=== PATIENT | female | born 1950 | race Caucasian/White ===

== ENCOUNTER 2019-07-21 12:49 | Outpatient (CLI) | payer MEDICARE, MEDICAID, SELFPAY ==
--- NOTE | 2019-07-21 12:57 | CT_ITS ---
WS: [id number] CT scan of the abdominal aorta and arteries of the lower extremities. Additional two-dimensional cor onal and sagittal reconstruction was performed. MIP images were also performed. 07/21/2019 Clinical Data: PVD Comparison: CT abdomen and pelvis, 04/19/2019. DLP: 2281.[address] scans at [facility] use at least one of these dose optimization techniques: automat ed exposure control; mA and/or kV adjustment per patient size (includes targeted exams where dose is matched to clinical indication); or iterative reconstruction. Findings: Vascular studies: Abdominal aorta is normal in size. No aneurysm, mural thrombus, extravasation, occl usion or stenosis is seen. The iliac arteries are normal without without stenosis or occlusion. The f emoral arteries, popliteal arteries and arteries of the trifurcation all fill normally. No occlusions or stenoses are seen. Abdominal and pelvic findings: The lower lungs show no nodules, masses or effusions. The liver shows a small cyst. The spleen, pancreas and adrenal glands show no significant abnormalities. There is a s mall left adrenal adenoma. The gallbladder is absent with clips in the gallbladder fossa from surgery . The kidneys show excellent contrast excretion. No masses are seen. The stomach, small bowel and col on are unremarkable. There is a small right paramedian soft tissue hernia which contains only fat. No abscess, adenopathy, ascites, mass, obstruction or free air is seen. No appendicitis or diverticulit is is present. The bladder is normal. The uterus is absent. Degenerative arthritic change of the lowe r thoracic vertebral bodies in the lower vertebral bodies is noted. CT/CT angio abd aorta runof [id number] Impression: 1. Negative for significant peripheral vascular disease. 2. Normal abdominal aorta. 3. No acute intra-abdominal or pelvic abnormalities are seen.
[2019-07-21 13:41] LABS: Blood Urea Nitrogen 20 mg/dL (8-23); Glomerular Filtration Rate 49.1 mL/min (90-130)
[2019-07-21] MEDS: iodixanol 320 mg/mL 100mL Btl IV (14:25)
== END 2019-07-21 12:50 | disposition home or self-care (01) ==
LOC: RAD 12:53
PROVIDERS: Family Provider Family Medicine; PCP Family Medicine; Visit Provider Internal Medicine Cardiovascular Disease
DX: I73.9 Peripheral vascular disease, unspecified (principal)
CPT/HCPCS: 36415; 75635; 82565; 84520

== ENCOUNTER 2019-08-11 12:33 | Emergency (ER) | payer MEDICARE, MEDICAID, SELFPAY ==
--- NOTE | 2019-08-11 12:37 | XRR_ITS ---
PROCEDURE INFORMATION: Exam: XR Chest, 1 View Exam date and time: 08/11/2019 1:41 PM Age: 69 years old Clinical indication: Chest pain; Additional info: Chest pain, shortness of breath since last pm TECHNIQUE: Imaging protocol: XR of the chest Views: 1 view. COMPARISON: CR Chest 1 [place] [id number] 03/13/2017 12:37 AM FINDINGS: Lungs: Unremarkable. No consolidation. Pleural space: Unremarkable. No pleural effusion. No pneumothorax. Heart/Mediastinum: Unremarkable. No cardiomegaly. Bones/joints: Unremarkable. Metallic surgical clips is seen in the left upper quadrant. There has been no interval changes since prior examination XR/XR chest 1V portable [id number] IMPRESSION: No acute findings. Metallic surgical clips left upper quadrant
[2019-08-11 12:50] VITALS: BP 127/88; PULSE 80; RESP 18; TEMP 36.4; O2SAT 97; BMI 45.7
[2019-08-11 14:08] LABS: Basophils # 0.1 10^3/uL (0.0-0.1); Basophils % 1.1 %; Eosinophils # 0.2 10^3/uL (0.0-0.8); Eosinophils % 2.6 %; Hematocrit 36.9 % (37.0-47.0); Hemoglobin 11.3 g/dL (11.5-15.3); Lymphocytes # 1.4 10^3/uL (0.8-4.8); Lymphocytes % 20.6 %; Mean Corpuscular HGB Conc 30.6 g/dL (30.0-36.0); Mean Corpuscular Hemoglobin 28.8 pg (28.0-34.0); Mean Corpuscular Volume 93.9 fL (81-99); Mean Platelet Volume 8.8 fL (7.4-10.4); Monocytes # 0.4 10^3/uL (0.2-0.9); Monocytes % 6.3 %; Neutrophils # 4.8 10^3/uL (1.8-7.7); Neutrophils % 69.1 %; Nucleated Red Blood Cells % 0 %; Platelet Count 291 10^3/cmm (130-400); Red Blood Count 3.93 10^6/uL (4.1-5.3); Red Cell Distribution Width 16.7 % (12.1-15.1)
[2019-08-11 14:27] LABS: Troponin(5th) Baseline 19 ng/mL (0-10)
[2019-08-11 14:32] LABS: Alanine Aminotransferase 14 U/L (0-33); Albumin Level 4.1 g/dL (3.5-5.2); Alkaline Phosphatase 107 IU/L (35-105); Anion Gap 17.4 (5-19); Aspartate Amino Transferase 19 U/L (0-32); Blood Urea Nitrogen 20 mg/dL (8-23); Carbon Dioxide 21 mmol/L (22-29); Chloride 103 mmol/L (98-107); Glomerular Filtration Rate 44.4 mL/min (90-130); Glucose 111 mg/dL (74-106); NT Pro B Type Natriuretic Pept 228 pg/mL (0-125); Potassium 4.4 mmol/L (3.5-5.1); Sodium 137 mmol/L (136-145); Total Bilirubin 0.2 mg/dL (0.15-1.2); Total Protein 6.1 g/dL (6.6-8.7)
--- NOTE | 2019-08-11 14:37 | ECG_ITS ---
Measurements Intervals [place] Rate: 78 P: WA: 0 QRS: 2 QRSD: 100 T: 37 QT: 378 QTc: 431 Normal sinus rhythm with frequent PACs ABNORMAL RHYTHM ECG INTERPRETATION BASED ON A DEFAULT AGE OF 40 YEARS Compared to ECG 03/12/2017 23:11:58 Sinus tachycardia no longer present T-wave abnormality no longer present Electronically Signed On 08-11-2019 15:40:59 HAND PAINTER by Tiara Turcios M.D. [email or web address]
[2019-08-11 14:44] LABS: Calcium 9.5 mg/dL (8.5-10.5)
[2019-08-11 16:48] LABS: Troponin 5 2HR 19.95 ng/mL (0-10); Troponin 5 2HR Delta 0.95 ABS# (0-10)
[2019-08-11 17:07] VITALS: BP 139/86; PULSE 78; RESP 20; TEMP 36.3; O2SAT 100
--- NOTE | 2019-08-11 18:37 | ECG_ITS ---
Measurements Intervals [place] Rate: 86 P: -78 IL: 100 QRS: 0 QRSD: 78 T: 52 QT: 365 QTc: 439 Possible normal sinus rhythm Compared to ECG 03/12/2017 23:11:58 Sinus tachycardia no longer present T-wave abnormality no longer present Electronically Signed On 08-11-2019 15:39:27 SPECIALIZED DEVELOPER by Tiara Turcios M.D. [email or web address]
== END 2019-08-11 18:26 | disposition left against medical advice (07) ==
LOC: ER 15:25
PROVIDERS: Emergency Medicine; Emergency Provider Family Medicine; Family Provider Family Medicine; PCP Family Medicine
DX: Z53.21 Procedure and treatment not carried out due to patient leaving prior to being seen by health care provider (principal); R07.9 Chest pain, unspecified
CPT/HCPCS: 36415; 71045; 80053; 83880; 84484; 85025; 93005; 99281

== ENCOUNTER 2020-05-06 12:38 | Outpatient (CLI) | payer MEDICARE, MEDICAID, SELFPAY ==
--- NOTE | 2020-05-06 12:54 | MM_ITS ---
WS: [id number] BILATERAL DIGITAL SCREENING MAMMOGRAPHY WITH CAD CLINICAL INFORMATION: SCREEN HISTORY: Screening mammogram. No current complaints. COMPARISON: March 21, 2019 TECHNIQUE: Bilateral CC and MLO views. FINDINGS: Scattered fibroglandular densities bilaterally. No suspicious focal mass, asymmetry, calcifications, or architectural distortion. No evidence of malignancy. MM/[place] [id number] IMPRESSION: BI-RADS: 1-Negative FOLLOW UP: 1 Year Follow-up Recommend return to annual screening mammography.
== END 2020-05-06 12:39 | disposition home or self-care (01) ==
LOC: RADSHAW 12:42
PROVIDERS: PCP Family Medicine; Visit Provider Family Medicine
DX: Z12.31 Encounter for screening mammogram for malignant neoplasm of breast (principal)
CPT/HCPCS: 77067

== ENCOUNTER 2020-11-05 13:37 | Outpatient (CLI) | payer MEDICARE, MEDICAID, SELFPAY ==
--- NOTE | 2020-11-05 13:46 | XR_ITS ---
WS: [id number] RIGHT KNEE: 3 VIEW(S) TECHNIQUE: AP, oblique(s) and lateral. HISTORY: PAIN IN RIGHT KNEE COMPARISON: 05/28/2016 No fracture or dislocation. Severe degenerative changes in the medial and patellofemoral compartments. In the medial compartment there is near bone upon bone with sclerosis and hypertrophic formation along the joint line. Similar findings at the patellofemoral articulation. Large calcific density posterior to the femoral condyles measures 2.0 cm. No joint effusion. XR/XR knee RT 3V* [id number] IMPRESSION: 1. Severe osteoarthritis in the medial and patellofemoral compartments. 2. Calcific density posterior to the femoral condyles may be within the joint space or associated with the Francisco's cyst.
== END 2020-11-05 13:38 | disposition home or self-care (01) ==
PROVIDERS: PCP Family Medicine; Visit Provider Nurse Practitioner
DX: M17.11 Unilateral primary osteoarthritis, right knee (principal)
CPT/HCPCS: 73562

== ENCOUNTER 2021-05-12 10:44 | Outpatient (CLI) | payer MEDICARE, MEDICAID, SELFPAY ==
--- NOTE | 2021-05-12 10:51 | FL_ITS ---
WS: [id number] Exam: FL barium swallow modifd [id number] Date/Time of Exam: 05/12/2021 11:02 AM Reason For Exam: Other dysphagia Fluoroscopy time: minutes This exam was performed in conjunction with the speech therapy department. The patient tolerated thin liquid, nectar consistency, and pudding consistency barium foodstuffs with out aspiration or penetration. The patient also tolerated solid barium mixture foodstuffs without inc ident. The patient swallowed a barium pill which passed into the stomach. There was moderate spasm of the mid esophagus noted during fluoroscopic evaluation. Swallowing function at the level of orophary nx appeared grossly normal FL/FL barium swallow modifd 92475 IMPRESSION: 1. The patient tolerated all consistencies of barium mixture foodstuffs without penetration or aspiration. 2. Presbyesophagus. A separate report and recommendations from the speech therapy department will gorge abreu.
== END 2021-05-12 10:45 | disposition home or self-care (01) ==
LOC: RAD 10:47
PROVIDERS: PCP Family Medicine; Visit Provider Family Medicine
DX: R13.10 Dysphagia, unspecified (principal)
CPT/HCPCS: 74230; 92611

== ENCOUNTER 2021-06-23 13:01 | Outpatient (CLI) | payer MEDICARE, MEDICAID, SELFPAY ==
--- NOTE | 2021-06-23 13:14 | MM_ITS ---
WS: [id number] SCREENING DIGITAL MAMMOGRAM WITH CAD HISTORY: SCREENING COMPARISON: 05/06/2020, 03/21/2019, 03/11/2018 Bilateral CC and MLO views submitted. Computer aided detection analyzed. Breast composition: There are scattered areas of fibroglandular density. There is increased soft tiss ue density in the anterior RIGHT breast in the subareolar location. On the lateral projection there i s 2 nodules. One of these is probably the nipple which is inverted. Inferior nodule measures 8 mm and is to be further evaluated. MM/[place] [id number] IMPRESSION: BI-RADS: 0-Incomplete: Need additional imaging evaluation FOLLOW UP: Need Additional Imaging RIGHT breast: Spot compression views (CC and MLO). Additional imaging RIGHT swetha ast with nipple marker RIGHT MLO projection. True ML. Ultrasound to follow if a bnormality persists.
== END 2021-06-23 13:02 | disposition home or self-care (01) ==
LOC: RADSHAW 13:05
PROVIDERS: PCP Family Medicine; Visit Provider Family Medicine
DX: Z12.31 Encounter for screening mammogram for malignant neoplasm of breast (principal)
CPT/HCPCS: 77067

== ENCOUNTER 2021-07-22 12:29 | Outpatient (CLI) | payer MEDICARE, MEDICAID, SELFPAY ==
--- NOTE | 2021-07-22 13:09 | US_ITS ---
WS: [id number] ADDITIONAL VIEWS RIGHT BREAST RIGHT breast ultrasound, limited HISTORY: ABNORMAL MAMMO COMPARISON: 06/23/2021, 05/06/2020 and 03/21/2019 Compression views right CC and MLO projection. True ML also submitted. Asymmetry with mild skin thickening involving the anterior RIGHT breast persists. There is no discret e nodule or distortion. The most concerning feature is the skin thickening anteriorly. RIGHT breast ultrasound, limited. Ultrasound is directed to the anterior breast. There are several dilated ducts just posterior to the nipple, greatest at the 9:00 axis. There is increased soft tissue and low level echoes within several of the ducts with the largest area of concern measuring 1.0 x 2.1 x 0.6 cm. No increased vascularity . US/US breast RT limited* [id number] IMPRESSION: BI-RADS: 4-Suspicious Finding-Biopsy Should Be Considered FOLLOW-UP: Biopsy Recommended Ultrasound-guided biopsy recommended of the dilated duct at 9:00 RIGHT breast. This may be benign duct ectasia but malignancy needs to be excluded. There is a lso adjacent skin thickening measuring 3 mm. Punched biopsy may be necessary if skin thickening. Notified Severino Hernández MD at 07/22/2021 4:05 PM. Message left at the answering desk.
== END 2021-07-22 12:30 | disposition home or self-care (01) ==
LOC: RADSHAW 12:37
PROVIDERS: PCP Family Medicine; Visit Provider Family Medicine
DX: R92.8 Other abnormal and inconclusive findings on diagnostic imaging of breast (principal); N63.15 Unspecified lump in the right breast, overlapping quadrants
CPT/HCPCS: 76642; 77065

== ENCOUNTER 2021-07-29 12:34 | Outpatient (RCR) | payer MEDICARE, MEDICAID, SELFPAY | END 2021-08-18 23:59 | disposition home or self-care (01) | LOC: SST 12:34 | PROVIDERS: PCP Family Medicine; Visit Provider Family Medicine | DX: R13.10 Dysphagia, unspecified (principal); R06.1 Stridor | CPT/HCPCS: 92610 ==

== ENCOUNTER 2021-08-13 12:49 | Outpatient (CLI) | payer MEDICARE, MEDICAID, SELFPAY ==
--- NOTE | 2021-08-13 12:56 | US_ITS ---
WS: [id number] ULTRASOUND-GUIDED RIGHT BREAST BIOPSY CLINICAL INFORMATION: BREAST NODULE, RIGHT COMPARISON: None. FINDINGS: The procedure including risks, benefits, and complications were discussed with the patient who agreed to proceed. Using sterile technique patient was prepped and draped in the usual sterile fashion. Aft er 1% lidocaine utilizing real-time ultrasound guidance 14-gauge cores were obtained of the RIGHT swetha ast lesion at the subareolar 9 o'clock position. Subsequently a titanium clip was placed in the biops y cavity. No immediate complications. Pathology demonstrates A. Breast, right breast mass , ultrasound-guided biopsy: -Benign breast tissue with focal duct ectasia. -No malignancy identified. US/[place] [id number] IMPRESSION: 1. Uncomplicated ultrasound-guided RIGHT breast biopsy. 2. The pathology demonstrates benign focal duct ectasia. No malignancy identif ied. 3. Recommend 6 month follow-up RIGHT breast diagnostic mammography and ultraso und postbiopsy BI-RADS: 2-Benign FOLLOW UP: 6 Month Follow-up
== END 2021-08-13 12:50 | disposition home or self-care (01) ==
LOC: RAD 12:51
PROVIDERS: PCP Family Medicine; Visit Provider Family Medicine
DX: N63.10 Unspecified lump in the right breast, unspecified quadrant (principal); N60.41 Mammary duct ectasia of right breast
CPT/HCPCS: 19083; 88305

== ENCOUNTER → 2021-09-30 11:50 | Outpatient (BNVA) | payer MEDICARE, MEDICAID, SELFPAY | PROVIDERS: PCP Family Medicine; Visit Provider Nurse Practitioner Family | DX: N30.90 Cystitis, unspecified without hematuria (principal) | CPT/HCPCS: 81003; 87086 ==

== ENCOUNTER → 2021-10-21 13:14 | Outpatient (BNVA) | payer MEDICARE, MEDICAID, SELFPAY | PROVIDERS: PCP Nurse Practitioner Family; Visit Provider Internal Medicine Critical Care Medicine | DX: R06.02 Shortness of breath (principal); R06.1 Stridor; Z87.891 Personal history of nicotine dependence; I10 Essential (primary) hypertension; E11.8 Type 2 diabetes mellitus with unspecified complications; N30.90 Cystitis, unspecified without hematuria; I73.9 Peripheral vascular disease, unspecified; E66.9 Obesity, unspecified | CPT/HCPCS: 99204 ==

== ENCOUNTER → 2021-11-10 10:59 | Outpatient (BNVA) | payer MEDICARE, MEDICAID, SELFPAY | PROVIDERS: PCP Nurse Practitioner Family; Visit Provider Otolaryngology | DX: R06.1 Stridor (principal); R06.02 Shortness of breath; Z87.891 Personal history of nicotine dependence | CPT/HCPCS: 31575; 99203; 99204 ==

== ENCOUNTER 2021-11-12 13:07 | Observation (INO) | payer MEDICARE, MEDICAID, SELFPAY ==
[2021-11-12] VITALS (13 sets, daily range): BP systolic 141–191; BP diastolic 77–109; PULSE 74–95; RESP 13–25; TEMP 36.3–36.8; O2SAT 94–100; BMI 45.1
--- NOTE | 2021-11-12 13:38 | XR_ITS ---
WS: [id number] Portable AP upright chest, 11/12/2021 Clinical Data: dyspnea Comparison: PA chest, 05/31/2020. Findings: No nodules, masses or effusions are seen. The heart is normal. The pulmonary vascularity is not increased. No pneumonia or pneumothorax is seen. The aortic arch and descending aorta show mild tortuosity. There are upper abdominal surgical clips. Monitor leads are on the chest wall. XR/XR chest 1V portable [id number] Impression: Atherosclerosis.
--- NOTE | 2021-11-12 13:39 | ECG_ITS ---
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 Measurements Intervals [place] Rate: 78 P: 94 NE: 138 QRS: 7 QRSD: 85 T: 25 QT: 411 QTc: 470 Interpretive Statements SINUS RHYTHM WITH OCCASIONAL VENTRICULAR PREMATURE COMPLEXES WITH OCCASIONAL SUPRAVENTRICULAR PREMATURE COMPLEXES Compared to ECG 08/11/2019 14:47:01 Ventricular premature complex(es) now present Electronically Signed On 11-12-2021 16:55:34 CDT by Victor Manuel Andujar M.D. [id number]
--- NOTE | 2021-11-12 13:43 | PC.NURSE ---
PT placed on continuous NIBP, SpO2, and CM
--- NOTE | 2021-11-12 13:49 | CT_ITS ---
WS: [id number] CT HEAD NONCONTRAST HISTORY: vertigo TECHNIQUE: Contiguous axial imaging performed through the brain in 2.5 mm imaging. Bone and soft tiss ue windows. Sagittal and coronal reformats reviewed. All CT scans at [facility] use at least one of these dose optimization techniques: automated exposure control; mA and/or kV adjustment per pa tient size (includes targeted exams where dose is matched to clinical indication); or iterative recon struction. DLP: 745.32 mGy.cm COMPARISON: 03/12/2017 No acute intracranial hemorrhage, midline shift or mass effect. Mild cerebellar atrophy. Mild cerebral atrophy and chronic microvascular ischemic changes. There are a few scattered areas of decreased attenuation at the donnelly-white matter junction which are nonspecific probably related to adama ng and small vessel ischemic disease. Ventricles: Normal size with no hydrocephalus. Paranasal sinuses: As visualized are clear. Mastoid air cells: Well pneumatized. Calvarium and scalp: Skull is intact with no soft tissue edema or swelling. CT/CT head wo con* [id number] IMPRESSION: 1. No acute intracranial hemorrhage or edema. 2. Mild atrophy and small vessel ischemic disease.
--- NOTE | 2021-11-12 13:49 | CT_ITS ---
WS: [id number] CT ANGIOGRAM CEREBRAL AND CAROTID ARTERIES HISTORY: vertigo TECHNIQUE: CT angiogram is performed of the carotid and cerebral arteries. During arterial injection imaging is obtained from the skull vertex to the aortic arch in 1.25 mm imaging. Coronal and sagittal reformats are submitted. Additional multi planar reformats of the carotid and cerebral arteries are submitted, MIP imaging also reviewed. NASCET criteria utilized. [facility] least one of these dose optimization techniques: automated exposure control; mA and/or kV adjust ment per patient size (includes targeted exams where dose is matched to clinical indication); or iter ative reconstruction. CONTRAST: Omnipaque 350; 95 mL IV. DLP: 2147.07 mGy.cm COMPARISON: No similar studies. Carotid Angiogram: Right carotid: Common carotid artery: Arises normally from the innominate artery. No significant plaque or stenosis. Internal carotid artery: No plaque or stenosis. External carotid artery: Patent. Left carotid: Common carotid artery: Arises normally from the aorta. No significant plaque or stenosis. Internal carotid artery: Mild atherosclerotic plaque. No high-grade stenosis. External carotid artery: Patent. Right vertebral artery: Small caliber but patent. Left vertebral artery: Unremarkable. Arises normally from the subclavian artery. Subclavian arteries: RIGHT subclavian artery is normal. Poor visualization of the LEFT subclavian art sen due to contrast injection bolus. Upper thorax: Normal. Thyroid gland: Normal. Osseous structures: Unremarkable. CEREBRAL ANGIOGRAM: Intracranial vertebral arteries: Small caliber distal vertebral artery on the RIGHT but patent. Margie l LEFT vertebral artery. Basilar artery: No significant stenosis or occlusion. No aneurysm. Intracranial Internal carotid arteries: Demonstrates no significant stenosis or plaque. Middle cerebral arteries: Normal. Anterior cerebral arteries and ACOM: Normal. Posterior cerebral arteries and PCOM's: Normal. Dural venous sinuses are normally enhancing. Mastoid air cells: Normal. Paranasal sinuses: Normal. Calvarium: Normal. CT/CT angio headneck* [id number] IMPRESSION: 1. No significant carotid artery stenosis. Mild atherosclerotic plaque on the LEFT. 2. Unremarkable [place].
[2021-11-12 13:52] LABS: Basophils # 0.1 10^3/uL (0.0-0.1); Basophils % 1.3 %; Eosinophils # 0.1 10^3/uL (0.0-0.8); Eosinophils % 1.4 %; Hematocrit 35.7 % (37.0-47.0); Hemoglobin 11.6 g/dL (11.5-15.3); Lymphocytes # 0.9 10^3/uL (0.8-4.8); Mean Corpuscular HGB Conc 32.5 g/dL (30.0-36.0); Mean Corpuscular Hemoglobin 28.3 pg (28.0-34.0); Mean Corpuscular Volume 87.1 fl (81-99); Mean Platelet Volume 9.4 fL (7.4-10.4); Monocytes # 0.4 10^3/uL (0.2-0.9); Monocytes % 7.7 %; Neutrophils # 4.06 10^3/uL (1.8-7.7); Neutrophils % 73.2 %; Nucleated Red Blood Cells % 0 %; Platelet Count 331 10^3/cmm (130-400); Red Cell Distribution Width 13.9 % (12.1-15.1); White Blood Count 5.6 10^3/uL (4.0-10.0)
[2021-11-12] MEDS: sodium chloride 0.9% 500 ML IV (14:00)
[2021-11-12] MEDS: meclizine 25 mg tablet 50 MG PO (14:01)
--- NOTE | 2021-11-12 14:03 | ED_ITS ---
HPI - General Adult General: Chief complaint: Shortness of Breath/Dyspnea Stated complaint: SOB/ DIZZINESS Time Seen by Provider: 11/12/21 13:27 History of Present Illness: Patient is a 71-year-old female with history of diabetes, hypertension, COPD and asthma on 3 L of oxygen presenting to the emergency room for concerns of dizziness and worsening lightheadedness. Per patient's family, since yesterday afternoon at 1 PM, patient has been experiencing intermittent vertigo symptoms. Patient has a history of vertigo in the past which has now worsened despite taking meclizine. Patient says that he she has had intermittent episodes of vertigo sensation lasting for a few hours at a time. Patient denies any nausea/vomiting or focal weakness in the arms or legs, facial droop, slurring of speech, vision change or dysarthria or language problems. In addition, per family, patient has been noted to be wheezing and short of breath for 1 day. Patient has a chronic cough and now has had productive sputum today. Patient received breathing treatment at home without significant improvement. EMS was called, patient was brought to the emergency room for further evaluation. Onset:2 days ago Duration:2 days Location:home Severity:moderate Associated symptoms: Reports dyspnea; Deny chest pain, nausea, rash, palpitations or vomiting Review of Systems Const: Denies: fever(s) or chills Eyes: Denies: change in vision ENMT: Denies: mouth pain Card: Denies: chest pain or palpitations Resp: Reports: dyspnea and productive cough GI: Denies: abdominal pain, nausea, vomiting or diarrhea : Denies: dysuria Musc: Denies: extremity pain Skin/Breast: Denies: rash or new lesions Neuro: Reports: other (+vertigo); Denies: weakness in extremities Psych: Reports: other (Normal mood) Ben/Lymph: Denies: easy bruising PFSH ED PFSH: Medical History Cystitis Diabetes Hypertension Obesity Peripheral Vascular Disease Recurrent UTI Surgical History S/P appendectomy S/P CABG (coronary artery bypass graft) S/P cholecystectomy S/P hysterectomy Family History Mother , AT 78 Cancer BREAST AND SPINE Grandmother Cancer Father , AT 62 Heart attack Other CAD (coronary artery disease) Hypertension Social History Smoking and tobacco status: former smoker (quit since ) Quit status (tobacco): has quit using tobacco Year quit tobacco: 1985 Former quit date comment: 1 ppd X 15 years, Started at age 14 Alcohol intake: never Marital status: Current occupational status: disabled History of recent travel: No Physical Exam Const: COMMON NORMALS: alert HENMT: COMMON NORMALS: atraumatic HEAD & SCALP: atraumatic MOUTH: moist mucous membranes not abnormal Eye: COMMON NORMALS: EOMs intact bilaterally and conjunctivae normal CONJUNCTIVA: Yes conjunctivae normal Neck/C-Spine: COMMON NORMALS: full ROM and supple Resp: COMMON NORMALS: normal respiratory effort and clear to auscultation bilaterally AUSCULTATION: clear to auscultation bilaterally Cardio: COMMON NORMALS: regular rate RATE: regular rate GI: COMMON NORMALS: Soft to palpation and non-tender PALPATION: Yes Soft to palpation Extremity: COMMON NORMALS: full ROM Neuro: SENSORIUM/ORIENTATION: Yes alert MOTOR EXAM: No Abnormal motor strength present and Other motor observations present (no focal motor deficits) Psych: COMMON NORMALS: speech normal SPEECH: Yes normal speech MOOD & AFFECT: Yes euthymic mood Course Vital Signs: Vital signs: Vital Signs Temperature 97.9 F 11/13/21 15:10 Pulse Rate 88 11/13/21 15:10 Respiratory Rate 18 11/13/21 15:10 Blood Pressure 169/94 11/13/21 15:10 Pulse Oximetry 93 11/13/21 15:10 MDM - General Adult Medical Decision Making 71-year-old female presenting to the emergency room with worsening lightheadedness. Troponin x2 with delta less than 5. EKG is nonischemic. CT head negative for any acute finding. CT head negative for any acute pathology. Patient will be admitted to hospital for lightheadedness work-up. Lab Data : 11/13/21 05:57 11/13/21 05:[address] 11/12/21 13:49 IMPRESSION: 1. No acute intracranial hemorrhage or edema. 2. Mild atrophy and small vessel ischemic disease. Head/Neck CTA 11/12/21 13:49 IMPRESSION: 1. No significant carotid artery stenosis. Mild atherosclerotic plaque on the LEFT. 2. Unremarkable the [place]. Chest CT 11/12/21 15:06 IMPRESSION: 1. Mild thickening of the interlobular septa. May be due to pneumonitis or mild fluid overload. No focal dense consolidation or pneumonia. 2. Enlarged pulmonary artery. Correlate for possible pulmonary hypertension. 3. Prior cholecystectomy and gastric bypass. 4. Hepatic cyst. Chest X-Ray 11/13/21 07:43 IMPRESSION: No evidence of active cardiopulmonary disease. Laboratory Results WBC 5.6 10^3/uL (4.0-10.0) 11/12/21 12:46 RBC 4.10 10^6/uL (4.1-5.3) 11/12/21 12:46 Hgb 11.6 g/dL (11.5-15.3) 11/12/21 12:46 Hct 35.7 % (37.0-47.0) L 11/12/21 12:46 MCV 87.1 fl (81-99) 11/12/21 12:46 MCH 28.3 pg (28.0-34.0) 11/12/21 12:46 MCHC 32.5 g/dL (30.0-36.0) 11/12/21 12:46 RDW 13.9 % (12.1-15.1) 11/12/21 12:46 Plt Count 331 10^3/cmm (130-400) 11/12/21 12:46 MPV 9.4 fL (7.4-10.4) 11/12/21 12:46 Neut % (Auto) 73.2 % 11/12/21 12:46 Lymph % (Auto) 16.0 % 11/12/21 12:46 [place] % (Auto) 7.7 % 11/12/21 12:46 Eos % (Auto) 1.4 % 11/12/21 12:46 Baso % (Auto) 1.3 % 11/12/21 12:46 Neut # (Auto) 4.06 10^3/uL (1.8-7.7) 11/12/21 12:46 Lymph # (Auto) 0.9 10^3/uL (0.8-4.8) 11/12/21 12:46 [place] # (Auto) 0.4 10^3/uL (0.2-0.9) 11/12/21 12:46 Eos # (Auto) 0.1 10^3/uL (0.0-0.8) 11/12/21 12:46 Baso # (Auto) 0.1 10^3/uL (0.0-0.1) 11/12/21 12:46 Nucleated RBC % (auto) 0 % 11/12/21 12:46 Nucleated RBCs # 0.0 /100WBC 11/12/21 12:46 Specimen Type Arterial 11/12/21 15:50 Sample Site Radial, right 11/12/21 15:50 ABG pH 7.46 (7.35-7.45) H 11/12/21 15:50 ABG pCO2 29.3 mmHg (35-45) L 11/12/21 15:50 ABG pO2 126.0 mmHg (80.0-100.0) H 11/12/21 15:50 ABG HCO3 20.8 mmol/L (22-26) L 11/12/21 15:50 ABG O2 Saturation 97.6 11/12/21 15:50 ABG Base Excess -2.2 mmol/L (-2.0-2.0) L 11/12/21 15:50 [place] Test Pos 11/12/21 15:50 Hematocrit 34.3 % (37-47) L 11/12/21 15:50 Hgb O2 Saturation 97.0 % (95-100) 11/12/21 15:50 Carboxyhemoglobin < 0.0 %THgb (0.4-20.1) L 11/12/21 15:50 Methemoglobin 0.9 % (0.4-1.5) 11/12/21 15:50 Total Hemoglobin 11.2 g/dL (12-16) L 11/12/21 15:50 Sodium 128.0 mmol/L (131-143) L 11/12/21 15:50 Potassium 3.7 mmol/L (3.5-5.0) 11/12/21 15:50 Glucose 121.0 mg/dL (70-115) H 11/12/21 15:50 Ionized Calcium 1.2 mmol/L (1.1-1.4) 11/12/21 15:50 O2 Delivery Device Nc 11/12/21 15:50 O2 Liters/Min 3.0 % 11/12/21 15:50 Weaving Inspector ID Jasonja 11/12/21 15:50 Sodium 129 mmol/L (136-145) L 11/12/21 12:46 Potassium 4.4 mmol/L (3.5-5.1) 11/12/21 12:46 Chloride 93 mmol/L (98-107) L 11/12/21 12:46 Carbon Dioxide 22 mmol/L (22-29) 11/12/21 12:46 Anion Gap 18.4 (5-19) 11/12/21 12:46 BUN 11 mg/dL (8-23) 11/12/21 12:46 Creatinine 1.0 mg/dL (0.5-0.9) H 11/12/21 12:46 GFR Calculation Not Reportable 11/12/21 12:46 Glucose 99 mg/dL (65-115) 11/12/21 12:46 Calculated Osmolality 267 mOsm/kg (285-295) L 11/12/21 12:46 Calcium 8.8 mg/dL (8.5-10.5) 11/12/21 12:46 Troponin T Baseline 19 ng/L (0-10) H 11/12/21 12:46 Troponin T 120 Minute 18.82 ng/L (0-10) H 11/12/21 15:10 Delta Troponin T -0.18 ABS# (0-10) L 11/12/21 15:10 NT-Pro-B Natriuret Pep 1078 pg/mL (0-125) H 11/12/21 12:46 Urine Color Yellow (Yellow) 11/12/21 16:07 Urine Appearance Clear (CLEAR) 11/12/21 16:07 Urine pH 7 (5-7) 11/12/21 16:07 Ur Specific [place] 1.005 (1.005-1.030) 11/12/21 16:07 Urine Protein Neg (Negative) 11/12/21 16:07 Urine Glucose (UA) Norm (Normal) 11/12/21 16:07 Urine Ketones Negative (Negative) 11/12/21 16:07 Urine Blood Neg (Negative) 11/12/21 16:07 Urine Nitrate Negative (Negative) 11/12/21 16:07 Urine Bilirubin Neg (Negative) 11/12/21 16:07 Urine Urobilinogen Neg mg/dL (Negative) 11/12/21 16:07 Ur Leukocyte Esterase Negative (Negative) 11/12/21 16:07 Ur Random Sodium 86 mmol/L 11/12/21 16:07 Nasal Influ A H1 2009 PCR Not detected (NOT DETECT) 11/12/21 14:08 Coronavirus 229E (PCR) Not detected (NOT DETECT) 11/12/21 14:08 Influenza A (H1) PCR Not detected (NOT DETECT) 11/12/21 14:08 Influenza A (H3) PCR Not detected (NOT DETECT) 11/12/21 14:08 Influenza Type A (PCR) Not detected (NOT DETECT) 11/12/21 14:08 Influenza Type B (PCR) Not detected (NOT DETECT) 11/12/21 14:08 SARS-CoV-2 (PCR) Not detected (NOT DETECT) 11/12/21 14:08 Imaging Data Other Imaging: Radiologist's impression: [address] [address] XRay Report Signed Patient: Mayda Del Cid Unit #: [id number] : 1950 Age/Sex: 71 / F ADM Date: 11/12/21 Loc: ER Room/Bed: Attending Dr: Ordering Provider/Ordering MD: Jean Paul Butt MD Date of Service: 11/12/21 Procedure(s): XR chest 1V portable [id number] Accession Number(s): [id number] Report Number: [id number] WS: [id number] Portable AP upright chest, 11/12/2021 Clinical Data: dyspnea Comparison: PA chest, 05/31/2020. Findings: No nodules, masses or effusions are seen. The heart is normal. The pulmonary vascularity is not increased. No pneumonia or pneumothorax is seen. The aortic arch and descending aorta show mild tortuosity. There are upper abdominal surgical clips. Monitor leads are on the chest wall. XR/XR chest 1V portable [id number] Impression: Atherosclerosis. ? Dictated By: Chantal Moore MD Signed By: Chantal Moore MD Signed Date/Time: 11/12/21 1354 DD/ 1353 [facility] [address] [place] [address] CT Scan Report Signed Patient: Mayda Del Cid Unit #: [id number] : 1950 Age/Sex: 71 / F ADM Date: 11/12/21 Loc: [facility] Room/Bed: [facility] Attending Dr: Misti Swenson MD Ordering Provider/Ordering MD: Jean Paul Butt MD Date of Service: 11/12/21 Procedure(s): CT head wo con* [id number] Accession Number(s): [id number] Report Number: [id number] WS: [id number] CT HEAD NONCONTRAST HISTORY: vertigo TECHNIQUE: Contiguous axial imaging performed through the brain in 2.5 mm imaging. Bone and soft tissue windows. Sagittal and coronal reformats reviewed.? All CT scans at [facility] use at least one of these dose optimization techniques: automated exposure control; mA and/or kV adjustment per patient size (includes targeted exams where dose is matched to clinical indication); or iterative reconstruction. DLP: 745.32 mGy.cm COMPARISON: 03/12/2017 No acute intracranial hemorrhage, midline shift or mass effect. Mild cerebellar atrophy. Mild cerebral atrophy and chronic microvascular ischemic changes. There are a few scattered areas of decreased attenuation at the donnelly-white matter junction which are nonspecific probably related to aging and small vessel ischemic disease. Ventricles:? Normal size with no hydrocephalus. Paranasal sinuses: As visualized are clear. Mastoid air cells: Well pneumatized. Calvarium and scalp: Skull is intact with no soft tissue edema or swelling. CT/CT head wo con* [id number] IMPRESSION: ? 1.? No acute intracranial hemorrhage or edema. 2.? Mild atrophy and small vessel ischemic disease. ? Dictated By: Carolyn Almodovar DO Signed By: Carolyn Almodovar DO Signed Date/Time: 11/12/21 1544 DD/ 1541 Discharge Plan Discharge Patient Disposition: Admitted As Inpatient Admit Provider: Misti Swenson Clinical Impression: Wheezes, Dyspnea, Vertigo Condition: Stable Discharge Diet: Regular and Diabetic Discharge Activity: Resume usual activity and Oxygen as instructed Coding Level of Care Code ED Medical Staffing Coordinator for Chg Fwd Exam Comprehensive
[2021-11-12] MEDS: ipratropium-albuterol 3 mL Neb INHALATION ×4 (14:07→20:57)
[2021-11-12 14:29] LABS: Anion Gap 18.4 (5-19); Blood Urea Nitrogen 11 mg/dL (8-23); Calcium 8.8 mg/dL (8.5-10.5); Carbon Dioxide 22 mmol/L (22-29); Chloride 93 mmol/L (98-107); Glucose 99 mg/dL (65-115); Osmolality Calculated 267 mOsm/kg (285-295); Potassium 4.4 mmol/L (3.5-5.1); Sodium 129 mmol/L (136-145)
[2021-11-12 14:30] LABS: Troponin(5th) Baseline 19 ng/L (0-10)
[2021-11-12] MEDS: magnesium sulfate premix 2 GM/50 ML PIGGYBACK IV (14:57)
[2021-11-12 15:05] LABS: NT Pro B Type Natriuretic Pept 1078 pg/mL (0-125)
--- NOTE | 2021-11-12 15:06 | CT_ITS ---
WS: [id number] CT CHEST WITHOUT INTRAVENOUS CONTRAST HISTORY: sob TECHNIQUE: Contiguous 5 mm axial imaging performed on the thorax. Coronal and sagittal reformats are submitted. All CT scans at [facility] use at least one of these dose optimization techniques: automated exposure control; mA and/or kV adjustment per patient size (includes targeted exams where dose is matched to clinical indication); or iterative reconstruction. CONTRAST: None DLP: 765.01 mGy.cm COMPARISON: None available. Lungs and central airway: Mild pulmonary hyperinflation. There is diffuse mild thickening of the inte rlobular septa. No dense consolidations. No pleural effusion. Pleura: Normal. No pleural effusion. Heart and pericardium: Moderately enlarged heart. No effusion. Mediastinum and damian: On noncontrast exam no adenopathy is identified. Vessels: Marked dilatation of the pulmonary artery from pulmonary hypertension. Mild atherosclerosis aorta. Chest wall and lower neck: No soft tissue masses. Upper abdomen: Mild hepatic steatosis. Hepatic cyst measures 1.5 cm. Prior cholecystectomy. Postsurgi rosario changes of a gastric bypass. Osseous structures: Advanced degenerative changes in the mid thoracic spine. Remote healed rib fractu re mid RIGHT lateral thorax. CT/CT chest wo con [id number] IMPRESSION: 1. Mild thickening of the interlobular septa. May be due to pneumonitis or mil d fluid overload. No focal dense consolidation or pneumonia. 2. Enlarged pulmonary artery. Correlate for possible pulmonary hypertension. 3. Prior cholecystectomy and gastric bypass. 4. Hepatic cyst.
--- NOTE | 2021-11-12 15:27 | P.HP_ITS ---
Providers/Chief Complaint Admitting Physician: Misti Swenson MD Primary Care Provider: ANNE MARIE Chin Chief Complaint: SOB/ DIZZINESS History of Present Illness Mayda Del Cid is a 71 year old female with past medical history of diabetes mellitus type 2, hypertension, obesity, peripheral vascular disease, recurrent UTI, obesity, asthma presented to the hospital today with complaint of dizziness and worsening lightheadedness. She states that yesterday at 1 PM she has been experiencing intermittent vertigo symptoms. She has had vertigo in the past which has now worsened despite taking meclizine. She has had intermittent episodes of vertigo sensation lasting for few hours at a time. Patient has also been having wheezing and shortness of breath for the last 1 day. She does have a chronic cough and nonproductive sputum. She received a breathing treatment at home without significant improvement. She denies any nausea vomiting or arm or leg weakness, facial droop slurring of speech vision change or dysarthria or any language issues. SHe says she feels short of breath a and has been sleeping up in a recliner recently. Has not really felt any swelling of her lower ext remities. She is also very stressed as her is currently on life support in ICU. Daughter is present at bedside. Patient recently saw pulmonology about 2 weeks ago for evaluation and management of shortness of breath. Patient is a former smoker who quit 35 years ago. She was recommended to have a pulmonary function test 6-minute walk study nocturnal oximetry and echocardiogram done. She was placed on Symbicort to continue in the time being. She was also referred to ENT for evaluation of her expiratory stridor. Patient also saw ENT within the last 2 weeks and had a flexible laryngoscopy done. She has normal vocal cords. And she did have a little bit of a stridorous exhalation. No weakness or paralysis. Patient was referred back to go see tourist guide as there was no restriction of larynx found or narrowing of airway in the location. ED course: Blood pressure 157/98, respiratory 24, pulse rate 74, temp 97.4, pulse ox 98%. Patient was given 3 breathing treatments. CTA head and neck was ordered for her vertigo, CT head without contrast and CT chest was ordered. Hospitalist was called for admission. Initial labs were ordered which are all pending at this point. ABG, BNP, troponin pending. Medications/Allergies Home Medications Medication Instructions Recorded Confirmed Last Taken Type albuterol sulfate 90 mcg/actuation 2 puff INHALATION QID PRN 02/05/20 11/12/21 Unknown History aerosol inhaler (ProAir HFA) allopurinol 100 mg tablet 100 mg PO DAILY 02/05/20 11/12/21 Unknown History duloxetine 60 mg capsule,delayed 60 mg PO DAILY 02/05/20 11/12/21 Unknown History release (Cymbalta) metformin 500 mg tablet 500 mg PO DAILY 02/05/20 11/12/21 Unknown History metoprolol tartrate 25 mg tablet 12.5 mg PO BID 02/05/20 11/12/21 Unknown History montelukast 10 mg tablet 10 mg PO DAILY 02/05/20 11/12/21 Unknown History (Singulair) simvastatin 10 mg tablet 10 mg PO BEDTIME 02/05/20 11/12/21 Unknown History duloxetine 30 mg capsule,delayed 30 mg PO DAILY 07/21/21 11/12/21 Unknown History release (Cymbalta) gabapentin 300 mg capsule See Rx Instructions .ROUTE 07/21/21 11/12/21 Unknown History .COMPLEX cap hydrocodone 7.5 mg-acetaminophen 1 tab PO TID PRN 07/21/21 11/12/21 Unknown History 325 mg tablet magnesium oxide 400 mg PO DAILY 07/21/21 11/12/21 Unknown History metoclopramide HCl 10 mg tablet 10 mg PO TID 07/21/21 11/12/21 Unknown History (Reglan) pantoprazole 40 mg tablet,delayed 40 mg PO BID 07/21/21 11/12/21 Unknown History release (Protonix) vitamin B complex (B 1 tab PO DAILY 07/21/21 11/12/21 Unknown History Complex-Vitamin B12) cilostazol 50 mg tablet 50 mg PO BID #180 tab 09/08/21 11/12/21 Unknown Rx bupropion HCl 100 mg tablet,12 hr 100 mg PO BID 09/30/21 11/12/21 Unknown History sustained-release cefuroxime axetil 500 mg tablet 500 mg PO BID #60 tab 09/30/21 11/12/21 Unknown Rx docusate sodium 100 mg tablet 100 mg PO BID 09/30/21 11/12/21 Unknown History lisinopril 20 mg tablet 10 mg PO DAILY tab 09/30/21 11/12/21 Unknown History lubiprostone 24 mcg capsule 24 mcg PO BID 09/30/21 11/12/21 Unknown History multivitamin with minerals 1 tab PO DAILY 09/30/21 11/12/21 Unknown History (Hair,Skin and Nails) oxybutynin chloride 10 mg 10 mg PO BEDTIME 09/30/21 11/12/21 Unknown History tablet,extended release 24 hr Nervive 1 tab PO DAILY 11/12/21 11/12/21 Unknown History albuterol sulfate 2.5 mg INHALATION Q8H PRN 11/12/21 11/12/21 Unknown History budesonide-formoterol HFA 80 2 puff INHALATION BID 11/12/21 11/12/21 Unknown History mcg-4.5 mcg/actuation aerosol inhaler (Symbicort) clotrimazole 1 % topical cream 1 applic TOPICAL BID 11/12/21 11/12/21 Unknown History (Antifungal (clotrimazole)) estradiol See Rx Instructions .ROUTE .COMPLEX 11/12/21 11/12/21 Unknown History levothyroxine 88 mcg tablet 88 mcg PO QAM 11/12/21 11/12/21 Unknown History loratadine 10 mg tablet (Claritin) 10 mg PO DAILY 11/12/21 11/12/21 Unknown History meclizine 25 mg tablet 25 mg PO TID 11/12/21 11/12/21 Unknown History multivitamin with minerals-folic 2 tab PO DAILY 11/12/21 11/12/21 Unknown History acid 200 mcg chewable tablet (Multivitamin Gummies) potassium gluconate 595 mg (99 mg) 595 mg PO DAILY 11/12/21 11/12/21 Unknown History tablet Allergies Allergy/AdvReac Type Severity Reaction Status Date / Time alcohol Allergy ALGY-Redness Verified 11/10/21 08:44 of Skin ciprofloxacin [From Cipro] Allergy hives Verified 11/10/21 08:44 codeine Allergy ALGY-Rash Verified 11/10/21 08:44 Penicillins Allergy Unconscious Verified 11/10/21 08:44 Sulfa (Sulfonamide Allergy ALGY-Rash Verified 11/10/21 08:44 Antibiotics) PFSH Acute PFSH: Medical History Cystitis Diabetes Hypertension Obesity Peripheral Vascular Disease Recurrent UTI Surgical History S/P appendectomy S/P CABG (coronary artery bypass graft) S/P cholecystectomy S/P hysterectomy Family History Mother , AT 78 Cancer BREAST AND SPINE Grandmother Cancer Father , AT 62 Heart attack Other CAD (coronary artery disease) Hypertension Social History Smoking and tobacco status: former smoker (quit since ) Quit status (tobacco): has quit using tobacco Year quit tobacco: 1985 Former quit date comment: 1 ppd X 15 years, Started at age 14 Alcohol intake: never Marital status: Current occupational status: disabled History of recent travel: No Vitals/I&O/Wt Last Vital Signs Temp 97.4 F L 11/12/21 13:26 Pulse 74 11/12/21 14:49 Resp 24 H 11/12/21 14:49 BP 157/98 11/12/21 13:38 Pulse Ox 98 11/12/21 14:49 11/12/21 11/12/21 11/12/21 06:59 14:59 22:59 Intake Total 500 / 500 Balance 500 / 500 Physical Exam Narrative: General: Alert oriented x3, patient seen sitting up in bed, NAD but slightly short of breath with 3L O2 NC saturating 98% HEENT: Normocephalic, atraumatic, EOMI, Cardio: Regular rate rhythm, normal S1-S2, no murmurs Respiratory: Good bilateral air entry at time of my exam with b/l bibasilar crackles, no gross wheezes or ronchi. GI: Abdomen soft, nontender, nondistended, bowel sounds + Behavior: Appropriate and cooperative, slightly anxious Extremities: trace edema b/l lower extremities Data : 11/13/21 05:57 11/13/21 05:57 A&P Assessment and plan (1) Wheezes: Status: Acute (2) Dyspnea: Status: Acute (3) Shortness of breath: Status: Acute (4) Hypertension: Status: Acute Qualifiers: Hypertension type: primary hypertension Qualified Code(s): I10 - Essential (primary) hypertension (5) Vertigo: Status: Acute (6) Heart failure: Status: Acute (7) Asthma: Status: Acute (8) Hyponatremia: Status: Acute Plan #Shortness of breath most likely secondary to asthma exacerbation and heart failure #Vertigo #History of hypertension #Diabetes mellitus type 2 #Obesity #Peripheral vascular disease #Recurrent UTI #Hyponatremia - pt did receive 3 breathing tx, magnesium in ER right before I saw her. At time when I saw, lungs were clear except bibasilar crackles. Most likely there is a component in heart failure. Will check echo. BNP evelated. ? Patient is pending PFTs. She recently saw ENT and pulmonology. She has some work-up pending. ? We will continue patient on DuoNeb every 4 hour scheduled ? Solu-Medrol 40 mg every 8 hours ? Check CTA head and neck to rule out pathology ? Continue all other home medications. ? Check sputum gram stain culture, blood cultures ? Check echo. I will give a one-time dose of Lasix. BNP 1000 ? Start on lasix [address] deras - Check urine studies for hyponatremia - Will re-assess patient in AM for futher management as most of her studies are pending at this time. Full Code Daughter will be having POA. She will be singing today. Attestations Medical Necessity Statement*: Patient is expected to cross 2 midnights. Coding Level of Care Code Acute Electrical Research Engineer for Gio Gonzalez Diagnoses Wheezes R06.2 Dyspnea R06.00 Shortness of breath R06.02 Hypertension I10 Hypertension type: primary hypertension Vertigo R42 Heart failure I50.9 Asthma J45.909 Hyponatremia E87.1
[2021-11-12 15:35] LABS: Troponin 5 2HR 18.82 ng/L (0-10)
[2021-11-12 15:36] LABS: Troponin 5 2HR Delta -0.18 ABS# (0-10)
--- NOTE | 2021-11-12 15:37 | USCV_ITS ---
Nehemias, Mayda Age: 71 Gender: F : 1950 Exam Date: 11/12/2021 16:40 Ordering Phys: Misti Swenson MD Technologist: MAUREEN [place] [facility] [place]ication: c/o shortness of breath. No hx cardiac intervention per patient BP: 162 / 99 HR: 87 Rhythm: Sinus Technical Quality: Adequate MEASUREMENTS (Male / Female) Normal Values 2D ECHO LV Diastolic Diameter PLAX 3.7 cm 4.2 - 5.9 / 3.9 - 5.3 cm LV Systolic Diameter PLAX 2.3 cm IVS Diastolic Thickness 1.7 cm 0.6 - 1.0 / 0.6 - 0.9 cm IVS Systolic Thickness 1.6 cm LVPW Diastolic Thickness 1.5 cm 0.6 - 1.0 / 0.6 - 0.9 cm LVPW Systolic Thickness 1.7 cm LVOT Diameter 1.9 cm LV Ejection Fraction 2D Teich 68.3 % LV Ejection Fraction MOD 2C 62.7 % LV Ejection Fraction 2C AL 67.5 % LA Diameter 3.7 cm LA Width 4.1 cm LA Height 4.5 cm RA Width 2.9 cm RA Height 4.2 cm Aorta at Sinotubular Diameter 2.9 cm M-MODE Aortic Annulus Diameter 3.1 cm LA Ao Ratio MM 1.4 MV E Point Septal Separation 0.3 cm DOPPLER AV Peak Velocity 166.0 cm/s LVOT Peak Velocity 96.0 cm/s AV Area Cont Eq vti 1.5 cm squared AV Area Cont Eq pk 1.6 cm squared MV Area PHT 2.5 cm squared Mitral E to A Ratio 0.9 MV E' Velocity 43.0 cm/s Mitral E to MV E' Ratio 10.2 Mitral E to LV E' Lateral Ratio 9.3 Mitral E to LV E' Septal Ratio 11.4 TR Peak Velocity 285.8 cm/s TR Peak Gradient 32.7 mmHg TV Peak E Velocity 41.0 cm/s PV Peak Velocity 114.0 cm/s FINDINGS Left Ventricle Normal left ventricular size. LV systolic function is normal with EF of 55-60%. No regional wall motion abnormalities.Diastolic function is normal Right Ventricle The right ventricle is normal in size and function. Right Atrium The right atrium is normal in size. Left Atrium The left atrium is normal in size. Mitral Valve Mild mitral annular calcification without significant stenosis or prolapse. There is no mitral regurgitation. Aortic Valve Structurally normal aortic valve without significant sclerosis or stenosis. There is no aortic regurgitation. Tricuspid Valve Structurally normal tricuspid valve without significant stenosis. Mild tricuspid regurgitation. RVSP is 35-40mmHg. This is consistent with mild pulmonary hypertension Pulmonic Valve Grossly normal Pericardium Normal pericardium without effusion. Aorta Normal ascending aorta dimension. CONCLUSIONS LV systolic function is normal with EF of 55-60% Diastolic funciton is normal Mild mitral annular calcification Mild tricuspid regurgitation Mild pulmonary hypertension No comparison studies are available Hermelindo Buenrostro MD (Electronically Signed) Final Date: 12 November 2021 18:33 S
--- NOTE | 2021-11-12 15:39 | ECG_ITS ---
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 Measurements Intervals [place] Rate: 89 P: 89 HI: 149 QRS: -3 QRSD: 92 T: 41 QT: 374 QTc: 457 Interpretive Statements SINUS RHYTHM WITH OCCASIONAL VENTRICULAR PREMATURE COMPLEXES Compared to ECG 11/12/2021 13:52:50 No significant changes Electronically Signed On 11-13-2021 17:09:41 CDT by Hermelindo Buenrostro M.D. [email or web address]
[2021-11-12] MEDS: iohexol 350 mg/mL 100 mL Btl IV (15:46)
[2021-11-12] MEDS: FUROsemide 10 mg/mL SDV 4mL 40 MG IVP (15:50)
[2021-11-12 15:57] LABS: ABG PCO2 29.3 mmHg (35-45); ABG PH Result 7.46 (7.35-7.45); Arterial Blood Gas Hematocrit 34.3 % (37-47); Base Excess ABG -2.2 mmol/L (-2.0-2.0); Blood Gas Allen Test Pos; Blood Gas Sample Site Radial, right; Blood Gas Sample Type Arterial; Carboxyhemoglobin < 0.0 %THgb (0.4-20.1); HCO3 ABG 20.8 mmol/L (22-26); Ionized Calcium Level - ABG 1.2 mmol/L (1.1-1.4); Methemoglobin 0.9 % (0.4-1.5); Oxygen Device NC; Oxygen Saturation ABG 97.6; Potassium Level - ABG 3.7 mmol/L (3.5-5.0); Total Hemoglobin 11.2 g/dL (12-16)
[2021-11-12 16:02] LABS: Adenovirus Not Detected (NOT DETECT); Chlamydia Pneumoniae Not Detected (NOT DETECT); Coronavirus 229E,HKU1,NL63,OC4 Not Detected (NOT DETECT); Human Metapneumovirus Not Detected (NOT DETECT); Human Rhinovirus/Enterovirus Not Detected (NOT DETECT); Influenza A Not Detected (NOT DETECT); Influenza A H1 Not Detected (NOT DETECT); Influenza A H1-2009 Not Detected (NOT DETECT); Influenza A H3 Not Detected (NOT DETECT); Influenza B Not Detected (NOT DETECT); Mycoplasma Pneumoniae Not Detected (NOT DETECT); Parainfluenza Virus Type 1 Not Detected (NOT DETECT); Parainfluenza Virus Type 2 Not Detected (NOT DETECT); Parainfluenza Virus Type 3 Not Detected (NOT DETECT); Parainfluenza Virus Type 4 Not Detected (NOT DETECT); Respiratory Syncytial Virus A Not Detected (NOT DETECT); Respiratory Syncytial Virus B Not Detected (NOT DETECT); SARS-COV-2 Not Detected (NOT DETECT)
--- NOTE | 2021-11-12 16:12 | PC.PHAR ---
pts caregiver rigoberto verified the pts medications-notes are made in the pharmacy comments
[2021-11-12 16:21] LABS: Results from GENMARK
[2021-11-12 17:13] LABS: Add Urine Microscopic? NO; Bilirubin Urine Neg (Negative); Blood Urine Neg (Negative); Glucose Urine UA Norm (Normal); Ketones Urine Negative (Negative); Leukocyte Esterase Urine Negative (Negative); Nitrate Urine Negative (Negative); Protein Urine Neg (Negative); Specific Gravity, Urine 1.005 (1.005-1.030); Urine Appearance Clear (CLEAR); Urine Color Yellow (Yellow); Urobilinogen Urine Neg (Negative); pH Urine 7 (5-7)
[2021-11-12 17:14] LABS: Charge for UA Resulting for Rev
[2021-11-12 17:24] LABS: Urine Random Sodium 86 mmol/L
[2021-11-12] MEDS: gabapentin 300 mg Capsule 900 MG PO (19:56)
[2021-11-12] MEDS: cilostazol 100 mg Tablet 50 MG PO (19:56)
[2021-11-12] MEDS: meclizine 25 mg tablet 12.5 MG PO (19:57)
[2021-11-12] MEDS: docusate sodium 100 mg Capsule PO (19:57)
[2021-11-12] MEDS: HYDROcodone-acetaminophen 7.5-325 mg Tablet 1 TAB PO (21:05)
[2021-11-13] VITALS (8 sets, daily range): BP systolic 147–169; BP diastolic 87–94; PULSE 0–88; RESP 16–22; TEMP -12.4–36.8; O2SAT 87–100
[2021-11-13] MEDS: FUROsemide 10 mg/mL SDV 4mL 40 MG IVP (04:15)
[2021-11-13 06:32] LABS: Basophils % 0.2 %; Hematocrit 33.1 % (37.0-47.0); Hemoglobin 10.8 g/dL (11.5-15.3); Lymphocytes # 0.5 10^3/uL (0.8-4.8); Lymphocytes % 11.5 %; Mean Corpuscular HGB Conc 32.6 g/dL (30.0-36.0); Mean Corpuscular Hemoglobin 28.7 pg (28.0-34.0); Mean Platelet Volume 9.2 fL (7.4-10.4); Monocytes # 0.2 10^3/uL (0.2-0.9); Monocytes % 4.9 %; Neutrophils # 3.77 10^3/uL (1.8-7.7); Neutrophils % 83.2 %; Nucleated Red Blood Cells % 0 %; Platelet Count 301 10^3/cmm (130-400); Red Blood Count 3.76 10^6/uL (4.1-5.3); White Blood Count 4.5 10^3/uL (4.0-10.0)
[2021-11-13 06:56] LABS: Anion Gap 18.1 (5-19); Blood Urea Nitrogen 9 mg/dL (8-23); Calcium 8.4 mg/dL (8.5-10.5); Carbon Dioxide 24 mmol/L (22-29); Chloride 92 mmol/L (98-107); Glucose 131 mg/dL (65-115); Osmolality Calculated 270 mOsm/kg (285-295); Potassium 4.1 mmol/L (3.5-5.1); Sodium 130 mmol/L (136-145)
--- NOTE | 2021-11-13 07:43 | XRR_ITS ---
PROCEDURE INFORMATION: Exam: XR Chest Exam date and time: 11/13/2021 7:49 AM Age: 71 years old Clinical indication: Cough and shortness of breath; Additional info: SOB, cough TECHNIQUE: Imaging protocol: XR of the chest. Views: 1 view. COMPARISON: CT chest con [id number] 11/12/2021 3:33 PM FINDINGS: Tubes, catheters and devices: Surgical clips project over the upper abdomen. Lungs: Unremarkable. No consolidation. Pleural spaces: Unremarkable. No pleural effusion. No pneumothorax. Heart/Mediastinum: Stable cardiomediastinal silhouette. Bones/joints: Degenerative changes of the spine seen. XR/XR chest 1V portable [id number] IMPRESSION: No evidence of active cardiopulmonary disease.
[2021-11-13] MEDS: ipratropium-albuterol 3 mL Neb INHALATION ×2 (08:02→11:56)
[2021-11-13] MEDS: magnesium oxide 400 mg tablet PO (09:15)
[2021-11-13] MEDS: loratadine 10 mg Tablet PO (09:15)
[2021-11-13] MEDS: montelukast sodium 10 mg Tablet PO (09:15)
[2021-11-13] MEDS: cilostazol 100 mg Tablet 50 MG PO (09:15)
[2021-11-13] MEDS: duloxetine 60 mg Capsule PO (09:15)
[2021-11-13] MEDS: meclizine 25 mg tablet 12.5 MG PO (09:16)
[2021-11-13] MEDS: atorvastatin 40 mg Tablet 20 MG PO (09:16)
[2021-11-13] MEDS: levothyroxine 88 mcg Tablet PO (09:16)
[2021-11-13] MEDS: allopurinol 100 mg Tablet PO (09:16)
[2021-11-13] MEDS: gabapentin 300 mg Capsule 600 MG PO ×2 (09:17→12:44)
[2021-11-13] MEDS: duloxetine 30 mg Capsule PO (09:17)
[2021-11-13] MEDS: pantoprazole DR 40 mg Tablet PO (09:17)
[2021-11-13] MEDS: metformin 500 mg Tablet PO (09:17)
[2021-11-13] MEDS: lisinopril 10 mg Tablet PO (09:19)
[2021-11-13] MEDS: buPROPion SR (12 HR) 100 mg Tablet PO (09:21)
[2021-11-13 10:12] LABS: Alanine Aminotransferase 17 U/L (0-33); Albumin Level 3.6 g/dL (3.5-5.2); Alkaline Phosphatase 96 IU/L (35-105); Aspartate Amino Transferase 25 U/L (0-32); Globulin 3.2 g/dL (1.3-4.6); Total Bilirubin 0.2 mg/dL (0.15-1.2); Total Protein 6.8 g/dL (6.6-8.7)
--- NOTE | 2021-11-13 10:41 | PC.CHAP ---
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 visit [] Patient/Family/Request visit [] Outpatient visit [] Follow-up visit [] Physician referral [] Code/Alert [] Routine visit [] Staff referral [] Actively dying [] Patient sleeping [] Family support [] [] Out of room [] Palliative care [] [] Receiving care in room [] Pre-surgical visit [] Trauma [x] Long length of stay [] ICU visit [x] Other:c under staff care unable to communicate Relational/Emotional Strength [] Patient feels connected with others/family/visitors/staff [] Distress [] Loneliness/isolation [] Abandonment Spirituality of Patient [] Person of Swati [] Attends Anabaptist of their Swati [] Believes in Prayer [] Reads Bible or Presybeterian materials [] There are Spiritual issues to be addressed Software Engineer Backend Interventions [] Prayer [] Active listening [] Non-anxious presence [] Spiritual/emotional support [] Crisis/trauma care [] Spiritual counseling [] Bereavement support [] Provided bereavement packet [] Provided Bible/devotional materials [] Provided toy/stuffed animal, coloring book to patient or family member [] Provided Communion [] Anointing/[place] [] Salvation [] Completed spiritual assessment [] Other: Impact on Illness or Injury [] Angry [] Fearful [] Anxious [] Often cries [] Exhaustion [] Unable to work [] Unable to attend buddhism [] Unable to walk/stand [] Unable to read [] Unable to drive [] Unable to eat/drink [] Unable to sleep [] Unable to be with family [] Patient intubated [] Other: Summary under staff care unable to communicate Time spent with patient 5 mins
--- NOTE | 2021-11-13 10:58 | PM.PN ---
Subjective Subjective: Seen this morning. Patient states she feels a lot better. No longer having shortness of breath. Appears a lot more comfortable. However she states that she uses her 's oxygen at home and is requesting for oxygen here. Echo revealed mild pulmonary hypertension but otherwise preserved EF no diastolic dysfunction. Urine output 1600 overnight. There is also been diarrhea reported by the nurse. Vitals/I&O/Wt Last Vital Signs Temp 9.6 F L 11/13/21 08:00 Pulse 82 11/13/21 08:03 Resp 18 11/13/21 08:03 BP 147/87 11/13/21 08:00 Pulse Ox 99 11/13/21 08:03 11/12/21 11/13/21 11/13/21 22:59 06:59 14:59 Intake Total 290 / 790 118 / 118 Output Total 1600 / 1600 Balance 290 / 790 -1600 / -810 118 / 118 Weight last 48 hrs Weight 104.978 kg Weight 104.326 kg Weight 104.978 kg Physical Exam Narrative: General: Alert oriented x3, patient seen sitting up in bed, no acute distress, no shortness of breath. On 2 L nasal cannula saturating 98%. HEENT: Normocephalic, atraumatic, EOMI, Cardio: Regular rate rhythm, normal S1-S2, no murmurs Respiratory: Clear to auscultation bilaterally no wheezes no rhonchi no crackles. On exam improved compared to yesterday. GI: Abdomen soft, nontender, nondistended, bowel sounds + Behavior: Appropriate and cooperative, slightly anxious Extremities: No edema bilateral lower extremities. Urinary Catheter Management: Montaño: Cath Placed During This Visit: yes Reason for Continuing Indwelling Catheter: Acute Urinary Retention or Obstruction Urinary Catheter Date of Insertion: 11/12/21 Urinary Catheter Time of Insertion: 18:30 Data : 11/13/21 05:57 11/13/21 05:57 Micro: Microbiology 11/12/21 16:01 MRSA Culture - Final Nose A&P Assessment and plan (1) Hyponatremia: Status: Acute (2) Asthma: Status: Acute (3) Wheezes: Status: Acute (4) Dyspnea: Status: Acute (5) Stridor: Status: Acute (6) Shortness of breath: Status: Acute (7) Hypertension: Status: Acute Qualifiers: Hypertension type: primary hypertension Qualified Code(s): I10 - Essential (primary) hypertension Plan #Shortness of breath most likely secondary to asthma exacerbation #Vertigo #History of hypertension #Diabetes mellitus type 2 #Obesity #Peripheral vascular disease #Recurrent UTI #Hyponatremia - pt did receive 3 breathing tx, magnesium in ER right before I saw her. At time when I saw, lungs were clear except bibasilar crackles. Most likely there is a component in heart failure. Echo reveals normal EF, no diastolic dysfunction. He does have mild mitral regurgitation and mild pulmonary hypertension. ? Patient is pending PFTs.? She recently saw ENT and pulmonology.? She has some work-up pending. ? We will continue patient on DuoNeb every 4 hour scheduled ? Solu-Medrol 40 mg every 8 hours ? CT head and neck did not show any stenosis. CT head also negative. Chest CT did show some thickening in bronchioles. MRSA nares negative. Sputum gram stain culture pending. Patient is not coughing up anything. ? Continue all other home medications. ?Patient was given Lasix 40 twice daily and has diuresed well. 1600 cc of urine is out. ? I will discontinue Lasix as patient may have been over dried. ? Echo did not show any objective evidence of heart failure. ? Urine studies are pending for hyponatremia. Most likely SIADH type picture. Urine sodium 80. Urine osmolality pending. ? Patient having diarrhea. Will obtain stool sample. -We will start salt tablet 1g twice daily. We will recheck sodium. Full Code Attestations Medical Necessity Statement*: Expected discharge tomorrow. Patient still hyponatremic now having diarrhea. Coding Level of Care Code Acute Computer Compositor for [facility] Diagnoses Hyponatremia E87.1 Asthma J45.909 Wheezes R06.2 Dyspnea R06.00 Stridor R06.1 Shortness of breath R06.02 Hypertension I10 Hypertension type: primary hypertension
[2021-11-13] MEDS: HYDROcodone-acetaminophen 7.5-325 mg Tablet 1 TAB PO (12:43)
--- NOTE | 2021-11-13 12:49 | P.DS_ITS ---
Discharge Providers Date of Admission: 11/12/21 18:11 Date of Discharge: November 13, 2021 Attending Provider at Admission: Misti Swenson MD Attending Provider at Discharge: Misti Swenson MD Primary Care Provider: ANNE MARIE Chin Diagnoses at Discharge Discharge Diagnosis (1) Hyponatremia: Status: Acute (2) Asthma: Status: Acute (3) Wheezes: Status: Acute (4) Dyspnea: Status: Acute (5) Stridor: Status: Acute (6) Shortness of breath: Status: Acute (7) Hypertension: Status: Acute Qualifiers: Hypertension type: primary hypertension Qualified Code(s): I10 - Essential (primary) hypertension Reason for Visit Reason for Visit: SOB/ DIZZINESS Brief History: Mayda Del Cid is a 71 year old female with past medical history of diabetes mellitus type 2, hypertension, obesity, peripheral vascular disease, recurrent UTI, obesity, asthma presented to the hospital today with complaint of dizziness and worsening lightheadedness.? She states that yesterday at 1 PM she has been experiencing intermittent vertigo symptoms.? She has had vertigo in the past which has now worsened despite taking meclizine.? She has had intermittent e pisodes of vertigo sensation lasting for few hours at a time.? Patient has also been having wheezing and shortness of breath for the last 1 day.? She does have a chronic cough and nonproductive sputum.? She received a breathing treatment at home without significant improvement.? She denies any nausea vomiting or arm or leg weakness, facial droop slurring of speech vision change or dysarthria or any language issues. SHe says she feels short of breath a and has been sleeping up in a recliner recently. Has not really felt any swelling of her lower extremities. She is also very stressed as her is currently on life support in ICU. Daughter is present at bedside. Patient recently saw pulmonology about 2 weeks ago for evaluation and management of shortness of breath.? Patient is a former smoker who quit 35 years ago.? She was recommended to have a pulmonary function test 6-minute walk study nocturnal oximetry and echocardiogram done.? She was placed on Symbicort to continue in the time being.? She was also referred to ENT for evaluation of her expiratory stridor.? Patient also saw ENT within the last 2 weeks and had a flexible laryngoscopy done.? She has normal vocal cords.? And she did have a little bit of a stridorous exhalation.? No weakness or paralysis.? 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 ED course: Blood pressure 157/98, respiratory 24, pulse rate 74, temp 97.4, pulse ox 98%.? Patient was given 3 breathing treatments.? CTA head and neck was ordered for her vertigo, CT head without contrast and CT chest was ordered.? Hospitalist was called for admission.? Initial labs were ordered which are all pending at this point.? ABG, BNP, troponin pending. Hospital Course Hospital Course Patient was admitted for fluid overload she was diuresed with Lasix 40 twice daily and got 2 doses total. Patient was admitted for with a preliminary diagnosis of heart failure. Echocardiogram was completed which showed a normal EF and normal diastolic function. With mild tricuspid regurgitation and mild pulmonary hypertension. Patient's shortness of breath resolved and she was back to baseline feeling really comfortable. She qualified for 2 L nasal cannula oxygen which she was set up with. I did not prescribe any Lasix at discharge. I discussed with her and her daughter to see the primary care physician to decide if she needs any more Lasix. She was also found to be hyponatremic this admission with sodium of 129. Next day sodium was 130. Urine sodium was very high at 80. 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 Cymbalta could be the culprit here. I have put Cymbalta on hold and discussed with patient's daughter as well to have her see her primary care doctor to adjust medications. Most likely hyponatremia is due to SIADH due to Cymbalta. Patient did not agreement and understanding. She is to follow-up with her primary care doctor outpatient. I also encouraged them to have the PFTs completed and to revisit pulmonology. BMP script given to recheck sodium in 3-4 days. Patient asymptomatic. I prescribed prednisone 60 mg for 5 days for presumed asthma exacerbation. Even on admission, her lungs were quite clear except mild bibaslar crackles. There possibly could be an anxiety component to her shortness of breath. Patient was discharged mathew in stable condition. Physical Exam Narrative: see progress note from today. Urinary Catheter Management: Montaño: Cath Placed During This Visit: yes Reason for Continuing Indwelling Catheter: Acute Urinary Retention or Obstruction Urinary Catheter Date of Insertion: 11/12/21 Urinary Catheter Time of Insertion: 18:30 Discharge Data Studies Completed and Pending Completed Studies During Hospitalization Category Date Time Status CT chest wo con [id number] Stat Cat Scan 11/12/21 15:[address] head wo con* [id number] Urgent Cat Scan 11/12/21 13:49 Completed CTA head neck [CT angio headneck* [id number]/00510] Urgent Cat Scan 11/12/21 13:49 Completed XR chest 1V portable [id number] Urgent Exams 11/12/21 13:38 Completed XR chest 1V portable [id number] Urgent Exams 11/13/21 07:43 Completed CV. echo complete* [id number] Routine Ultrasound 11/12/21 15:37 Completed Pending at discharge Category Date Time Status ABG FULL [Arterial Blood Gas Full] Stat Lab 11/12/21 15:50 Results BMP [Basic Metabolic Panel] Timed Lab 11/13/21 19:06 Ordered Basic Metabolic Panel AM LABS Lab 11/14/21 04:00 Ordered Complete Blood Count w/Auto AM LABS Lab 11/14/21 04:00 Ordered Magnesium AM LABS Lab 11/14/21 04:00 Ordered Osmolality Serum Stat Lab 11/12/21 20:29 Received Osmolality Urine Stat Lab 11/12/21 16:07 Received Sputum Culture and Gram Stain Stat Lab 11/12/21 15:21 Uncollected Radiology Impressions Head CT 11/12/21 13:49 IMPRESSION: 1. No acute intracranial hemorrhage or edema. 2. Mild atrophy and small vessel ischemic disease. Head/Neck CTA 11/12/21 13:49 IMPRESSION: 1. No significant carotid artery stenosis. Mild atherosclerotic plaque on the LEFT. 2. Unremarkable afognak of Pérez. Chest CT 11/12/21 15:06 IMPRESSION: 1. Mild thickening of the interlobular septa. May be due to pneumonitis or mild fluid overload. No focal dense consolidation or pneumonia. 2. Enlarged pulmonary artery. Correlate for possible pulmonary hypertension. 3. Prior cholecystectomy and gastric bypass. 4. Hepatic cyst. Chest X-Ray 11/13/21 07:43 IMPRESSION: No evidence of active cardiopulmonary disease. Laboratory Results WBC 4.5 10^3/uL (4.0-10.0) 11/13/21 05:57 RBC 3.76 10^6/uL (4.1-5.3) L 11/13/21 05:57 Hgb 10.8 g/dL (11.5-15.3) L 11/13/21 05:57 Hct 33.1 % (37.0-47.0) L 11/13/21 05:57 MCV 88.0 fl (81-99) 11/13/21 05:57 MCH 28.7 pg (28.0-34.0) 11/13/21 05:57 MCHC 32.6 g/dL (30.0-36.0) 11/13/21 05:57 RDW 14.0 % (12.1-15.1) 11/13/21 05:57 Plt Count 301 10^3/cmm (130-400) 11/13/21 05:57 MPV 9.2 fL (7.4-10.4) 11/13/21 05:57 Neut % (Auto) 83.2 % 11/13/21 05:57 Lymph % (Auto) 11.5 % 11/13/21 05:57 [place] % (Auto) 4.9 % 11/13/21 05:57 Eos % (Auto) 0.0 % 11/13/21 05:57 Baso % (Auto) 0.2 % 11/13/21 05:57 Neut # (Auto) 3.77 10^3/uL (1.8-7.7) 11/13/21 05:57 Lymph # (Auto) 0.5 10^3/uL (0.8-4.8) L 11/13/21 05:57 [place]ing # (Auto) 0.2 10^3/uL (0.2-0.9) 11/13/21 05:57 Eos # (Auto) 0.0 10^3/uL (0.0-0.8) 11/13/21 05:57 Baso # (Auto) 0.0 10^3/uL (0.0-0.1) 11/13/21 05:57 Nucleated RBC % (auto) 0 % 11/13/21 05:57 Nucleated RBCs # 0.0 /100WBC 11/13/21 05:57 Specimen Type Arterial 11/12/21 15:50 Sample Site Radial, right 11/12/21 15:50 ABG pH 7.46 (7.35-7.45) H 11/12/21 15:50 ABG pCO2 29.3 mmHg (35-45) L 11/12/21 15:50 ABG pO2 126.0 mmHg (80.0-100.0) H 11/12/21 15:50 ABG HCO3 20.8 mmol/L (22-26) L 11/12/21 15:50 ABG O2 Saturation 97.6 11/12/21 15:50 ABG Base Excess -2.2 mmol/L (-2.0-2.0) L 11/12/21 15:50 Dudley Test Pos 11/12/21 15:50 Hematocrit 34.3 % (37-47) L 11/12/21 15:50 Hgb O2 Saturation 97.0 % (95-100) 11/12/21 15:50 Carboxyhemoglobin < 0.0 %THgb (0.4-20.1) L 11/12/21 15:50 Methemoglobin 0.9 % (0.4-1.5) 11/12/21 15:50 Total Hemoglobin 11.2 g/dL (12-16) L 11/12/21 15:50 Sodium 128.0 mmol/L (131-143) L 11/12/21 15:50 Potassium 3.7 mmol/L (3.5-5.0) 11/12/21 15:50 Glucose 121.0 mg/dL (70-115) H 11/12/21 15:50 Ionized Calcium 1.2 mmol/L (1.1-1.4) 11/12/21 15:50 O2 Delivery Device Nc 11/12/21 15:50 O2 Liters/Min 3.0 % 11/12/21 15:50 Medical Lead ID Hinja 11/12/21 15:50 Sodium 130 mmol/L (136-145) L 11/13/21 05:57 Potassium 4.1 mmol/L (3.5-5.1) 11/13/21 05:57 Chloride 92 mmol/L (98-107) L 11/13/21 05:57 Carbon Dioxide 24 mmol/L (22-29) 11/13/21 05:57 Anion Gap 18.1 (5-19) 11/13/21 05:57 BUN 9 mg/dL (8-23) 11/13/21 05:57 Creatinine 1.0 mg/dL (0.5-0.9) H 11/13/21 05:57 GFR Calculation Not Reportable 11/13/21 05:57 Glucose 131 mg/dL (65-115) H 11/13/21 05:57 Calculated Osmolality 270 mOsm/kg (285-295) L 11/13/21 05:57 Calcium 8.4 mg/dL (8.5-10.5) L 11/13/21 05:57 Magnesium 2.0 mg/dL (1.7-2.3) 11/13/21 05:57 Total Bilirubin 0.2 mg/dL (0.15-1.2) 11/13/21 05:51 Direct Bilirubin 0.20 mg/dL (0.00-0.30) 11/13/21 05:51 AST 25 U/L (0-32) 11/13/21 05:51 ALT 17 U/L (0-33) 11/13/21 05:51 Alkaline Phosphatase 96 IU/L (35-105) 11/13/21 05:51 Troponin T Baseline 19 ng/L (0-10) H 11/12/21 12:46 Troponin T 120 Minute 18.82 ng/L (0-10) H 11/12/21 15:10 Delta Troponin T -0.18 ABS# (0-10) L 11/12/21 15:10 NT-Pro-B Natriuret Pep 1078 pg/mL (0-125) H 11/12/21 12:46 Total Protein 6.8 g/dL (6.6-8.7) 11/13/21 05:51 Albumin 3.6 g/dL (3.5-5.2) 11/13/21 05:51 Globulin 3.2 g/dL (1.3-4.6) 11/13/21 05:51 Urine Color Yellow (Yellow) 11/12/21 16:07 Urine Appearance Clear (CLEAR) 11/12/21 16:07 Urine pH 7 (5-7) 11/12/21 16:07 Ur Specific [place] 1.005 (1.005-1.030) 11/12/21 16:07 Urine Protein Neg (Negative) 11/12/21 16:07 Urine Glucose (UA) Norm (Normal) 11/12/21 16:07 Urine Ketones Negative (Negative) 11/12/21 16:07 Urine Blood Neg (Negative) 11/12/21 16:07 Urine Nitrate Negative (Negative) 11/12/21 16:07 Urine Bilirubin Neg (Negative) 11/12/21 16:07 Urine Urobilinogen Neg mg/dL (Negative) 11/12/21 16:07 Ur Leukocyte Esterase Negative (Negative) 11/12/21 16:07 Ur Random Sodium 86 mmol/L 11/12/21 16:07 Nasal Influ A H1 2009 PCR Not detected (NOT DETECT) 11/12/21 14:08 Coronavirus 229E (PCR) Not detected (NOT DETECT) 11/12/21 14:08 Influenza A (H1) PCR Not detected (NOT DETECT) 11/12/21 14:08 Influenza A (H3) PCR Not detected (NOT DETECT) 11/12/21 14:08 Influenza Type A (PCR) Not detected (NOT DETECT) 11/12/21 14:08 Influenza Type B (PCR) Not detected (NOT DETECT) 11/12/21 14:08 SARS-CoV-2 (PCR) Not detected (NOT DETECT) 11/12/21 14:08 Vitals Last Vital Signs Temp 9.6 F L 11/13/21 08:00 Pulse 83 11/13/21 12:04 Resp 22 H 11/13/21 11:56 BP 147/87 11/13/21 08:00 Pulse Ox 87 L 11/13/21 12:23 Discharge Plan Discharge Patient Disposition: Home Condition: Stable Prescriptions: New prednisone 20 mg tablet 60 mg PO DAILY 5 Days Qty: 15 0RF Continued montelukast [Singulair] 10 mg tablet 10 mg PO DAILY 0RF metoprolol tartrate 25 mg tablet 12.5 mg PO BID 0RF allopurinol 100 mg tablet 100 mg PO DAILY 0RF metformin 500 mg tablet 500 mg PO DAILY 0RF simvastatin 10 mg tablet 10 mg PO BEDTIME 0RF albuterol sulfate [ProAir HFA] 90 mcg/actuation HFA aerosol inhaler 2 puff INHALATION QID PRN (Reason: Shortness Of Breath) 0RF gabapentin 300 mg capsule See Rx Instructions .ROUTE .COMPLEX 0RF Rx Instructions: 600mg po in AM , 600mg po at Noon, and 900mg po HS lisinopril 20 mg tablet 10 mg PO DAILY 0RF pantoprazole [Protonix] 40 mg tablet,delayed release (DR/EC) 40 mg PO BID 0RF hydrocodone-acetaminophen 7.5-325 mg tablet 1 tab PO TID PRN (Reason: Pain) 0RF metoclopramide HCl [Reglan] 10 mg tablet 10 mg PO TID 0RF vitamin B complex [B Complex-Vitamin B12] Tablet 1 tab PO DAILY 0RF magnesium oxide 400 mg magnesium capsule 400 mg PO DAILY 0RF oxybutynin chloride 10 mg tablet extended release 24hr 10 mg PO BEDTIME 0RF bupropion HCl 100 mg tablet sustained-release 12 hr 100 mg PO BID 0RF multivitamin with minerals [Hair,Skin and Nails] Tablet 1 tab PO DAILY 0RF docusate sodium 100 mg tablet 100 mg PO BID 0RF lubiprostone 24 mcg capsule 24 mcg PO BID 0RF cilostazol 50 mg tablet 50 mg PO BID Qty: 180 2RF levothyroxine 88 mcg tablet 88 mcg PO QAM 0RF meclizine 25 mg tablet 25 mg PO TID 0RF Claritin 10 mg Tablet 10 mg PO DAILY 0RF albuterol sulfate 2.5 mg /3 mL (0.083 %) solution for nebulization 2.5 mg inhalation Q8H PRN (Reason: Shortness Of Breath) 0RF estradiol 0.01 % (0.1 mg/gram) cream See Rx Instructions .ROUTE .COMPLEX 0RF Rx Instructions: as directed vaginally q7d or prn Antifungal (clotrimazole) 1 % cream 1 applic TOPICAL BID 0RF Symbicort 80-4.5 mcg/actuation HFA aerosol inhaler 2 puff INHALATION BID 0RF Multivitamin Gummies 200 mcg Tablet,Chewable 2 tab PO DAILY 0RF Nervive 1 tab PO DAILY 0RF Held duloxetine [Cymbalta] 60 mg capsule,delayed release(DR/EC) 60 mg PO DAILY 0RF Hold Instructions: sodium is low. see pcp before resuming Rx Instructions: take with 30mg to =90mg duloxetine [Cymbalta] 30 mg capsule,delayed release(DR/EC) 30 mg PO DAILY 0RF Hold Instructions: sodium is low. Please see PCP before resuming Rx Instructions: take with 60mg to =90mg cefuroxime axetil 500 mg tablet 500 mg PO BID Qty: 60 2RF Hold Instructions: see pcp potassium gluconate 595 mg (99 mg) Tablet 595 mg PO DAILY 0RF Hold Instructions: see pcp Discharge Orders: Discharge Order (Routine); Ordered 11/13/21 Ordered By: Misti Swenson Other Ambulatory Orders: Basic Metabolic Panel (Routine) Timeframe: 3 Days Facility: [facility] - Location: Lab - Main Lab Ordered By: Misti Swenson DME: Oxygen (Order) Location: None Selected Ordered By: Misti Swenson Referrals: Chantal Hernandez FNP [Primary Care Provider] - 11/20/21 8:15 am Raisa Adair MD [Physician] - 11/24/21 10:45 am Discharge Diet: Regular and Diabetic Discharge Activity: Resume usual activity and Oxygen as instructed Patient Instructions: Prednisone (By mouth), Asthma (GEN), Using Oxygen at Home (DC), Opioid Safety Activity Restrictions/Additional Instructions: Please keep all your other appointments for sleep study and pulmonary function tests. Please follow up with primary care doctor as soon as possible. Discharge Attestations Time Spent in Discharge Care*: other Quality Metrics Clinical Quality Measures [ No reported AMI, CVA or VTE this stay] Coding Level of Care Code Acute g FW DC note Diagnoses Hyponatremia E87.1 Asthma J45.909 Wheezes R06.2 Dyspnea R06.00 Stridor R06.1 Shortness of breath R06.02 Hypertension I10 Hypertension type: primary hypertension
[2021-11-17 09:23] LABS: Osmolality Serum 275 mOsm/kg (278-305)
[2021-11-17 09:28] LABS: Osmolality Urine 286 mOsm/kg (50-1200)
== END 2021-11-13 16:02 | disposition home or self-care (01) ==
LOC: ER 14:40 → MEDSURG 17:39
PROVIDERS: Admitting Provider Internal Medicine; Emergency Provider Emergency Medicine; PCP Nurse Practitioner Family; Visit Provider Internal Medicine
DX: E87.1 Hypo-osmolality and hyponatremia (principal); J45.909 Unspecified asthma, uncomplicated; R06.00 Dyspnea, unspecified; R06.1 Stridor; R06.02 Shortness of breath; I10 Essential (primary) hypertension; E11.9 Type 2 diabetes mellitus without complications; E66.9 Obesity, unspecified; Z68.42 Body mass index [BMI] 45.0-49.9, adult; Z87.891 Personal history of nicotine dependence; Z98.84 Bariatric surgery status
CPT/HCPCS: 36415; 36600; 51702; 70450; 70496; 70498; 71045; 71250; 80048; 80051; 80076; 81003; 82330; 82805; 83735; 83880; 83930; 83935; 84300; 84484; 85025; 87631; 87635; 87641; 93005; 93306; 94640; 94664; 96365; 96375; 96376; 99285; G0378; J1940; J2920; J2930; J3475; J7040; J7611; J8597; Q9967

== ENCOUNTER 2021-11-15 13:07 | Emergency (ER) | payer MEDICARE, MEDICAID, SELFPAY ==
[2021-11-15] VITALS (8 sets, daily range): BP systolic 134–159; BP diastolic 86–133; PULSE 79–97; RESP 15–18; TEMP 36.4; O2SAT 96–98; BMI 43.9
--- NOTE | 2021-11-15 13:13 | ED_ITS ---
HPI - SOB/Dyspnea General: Chief Complaint: Dizziness Stated Complaint: SOB; ANXIETY Time Seen by Provider: 11/15/21 13:12 History of Present Illness: HPI Narrative: Ms. Del Cid is a 71-year-old lady with history of asthma and recent diagnosis of atrial fibrillation not on anticoagulation who presents to the emergency department due to shortness of breath and wheezing. She reports increased social stressors as her is in the hospital and worsening symptoms starting this morning. She was in the hospital few days ago for similar. She reports wheezing associated with shortness of breath which is worse with exertion though does not go away with rest. She denies associated chest pain or infectious symptoms. Overall course of symptoms has persisted. Intensity is moderate to severe. No other specific changes in health, exacerbating, or alleviating factors identified. Pertinent past history: asthma Onset (ago): hour(s) Timing: progressively worsening Severity: moderate Exacerbating factors: exertion Relieving factors: nothing Review of Systems General: Reports: 10 or more systems reviewed and unremarkable except in HPI and below PFSH ED PFSH: Medical History Cystitis Diabetes Hypertension Obesity Peripheral Vascular Disease Recurrent UTI Clinically consistent with chronic cystitis Surgical History S/P appendectomy S/P CABG (coronary artery bypass graft) S/P cholecystectomy S/P hysterectomy Family History Mother , AT 78 Cancer BREAST AND SPINE Grandmother Cancer Father , AT 62 Heart attack Other CAD (coronary artery disease) Hypertension Social History Smoking and tobacco status: former smoker Quit status (tobacco): has quit using tobacco Year quit tobacco: 1985 Former quit date comment: 1 ppd X 15 years, Started at age 14 Alcohol intake: never Marital status: Current occupational status: disabled History of recent travel: No Physical Exam Const: COMMON NORMALS: alert GENERAL APPEARANCE: cooperative and well developed HENMT: COMMON NORMALS: normocephalic and atraumatic HEAD & SCALP: normoce phalic and atraumatic THROAT: posterior oropharynx normal Eye: COMMON NORMALS: conjunctivae normal CONJUNCTIVA: Yes conjunctivae normal SCLERA: sclerae normal Neck/C-Spine: COMMON NORMALS: supple GENERAL: Yes trachea midline Resp: COMMON NORMALS: normal respiratory effort EFFORT & INSPECTION: Yes able to speak in complete sentences OTHER: Mostly upper airway noises, perhaps mild wheezing at the bases and expiratory Cardio: COMMON NORMALS: regular rate and regular rhythm RATE: regular rate RHYTHM: regular rhythm GI: COMMON NORMALS: Soft to palpation PALPATION: Yes Soft to palpation and No Tenderness to palpation present (GI) PERCUSSION: normal to percussion Extremity: GENERAL: Yes normal exam except as noted and No edema Neuro: COMMON NORMALS: moves all extremities SENSORIUM/ORIENTATION: Yes alert and No Orientation impaired Psych: COMMON NORMALS: mental status grossly normal and Normal thought process present THOUGHT PROCESS: Normal thought process present Course ED course: - Patient was seen and evaluated by me at bedside - Patient placed on cardiac monitors, IV access obtained - Initial evaluation notable for exam as above, upper airway noises. - Labs and xrays personally interpreted by me -RT treatments ordered - Labs notable for mild leukocytosis, normal hemoglobin. Metabolic panel with mild evidence of dehydration though hyponatremia appears chronic. ABG with low patient CO2 and alkalosis likely reflecting hyperventilation, PO2 low normal. - Imaging notable for no lobar consolidation or pneumothorax on chest x-ray. Given upper airway noises end increasing shortness of breath as described by patient CT neck ordered without acute abnormality identified. - Upon serial reexamination after treatment the patient was improved. Upper airway noises/noisy breathing would become more prominent upon entering the room. - Based on patient history, evaluation, and testing as interpreted the most likely cause of the patient's condition is pneumonia, asthma exacerbation - The results of ED evaluation were discussed with the patient including prescriptions and/or symptomatic cares (if applicable) including appropriate and responsible use, followup plan, and return precautions. The patient verbalized understanding and felt safe for discharge. - Patient discharged in satisfactory condition. Note: Click bubbles or prepopulated mina in note writing are used for assistance with data collection and billing and are inherently more limited than narrative and other text portions of this note. Please use narrative for additional clinical history and defer to narrative/free test for any case of contradictory information. If information appears in only free text or click bubble it should be considered present or absent as reported. Please contact note health underwriter for clarifications of clinical information or contradictory information. MDM is a brief summary, contradictory or erroneous seeming information should be clarified and full note should be reviewed. Vital Signs: Vital signs: Vital Signs Temperature 97.5 F L 11/15/21 13:12 Pulse Rate 97 11/15/21 17:54 Respiratory Rate 16 11/15/21 17:54 Blood Pressure 140/113 11/15/21 17:54 Pulse Oximetry 97 11/15/21 17:54 MDM - SOB/Dyspnea Medical Decision Making 71-year-old lady with history of asthma presenting with shortness of breath. Improved with treatment. No indication for hospitalization. Strict return precautions given. Medical Records I reviewed the patient's medical records. Lab Data I reviewed the patient's lab results. : 11/15/21 13:46 11/15/21 13:46 Labs/Radiology: Radiology Impressions Chest X-Ray 11/15/21 13:28 IMPRESSION: No acute findings. Neck CT 11/15/21 15:35 IMPRESSION: 1. There are moderate emphysematous changes in the lungs with mild interstitial and ground-glass opacities with a tree-in-bud appearance compatible with mild pneumonitis. 2. Ascending thoracic aorta is enlarged measuring 4.4 cm. No dissection or mural hematoma. 3. No acute abnormality in the neck. No airway narrowing. No foreign body. No fluid collection. Laboratory Results WBC 11.5 10^3/uL (4.0-10.0) H 11/15/21 13:46 RBC 4.39 10^6/uL (4.1-5.3) 11/15/21 13:46 Hgb 12.5 g/dL (11.5-15.3) 11/15/21 13:46 Hct 37.6 % (37.0-47.0) 11/15/21 13:46 MCV 85.6 fl (81-99) 11/15/21 13:46 MCH 28.5 pg (28.0-34.0) 11/15/21 13:46 MCHC 33.2 g/dL (30.0-36.0) 11/15/21 13:46 RDW 13.9 % (12.1-15.1) 11/15/21 13:46 Plt Count 466 10^3/cmm (130-400) H 11/15/21 13:46 MPV 9.4 fL (7.4-10.4) 11/15/21 13:46 Neut % (Auto) 81.8 % 11/15/21 13:46 Lymph % (Auto) 11.6 % 11/15/21 13:46 [place] % (Auto) 5.7 % 11/15/21 13:46 Eos % (Auto) 0.3 % 11/15/21 13:46 Baso % (Auto) 0.3 % 11/15/21 13:46 Neut # (Auto) 9.39 10^3/uL (1.8-7.7) H 11/15/21 13:46 Lymph # (Auto) 1.3 10^3/uL (0.8-4.8) 11/15/21 13:46 [place] # (Auto) 0.7 10^3/uL (0.2-0.9) 11/15/21 13:46 Eos # (Auto) 0.0 10^3/uL (0.0-0.8) 11/15/21 13:46 Baso # (Auto) 0.0 10^3/uL (0.0-0.1) 11/15/21 13:46 Nucleated RBC % (auto) 0 % 11/15/21 13:46 Nucleated RBCs # 0.0 /100WBC 11/15/21 13:46 D-Dimer 0.53 ug/mIFEU (0-0.59) 11/15/21 13:46 Specimen Type Arterial 11/15/21 15:38 Sample Site Radial, right 11/15/21 15:38 ABG pH 7.57 (7.35-7.45) H* 11/15/21 15:38 ABG pCO2 23.6 mmHg (35-45) L 11/15/21 15:38 ABG pO2 80.2 mmHg (80.0-100.0) 11/15/21 15:38 ABG HCO3 21.8 mmol/L (22-26) L 11/15/21 15:38 ABG Base Excess 1.0 mmol/L (-2.0-2.0) 11/15/21 15:38 [place] Test Pos 11/15/21 15:38 Hematocrit 36.0 % (37-47) L 11/15/21 15:38 O2 Delivery Device Room air 11/15/21 15:38 FiO2 21.0 % 11/15/21 15:38 Land Acquisition Manager ID Bronson 11/15/21 15:38 Sodium 127 mmol/L (136-145) L 11/15/21 13:46 Potassium 3.6 mmol/L (3.5-5.1) 11/15/21 13:46 Chloride 90 mmol/L (98-107) L 11/15/21 13:46 Carbon Dioxide 22 mmol/L (22-29) 11/15/21 13:46 Anion Gap 18.6 (5-19) 11/15/21 13:46 BUN 16 mg/dL (8-23) 11/15/21 13:46 Creatinine 1.1 mg/dL (0.5-0.9) H 11/15/21 13:46 GFR Calculation Not Reportable 11/15/21 13:46 Glucose 130 mg/dL (65-115) H 11/15/21 13:46 Calculated Osmolality 267 mOsm/kg (285-295) L 11/15/21 13:46 Calcium 9.6 mg/dL (8.5-10.5) 11/15/21 13:46 Total Bilirubin 0.4 mg/dL (0.15-1.2) 11/15/21 13:46 AST 27 U/L (0-32) 11/15/21 13:46 ALT 21 U/L (0-33) 11/15/21 13:46 Alkaline Phosphatase 99 IU/L (35-105) 11/15/21 13:46 Total Protein 7.1 g/dL (6.6-8.7) 11/15/21 13:46 Albumin 4.3 g/dL (3.5-5.2) 11/15/21 13:46 Globulin 2.8 g/dL (1.3-4.6) 11/15/21 13:46 Discharge Plan Discharge Patient Disposition: Home Clinical Impression: Shortness of breath, Dizziness, Pneumonia Condition: Stable Prescriptions: New doxycycline hyclate 100 mg tablet 100 mg PO BID 14 Days Qty: 28 0RF No Action montelukast [Singulair] 10 mg tablet 10 mg PO DAILY 0RF metoprolol tartrate 25 mg tablet 12.5 mg PO BID 0RF allopurinol 100 mg tablet 100 mg PO DAILY 0RF duloxetine [Cymbalta] 60 mg capsule,delayed release(DR/EC) 60 mg PO DAILY 0RF Hold Instructions: sodium is low. see pcp before resuming Rx Instructions: take with 30mg to =90mg metformin 500 mg tablet 500 mg PO DAILY 0RF simvastatin 10 mg tablet 10 mg PO BEDTIME 0RF albuterol sulfate [ProAir HFA] 90 mcg/actuation HFA aerosol inhaler 2 puff INHALATION QID PRN (Reason: Shortness Of Breath) 0RF gabapentin 300 mg capsule See Rx Instructions .ROUTE .COMPLEX 0RF Rx Instructions: 600mg po in AM , 600mg po at Noon, and 900mg po HS lisinopril 20 mg tablet 10 mg PO DAILY 0RF pantoprazole [Protonix] 40 mg tablet,delayed release (DR/EC) 40 mg PO BID 0RF hydrocodone-acetaminophen 7.5-325 mg tablet 1 tab PO TID PRN (Reason: Pain) 0RF duloxetine [Cymbalta] 30 mg capsule,delayed release(DR/EC) 30 mg PO DAILY 0RF Hold Instructions: sodium is low. Please see PCP before resuming Rx Instructions: take with 60mg to =90mg metoclopramide HCl [Reglan] 10 mg tablet 10 mg PO TID 0RF vitamin B complex [B Complex-Vitamin B12] Tablet 1 tab PO DAILY 0RF magnesium oxide 400 mg magnesium capsule 400 mg PO DAILY 0RF oxybutynin chloride 10 mg tablet extended release 24hr 10 mg PO BEDTIME 0RF bupropion HCl 100 mg tablet sustained-release 12 hr 100 mg PO BID 0RF multivitamin with minerals [Hair,Skin and Nails] Tablet 1 tab PO DAILY 0RF docusate sodium 100 mg tablet 100 mg PO BID 0RF lubiprostone 24 mcg capsule 24 mcg PO BID 0RF cefuroxime axetil 500 mg tablet 500 mg PO BID Qty: 60 2RF Hold Instructions: see pcp cilostazol 50 mg tablet 50 mg PO BID Qty: 180 2RF levothyroxine 88 mcg tablet 88 mcg PO QAM 0RF meclizine 25 mg tablet 25 mg PO TID 0RF Claritin 10 mg Tablet 10 mg PO DAILY 0RF albuterol sulfate 2.5 mg /3 mL (0.083 %) solution for nebulization 2.5 mg inhalation Q8H PRN (Reason: Shortness Of Breath) 0RF estradiol 0.01 % (0.1 mg/gram) cream See Rx Instructions .ROUTE .COMPLEX 0RF Rx Instructions: as directed vaginally q7d or prn Antifungal (clotrimazole) 1 % cream 1 applic TOPICAL BID 0RF Symbicort 80-4.5 mcg/actuation HFA aerosol inhaler 2 puff INHALATION BID 0RF potassium gluconate 595 mg (99 mg) Tablet 595 mg PO DAILY 0RF Hold Instructions: see pcp Multivitamin Gummies 200 mcg Tablet,Chewable 2 tab PO DAILY 0RF Nervive 1 tab PO DAILY 0RF Lasix 20 mg tablet 20 mg PO DAILY Qty: 30 0RF Discharge Orders: Discharge ED (Routine); Ordered 11/15/21 Ordered By: Trav Tapia Referrals: Chantal Hernandez FNP [Primary Care Provider] - Discharge Diet: Usual diet Discharge Activity: Increase activity as tolerated Patient Instructions: Thoracic Aortic Aneurysm (ED), Pneumonia (ED) Activity Restrictions/Additional Instructions: Thank you for visiting the emergency department. You were seen and evaluated for shortness of breath and dizziness. The exact cause of your symptoms is un clear though likely multifactorial. You were found to have evidence of pneumonia which will be treated with antibiotics. Additionally, as discussed, you were found to have dilation of your aorta which requires further outpatient serial follow-up. Please follow-up with your primary care provider today regarding this. Please continue to use your steroids and other medications including albuterol treatments. Return to the emergency department for worsening symptoms or anything else that you are concerned about and feel needs emergency department evaluation. Coding Level of Care Code ED B2B Outside Sales Representative for Gio Gonzalez
--- NOTE | 2021-11-15 13:28 | XRR_ITS ---
PROCEDURE INFORMATION: Exam: XR Chest Exam date and time: 11/15/2021 2:03 PM Age: 71 years old Clinical indication: Shortness of breath; Additional info: SOB TECHNIQUE: Imaging protocol: XR of the chest. Views: 1 view. COMPARISON: CR XR chest 1V portable [id number] 11/13/2021 7:49 AM FINDINGS: Lungs: Unremarkable. No consolidation. Pleural spaces: Unremarkable. No pleural effusion. No pneumothorax. Heart/Mediastinum: Unremarkable. No cardiomegaly. Bones/joints: One or more healed right rib fractures. Other findings: There are postoperative changes over the abdomen. XR/XR chest 1V portable [id number] IMPRESSION: No acute findings.
[2021-11-15] MEDS: ipratropium-albuterol 3 mL Neb INHALATION (13:38)
--- NOTE | 2021-11-15 14:10 | ECG_ITS ---
[facility] Test Date: 2021-11-15 Pat Name: Mayda Del Cid Department: Room: Gender: Female Media Consultant: : 1950 Requested By: Trav Tapia Order Number: [id number] Luan MD: Victor Manuel Andujar M.D. Measurements Intervals [place] Rate: 71 P: [place]: QRS: 24 QRSD: 88 T: 81 QT: 346 QTc: 377 Interpretive Statements Sinus rhythm with significant baseline artifact NONSPECIFIC T-WAVE ABNORMALITY ABNORMAL RHYTHM ECG Compared to ECG 11/12/2021 17:17:41 T-wave abnormality now present Ventricular premature complex(es) no longer present Electronically Signed On 11-16-2021 8:21:30 CDT by Victor Manuel Andujar M.D. [id number]
[2021-11-15 14:30] LABS: Basophils % 0.3 %; Eosinophils % 0.3 %; Hematocrit 37.6 % (37.0-47.0); Hemoglobin 12.5 g/dL (11.5-15.3); Lymphocytes # 1.3 10^3/uL (0.8-4.8); Lymphocytes % 11.6 %; Mean Corpuscular HGB Conc 33.2 g/dL (30.0-36.0); Mean Corpuscular Hemoglobin 28.5 pg (28.0-34.0); Mean Corpuscular Volume 85.6 fl (81-99); Mean Platelet Volume 9.4 fL (7.4-10.4); Monocytes # 0.7 10^3/uL (0.2-0.9); Monocytes % 5.7 %; Neutrophils # 9.39 10^3/uL (1.8-7.7); Neutrophils % 81.8 %; Nucleated Red Blood Cells % 0 %; Platelet Count 466 10^3/cmm (130-400); Red Blood Count 4.39 10^6/uL (4.1-5.3); Red Cell Distribution Width 13.9 % (12.1-15.1); White Blood Count 11.5 10^3/uL (4.0-10.0)
[2021-11-15 14:38] LABS: Alanine Aminotransferase 21 U/L (0-33); Albumin Level 4.3 g/dL (3.5-5.2); Alkaline Phosphatase 99 IU/L (35-105); Anion Gap 18.6 (5-19); Aspartate Amino Transferase 27 U/L (0-32); Blood Urea Nitrogen 16 mg/dL (8-23); Calcium 9.6 mg/dL (8.5-10.5); Carbon Dioxide 22 mmol/L (22-29); Chloride 90 mmol/L (98-107); Globulin 2.8 g/dL (1.3-4.6); Glucose 130 mg/dL (65-115); Osmolality Calculated 267 mOsm/kg (285-295); Potassium 3.6 mmol/L (3.5-5.1); Sodium 127 mmol/L (136-145); Total Bilirubin 0.4 mg/dL (0.15-1.2); Total Protein 7.1 g/dL (6.6-8.7)
[2021-11-15] MEDS: sodium chloride 0.9% 1,000 ML 999 ML IV (14:55)
[2021-11-15 15:34] LABS: D Dimer 0.53 ug/mIFEU (0-0.59)
--- NOTE | 2021-11-15 15:35 | CTR_ITS ---
PROCEDURE INFORMATION: Exam: CT Neck With Contrast Exam date and time: 11/15/2021 4:22 PM Age: 71 years old Clinical indication: Other: SOB; Additional info: SOB, ? upper airway narrowing TECHNIQUE: Imaging protocol: Computed tomography images of the neck with contrast. Radiation optimization: All CT scans at this facility use at least one of these dose optimization techniques: automated exposure control; mA and/or kV adjustment per patient size (includes targeted exams where dose is matched to clinical indication); or iterative reconstruction. Contrast material: VISI 320; Contrast volume: 95 ml; Contrast route: INTRAVENOUS (IV); COMPARISON: CT angio headneck* [id number] 11/12/2021 3:36 PM RADIATION DOSE METRICS: Total DLP (mGy-cm): 499.92 FINDINGS: Nasopharynx: Unremarkable. Oropharynx: Unremarkable. No significant tonsillar enlargement. Hypopharynx: Unremarkable. Larynx: Unremarkable. Normal epiglottis. Retropharyngeal space: Unremarkable. Submandibular/Parotid glands: Normal. Glands are normal in size. Thyroid: The left thyroid lobe is mildly enlarged and heterogeneous with a small calcification. Lymph nodes: Unremarkable. No lymphadenopathy. Trachea: Visualized trachea is unremarkable. Lungs: There are moderate emphysematous changes in the lungs with mild interstitial and ground-glass opacities with a tree-in-bud appearance compatible with mild pneumonitis. Bones/joints: There are [id number] degenerative changes in the spine with unchanged degenerative anterolisthesis of C3 on C4 and C4 on C5. Vasculature: Ascending thoracic aorta is enlarged measuring 4.4 cm. Soft tissues: No dissection or mural hematoma. Other findings: The heart is enlarged. CT/CT neck w con* [id number] IMPRESSION: 1. There are moderate emphysematous changes in the lungs with mild interstitial and ground-glass opacities with a tree-in-bud appearance compatible with mild pneumonitis. 2. Ascending thoracic aorta is enlarged measuring 4.4 cm. No dissection or mural hematoma. 3. No acute abnormality in the neck. No airway narrowing. No foreign body. No fluid collection.
[2021-11-15 15:47] LABS: ABG PCO2 23.6 mmHg (35-45); Blood Gas Allen Test Pos; Blood Gas Sample Site Radial, right; Blood Gas Sample Type Arterial; HCO3 ABG 21.8 mmol/L (22-26); Oxygen Device ROOM AIR; PO2 ABG 80.2 mmHg (80.0-100.0)
[2021-11-15] MEDS: iodixanol 320 mg/mL 100mL Btl IV (16:23)
[2021-11-15 16:59] LABS: ABG PH Result 7.57 (7.35-7.45)
[2021-11-15] MEDS: doxycycline 100 mg Tablet PO (17:47)
--- NOTE | 2021-11-17 12:03 | DCPLANNER ---
Addendum entered by Ilana Hernández 12/12/21 19:19: Patient had a follow up appointment with heart care - patient did attend appointment. Addendum entered by Ilana Hernández 11/17/21 13:57: Patient has a follow up appointment scheduled for Friday, November 26, 2021 at 1:00 with [employer]O [employer]S DELIVERY DRIVER, Tania Flood. celebrity manager called patient and gave her the appointment information. Original Note: celebrity manager had message to schedule a follow up appointment for patient with heart care. celebrity manager sent patients information to the front office staff at [facility]. Patients information will be printed and reviewed. Clinic will call patient with appointment information.
== END 2021-11-15 17:56 | disposition home or self-care (01) ==
PROVIDERS: Emergency Provider Emergency Medicine; PCP Nurse Practitioner Family
DX: J18.9 Pneumonia, unspecified organism (principal); J45.909 Unspecified asthma, uncomplicated; I48.91 Unspecified atrial fibrillation; Z87.891 Personal history of nicotine dependence; Z95.1 Presence of aortocoronary bypass graft; R42 Dizziness and giddiness; E11.9 Type 2 diabetes mellitus without complications; Z79.84 Long term (current) use of oral hypoglycemic drugs; Z79.890 Hormone replacement therapy
CPT/HCPCS: 36600; 70491; 71045; 80053; 82803; 85025; 85378; 87070; 87205; 93005; 94640; 96374; 99284; J2930; J7030; J7611; Q9967

== ENCOUNTER → 2021-11-17 12:26 | Outpatient (BNVA) | payer MEDICARE, MEDICAID, SELFPAY | PROVIDERS: PCP Nurse Practitioner Family; Visit Provider Urology | DX: N39.0 Urinary tract infection, site not specified (principal) ==

== ENCOUNTER 2021-11-17 16:53 | Emergency (ER) | payer MEDICARE, MEDICAID, SELFPAY ==
[2021-11-17 17:15] VITALS: BP 131/108; PULSE 94; RESP 15; TEMP 36.6; O2SAT 98; BMI 39.0
--- NOTE | 2021-11-17 17:19 | PC.NURSE ---
Patient lives with daughter and .
--- NOTE | 2021-11-17 17:29 | XRR_ITS ---
PROCEDURE INFORMATION: Exam: XR Chest Exam date and time: 11/17/2021 5:39 PM Age: 71 years old Clinical indication: Shortness of breath; Patient HX: SOB TECHNIQUE: Imaging protocol: XR of the chest. Views: 1 view. COMPARISON: CR (CHEST, ) 11/15/2021 2:03 PM FINDINGS: Lungs: Unremarkable. No consolidation. Pleural spaces: Unremarkable. No pleural effusion. No pneumothorax. Heart/Mediastinum: Unremarkable. No cardiomegaly. Bones/joints: Unremarkable. Intraperitoneal space: Multiple left upper quadrant surgical clips in the abdomen. XR/XR chest 1V portable [id number] IMPRESSION: Negative exam. No acute chest abnormality identified.
[2021-11-17 17:36] LABS: Basophils % 0.1 %; Hematocrit 36.7 % (37.0-47.0); Hemoglobin 12.2 g/dL (11.5-15.3); Lymphocytes # 1.3 10^3/uL (0.8-4.8); Lymphocytes % 10.7 %; Mean Corpuscular HGB Conc 33.2 g/dL (30.0-36.0); Mean Corpuscular Hemoglobin 28.5 pg (28.0-34.0); Mean Corpuscular Volume 85.7 fl (81-99); Mean Platelet Volume 9.2 fL (7.4-10.4); Monocytes # 0.5 10^3/uL (0.2-0.9); Monocytes % 4.4 %; Neutrophils # 10.16 10^3/uL (1.8-7.7); Neutrophils % 84.6 %; Nucleated Red Blood Cells % 0 %; Platelet Count 401 10^3/cmm (130-400); Red Blood Count 4.28 10^6/uL (4.1-5.3); Red Cell Distribution Width 13.8 % (12.1-15.1)
[2021-11-17] MEDS: ipratropium-albuterol 3 mL Neb INHALATION (17:57)
[2021-11-17 17:59] VITALS: PULSE 102; RESP 18; O2SAT 99
[2021-11-17 18:01] LABS: Alanine Aminotransferase 30 U/L (0-33); Alkaline Phosphatase 93 IU/L (35-105); Anion Gap 21.4 (5-19); Aspartate Amino Transferase 34 U/L (0-32); Blood Urea Nitrogen 16 mg/dL (8-23); Calcium 9.6 mg/dL (8.5-10.5); Carbon Dioxide 18 mmol/L (22-29); Chloride 92 mmol/L (98-107); Globulin 3.1 g/dL (1.3-4.6); Glucose 109 mg/dL (65-115); NT Pro B Type Natriuretic Pept 1700 pg/mL (0-125); Osmolality Calculated 268 mOsm/kg (285-295); Potassium 3.4 mmol/L (3.5-5.1); Sodium 128 mmol/L (136-145); Total Bilirubin 0.4 mg/dL (0.15-1.2); Total Protein 7.1 g/dL (6.6-8.7)
[2021-11-17 18:03] LABS: Influenza A by IFA Negative (Negative); Influenza B by IFA Negative (Negative)
[2021-11-17 18:05] VITALS: PULSE 85
[2021-11-17 18:08] LABS: Arterial Blood Gas Hematocrit 38.3 % (37-47); Base Excess ABG 0.1 mmol/L (-2.0-2.0); Blood Gas Allen Test Pos; Blood Gas Operator Identificat ED; Blood Gas Sample Site Radial, left; Blood Gas Sample Type Arterial; Carboxyhemoglobin 0.4 %THgb (0.4-20.1); HCO3 ABG 20.1 mmol/L (22-26); HGB O2 Sat 97.6 % (95-100); Methemoglobin 1.2 % (0.4-1.5); Oxygen Device NC; Total Hemoglobin 12.5 g/dL (12-16)
[2021-11-17 18:19] VITALS: BP 157/106; PULSE 110; RESP 15; O2SAT 99
--- NOTE | 2021-11-17 18:30 | W.ED.SOB ---
HPI - SOB/Dyspnea General: Chief Complaint: Shortness of Breath/Dyspnea Stated Complaint: SOB Time Seen by Provider: 11/17/21 17:21 Source: patient and EMS Mode of arrival: EMS Limitations: no limitations History of Present Illness: HPI Narrative: 71-year-old female who states she has been admitted recently with congestive heart failure she was never started on the Lasix though she also has COPD she states that over the last 2 days she had some increasing dyspnea she is on 2 to 3 L of oxygen at home she is in no distress here able speak in full sentences is 98% on her 2 L. She denies any chest pain or vomiting or diarrhea Associated symptoms: Deny abdominal pain, chest pain, fever(s), nausea or vomiting Review of Systems Const: Denies: fever(s), chills, body aches or change in appetite Eyes: Denies: blurry vision or eye discomfort ENMT: Denies: throat pain or dental pain Card: Denies: chest pain Resp: Reports: dyspnea GI: Denies: abdominal pain, nausea, vomiting or diarrhea : Denies: dysuria Musc: Denies: neck pain or back pain Skin/Breast: Denies: rash Neuro: Denies: headache(s) Psych: Denies: depression Ben/Lymph: Denies: easy bruising All/Imm: Denies: urticaria PFSH ED PFSH: Medical History Cystitis Diabetes Hypertension Obesity Peripheral Vascular Disease Recurrent UTI Clinically consistent with chronic cystitis Surgical History S/P appendectomy S/P CABG (coronary artery bypass graft) S/P cholecystectomy S/P hysterectomy Family History Mother , AT 78 Cancer BREAST AND SPINE Grandmother Cancer Father , AT 62 Heart attack Other CAD (coronary artery disease) Hypertension Social History Smoking and tobacco status: former smoker Quit status (tobacco): has quit using tobacco Year quit tobacco: 1985 Former quit date comment: 1 ppd X 15 years, Started at age 14 Alcohol intake: never Marital status: Current occupational status: disabled History of recent travel: No Physical Exam Const: COMMON NORMALS: no acute distress, patient oriented x3 and healthy appearing HENMT: COMMON NORMALS: normocephalic and atraumatic HEAD & SCALP: normocephalic and atraumatic Eye: COMMON NORMALS: Equal, round and reactive pupils present and EOMs intact bilaterally PUPIL: Yes Equal, round and reactive pupils present Neck/C-Spine: COMMON NORMALS: full ROM and supple Chest: COMMONS NORMALS: normal inspection of the chest and normal palpation of entire chest wall Resp: COMMON NORMALS: normal respiratory effort, No retractions, No use of accessory muscles and clear to auscultation bilaterally AUSCULTATION: clear to auscultation bilaterally Cardio: COMMON NORMALS: regular rate, regular rhythm and No murmurs present (Cardio) RATE: regular rate RHYTHM: regular rhythm GI: COMMON NORMALS: Normal to inspection, nondistended, normoactive bowel sounds present, Soft to palpation, non-tender and no masses PALPATION: Yes Soft to palpation Extremity: COMMON NORMALS: normal to inspection and full ROM Neuro: COMMON NORMALS: patient oriented x3, moves all extremities and no focal motor deficits Psych: COMMON NORMALS: mental status grossly normal, Normal thought process present and cooperative THOUGHT PROCESS: Normal thought process present Skin: COMMON NORMALS: no rashes or lesions noted and no wounds GENERAL SKIN EXAM: no rashes or lesions noted Course Vital Signs: Vital signs: Vital Signs Temperature 97.8 F 11/17/21 17:15 Pulse Rate 104 H 11/17/21 18:33 Respiratory Rate 19 H 11/17/21 18:33 Blood Pressure 110/83 11/17/21 18:33 Pulse Oximetry 99 11/17/21 18:33 MDM - SOB/Dyspnea Medical Decision Making Patient presents here with dyspnea is likely of COPD along with some CHF x-ray shows no acute findings blood work here is normal she is on her baseline oxygen we will start her on a low-dose Lasix also given her IV Lasix here she is to follow-up with PCP in 2 to 4 days return if worsening. Lab Data : 11/17/21 17:30 11/17/21 17:30 Labs/Radiology: Radiology Impressions Chest X-Ray 11/17/21 17:29 IMPRESSION: Negative exam. No acute chest abnormality identified. Laboratory Results WBC 12.0 10^3/uL (4.0-10.0) H 11/17/21 17:30 RBC 4.28 10^6/uL (4.1-5.3) 11/17/21 17:30 Hgb 12.2 g/dL (11.5-15.3) 11/17/21 17: Hct 36.7 % (37.0-47.0) L 11/17/21 17: MCV 85.7 fl (81-99) 11/17/21 17: MCH 28.5 pg (28.0-34.0) 11/17/21 17: MCHC 33.2 g/dL (30.0-36.0) 11/17/21: RDW 13.8 % (12.1-15.1) 11/17/21: Plt Count 401 10^3/cmm (130-400) H 11/17/21 17:30 MPV 9.2 fL (7.4-10.4) 11/17/21 17: Neut % (Auto) 84.6 % 11/17/21 17:30 Lymph % (Auto) 10.7 % 11/17/21 17:30 [place] % (Auto) 4.4 % 11/17/21 17:30 Eos % (Auto) 0.0 % 11/17/21 17: Baso % (Auto) 0.1 % 11/17/21 17: Neut # (Auto) 10.16 10^3/uL (1.8-7.7) H 11/17/21 17:30 Lymph # (Auto) 1.3 10^3/uL (0.8-4.8) 11/17/21 17:30 [place] # (Auto) 0.5 10^3/uL (0.2-0.9) 11/17/21 17:30 Eos # (Auto) 0.0 10^3/uL (0.0-0.8) 11/17/21 17: Baso # (Auto) 0.0 10^3/uL (0.0-0.1) 11/17/21 17:30 Nucleated RBC % (auto) 0 % 11/17/21 17: Nucleated RBCs # 0.0 /100WBC 11/17/21 17:30 PT 13.50 SECONDS (12.1-14.9) 11/17/21 17:35 INR 1.00 (0.8-1.2) 11/17/21 17:35 Specimen Type Arterial 11/17/21 18:00 Sample Site Radial, left 11/17/21 18:00 ABG pCO2 21.0 mmHg (35-45) L 11/17/21 18:00 ABG pO2 113.0 mmHg (80.0-100.0) H 11/17/21 18:00 ABG HCO3 20.1 mmol/L (22-26) L 11/17/21 18:00 ABG Base Excess 0.1 mmol/L (-2.0-2.0) 11/17/21 18:00 [place] Test Pos 11/17/21 18:00 Hematocrit 38.3 % (37-47) 11/17/21 18:00 Hgb O2 Saturation 97.6 % (95-100) 11/17/21 18:00 Carboxyhemoglobin 0.4 %THgb (0.4-20.1) 11/17/21 18:00 Methemoglobin 1.2 % (0.4-1.5) 11/17/21 18:00 Total Hemoglobin 12.5 g/dL (12-16) 11/17/21 18:00 O2 Delivery Device Nc 11/17/21 18:00 O2 Liters/Min 3.0 % 11/17/21 18:00 FiO2 32.0 % 11/17/21 18:00 Grants Specialist ID Ed 11/17/21 18:00 Sodium 128 mmol/L (136-145) L 11/17/21 17:30 Potassium 3.4 mmol/L (3.5-5.1) L 11/17/21 17:30 Chloride 92 mmol/L (98-107) L 11/17/21 17:30 Carbon Dioxide 18 mmol/L (22-29) L 11/17/21 17:30 Anion Gap 21.4 (5-19) H 11/17/21 17:30 BUN 16 mg/dL (8-23) 11/17/21 17:30 Creatinine 1.1 mg/dL (0.5-0.9) H 11/17/21 17:30 GFR Calculation Not Reportable 11/17/21 17:30 Glucose 109 mg/dL (65-115) 11/17/21 17:30 Calculated Osmolality 268 mOsm/kg (285-295) L 11/17/21 17:30 Calcium 9.6 mg/dL (8.5-10.5) 11/17/21 17:30 Total Bilirubin 0.4 mg/dL (0.15-1.2) 11/17/21 17:30 AST 34 U/L (0-32) H 11/17/21 17:30 ALT 30 U/L (0-33) 11/17/21 17:30 Alkaline Phosphatase 93 IU/L (35-105) 11/17/21 17:30 NT-Pro-B Natriuret Pep 1700 pg/mL (0-125) H 11/17/21 17:30 Total Protein 7.1 g/dL (6.6-8.7) 11/17/21 17:30 Albumin 4.0 g/dL (3.5-5.2) 11/17/21 17:30 Globulin 3.1 g/dL (1.3-4.6) 11/17/21 17:30 Influenza Type A Ag Negative (Negative) 11/17/21 17:35 Influenza Type B Ag Negative (Negative) 11/17/21 17:35 Discharge Plan Discharge Patient Disposition: Home Clinical Impression: Congestive heart failure, Acute exacerbation of chronic obstructive airways disease Condition: Stable Prescriptions: New Lasix 20 mg tablet 20 mg PO DAILY Qty: 30 0RF No Action montelukast [Singulair] 10 mg tablet 10 mg PO DAILY 0RF metoprolol tartrate 25 mg tablet 12.5 mg PO BID 0RF allopurinol 100 mg tablet 100 mg PO DAILY 0RF duloxetine [Cymbalta] 60 mg capsule,delayed release(DR/EC) 60 mg PO DAILY 0RF Hold Instructions: sodium is low. see pcp before resuming Rx Instructions: take with 30mg to =90mg metformin 500 mg tablet 500 mg PO DAILY 0RF simvastatin 10 mg tablet 10 mg PO BEDTIME 0RF albuterol sulfate [ProAir HFA] 90 mcg/actuation HFA aerosol inhaler 2 puff INHALATION QID PRN (Reason: Shortness Of Breath) 0RF gabapentin 300 mg capsule See Rx Instructions .ROUTE .COMPLEX 0RF Rx Instructions: 600mg po in AM , 600mg po at Noon, and 900mg po HS lisinopril 20 mg tablet 10 mg PO DAILY 0RF pantoprazole [Protonix] 40 mg tablet,delayed release (DR/EC) 40 mg PO BID 0RF hydrocodone-acetaminophen 7.5-325 mg tablet 1 tab PO TID PRN (Reason: Pain) 0RF duloxetine [Cymbalta] 30 mg capsule,delayed release(DR/EC) 30 mg PO DAILY 0RF Hold Instructions: sodium is low. Please see PCP before resuming Rx Instructions: take with 60mg to =90mg metoclopramide HCl [Reglan] 10 mg tablet 10 mg PO TID 0RF vitamin B complex [B Complex-Vitamin B12] Tablet 1 tab PO DAILY 0RF magnesium oxide 400 mg magnesium capsule 400 mg PO DAILY 0RF oxybutynin chloride 10 mg tablet extended release 24hr 10 mg PO BEDTIME 0RF bupropion HCl 100 mg tablet sustained-release 12 hr 100 mg PO BID 0RF multivitamin with minerals [Hair,Skin and Nails] Tablet 1 tab PO DAILY 0RF docusate sodium 100 mg tablet 100 mg PO BID 0RF lubiprostone 24 mcg capsule 24 mcg PO BID 0RF cefuroxime axetil 500 mg tablet 500 mg PO BID Qty: 60 2RF Hold Instructions: see pcp cilostazol 50 mg tablet 50 mg PO BID Qty: 180 2RF doxycycline hyclate 100 mg tablet 100 mg PO BID 14 Days Qty: 28 0RF levothyroxine 88 mcg tablet 88 mcg PO QAM 0RF meclizine 25 mg tablet 25 mg PO TID 0RF Claritin 10 mg Tablet 10 mg PO DAILY 0RF albuterol sulfate 2.5 mg /3 mL (0.083 %) solution for nebulization 2.5 mg inhalation Q8H PRN (Reason: Shortness Of Breath) 0RF estradiol 0.01 % (0.1 mg/gram) cream See Rx Instructions .ROUTE .COMPLEX 0RF Rx Instructions: as directed vaginally q7d or prn Antifungal (clotrimazole) 1 % cream 1 applic TOPICAL BID 0RF Symbicort 80-4.5 mcg/actuation HFA aerosol inhaler 2 puff INHALATION BID 0RF potassium gluconate 595 mg (99 mg) Tablet 595 mg PO DAILY 0RF Hold Instructions: see pcp Multivitamin Gummies 200 mcg Tablet,Chewable 2 tab PO DAILY 0RF Nervive 1 tab PO DAILY 0RF prednisone 20 mg tablet 60 mg PO DAILY 5 Days Qty: 15 0RF Discharge Orders: Discharge ED (Routine); Ordered 11/17/21 Ordered By: Juan Banks Referrals: Chantal Hernandez FNP [Primary Care Provider] - 1-3 days Discharge Diet: Advance as tolerated Discharge Activity: Resume usual activity Patient Instructions: Heart Failure (ED) Coding Level of Care Code ED Steam Flattener for Gio Gonzalez
[2021-11-17 18:33] VITALS: BP 110/83; PULSE 104; RESP 19; O2SAT 99
[2021-11-17] MEDS: FUROsemide 10 mg/mL SDV 4mL 40 MG IVP (18:50)
== END 2021-11-17 18:58 | disposition home or self-care (01) ==
PROVIDERS: Emergency Provider Emergency Medicine; PCP Nurse Practitioner Family
DX: J44.1 Chronic obstructive pulmonary disease with (acute) exacerbation (principal); I11.0 Hypertensive heart disease with heart failure; I50.9 Heart failure, unspecified; E11.51 Type 2 diabetes mellitus with diabetic peripheral angiopathy without gangrene; Z87.891 Personal history of nicotine dependence; Z95.1 Presence of aortocoronary bypass graft; Z79.84 Long term (current) use of oral hypoglycemic drugs
CPT/HCPCS: 36600; 71045; 80053; 82805; 83880; 85025; 85610; 87804; 94640; 96374; 96375; 99284; J1940; J2930; J7611

== ENCOUNTER 2021-11-20 14:14 | Outpatient (CLI) | payer MEDICARE, MEDICAID, SELFPAY ==
--- NOTE | 2021-11-20 14:20 | XR_ITS ---
WS: [id number] DEXA (DUAL ENERGY X-RAY ABSORPTIOMETRY) Bone mineral density was performed using a [employer] machine. HISTORY: POST MENOPAUSAL COMPARISON: None available. Lumbar spine BMD (L1-L4): 1.711 g/cm2 T score: 4.4 Z score: 5.0 Total hip BMD: Left: 0.887 g/cm2. T score: -1.0 Z score: -0.2 Right: 0.814 g/cm2. T score: -1.5 Z score: -0.8 10 year probability of a major osteoporotic fracture is 11%. XR/XR DEXA axial skeleton* 29518 IMPRESSION: OSTEOPENIA based upon the WHO classification for females.
== END 2021-11-20 14:15 | disposition home or self-care (01) ==
LOC: RAD 14:14
PROVIDERS: PCP Nurse Practitioner Family; Visit Provider Nurse Practitioner Family
DX: Z78.0 Asymptomatic menopausal state (principal); M85.89 Other specified disorders of bone density and structure, multiple sites
CPT/HCPCS: 77080

== ENCOUNTER → 2021-12-11 13:11 | Outpatient (BNVA) | payer MEDICARE, MEDICAID, SELFPAY | PROVIDERS: PCP Nurse Practitioner Family; Visit Provider Nurse Practitioner Family | DX: I10 Essential (primary) hypertension (principal); Z87.891 Personal history of nicotine dependence; N39.0 Urinary tract infection, site not specified | CPT/HCPCS: 81003; 87077; 87086; 87186; 99213 ==

== ENCOUNTER → 2022-01-06 15:13 | Outpatient (BNVA) | payer MEDICARE, MEDICAID, SELFPAY | PROVIDERS: PCP Nurse Practitioner Family; Visit Provider Internal Medicine Pulmonary Disease | DX: Z95.1 Presence of aortocoronary bypass graft (principal); Z87.891 Personal history of nicotine dependence; R06.00 Dyspnea, unspecified; R06.02 Shortness of breath | CPT/HCPCS: 99204 ==

== ENCOUNTER → 2022-01-22 14:47 | Outpatient (BNVA) | payer MEDICARE, MEDICAID, SELFPAY | PROVIDERS: PCP Nurse Practitioner Family; Visit Provider Urology | DX: N39.0 Urinary tract infection, site not specified (principal) | CPT/HCPCS: 81003; 87077; 87086; 87186; 99213 ==

== ENCOUNTER → 2022-02-17 13:24 | Outpatient (BNVA) | payer MEDICARE, MEDICAID, SELFPAY | PROVIDERS: PCP Nurse Practitioner Family; Visit Provider Internal Medicine Pulmonary Disease | DX: R06.00 Dyspnea, unspecified (principal); Z95.1 Presence of aortocoronary bypass graft; Z87.891 Personal history of nicotine dependence | CPT/HCPCS: 36415; 82103; 82784; 82785; 85025; 86003; 99214 ==

== ENCOUNTER 2022-03-09 11:55 | Outpatient (CLI) | payer MEDICARE, MEDICAID, SELFPAY ==
[2022-03-09 12:14] VITALS: BP 144/93; PULSE 52; RESP 18; TEMP 36.4; O2SAT 99
[2022-03-09] MEDS: denosumab 60 mg SDV SUBCUT (12:23)
[2022-03-09 12:38] VITALS: BP 136/94; PULSE 65; RESP 18; TEMP 36.8; O2SAT 99
--- NOTE | 2022-03-09 12:53 | PC.NURSE ---
Pt's calcium level was 8.4. I spoke with Renae at Dr. Kothari's office, and they approved giving the medication. dh
== END 2022-03-09 11:56 | disposition home or self-care (01) ==
PROVIDERS: PCP Nurse Practitioner Family; Visit Provider Nurse Practitioner Family
DX: M81.0 Age-related osteoporosis without current pathological fracture (principal)
CPT/HCPCS: 96372; J0897

== ENCOUNTER 2022-03-18 10:01 | Outpatient (CLI) | payer MEDICARE, MEDICAID, SELFPAY ==
[2022-03-18 11:00] VITALS: O2SAT 91; O2SAT 94
--- NOTE | 2022-03-18 11:06 | PFTS_ITS ---
Date of Study:03/18/22 Date of Dictation: MECHANICS: Forced vital capacity (FVC) is reduced. Forced expiratory volume in one second (FEV1) is reduced. FEV1/FVC is normal. FLOW VOLUME LOOP: Narrow. LUNG VOLUMES: Total lung capacity (TLC) is reduced. Residual volume (RV) is reduced. DIFFUSING CAPACITY FOR CARBON MONOXIDE: Mild reduced. INTERPRETATION: The postbronchodilator spirometry is consistent with moderately severe airflow obstruction. There is no significant postbronchodilator response. The lung volumes are consistent with mild restriction. Gas exchange (DLCO) is mildly reduced. MTDD
== END 2022-03-18 10:02 | disposition home or self-care (01) ==
PROVIDERS: PCP Nurse Practitioner Family; Visit Provider Internal Medicine Pulmonary Disease
DX: R06.02 Shortness of breath (principal)
CPT/HCPCS: 94060; 94726; 94729; 94760; 94762; J7611

== ENCOUNTER 2022-03-18 12:00 | Outpatient (CLI) | payer MEDICARE, MEDICAID, SELFPAY | END 2022-03-18 12:01 | disposition home or self-care (01) | LOC: SLEEP 03-19 16:42 | PROVIDERS: PCP Nurse Practitioner Family; Visit Provider Internal Medicine Pulmonary Disease | DX: R06.02 Shortness of breath (principal) | CPT/HCPCS: 94762 ==

== ENCOUNTER → 2022-03-30 14:33 | Outpatient (BNVA) | payer MEDICARE, MEDICAID, SELFPAY | PROVIDERS: PCP Nurse Practitioner Family; Visit Provider Internal Medicine Pulmonary Disease | DX: N30.20 Other chronic cystitis without hematuria (principal); R06.09 Other forms of dyspnea; M25.561 Pain in right knee; M25.562 Pain in left knee; Z95.1 Presence of aortocoronary bypass graft; Z87.891 Personal history of nicotine dependence; J44.9 Chronic obstructive pulmonary disease, unspecified | CPT/HCPCS: 87086; 99203; 99213; 99214 ==

== ENCOUNTER → 2022-04-16 07:42 | Outpatient (BNVA) | payer MEDICARE, MEDICAID, SELFPAY | PROVIDERS: PCP Nurse Practitioner Family; Visit Provider Urology | DX: N30.20 Other chronic cystitis without hematuria (principal); N39.0 Urinary tract infection, site not specified; R33.9 Retention of urine, unspecified | CPT/HCPCS: 81003 ==

== ENCOUNTER → 2022-04-20 13:58 | Outpatient (BNVA) | payer MEDICARE, MEDICAID, SELFPAY | PROVIDERS: PCP Nurse Practitioner Family; Visit Provider Internal Medicine Cardiovascular Disease | DX: R06.00 Dyspnea, unspecified (principal); M79.89 Other specified soft tissue disorders; I11.0 Hypertensive heart disease with heart failure; I50.20 Unspecified systolic (congestive) heart failure; E78.5 Hyperlipidemia, unspecified; J44.9 Chronic obstructive pulmonary disease, unspecified; Z87.891 Personal history of nicotine dependence; Z95.1 Presence of aortocoronary bypass graft | CPT/HCPCS: 80048; 83880; 99214 ==

== ENCOUNTER 2022-04-27 20:48 | Emergency (ER) | payer MEDICARE, MEDICAID, SELFPAY ==
[2022-04-27 20:48] VITALS: BP 155/102; PULSE 76; RESP 13; TEMP 36.6; O2SAT 96; BMI 43.3
--- NOTE | 2022-04-27 20:54 | W.ED.WEAKNES ---
HPI - Weakness General: Chief complaint: General Medical Stated complaint: WEAKNESS Time Seen by Provider: 04/27/22 20:54 History of Present Illness: Ms. Del Cid is a 72-year-old lady who presents to the emergency department due to generalized weakness and confusion. Symptoms of been intermittent in nature for approximately 1 month and started subacutely. Confusion is intermittent without focal neurologic deficits reported. She does endorse baseline shortness of breath and chronic oxygen use, she did fall and hit her head earlier today due to unclear etiology preceded by lightheadedness. Currently endorses back pain as well as head pain. Intensity symptoms is moderate. Back pain is aching in quality. No other specific changes in health, exacerbating, or alleviating factors identified. Onset (ago): week(s) Location: generalized Severity: moderate Exacerbating factors: exertion Review of Systems General: Reports: 10 or more systems reviewed and unremarkable except in HPI and below PFSH ED PFSH: Medical History Chronic cystitis COPD (chronic obstructive pulmonary disease) Cystitis Diabetes Hypertension Obesity Peripheral Vascular Disease Recurrent UTI Clinically consistent with chronic cystitis Surgical History S/P appendectomy S/P CABG (coronary artery bypass graft) S/P cholecystectomy S/P hysterectomy Family History Mother , AT 78 Cancer BREAST AND SPINE Grandmother Cancer Father , AT 62 Heart attack Other CAD (coronary artery disease) Hypertension Social History Smoking and tobacco status: former smoker Quit status (tobacco): has quit using tobacco Year quit tobacco: 1985 Former quit date comment: 2 ppd X 25 years, Started at age 14 Alcohol intake: never Lives independently: Yes Housing: House Marital status: / Current occupational status: disabled History of recent travel: No Physical Exam Const: COMMON NORMALS: alert GENERAL APPEARANCE: cooperative and well developed HENMT: COMMON NORMALS: normocephalic and atraumatic HEAD & SCALP: normocephalic and atraumatic OTHER: No alva signs or raccoon eyes. No otorrhea or rhinorrhea. Jaw alignment normal. Dentition baseline. No obvious bony step-offs. No septal hematoma. No evidence of ocular entrapment. Eye: COMMON NORMALS: conjunctivae normal CONJUNCTIVA: Yes conjunctivae normal SCLERA: sclerae normal Neck/C-Spine: COMMON NORMALS: supple GENERAL: Yes trachea midline Resp: COMMON NORMALS: clear to auscultation bilaterally EFFORT & INSPECTION: Yes able to speak in complete sentences AUSCULTATION: clear to auscultation bilaterally Cardio: COMMON NORMALS: regular rate and regular rhythm RATE: regular rate RHYTHM: regular rhythm GI: COMMON NORMALS: Soft to palpation PALPATION: Yes Soft to palpation and No Tenderness to palpation present (GI) Extremity: GENERAL: Yes normal exam except as noted and No edema Neuro: COMMON NORMALS: CN's II-XII intact bilaterally, moves all extremities, no focal motor deficits and no sensory deficits noted SENSORIUM/ORIENTATION: Yes alert and No Orientation impaired Psych: COMMON NORMALS: mental status grossly normal and Normal thought process present THOUGHT PROCESS: Normal thought process present Course ED course: - Patient was seen and evaluated by me at bedside - Patient placed on cardiac monitors, IV access obtained - Initial evaluation notable for exam as above. Head to toe exam performed. - Labs and xrays personally interpreted by me. EKG shows sinus rhythm, no STEMI. Short VT interval. -IV fluids given - Labs notable for no leukocytosis, normocytic anemia. Metabolic panel with mild evidence of dehydration which should improve with administered IV fluids. No UTI. - Imaging notable for no acute traumatic injury identified on CT imaging - Upon serial reexamination after treatment the patient was improved, she was able to ambulate - Based on patient history, evaluation, and testing as interpreted the most likely cause of the patient's condition is mild dehydration and intermittent other symptoms of uncertain etiology - The results of ED evaluation were discussed with the patient including prescriptions and/or symptomatic cares (if applicable) including appropriate and responsible use, followup plan, and return precautions. The patient verbalized understanding and felt safe for discharge. - Patient discharged in satisfactory condition. Note: Click bubbles or prepopulated mina in note writing are used for assistance with data collection and billing and are inherently more limited than narrative and other text portions of this note. Please use narrative for additional clinical history and defer to narrative/free test for any case of contradictory information. If information appears in only free text or click bubble it should be considered present or absent as reported. Please contact note designer writer for clarifications of clinical information or contradictory information. MDM is a brief summary, contradictory or erroneous seeming information should be clarified and full note should be reviewed. Vital Signs: Vital signs: Vital Signs Temperature 97.8 F 04/27/22 20:48 Pulse Rate 74 04/28/22 00:52 Respiratory Rate 98 H 04/28/22 00:52 Blood Pressure 137/89 04/28/22 00:52 Pulse Oximetry 98 04/28/22 00:52 Oxygen Delivery Me thod 04/28/22 00:00 Oxygen Flow Rate 4 04/28/22 00:00 MDM - Weakness Medical Decision Making 72-year-old lady presenting with intermittent symptoms and fall earlier today. Mild dehydration on laboratory studies however no other clear etiology identified. Satisfactory for outpatient management with PCP follow-up. Medical Records I reviewed the patient's medical records. Lab Data I reviewed the patient's lab results. : 04/27/22 20:58 04/27/22 20:58 Radiology Impressions Cervical Spine CT 04/27/22 21:14 IMPRESSION: 1. Negative for fracture or dislocation. 2. Grade 1 anterolisthesis of C4 relative to C5 of 2.6 mm appears chronic and degenerative in nature. Chest/Abdomen/Pelvis CT 04/27/22 21:14 IMPRESSION: Negative for traumatic injury to the chest. IMPRESSION: 1. Negative for acute inflammatory process in the abdomen or pelvis. 2. Left hepatic lobe cyst. 3. Cholecystectomy. 4. Left kidney cyst, negative for follow up. 5. Supraumbilical ventral abdominal hernia containing omentum without bowel. 6. Gastric surgical clips and sutures. COMMENTS: Consistent with the [place] [employer]'s Incidental Findings Committee white paper (J Am Lyndsay Radiol 2018): Any incidental renal lesion less than 1 cm or classified as too small to characterize, or any incidental cystic renal lesion characterized as simple-appearing, is likely benign. No follow-up imaging is recommended for these lesions per consensus recommendations based on imaging criteria. Head CT 04/27/22 21:14 IMPRESSION: No acute intracranial abnormality. Laboratory Results WBC 8.1 10^3/uL (4.0-10.0) 04/27/22 20:58 RBC 4.16 10^6/uL (4.1-5.3) 04/27/22 20:58 Hgb 10.6 g/dL (11.5-15.3) L 04/27/22 20:58 Hct 35.0 % (37.0-47.0) L 04/27/22 20:58 MCV 84.1 fl (81-99) 04/27/22 20:58 MCH 25.5 pg (28.0-34.0) L 04/27/22 20:58 MCHC 30.3 g/dL (30.0-36.0) 04/27/22 20:58 RDW 20.4 % (12.1-15.1) H 04/27/22 20:58 Plt Count 387 10^3/cmm (130-400) 04/27/22 20:58 MPV 9.3 fL (7.4-10.4) 04/27/22 20:58 Neut % (Auto) 79.3 % 04/27/22 20:58 Lymph % (Auto) 15.3 % 04/27/22 20:58 [place] % (Auto) 3.0 % 04/27/22 20:58 Eos % (Auto) 0.9 % 04/27/22 20:58 Baso % (Auto) 1.0 % 04/27/22 20:58 Neut # (Auto) 6.44 10^3/uL (1.8-7.7) 04/27/22 20:58 Lymph # (Auto) 1.2 10^3/uL (0.8-4.8) 04/27/22 20:58 [place] # (Auto) 0.2 10^3/uL (0.2-0.9) 04/27/22 20:58 Eos # (Auto) 0.1 10^3/uL (0.0-0.8) 04/27/22 20:58 Baso # (Auto) 0.1 10^3/uL (0.0-0.1) 04/27/22 20:58 Nucleated RBC % (auto) 0 % 04/27/22 20:58 Nucleated RBCs # 0.0 /100WBC 04/27/22 20:58 Specimen Type Arterial 04/27/22 21:18 Sample Site Radial, left 04/27/22 21:18 ABG pH 7.44 (7.35-7.45) 04/27/22 21:18 ABG pCO2 41.4 mmHg (35-45) 04/27/22 21:18 ABG pO2 137.0 mmHg (80.0-100.0) H 04/27/22 21:18 ABG HCO3 27.8 mmol/L (22-26) H 04/27/22 21:18 ABG Base Excess 3.3 mmol/L (-2.0-2.0) H 04/27/22 21:18 [place]ley Test Pos 04/27/22 21:18 Hematocrit 32.5 % (37-47) L 04/27/22 21:18 O2 Delivery Device Nc 04/27/22 21:18 O2 Liters/Min 3.0 % 04/27/22 21:18 Wash Crew Person ID [place] 04/27/22 21:18 Sodium 135 mmol/L (136-145) L 04/27/22 20:58 Potassium 3.5 mmol/L (3.5-5.1) 04/27/22 20:58 Chloride 95 mmol/L (98-107) L 04/27/22 20:58 Carbon Dioxide 24 mmol/L (22-29) 04/27/22 20:58 Anion Gap 19.5 (5-19) H 04/27/22 20:58 BUN 22 mg/dL (8-23) 04/27/22 20:58 Creatinine 1.5 mg/dL (0.5-0.9) H 04/27/22 20:58 GFR Calculation Not Reportable 04/27/22 20:58 Glucose 249 mg/dL (65-115) H 04/27/22 20:58 POC Glucose 108 mg/dL (70-110) 04/27/22 21:21 Calculated Osmolality 292 mOsm/kg (285-295) 04/27/22 20:58 Lactate 1.5 mmol/L (0.5-2.2) 04/27/22 21:40 Calcium 9.4 mg/dL (8.5-10.5) 04/27/22 20:58 Total Bilirubin 0.2 mg/dL (0.15-1.2) 04/27/22 20:58 AST 20 U/L (0-32) 04/27/22 20:58 ALT 19 U/L (0-33) 04/27/22 20:58 Alkaline Phosphatase 93 U/L (35-105) 04/27/22 20:58 NT-Pro-B Natriuret Pep 792 pg/mL (0-125) H 04/27/22 20:58 Total Protein 6.8 g/dL (6.6-8.7) 04/27/22 20:58 Albumin 3.9 g/dL (3.5-5.2) 04/27/22 20:58 Globulin 2.9 g/dL (1.3-4.6) 04/27/22 20:58 Procalcitonin 0.10 ng/mL (0-0.5) 04/27/22 20:58 TSH 2.63 uIU/mL (0.27-4.20) 04/27/22 20:58 Urine Color Yellow (Yellow) 04/27/22 22:50 Urine Appearance Clear (CLEAR) 04/27/22 22:50 Urine pH 5 (5-7) 04/27/22 22:50 Ur Specific [place] 1.015 (1.005-1.030) 04/27/22 22:50 Urine Protein Neg (Negative) 04/27/22 22:50 Urine Glucose (UA) Norm (Normal) 04/27/22 22:50 Urine Ketones Negative (Negative) 04/27/22 22:50 Urine Blood Neg (Negative) 04/27/22 22:50 Urine Nitrate Negative (Negative) 04/27/22 22:50 Urine Bilirubin Neg (Negative) 04/27/22 22:50 Urine Urobilinogen Norm mg/dL (Negative) 04/27/22 22:50 Ur Leukocyte Esterase Negative (Negative) 04/27/22 22:50 Discharge Plan Discharge Patient Disposition: Home Clinical Impression: Generalized weakness, Dehydration, mild Condition: Stable Prescriptions: New ondansetron 4 mg tablet,disintegrating 4 mg PO Q8H PRN (Reason: nausea and vomiting) Qty: 15 0RF No Action montelukast [Singulair] 10 mg tablet 10 mg PO DAILY metoprolol tartrate 25 mg tablet 12.5 mg PO BID allopurinol 100 mg tablet 100 mg PO DAILY duloxetine [Cymbalta] 60 mg capsule,delayed release(DR/EC) 60 mg PO DAILY Hold Instructions: sodium is low. see pcp before resuming Rx Instructions: take with 30mg to =90mg metformin 500 mg tablet 500 mg PO DAILY simvastatin 10 mg tablet 10 mg PO BEDTIME albuterol sulfate [ProAir HFA] 90 mcg/actuation HFA aerosol inhaler 2 puff INHALATION QID PRN (Reason: Shortness Of Breath) gabapentin 300 mg capsule See Rx Instructions .ROUTE .COMPLEX Rx Instructions: 600mg po in AM , 600mg po at Noon, and 900mg po HS pantoprazole [Protonix] 40 mg tablet,delayed release (DR/EC) 40 mg PO BID duloxetine [Cymbalta] 30 mg capsule,delayed release(DR/EC) 30 mg PO DAILY Hold Instructions: sodium is low. Please see PCP before resuming Rx Instructions: take with 60mg to =90mg metoclopramide HCl [Reglan] 10 mg tablet 10 mg PO TID vitamin B complex [B Complex-Vitamin B12] Tablet 1 tab PO DAILY Lasix 20 mg tablet 20 mg PO DAILY Label Comments: Has been taking 2 daily hydrocodone-acetaminophen 10-325 mg tablet PO TID PRN oxybutynin chloride 10 mg tablet extended release 24hr 10 mg PO BEDTIME bupropion HCl 100 mg tablet sustained-release 12 hr 100 mg PO BID multivitamin with minerals [Hair,Skin and Nails] Tablet 1 tab PO DAILY docusate sodium 100 mg tablet 100 mg PO BID lubiprostone 24 mcg capsule 24 mcg PO BID lorazepam 0.5 mg tablet 0.5 mg PO DAILY PRN Breztri Aerosphere 160-9-4.8 mcg/actuation HFA aerosol inhaler 2 inh inhalation BID Qty: 10.7 3RF buspirone 10 mg tablet 10 mg PO BID miscellaneous medical supply Misc See Rx Instructions miscellaneous .COMPLEX Qty: 1 0RF Rx Instructions: increase oxygen to 3LPM cilostazol 50 mg tablet See Rx Instructions .ROUTE .COMPLEX Qty: 180 2RF Dose Instruction: TAKE 1 TABLET BY MOUTH TWO TIMES DAILY Rx Instructions: TAKE 1 TABLET BY MOUTH TWO TIMES DAILY nitrofurantoin monohyd/m-cryst [Macrobid] 100 mg capsule 100 mg PO BID Qty: 60 2RF Rx Instructions: must administer with a meal/food spironolactone 25 mg tablet 25 mg PO DAILY Qty: 90 3RF levothyroxine 88 mcg tablet 88 mcg PO QAM meclizine 25 mg tablet 25 mg PO TID albuterol sulfate 2.5 mg /3 mL (0.083 %) solution for nebulization 2.5 mg inhalation Q8H PRN (Reason: Shortness Of Breath) estradiol 0.01 % (0.1 mg/gram) cream See Rx Instructions .ROUTE .COMPLEX Rx Instructions: as directed vaginally q7d or prn Antifungal (clotrimazole) 1 % cream 1 applic TOPICAL BID Multivitamin Gummies 200 mcg Tablet,Chewable 2 tab PO DAILY Nervive 1 tab PO DAILY loratadine [Claritin] 10 mg tablet 10 mg PO DAILY PRN Discharge Orders: Discharge ED (Routine); Ordered 04/28/22 Ordered By: Trav Tapia Referrals: Chantal Hernandez FNP [Primary Care Provider] - Discharge Diet: Usual diet Discharge Activity: Increase activity as tolerated Patient Instructions: Dehydration (ED), Weakness (Generalized) Activity Restrictions/Additional Instructions: Thank you for visiting the emergency department. You were seen and evaluated for generalized weakness. The exact cause of your symptoms is unclear, you were noted to have mild dehydration. Please follow-up with your primary care provider. Return to the emergency department for worsening symptoms or anything else that you are concerned about a feel needs emergency department evaluation. Coding Level of Care Code ED Manager Mail for Gio Gonzalez Exam Comprehensive
[2022-04-27 20:58] VITALS: PULSE 77; RESP 20; O2SAT 95
--- NOTE | 2022-04-27 21:14 | CTR_ITS ---
PROCEDURE INFORMATION: Exam: CT Head Without Contrast Exam date and time: 04/27/2022 9:52 PM Age: 72 years old Clinical indication: Injury or trauma; Blunt trauma (contusions or hematomas); Altered mental status/memory loss; Confusion or disorientation; Patient HX: Fall today at home. Struck head on walker. C/O of head and back pain with general weakness. Patient appears confused. ; Additional info: Syncope, head strike, confusion TECHNIQUE: Imaging protocol: Computed tomography of the head without contrast. Radiation optimization: All CT scans at this facility use at least one of these dose optimization techniques: automated exposure control; mA and/or kV adjustment per patient size (includes targeted exams where dose is matched to clinical indication); or iterative reconstruction. COMPARISON: CT head wo con* [id number] 11/12/2021 3:30 PM RADIATION DOSE METRICS: Total DLP (mGy-cm): 945.58 FINDINGS: Brain: Normal. No hemorrhage. Unremarkable white matter. No mass effect. Cerebral ventricles: No ventriculomegaly. Paranasal sinuses: Visualized sinuses are unremarkable. No fluid levels. Mastoid air cells: Visualized mastoid air cells are well aerated. Bones/joints: Unremarkable. No acute fracture. Soft tissues: Unremarkable. CT/CT head wo con* [id number] IMPRESSION: No acute intracranial abnormality.
--- NOTE | 2022-04-27 21:14 | CTR_ITS ---
PROCEDURE INFORMATION: Exam: CT Chest With Contrast; Diagnostic Exam date and time: 04/27/2022 9:58 PM Age: 72 years old Clinical indication: Injury or trauma; Generalized; Blunt trauma (contusions or hematomas); Prior surgery; Surgery type: Cabg. Gb. Appy. Hysterectomy. Patient HX: Fall today at home. Struck head on walker. C/O of head and back pain with general weakness. Patient appears confused. ; Additional info: Fall, back pain, confusion TECHNIQUE: Imaging protocol: Diagnostic computed tomography of the chest with contrast. Radiation optimization: All CT scans at this facility use at least one of these dose optimization techniques: automated exposure control; mA and/or kV adjustment per patient size (includes targeted exams where dose is matched to clinical indication); or iterative reconstruction. Contrast material: OMNI 350; Contrast volume: 100 ml; Contrast route: INTRAVENOUS (IV); COMPARISON: CT chest [facility] [id number] 11/12/2021 3:33 PM RADIATION DOSE METRICS: Total DLP (mGy-cm): 1584.65 FINDINGS: Lungs: Emphysematous changes suspected. Right upper lobe atelectasis versus infiltrate. Pleural spaces: Unremarkable. No pneumothorax. No pleural effusion. Heart: Unremarkable. No cardiomegaly. No pericardial effusion. Lymph nodes: Unremarkable. No enlarged lymph nodes. Vasculature: Main pulmonary artery is somewhat prominent which can be a finding of chronic pulmonary artery hypertension. Bones/joints: Unremarkable. No acute fracture. Soft tissues: Unremarkable. PROCEDURE INFORMATION: Exam: CT Abdomen And Pelvis With Contrast Exam date and time: 04/27/2022 9:58 PM Age: 72 years old Clinical indication: Injury or trauma; Generalized; Blunt trauma (contusions or hematomas); Prior surgery; Surgery type: Cabg. Gb. Appy. Hysterectomy. Patient HX: Fall today at home. Struck head on walker. C/O of head and back pain with general weakness. Patient appears confused. ; Additional info: Fall, back pain, confusion TECHNIQUE: Imaging protocol: Computed tomography of the abdomen and pelvis with contrast. Radiation optimization: All CT scans at this facility use at least one of these dose optimization techniques: automated exposure control; mA and/or kV adjustment per patient size (includes targeted exams where dose is matched to clinical indication); or iterative reconstruction. Contrast material: OMNI 350; Contrast volume: 100 ml; Contrast route: INTRAVENOUS (IV); COMPARISON: CT abdomen pelvis w con* [id number] 04/19/2019 3:33 PM RADIATION DOSE METRICS: Total DLP (mGy-cm): 1584.65 FINDINGS: Liver: Left hepatic lobe cyst. Gallbladder and bile ducts: Cholecystectomy. Pancreas: Normal. No ductal dilation. Spleen: Normal. No splenomegaly. Adrenal glands: Normal. No mass. Kidneys and ureters: Left kidney cyst, negative for follow up. Stomach and bowel: Gastric surgical clips and sutures. Appendix: No evidence of appendicitis. Intraperitoneal space: Unremarkable. No free air. No significant fluid collection. Vasculature: Unremarkable. No abdominal aortic aneurysm. Lymph nodes: Unremarkable. No enlarged lymph nodes. Urinary bladder: Unremarkable as visualized. Reproductive: Unremarkable as visualized. Bones/joints: Unremarkable. No acute fracture. Soft tissues: Supraumbilical ventral abdominal hernia containing omentum without bowel. CT/CT chest abd pel w con* IMPRESSION: Negative for traumatic injury to the chest. IMPRESSION: 1. Negative for acute inflammatory process in the abdomen or pelvis. 2. Left hepatic lobe cyst. 3. Cholecystectomy. 4. Left kidney cyst, negative for follow up. 5. Supraumbilical ventral abdominal hernia containing omentum without bowel. 6. Gastric surgical clips and sutures. COMMENTS: Consistent with the [place]'s Incidental Findings Committee white paper (J Am Lyndsay Radiol 2018): Any incidental renal lesion less than 1 cm or classified as too small to characterize, or any incidental cystic renal lesion characterized as simple-appearing, is likely benign. No follow-up imaging is recommended for these lesions per consensus recommendations based on imaging criteria.
--- NOTE | 2022-04-27 21:14 | CTR_ITS ---
PROCEDURE INFORMATION: Exam: CT Cervical Spine Without Contrast Exam date and time: 04/27/2022 9:54 PM Age: 72 years old Clinical indication: Injury or trauma; Blunt trauma; Patient HX: Fall today at home. Struck head on walker. C/O of head and back pain with general weakness. Patient appears confused. ; Additional info: Syncope, head strike, confusion TECHNIQUE: Imaging protocol: Computed tomography of the cervical spine without contrast. Radiation optimization: All CT scans at this facility use at least one of these dose optimization techniques: automated exposure control; mA and/or kV adjustment per patient size (includes targeted exams where dose is matched to clinical indication); or iterative reconstruction. COMPARISON: [place] [id number] 07/22/2021 1:16 PM RADIATION DOSE METRICS: Total DLP (mGy-cm): 198.97 FINDINGS: Bones/joints: Grade 1 anterolisthesis of C4 relative to C5 of 2.6 mm appears chronic and degenerative in nature. C2-C3: No significant disc protrusion. No severe spinal canal stenosis. No significant neural foraminal narrowing. C3-C4: No significant disc protrusion. No severe spinal canal stenosis. No significant neural foraminal narrowing. C4-C5: No significant disc protrusion. No severe spinal canal stenosis. No significant neural foraminal narrowing. C5-C6: No significant disc protrusion. No severe spinal canal stenosis. No significant neural foraminal narrowing. C6-C7: No significant disc protrusion. No severe spinal canal stenosis. No significant neural foraminal narrowing. C7-T1: No significant disc protrusion. No severe spinal canal stenosis. No significant neural foraminal narrowing. Lungs: Lung apices are normal. Soft tissues: Unremarkable. CT/CT cervical spin wo con* [id number] IMPRESSION: 1. Negative for fracture or dislocation. 2. Grade 1 anterolisthesis of C4 relative to C5 of 2.6 mm appears chronic and degenerative in nature.
[2022-04-27 21:25] LABS: Glucose Point of Care 108 mg/dL (70-110)
[2022-04-27 21:29] LABS: ABG PCO2 41.4 mmHg (35-45); ABG PH Result 7.44 (7.35-7.45); Arterial Blood Gas Hematocrit 32.5 % (37-47); Base Excess ABG 3.3 mmol/L (-2.0-2.0); Blood Gas Allen Test Pos; Blood Gas Operator Identificat WALCI; Blood Gas Sample Site Radial, left; Blood Gas Sample Type Arterial; HCO3 ABG 27.8 mmol/L (22-26); Oxygen Device NC
[2022-04-27 21:33] LABS: Basophils # 0.1 10^3/uL (0.0-0.1); Eosinophils # 0.1 10^3/uL (0.0-0.8); Eosinophils % 0.9 %; Hemoglobin 10.6 g/dL (11.5-15.3); Lymphocytes # 1.2 10^3/uL (0.8-4.8); Lymphocytes % 15.3 %; Mean Corpuscular HGB Conc 30.3 g/dL (30.0-36.0); Mean Corpuscular Hemoglobin 25.5 pg (28.0-34.0); Mean Corpuscular Volume 84.1 fl (81-99); Mean Platelet Volume 9.3 fL (7.4-10.4); Monocytes # 0.2 10^3/uL (0.2-0.9); Neutrophils # 6.44 10^3/uL (1.8-7.7); Neutrophils % 79.3 %; Nucleated Red Blood Cells % 0 %; Platelet Count 387 10^3/cmm (130-400); Red Blood Count 4.16 10^6/uL (4.1-5.3); Red Cell Distribution Width 20.4 % (12.1-15.1); White Blood Count 8.1 10^3/uL (4.0-10.0)
[2022-04-27 21:40] LABS: NT Pro B Type Natriuretic Pept 792 pg/mL (0-125); Thyroid Stimulating Hormone 2.63 uIU/mL (0.27-4.20)
[2022-04-27 21:51] LABS: Alanine Aminotransferase 19 U/L (0-33); Albumin Level 3.9 g/dL (3.5-5.2); Alkaline Phosphatase 93 U/L (35-105); Anion Gap 19.5 (5-19); Aspartate Amino Transferase 20 U/L (0-32); Blood Urea Nitrogen 22 mg/dL (8-23); Calcium 9.4 mg/dL (8.5-10.5); Carbon Dioxide 24 mmol/L (22-29); Chloride 95 mmol/L (98-107); Globulin 2.9 g/dL (1.3-4.6); Glucose 249 mg/dL (65-115); Osmolality Calculated 292 mOsm/kg (285-295); Potassium 3.5 mmol/L (3.5-5.1); Sodium 135 mmol/L (136-145); Total Bilirubin 0.2 mg/dL (0.15-1.2); Total Protein 6.8 g/dL (6.6-8.7)
[2022-04-27] MEDS: iohexol 350 mg/mL 100 mL Btl IV (22:01)
[2022-04-27 22:17] LABS: Lactate (Lactic Acid level) 1.5 mmol/L (0.5-2.2)
[2022-04-27] MEDS: sodium chloride 0.9% 1,000 ML 999 ML IV (22:19)
[2022-04-27 23:00] LABS: Add Urine Microscopic? NO; Charge for UA Resulting for Rev
[2022-04-27 23:06] LABS: Bilirubin Urine Neg (Negative); Blood Urine Neg (Negative); Glucose Urine UA Norm (Normal); Ketones Urine Negative (Negative); Leukocyte Esterase Urine Negative (Negative); Nitrate Urine Negative (Negative); Protein Urine Neg (Negative); Specific Gravity, Urine 1.015 (1.005-1.030); Urine Appearance Clear (CLEAR); Urine Color Yellow (Yellow); Urobilinogen Urine Norm (Negative); pH Urine 5 (5-7)
[2022-04-27 23:28] VITALS: BP 164/107; PULSE 71; RESP 20
[2022-04-28] VITALS: BP 137/89; PULSE 74; RESP 98; O2SAT 98
[2022-04-28 00:52] VITALS: BP 137/89; PULSE 74; RESP 98; O2SAT 98
== END 2022-04-28 00:58 | disposition home or self-care (01) ==
PROVIDERS: Emergency Provider Emergency Medicine; PCP Nurse Practitioner Family
DX: E86.0 Dehydration (principal); R53.1 Weakness; E11.9 Type 2 diabetes mellitus without complications; I10 Essential (primary) hypertension; E66.9 Obesity, unspecified; Z68.41 Body mass index [BMI] 40.0-44.9, adult
CPT/HCPCS: 36416; 36600; 70450; 71260; 72125; 74177; 80053; 81003; 82803; 82962; 83605; 83880; 84145; 84443; 85025; 87040; 96360; 99285; J7030; Q9967

== ENCOUNTER 2022-05-03 14:09 | Emergency (ER) | payer MEDICARE, MEDICAID, SELFPAY ==
[2022-05-03] VITALS (23 sets, daily range): BP systolic 135–187; BP diastolic 78–118; PULSE 50–60; RESP 6–26; TEMP 36.7; O2SAT 93–100
--- NOTE | 2022-05-03 14:19 | W.ED.FALL ---
HPI - Fall General: Chief Complaint: Fall Stated Complaint: fall Time Seen by Provider: 05/03/22 14:19 History of Present Illness: Ms. Del Cid is a 72-year-old lady with complex past medical history presents to the emergency department due to fall with continued pain. She reports feeling weakness in her legs which is not uncommon for her while walking yesterday evening. She fell but did not have prolonged downtime. She was assisted up however had difficulty with weightbearing. Subsequently symptoms have not improved today and so she presents to the emergency department. Intensity symptoms is moderate though becomes severe with ambulation. She endorses weakness in bilateral upper extremities as well as pain worse in left compared to right lower extremity. No other specific changes in health, exacerbating, or alleviating factors identified. Onset (ago): hour(s) Fall from: standing Fall witnessed: no Place fall occurred: home Loss of consciousness: None Prolonged down time: no Symptoms prior to fall: none Severity: moderate Review of Systems General: Reports: 10 or more systems reviewed and unremarkable except in HPI and below PFSH ED PFSH: Medical History Chronic cystitis COPD (chronic obstructive pulmonary disease) Cystitis Diabetes Hypertension Obesity Peripheral Vascular Disease Recurrent UTI Clinically consistent with chronic cystitis Surgical History S/P appendectomy S/P CABG (coronary artery bypass graft) S/P cholecystectomy S/P hysterectomy Family History Mother , AT 78 Cancer BREAST AND SPINE Grandmother Cancer Father , AT 62 Heart attack Other CAD (coronary artery disease) Hypertension Social History Smoking and tobacco status: former smoker Quit status (tobacco): has quit using tobacco Year quit tobacco: 1985 Former quit date comment: 2 ppd X 25 years, Started at age 14 Alcohol intake: never Lives independently: Yes Housing: House Marital status: / Current occupational status: disabled History of recent travel: No Physical Exam Const: COMMON NORMALS: alert GENERAL APPEARANCE: cooperative and well developed HENMT: COMMON NORMALS: normocephalic and atraumatic HEAD & SCALP: normocephalic and atraumatic THROAT: posterior oropharynx normal OTHER: No alva signs or raccoon eyes. No hemotympanum. No otorrhea or rhinorrhea. Jaw alignment normal. Dentition baseline. No obvious bony step-offs. No septal hematoma. No evidence of ocular entrapment. Eye: COMMON NORMALS: conjunctivae normal CONJUNCTIVA: Yes conjunctivae normal SCLERA: sclerae normal Neck/C-Spine: COMMON NORMALS: supple GENERAL: Yes trachea midline Resp: COMMON NORMALS: normal respiratory effort EFFORT & INSPECTION: Yes able to speak in complete sentences Cardio: COMMON NORMALS: regular rate and regular rhythm RATE: regular rate RHYTHM: regular rhythm GI: COMMON NORMALS: Soft to palpation PALPATION: Yes Soft to palpation and No Tenderness to palpation present (GI) PERCUSSION: normal to percussion Extremity: NARRATIVE EXTREMITY EXAM: Tenderness to palpation of right hip region, no evidence of open wound, distal CMS intact. GENERAL: Yes normal exam except as noted and No edema Neuro: COMMON NORMALS: moves all extremities SENSORIUM/ORIENTATION: Yes alert and No Orientation impaired Psych: COMMON NORMALS: mental status grossly normal and Normal thought process present THOUGHT PROCESS: Normal thought process present Course Vital Signs: Vital signs: Vital Signs Temperature 98.0 F 05/03/22 16:43 Pulse Rate 58 L 05/03/22 18:47 Respiratory Rate 14 05/03/22 18:47 Blood Pressure 160/90 05/03/22 18:47 Pulse Oximetry 93 05/03/22 18:47 Oxygen Delivery Me thod CPAP 05/03/22 17:39 Oxygen Flow Rate 4 05/03/22 17:39 MDM - Fall Medical Decision Making 72 old lady presenting with fall and hip pain. Head to toe exam performed. Laboratory studies with no leukocytosis, hemoglobin similar to prior. No obvious electrolyte or metabolic derangements contributing to fall. Imaging as appropriate given clinical context and exam. CT head and cervical spine negative for acute traumatic injury. CT chest abdomen and pelvis without traumatic injury. Incidental findings discussed with the patient. X-rays negative for acute bony pathology. Patient improved with analgesia. She was able to ambulate near baseline. Antihypertensives given. The results of ED evaluation were discussed with the patient including prescriptions and/or symptomatic cares (if applicable) including appropriate and responsible use, followup plan, and return precautions. The patient verbalized understanding and felt safe for discharge. Patient discharged in satisfactory condition. Medical Records I reviewed the patient's medical records. Lab Data I reviewed the patient's lab results. : 05/03/22 15:10 05/03/22 15:10 Radiology Impressions Cervical Spine CT 05/03/22 14:43 IMPRESSION: 1. Degenerative changes. 2. No fracture is identified. Chest/Abdomen/Pelvis CT 05/03/22 14:43 IMPRESSION: 1. No acute cardiopulmonary process. 2. No evidence for acute traumatic injury in the chest. 3. Incidental/nonacute findings are listed in the report. IMPRESSION: 1. Insert no acute fracture No acute abnormality in the abdomen or pelvis. 2. No evidence for acute traumatic injury in the abdomen or pelvis. 3. Stable indeterminate focus in the left adrenal gland compared with 04/27/2022 Hounsfield units on the prior noncontrast CT scan show density consistent with an adenoma. 4. Left paramidline fat containing umbilical hernia without evidence of strangulation. Findings are stable. 5. Incidental/nonacute findings are listed in the report. COMMENTS: Consistent with the [employer]'s Incidental Findings Committee white paper (J Am Lyndsay Radiol 2018): Any incidental renal lesion less than 1 cm or classified as too small to characterize, or any incidental cystic renal lesion characterized as simple-appearing, is likely benign. No follow-up imaging is recommended for these lesions per consensus recommendations based on imaging criteria. Head CT 05/03/22 14:43 IMPRESSION: Atrophy and chronic ischemic changes. No acute intracranial finding. Ankle X-Ray 05/03/22 16:34 IMPRESSION: 1. No acute fracture is identified. 2. Chronic degenerative changes involving the talar dome which could be due to prior trauma and osteochondritis dissecans. Knee X-Ray 05/03/22 16:34 IMPRESSION: Advanced osteoarthritis. No acute fracture. Laboratory Results WBC 8.3 10^3/uL (4.0-10.0) 05/03/22 15:10 RBC 4.07 10^6/uL (4.1-5.3) L 05/03/22 15:10 Hgb 10.1 g/dL (11.5-15.3) L 05/03/22 15:10 Hct 34.7 % (37.0-47.0) L 05/03/22 15:10 MCV 85.3 fl (81-99) 05/03/22 15:10 MCH 24.8 pg (28.0-34.0) L 05/03/22 15:10 MCHC 29.1 g/dL (30.0-36.0) L 05/03/22 15:10 RDW 20.6 % (12.1-15.1) H 05/03/22 15:10 Plt Count 283 10^3/cmm (130-400) 05/03/22 15:10 MPV 9.0 fL (7.4-10.4) 05/03/22 15:10 Neut % (Auto) 77.4 % 05/03/22 15:10 Lymph % (Auto) 10.9 % 05/03/22 15:10 [place] % (Auto) 5.8 % 05/03/22 15:10 Eos % (Auto) 4.4 % 05/03/22 15:10 Baso % (Auto) 1.0 % 05/03/22 15:10 Neut # (Auto) 6.40 10^3/uL (1.8-7.7) 05/03/22 15:10 Lymph # (Auto) 0.9 10^3/uL (0.8-4.8) 05/03/22 15:10 [place] # (Auto) 0.5 10^3/uL (0.2-0.9) 05/03/22 15:10 Eos # (Auto) 0.4 10^3/uL (0.0-0.8) 05/03/22 15:10 Baso # (Auto) 0.1 10^3/uL (0.0-0.1) 05/03/22 15:10 Nucleated RBC % (auto) 0 % 05/03/22 15:10 Nucleated RBCs # 0.0 /100WBC 05/03/22 15:10 Sodium 137 mmol/L (136-145) 05/03/22 15:10 Potassium 4.8 mmol/L (3.5-5.1) 05/03/22 15:10 Chloride 101 mmol/L (98-107) 05/03/22 15:10 Carbon Dioxide 28 mmol/L (22-29) 05/03/22 15:10 Anion Gap 12.8 (5-19) 05/03/22 15:10 BUN 16 mg/dL (8-23) 05/03/22 15:10 Creatinine 1.0 mg/dL (0.5-0.9) H 05/03/22 15:10 GFR Calculation Not Reportable 05/03/22 15:10 Glucose 106 mg/dL (65-115) 05/03/22 15:10 Calculated Osmolality 286 mOsm/kg (285-295) 05/03/22 15:10 Calcium 9.3 mg/dL (8.5-10.5) 05/03/22 15:10 Total Bilirubin 0.3 mg/dL (0.15-1.2) 05/03/22 15:10 AST 24 U/L (0-32) 05/03/22 15:10 ALT 22 U/L (0-33) 05/03/22 15:10 Alkaline Phosphatase 90 U/L (35-105) 05/03/22 15:10 Creatine Kinase 125 U/L (26-192) 05/03/22 15:10 Total Protein 6.7 g/dL (6.6-8.7) 05/03/22 15:10 Albumin 3.8 g/dL (3.5-5.2) 05/03/22 15:10 Globulin 2.9 g/dL (1.3-4.6) 05/03/22 15:10 Discharge Plan Discharge Patient Disposition: Home Clinical Impression: Fall, Contusion of multiple sites Condition: Stable Prescriptions: No Action montelukast [Singulair] 10 mg tablet 10 mg PO DAILY metoprolol tartrate 25 mg tablet 12.5 mg PO BID allopurinol 100 mg tablet 100 mg PO DAILY duloxetine [Cymbalta] 60 mg capsule,delayed release(DR/EC) 60 mg PO DAILY Hold Instructions: sodium is low. see pcp before resuming Rx Instructions: take with 30mg to =90mg metformin 500 mg tablet 500 mg PO DAILY simvastatin 10 mg tablet 10 mg PO BEDTIME albuterol sulfate [ProAir HFA] 90 mcg/actuation HFA aerosol inhaler 2 puff INHALATION QID PRN (Reason: Shortness Of Breath) gabapentin 300 mg capsule See Rx Instructions .ROUTE .COMPLEX Rx Instructions: 600mg po in AM , 600mg po at Noon, and 900mg po HS pantoprazole [Protonix] 40 mg tablet,delayed release (DR/EC) 40 mg PO BID duloxetine [Cymbalta] 30 mg capsule,delayed release(DR/EC) 30 mg PO DAILY Hold Instructions: sodium is low. Please see PCP before resuming Rx Instructions: take with 60mg to =90mg metoclopramide HCl [Reglan] 10 mg tablet 10 mg PO TID vitamin B complex [B Complex-Vitamin B12] Tablet 1 tab PO DAILY Lasix 20 mg tablet 20 mg PO DAILY Label Comments: Has been taking 2 daily hydrocodone-acetaminophen 10-325 mg tablet PO TID PRN oxybutynin chloride 10 mg tablet extended release 24hr 10 mg PO BEDTIME bupropion HCl 100 mg tablet sustained-release 12 hr 100 mg PO BID multivitamin with minerals [Hair,Skin and Nails] Tablet 1 tab PO DAILY docusate sodium 100 mg tablet 100 mg PO BID lubiprostone 24 mcg capsule 24 mcg PO BID lorazepam 0.5 mg tablet 0.5 mg PO DAILY PRN Breztri Aerosphere 160-9-4.8 mcg/actuation HFA aerosol inhaler 2 inh inhalation BID Qty: 10.7 3RF buspirone 10 mg tablet 10 mg PO BID miscellaneous medical supply Misc See Rx Instructions miscellaneous .COMPLEX Qty: 1 0RF Rx Instructions: increase oxygen to 3LPM cilostazol 50 mg tablet See Rx Instructions .ROUTE .COMPLEX Qty: 180 2RF Dose Instruction: TAKE 1 TABLET BY MOUTH TWO TIMES DAILY Rx Instructions: TAKE 1 TABLET BY MOUTH TWO TIMES DAILY nitrofurantoin monohyd/m-cryst [Macrobid] 100 mg capsule 100 mg PO BID Qty: 60 2RF Rx Instructions: must administer with a meal/food spironolactone 25 mg tablet 25 mg PO DAILY Qty: 90 3RF ondansetron 4 mg tablet,disintegrating 4 mg PO Q8H PRN (Reason: nausea and vomiting) Qty: 15 0RF levothyroxine 88 mcg tablet 88 mcg PO QAM meclizine 25 mg tablet 25 mg PO TID albuterol sulfate 2.5 mg /3 mL (0.083 %) solution for nebulization 2.5 mg inhalation Q8H PRN (Reason: Shortness Of Breath) estradiol 0.01 % (0.1 mg/gram) cream See Rx Instructions .ROUTE .COMPLEX Rx Instructions: as directed vaginally q7d or prn Antifungal (clotrimazole) 1 % cream 1 applic TOPICAL BID Multivitamin Gummies 200 mcg Tablet,Chewable 2 tab PO DAILY Nervive 1 tab PO DAILY loratadine [Claritin] 10 mg tablet 10 mg PO DAILY PRN Discharge Orders: Discharge ED (Routine); Ordered 05/03/22 Ordered By: Trav Tapia Referrals: Chantal Hernandez FNP [Primary Care Provider] - Discharge Diet: Usual diet Discharge Activity: Increase activity as tolerated Patient Instructions: Fall Prevention for Older Adults (ED), Contusion in Adults (ED) Activity Restrictions/Additional Instructions: Thank you for visiting the emergency department. You were seen and evaluated for pain related to fall. No acute bony injuries were identified therefore the most likely cause of your pain is soft tissue injury and bruising. Please follow-up with your primary care provider. Return to the emergency department for worsening symptoms or anything else that you are concerned about a feel needs emergency department evaluation. Coding Level of Care Code ED [place] Supervisor for Gio Gonzalez
--- NOTE | 2022-05-03 14:28 | PC.NURSE ---
Patient is lethargic upon arrival to ER. nurse questioned patient about this and she states that she took a hydrocodone a few hours before coming to the hospital and they make her very sleepy for many hours.
--- NOTE | 2022-05-03 14:43 | XRR_ITS ---
PROCEDURE INFORMATION: Exam: XR Left Ankle Exam date and time: 05/03/2022 4:26 PM Age: 72 years old Clinical indication: Injury or trauma; Fall; Blunt trauma; Ankle; Left; Additional info: Medial pain, fall TECHNIQUE: Imaging protocol: Radiologic exam of the Left ankle. Views: 3 or more views. COMPARISON: No relevant prior studies available. FINDINGS: Bones/joints: No acute fracture. No dislocation. Bones are mildly osteopenic. Small plantar calcaneal bone spur. Small calcified enthesophyte at the Achilles tendon insertion. No joint effusion. Soft tissues: No soft tissue swelling. No radiopaque foreign body. XR/XR ankle LT min 3V* [id number] IMPRESSION: 1. No acute fracture of the left ankle. Followup imaging recommended in 7-14 days if clinical concern for fracture persists. 2. Incidental/nonacute findings are listed in the report.
--- NOTE | 2022-05-03 14:43 | XRR_ITS ---
PROCEDURE INFORMATION: Exam: XR Left Knee Exam date and time: 05/03/2022 4:27 PM Age: 72 years old Clinical indication: Injury or trauma; Fall; Blunt trauma; Knee; Left TECHNIQUE: Imaging protocol: Radiologic exam of the Left knee. Views: 3 views. COMPARISON: CR (LOW EXM, ) 05/03/2022 4:26 PM FINDINGS: Bones/joints: No acute fracture. No dislocation. Bones are mildly osteopenic. No joint effusion. Small calcified enthesophyte at the quadriceps tendon insertion. Soft tissues: No soft tissue swelling. No radiopaque foreign body. XR/XR knee LT 3V* [id number] IMPRESSION: 1. No acute fracture of the left knee. Followup imaging recommended in 7-14 days if clinical concern for fracture persists. 2. Incidental/nonacute findings are listed in the report.
--- NOTE | 2022-05-03 14:43 | CTR_ITS ---
PROCEDURE INFORMATION: Exam: CT Head Without Contrast Exam date and time: 05/03/2022 4:12 PM Age: 72 years old Clinical indication: Injury or trauma; Fall; Blunt trauma (contusions or hematomas) TECHNIQUE: Imaging protocol: Computed tomography of the head without contrast. Radiation optimization: All CT scans at this facility use at least one of these dose optimization techniques: automated exposure control; mA and/or kV adjustment per patient size (includes targeted exams where dose is matched to clinical indication); or iterative reconstruction. COMPARISON: CT head wo con* [id number] 04/27/2022 9:52 PM RADIATION DOSE METRICS: Total DLP (mGy-cm): 1156.21 FINDINGS: Brain: There is moderate cortical atrophy. Low-density changes in the white matter are consistent with nonspecific small vessel chronic ischemic change. There is no intracranial mass, hemorrhage or edema. Cerebral ventricles: No ventriculomegaly. Paranasal sinuses: Visualized sinuses are unremarkable. No fluid levels. Mastoid air cells: Visualized mastoid air cells are well aerated. Bones/joints: Unremarkable. No acute fracture. Soft tissues: Unremarkable. CT/CT head wo con* [id number] IMPRESSION: Atrophy and chronic ischemic changes. No acute intracranial finding.
--- NOTE | 2022-05-03 14:43 | CTR_ITS ---
PROCEDURE INFORMATION: Exam: CT Chest With Contrast; Diagnostic Exam date and time: 05/03/2022 4:17 PM Age: 72 years old Clinical indication: Injury or trauma; Fall; Generalized; Blunt trauma (contusions or hematomas); Additional info: Fall, back and hip pain TECHNIQUE: Imaging protocol: Diagnostic computed tomography of the chest with contrast. Sagittal and coronal reformatted images were created and reviewed. Radiation optimization: All CT scans at this facility use at least one of these dose optimization techniques: automated exposure control; mA and/or kV adjustment per patient size (includes targeted exams where dose is matched to clinical indication); or iterative reconstruction. Contrast material: OMNI 350; Contrast volume: 100 ml; Contrast route: INTRAVENOUS (IV); COMPARISON: CT chest abd pel w con* 04/27/2022 9:58 PM RADIATION DOSE METRICS: Total DLP (mGy-cm): 1534.68 FINDINGS: Trachea: Tracheobronchial structures are patent. Lungs: No focal consolidation. No pulmonary edema. No pulmonary parenchymal nodules or masses. Pleural spaces: No pleural effusion. No pneumothorax. Heart: Stable moderate enlargement of the heart. Esophagus: The esophagus is unremarkable. Mediastinal space: No mediastinal hematoma. No pneumomediastinum. Lymph nodes: No lymphadenopathy. Vasculature: No evidence for aortic aneurysm or aortic dissection. Enlargement of the central pulmonary arteries. Findings may suggest pulmonary hypertension. The main pulmonary artery measures 4.5 cm in diameter, findings are stable (series 3, image 20). No extravasation of contrast from the thoracic vessels. Bones/joints: [id number] degenerative changes at both shoulders. Multilevel degenerative changes of varying severity in the visualized spine. Mild spinal canal stenosis at T6-7 and T7-8. Osseous findings are stable. No acute fracture. Soft tissues: No acute abnormality in the extrathoracic soft tissues. PROCEDURE INFORMATION: Exam: CT Abdomen And Pelvis With Contrast Exam date and time: 05/03/2022 4:17 PM Age: 72 years old Clinical indication: Injury or trauma; Fall; Generalized; Blunt trauma (contusions or hematomas); Additional info: Fall, back and hip pain TECHNIQUE: Imaging protocol: Computed tomography of the abdomen and pelvis with contrast. Sagittal and coronal reformatted images were created and reviewed. Radiation optimization: All CT scans at this facility use at least one of these dose optimization techniques: automated exposure control; mA and/or kV adjustment per patient size (includes targeted exams where dose is matched to clinical indication); or iterative reconstruction. Contrast material: OMNI 350; Contrast volume: 100 ml; Contrast route: INTRAVENOUS (IV); COMPARISON: CT chest abd pel w con* 04/27/2022 9:58 PM RADIATION DOSE METRICS: Total DLP (mGy-cm): 1534.68 FINDINGS: Liver: Simple cyst in the left lobe of the liver is stable in size measuring 1.7 cm (series 5, image 24). Gallbladder and bile ducts: Stable findings consistent with a previous cholecystectomy. Stable dilatation of the biliary ducts, not unexpected in a patient who has had a prior cholecystectomy. Pancreas: The pancreas is unremarkable. No pancreatic ductal dilatation. Spleen: The spleen is unremarkable. Adrenal glands: The right adrenal gland is unremarkable. Stable indeterminate focus in the left adrenal gland. Hounsfield units show density greater than expected for an adenoma. This measures 1.4 x 2.1 cm (series 5, image 29). Hounsfield units on the prior noncontrast CT scan were consistent with an adenoma. Kidneys and ureters: Subcentimeter hypodense foci in both right and left kidneys that are too small to characterize, however likely represent small cysts. Mild atrophy of both right and left kidneys. Findings in the kidneys are stable. The right and left ureters are unremarkable. Stomach and bowel: Stable changes consistent with a prior gastric bypass. No acute abnormality in the small bowel. No acute abnormality in the colon. Appendix: The patient has had a previous appendectomy. Intraperitoneal space: No free intraperitoneal air. No ascites. No loculated fluid collections to suggest an abscess. Vasculature: No evidence for aortic aneurysm or aortic dissection. Hepatic veins, portal veins, splenic vein, and SMV are patent. No extravasation of contrast from the abdominopelvic vessels. Lymph nodes: No lymphadenopathy. Urinary bladder: The bladder is unremarkable. Reproductive: Stable changes consistent with a previous hysterectomy. The ovaries are not definitely visualized, not an expected in a postmenopausal female. This may be due to ovarian atrophy. Alternatively, the patient may have had a previous bilateral oophorectomy. Findings are stable. Bones/joints: Mild degenerative changes at both the right and left hips. Mild degenerative changes of the right and left sacroiliac joints. Multilevel degenerative changes of varying severity in the visualized spine. Mild spinal canal stenosis at L2-L3 through L5-S1. Multilevel foraminal stenosis of varying severity in the lumbar spine. Insert no acute fracture Soft tissues: Left paramidline fat containing umbilical hernia without evidence of strangulation. Findings are stable. No acute abnormality in the extra-abdominal soft tissues. CT/CT chest abd pel w con* IMPRESSION: 1. No acute cardiopulmonary process. 2. No evidence for acute traumatic injury in the chest. 3. Incidental/nonacute findings are listed in the report. IMPRESSION: 1. Insert no acute fracture No acute abnormality in the abdomen or pelvis. 2. No evidence for acute traumatic injury in the abdomen or pelvis. 3. Stable indeterminate focus in the left adrenal gland compared with 04/27/2022 Hounsfield units on the prior noncontrast CT scan show density consistent with an adenoma. 4. Left paramidline fat containing umbilical hernia without evidence of strangulation. Findings are stable. 5. Incidental/nonacute findings are listed in the report. COMMENTS: Consistent with the [employer]'s Incidental Findings Committee white paper (J Am Lyndsay Radiol 2018): Any incidental renal lesion less than 1 cm or classified as too small to characterize, or any incidental cystic renal lesion characterized as simple-appearing, is likely benign. No follow-up imaging is recommended for these lesions per consensus recommendations based on imaging criteria.
--- NOTE | 2022-05-03 14:43 | CTR_ITS ---
PROCEDURE INFORMATION: Exam: CT Cervical Spine Without Contrast Exam date and time: 05/03/2022 4:12 PM Age: 72 years old Clinical indication: Injury or trauma; Fall; Blunt trauma TECHNIQUE: Imaging protocol: Computed tomography of the cervical spine without contrast. Radiation optimization: All CT scans at this facility use at least one of these dose optimization techniques: automated exposure control; mA and/or kV adjustment per patient size (includes targeted exams where dose is matched to clinical indication); or iterative reconstruction. COMPARISON: CT cervical spin wo con* [id number] 04/27/2022 9:54 PM RADIATION DOSE METRICS: Total DLP (mGy-cm): 263.3 FINDINGS: Bones/joints: There is reversal of the normal lordotic curvature of the cervical spine which may be due to positioning or spasm. No fracture is identified. There are degenerative changes in facet joints bilaterally at multiple levels. Lungs: Lung apices are normal. Soft tissues: Prevertebral soft tissues are unremarkable. CT/CT cervical spin wo con* [id number] IMPRESSION: 1. Degenerative changes. 2. No fracture is identified.
[2022-05-03 15:31] LABS: Basophils # 0.1 10^3/uL (0.0-0.1); Eosinophils # 0.4 10^3/uL (0.0-0.8); Eosinophils % 4.4 %; Hematocrit 34.7 % (37.0-47.0); Hemoglobin 10.1 g/dL (11.5-15.3); Lymphocytes # 0.9 10^3/uL (0.8-4.8); Lymphocytes % 10.9 %; Mean Corpuscular HGB Conc 29.1 g/dL (30.0-36.0); Mean Corpuscular Hemoglobin 24.8 pg (28.0-34.0); Mean Corpuscular Volume 85.3 fl (81-99); Monocytes # 0.5 10^3/uL (0.2-0.9); Monocytes % 5.8 %; Neutrophils % 77.4 %; Nucleated Red Blood Cells % 0 %; Platelet Count 283 10^3/cmm (130-400); Red Blood Count 4.07 10^6/uL (4.1-5.3); Red Cell Distribution Width 20.6 % (12.1-15.1); White Blood Count 8.3 10^3/uL (4.0-10.0)
[2022-05-03] MEDS: HYDROcodone-acetaminophen 10-325 mg Tablet 1 TAB PO (15:43)
[2022-05-03 16:04] LABS: Alanine Aminotransferase 22 U/L (0-33); Albumin Level 3.8 g/dL (3.5-5.2); Alkaline Phosphatase 90 U/L (35-105); Anion Gap 12.8 (5-19); Aspartate Amino Transferase 24 U/L (0-32); Blood Urea Nitrogen 16 mg/dL (8-23); Calcium 9.3 mg/dL (8.5-10.5); Carbon Dioxide 28 mmol/L (22-29); Chloride 101 mmol/L (98-107); Creatine Phosphokinase 125 U/L (26-192); Globulin 2.9 g/dL (1.3-4.6); Glucose 106 mg/dL (65-115); Osmolality Calculated 286 mOsm/kg (285-295); Potassium 4.8 mmol/L (3.5-5.1); Sodium 137 mmol/L (136-145); Total Bilirubin 0.3 mg/dL (0.15-1.2); Total Protein 6.7 g/dL (6.6-8.7)
[2022-05-03] MEDS: iohexol 350 mg/mL 100 mL Btl IV (16:23)
--- NOTE | 2022-05-03 16:34 | XRR_ITS ---
PROCEDURE INFORMATION: Exam: XR Right Ankle Exam date and time: 05/03/2022 4:59 PM Age: 72 years old Clinical indication: Injury or trauma; Fall; Blunt trauma; Ankle; Right; Additional info: Pain TECHNIQUE: Imaging protocol: Radiologic exam of the Right ankle. Views: 3 or more views. COMPARISON: No relevant prior studies available. FINDINGS: Bones/joints: No acute fracture is identified. There is sclerosis and degenerative change involving the anteromedial corner of the talar dome consistent with degenerative changes, likely related to remote trauma. There is small plantar calcaneal spur. There is mild degenerative change with some spurring from the anterior aspect of the navicular. Soft tissues: Mild soft tissue swelling. XR/XR ankle RT min 3V* [id number] IMPRESSION: 1. No acute fracture is identified. 2. Chronic degenerative changes involving the talar dome which could be due to prior trauma and osteochondritis dissecans.
--- NOTE | 2022-05-03 16:34 | XRR_ITS ---
PROCEDURE INFORMATION: Exam: XR Right Knee Exam date and time: 05/03/2022 4:59 PM Age: 72 years old Clinical indication: Injury or trauma; Fall; Blunt trauma; Knee; Right; Additional info: Pain TECHNIQUE: Imaging protocol: Radiologic exam of the Right knee. Views: 3 views. COMPARISON: No relevant prior studies available. FINDINGS: Bones/joints: There is severe osteoarthritis of the knee with severe joint space narrowing in the medial compartment with [id number] contact and prominent marginal osteophytes. There is also severe narrowing of the patellofemoral space with spurring from the patellar margins and anterior femoral condyles. There is calcified loose body in the posterior aspect of the joint space. No acute fracture is demonstrated. Small effusion in the suprapatellar bursa. Soft tissues: Normal. XR/XR knee RT 3V* [id number] IMPRESSION: Advanced osteoarthritis. No acute fracture.
[2022-05-03] MEDS: hyDRALAzine 20 mg/mL INJ 1 mL 10 MG IVP (17:51)
--- NOTE | 2022-05-03 18:23 | PC.NURSE ---
Nurse ambulated patient approximately 100 feet. Per Daughter, she is a little slower compared to at home, but doing well.
[2022-05-03] MEDS: spironolactone 25 mg Tablet PO (18:43)
== END 2022-05-03 19:24 | disposition home or self-care (01) ==
PROVIDERS: Emergency Provider Emergency Medicine; PCP Nurse Practitioner Family
DX: T14.8XXA Other injury of unspecified body region, initial encounter (principal); W19.XXXA Unspecified fall, initial encounter; J44.9 Chronic obstructive pulmonary disease, unspecified; E11.9 Type 2 diabetes mellitus without complications; I10 Essential (primary) hypertension; Z95.1 Presence of aortocoronary bypass graft; Z87.891 Personal history of nicotine dependence; Z79.84 Long term (current) use of oral hypoglycemic drugs
CPT/HCPCS: 70450; 71260; 72125; 73562; 73610; 74177; 80053; 82550; 85025; 96374; 99285; J0360; Q9967

== ENCOUNTER → 2022-07-28 13:53 | Outpatient (BNVA) | payer MEDICARE, MEDICAID, SELFPAY | PROVIDERS: PCP Nurse Practitioner Family; Visit Provider Urology | DX: N30.20 Other chronic cystitis without hematuria (principal) | CPT/HCPCS: 81003; 99213 ==

== ENCOUNTER 2022-09-17 20:00 | Outpatient (CLI) | payer MEDICARE, MEDICAID, SELFPAY | END 2022-09-17 20:01 | disposition home or self-care (01) | LOC: SLEEP 09-18 04:01 | PROVIDERS: PCP Nurse Practitioner Family; Visit Provider Internal Medicine Pulmonary Disease | DX: G47.33 Obstructive sleep apnea (adult) (pediatric) (principal); G47.37 Central sleep apnea in conditions classified elsewhere; G47.34 Idiopathic sleep related nonobstructive alveolar hypoventilation | CPT/HCPCS: 95810 ==

== ENCOUNTER → 2022-09-29 13:43 | Outpatient (BNVA) | payer MEDICARE, MEDICAID, SELFPAY | PROVIDERS: PCP Nurse Practitioner Family; Visit Provider Internal Medicine Pulmonary Disease | DX: R06.02 Shortness of breath (principal); Z95.1 Presence of aortocoronary bypass graft; Z87.891 Personal history of nicotine dependence; J44.9 Chronic obstructive pulmonary disease, unspecified; G47.33 Obstructive sleep apnea (adult) (pediatric); G47.36 Sleep related hypoventilation in conditions classified elsewhere; M25.561 Pain in right knee; M25.562 Pain in left knee; Z86.79 Personal history of other diseases of the circulatory system | CPT/HCPCS: 99214 ==

== ENCOUNTER → 2022-10-26 16:23 | Outpatient (BNVA) | payer MEDICARE, MEDICAID, SELFPAY | PROVIDERS: PCP Nurse Practitioner Family; Visit Provider Internal Medicine Cardiovascular Disease | DX: I25.118 Atherosclerotic heart disease of native coronary artery with other forms of angina pectoris (principal); E78.5 Hyperlipidemia, unspecified; J44.9 Chronic obstructive pulmonary disease, unspecified; I11.0 Hypertensive heart disease with heart failure; I50.30 Unspecified diastolic (congestive) heart failure; Z87.891 Personal history of nicotine dependence | CPT/HCPCS: 36415; 80048; 83880; 99214 ==

== ENCOUNTER → 2022-11-12 14:30 | Outpatient (BNVA) | payer MEDICARE, MEDICAID, SELFPAY | PROVIDERS: PCP Nurse Practitioner Family; Visit Provider Urology | DX: N30.20 Other chronic cystitis without hematuria (principal); R33.9 Retention of urine, unspecified | CPT/HCPCS: 81003; 87077; 87086; 87186; 99213 ==

== ENCOUNTER → 2023-01-12 14:29 | Outpatient (BNVA) | payer MEDICARE, MEDICAID, SELFPAY | PROVIDERS: PCP Nurse Practitioner Family; Visit Provider Internal Medicine Pulmonary Disease | DX: J44.9 Chronic obstructive pulmonary disease, unspecified (principal); Z95.1 Presence of aortocoronary bypass graft; Z87.891 Personal history of nicotine dependence; R07.89 Other chest pain; G47.33 Obstructive sleep apnea (adult) (pediatric); W19.XXXA Unspecified fall, initial encounter; Z99.81 Dependence on supplemental oxygen | CPT/HCPCS: 71046; 99214 ==

== ENCOUNTER 2023-01-27 16:32 | Emergency (ER) | payer MEDICARE, MEDICAID, SELFPAY ==
--- NOTE | 2023-01-27 16:40 | W.ED.CHESTPA ---
HPI - Chest Pain General: Chief Complaint: Chest Pain Stated Complaint: Chest pain Time Seen by Provider: 01/27/23 16:35 Source: patient Mode of arrival: EMS History of Present Illness: 72-year-old female presents emergency room complaining of left-sided chest pain began 4 days ago after she fell in the bathroom hit the left side of her chest on a cabinet in the bathroom. She when she takes a deep breath or moves or the area is palpated the chest pain worsened she denies any hemoptysis is painful to take a deep breath. She denies any fever sweats chills or productive cough MD complaint: chest pain Onset (ago): day(s) (4) Timing of current episode: episodic Onset: other (After a fall) Pain location: left chest (Left lateral) Severity: moderate Quality: sharp Exacerbating factors: inspiration, palpation and movement Context: trauma/injury Associated symptoms: Deny abdominal pain, diaphoresis, dyspnea, fever(s), leg edema, nausea, palpitations, sense of impending doom, syncope or vomiting Treatment prior to arrival: none Review of Systems Const: Denies: fever(s), chills or diaphoresis ENMT: Denies: throat pain, ear or mastoid pain, nasal discharge or nasal congestion Card: Reports: chest pain; Denies: palpitations or syncope Resp: Denies: dyspnea GI: Denies: abdominal pain, nausea or vomiting : Denies: flank pain, difficulty voiding, dysuria, urinary frequency or urinary urgency Skin/Breast: Denies: rash or pruritus [facility] ED PFSH: Medical History (Updated 01/27/23 @ 16:42 by Sp Watson DO) Benign essential HTN Chronic cystitis COPD (chronic obstructive pulmonary disease) Coronary artery disease Cystitis Diabetes Diastolic heart failure Hypertension Obesity Peripheral Vascular Disease Recurrent UTI Clinically consistent with chronic cystitis Systolic CHF Surgical History S/P appendectomy S/P CABG (coronary artery bypass graft) S/P cholecystectomy S/P hysterectomy Family History Mother , AT 78 Cancer BREAST AND SPINE Grandmother Cancer Father , AT 62 Heart attack Other CAD (coronary artery disease) Hypertension Social History Smoking and tobacco status: former smoker Quit status (tobacco): has quit using tobacco Year quit tobacco: 1985 Former quit date comment: 2 ppd X 25 years, Started at age 14 Alcohol intake: never Substance/Drug Use: never Lives independently: Yes Housing: House Marital status: / Current occupational status: disabled Physical Exam Const: GENERAL APPEARANCE: cooperative ORIENTATION/CONSCIOUSNESS: Yes awake, Yes oriented to person, Yes oriented to place and Yes oriented to time HENMT: COMMON NORMALS: normocephalic, atraumatic and hearing grossly normal bilaterally HEAD & SCALP: normocephalic and atraumatic Resp: COMMON NORMALS: normal respiratory effort, No retractions, No use of accessory muscles and clear to auscultation bilaterally AUSCULTATION: clear to auscultation bilaterally Cardio: COMMON NORMALS: regular rate, regular rhythm and No murmurs present (Cardio) RATE: regular rate RHYTHM: regular rhythm GI: COMMON NORMALS: Soft to palpation and No hepatosplenomegaly present AUSCULTATION: Yes normoactive bowel sounds PALPATION: Yes Soft to palpation, No Tenderness to palpation present (GI), No Guarding due to palpation present (GI) and Yes No hepatosplenomegaly present Extremity: COMMON NORMALS: normal to inspection, capillary refill normal, no clubbing, cyanosis or edema, no calf tenderness and no pedal edema Neuro: SENSORIUM/ORIENTATION: Yes oriented to person, Yes oriented to place and Yes oriented to time Skin: COMMON NORMALS: no rashes or lesions noted GENERAL SKIN EXAM: no rashes or lesions noted Discharge Plan Discharge Condition: Stable Prescriptions: No Action montelukast [Singulair] 10 mg tablet 10 mg PO DAILY metoprolol tartrate 25 mg tablet 12.5 mg PO BID allopurinol 100 mg tablet 100 mg PO DAILY duloxetine [Cymbalta] 60 mg capsule,delayed release(DR/EC) 60 mg PO DAILY Hold Instructions: sodium is low. see pcp before resuming Rx Instructions: take with 30mg to =90mg metformin 500 mg tablet 500 mg PO DAILY simvastatin 10 mg tablet 10 mg PO BEDTIME albuterol sulfate [ProAir HFA] 90 mcg/actuation HFA aerosol inhaler 2 puff INHALATION QID PRN (Reason: Shortness Of Breath) gabapentin 300 mg capsule See Rx Instructions .ROUTE .COMPLEX Rx Instructions: 600mg po in AM , 600mg po at Noon, and 900mg po HS pantoprazole [Protonix] 40 mg tablet,delayed release (DR/EC) 40 mg PO BID duloxetine [Cymbalta] 30 mg capsule,delayed release(DR/EC) 30 mg PO DAILY Hold Instructions: sodium is low. Please see PCP before resuming Rx Instructions: take with 60mg to =90mg vitamin B complex [B Complex-Vitamin B12] Tablet 1 tab PO DAILY Lasix 20 mg tablet 20 mg PO DAILY Patient Comments: Has been taking 2 daily hydrocodone-acetaminophen 10-325 mg tablet PO TID PRN oxybutynin chloride 10 mg tablet extended release 24hr 10 mg PO BEDTIME bupropion HCl 100 mg tablet sustained-release 12 hr 100 mg PO BID multivitamin with minerals [Hair,Skin and Nails] Tablet 1 tab PO DAILY docusate sodium 100 mg tablet 100 mg PO BID phenazopyridine [Pyridium] 100 mg tablet 100 mg PO TID PRN Linzess 72 mcg capsule 72 mcg PO DAILY methenamine hippurate 1 gram tablet 1 g PO BID Qty: 60 12RF Rx Instructions: 1 pill twice a day with 1 g vitamin C each dose lorazepam 0.5 mg tablet 0.5 mg PO DAILY PRN buspirone 10 mg tablet 10 mg PO BID miscellaneous medical supply Misc See Rx Instructions miscellaneous .COMPLEX Qty: 1 0RF Rx Instructions: increase oxygen to 3LPM spironolactone 25 mg tablet 25 mg PO DAILY Qty: 90 3RF Breztri Aerosphere 160-9-4.8 mcg/actuation HFA aerosol inhaler 2 inh inhalation BID Qty: 10.7 3RF doxycycline hyclate 100 mg capsule 100 mg PO BID Qty: 60 4RF Rx Instructions: In lieu of Macrobid. cilostazol 50 mg tablet See Rx Instructions .ROUTE .COMPLEX Qty: 180 3RF Dose Instruction: TAKE 1 TABLET BY MOUTH TWO TIMES DAILY Rx Instructions: TAKE 1 TABLET BY MOUTH TWO TIMES DAILY ondansetron 4 mg tablet,disintegrating 4 mg PO Q8H PRN (Reason: nausea and vomiting) Qty: 15 0RF levothyroxine 88 mcg tablet 88 mcg PO QAM meclizine 25 mg tablet 25 mg PO TID albuterol sulfate 2.5 mg /3 mL (0.083 %) solution for nebulization 2.5 mg inhalation Q8H PRN (Reason: Shortness Of Breath) estradiol 0.01 % (0.1 mg/gram) cream See Rx Instructions .ROUTE .COMPLEX Rx Instructions: as directed vaginally q7d or prn Antifungal (clotrimazole) 1 % cream 1 applic TOPICAL BID Multivitamin Gummies 200 mcg Tablet,Chewable 2 tab PO DAILY Nervive 1 tab PO DAILY Referrals: Chantal Hernandez FNP [Primary Care Provider] - Coding Level of Care Code ED Community Facilitator for Gio Gonzalez
[2023-01-27 16:41] VITALS: BP 119/62; PULSE 82; RESP 18; TEMP 36.6; O2SAT 96; BMI 43.0
--- NOTE | 2023-01-27 16:47 | XRR_ITS ---
PROCEDURE INFORMATION: Exam: XR Left Ribs with PA Chest Exam date and time: 01/27/2023 4:52 PM Age: 72 years old Clinical indication: Chest wall pain; Left; Additional info: Lt sided pain TECHNIQUE: Imaging protocol: Radiologic exam of the left ribs with PA chest. Views: 3 views COMPARISON: CR XR chest 2V* [id number] 01/12/2023 3:35 PM FINDINGS: Lungs: Shallow inspiration with crowding. Mild atelectasis in both lungs. No consolidation. Pleural spaces: Unremarkable. No pleural effusion. No pneumothorax. Heart/Mediastinum: Unremarkable. No cardiomegaly. Bones/joints: Unremarkable. No rib fracture visualized. Intraperitoneal space: Multiple surgical clips in the upper abdomen. XR/XR ribs LT mn 3V w CXR1V [id number] IMPRESSION: No acute findings.
--- NOTE | 2023-01-27 16:49 | ECG_ITS ---
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 Measurements Intervals [place] Rate: 66 P: 68 [place]: 156 QRS: 7 QRSD: 90 T: 47 QT: 368 QTc: 387 Interpretive Statements SINUS RHYTHM Compared to ECG 11/15/2021 14:14:50 T-wave abnormality no longer present Electronically Signed On 01-28-2023 14:45:47 CDT by Victor Manuel Andujar M.D. [id number]
[2023-01-27 17:05] LABS: Basophils # 0.1 10^3/uL (0.0-0.1); Basophils % 1.2 %; Eosinophils # 0.3 10^3/uL (0.0-0.8); Eosinophils % 4.1 %; Hematocrit 36.7 % (37.0-47.0); Hemoglobin 11.3 g/dL (11.5-15.3); Lymphocytes # 1.7 10^3/uL (0.8-4.8); Lymphocytes % 20.2 %; Mean Corpuscular HGB Conc 30.8 g/dL (30.0-36.0); Mean Corpuscular Hemoglobin 29.5 pg (28.0-34.0); Mean Corpuscular Volume 95.8 fl (81-99); Mean Platelet Volume 9.5 fL (7.4-10.4); Monocytes # 0.6 10^3/uL (0.2-0.9); Monocytes % 6.7 %; Neutrophils # 5.61 10^3/uL (1.8-7.7); Neutrophils % 67.6 %; Nucleated Red Blood Cells % 0 %; Platelet Count 323 10^3/cmm (130-400); Red Blood Count 3.83 10^6/uL (4.1-5.3); Red Cell Distribution Width 13.7 % (12.1-15.1); White Blood Count 8.3 10^3/uL (4.0-10.0)
[2023-01-27 17:49] LABS: Alanine Aminotransferase 31 U/L (0-33); Albumin Level 3.3 g/dL (3.5-5.2); Alkaline Phosphatase 168 U/L (35-105); Anion Gap 17.5 (5-19); Aspartate Amino Transferase 38 U/L (0-32); Blood Urea Nitrogen 26 mg/dL (8-23); Calcium 8.7 mg/dL (8.5-10.5); Carbon Dioxide 23 mmol/L (22-29); Chloride 101 mmol/L (98-107); Globulin 2.4 g/dL (1.3-4.6); Glucose 112 mg/dL (65-115); Osmolality Calculated 290 mOsm/kg (285-295); Potassium 4.5 mmol/L (3.5-5.1); Sodium 137 mmol/L (136-145); Total Bilirubin 0.2 mg/dL (0.15-1.2); Total Protein 5.7 g/dL (6.6-8.7)
[2023-01-27 17:50] LABS: Troponin(5th) Baseline 30 ng/L (0-10)
[2023-01-27 17:51] LABS: INR 1.04 (0.8-1.2)
[2023-01-27 17:52] LABS: Partial Thromboplastin Time 28.4 SECONDS (23.9-36.7)
--- NOTE | 2023-01-27 19:00 | ED_ITS ---
HPI - Chest Pain General: Chief Complaint: Chest Pain Stated Complaint: Chest pain Time Seen by Provider: 01/27/23 16:35 Source: patient Mode of arrival: EMS History of Present Illness: 72-year-old morbidly obese female brought to emergency room with a complaint of left-sided chest pain for the past 3 days. Patient describes the pain as aching sensation with severity of 7 out of 10 with movement. Further reviews that she fell few days ago denies any direct chest wall injury since shortness of breath, cough, coughing up blood or vomiting blood. Increased pain with movement and taking a deep breath. Pain location: left chest (Left lateral) Quality: sharp Exacerbating factors: inspiration, palpation and movement Context: trauma/injury Associated symptoms: Deny abdominal pain, dyspnea, nausea, palpitations, syncope or vomiting Review of Systems General: Reports: 10 or more systems reviewed and unremarkable except in HPI and below Card: Reports: chest pain; Denies: palpitations, irregular heart rhythm, swelling of feet/ankles, lightheadedness, syncope, pre-syncope, dyspnea on exertion or orthopnea Resp: Denies: dyspnea, productive cough or non-productive cough GI: Denies: abdominal pain, nausea, vomiting, hematemesis, coffee ground emesis or dysphagia : Denies: flank pain, difficulty voiding or dysuria Musc: Denies: neck pain, extremity pain, joint pain, joint swelling, joint redness or joint warmth Skin/Breast: Denies: rash, pruritus, erythema, photosensitivity, skin pain, skin tenderness, skin swelling, sores or new lesions Psych: Reports: anxiety; Denies: depression, mood swings or panic attacks PFS ED PFSH: Medical History (Updated 01/27/23 @ 19:08 by Ian Cruz MD) Benign essential HTN Chronic cystitis COPD (chronic obstructive pulmonary disease) Coronary artery disease Cystitis Diabetes Diastolic heart failure Hypertension Obesity Peripheral Vascular Disease Recurrent UTI Clinically consistent with chronic cystitis Systolic CHF Surgical History S/P appendectomy S/P CABG (coronary artery bypass graft) S/P cholecystectomy S/P hysterectomy Family History Mother , AT 78 Cancer BREAST AND SPINE Grandmother Cancer Father , AT 62 Heart attack Other CAD (coronary artery disease) Hypertension Social History Smoking and tobacco status: former smoker Quit status (tobacco): has quit using tobacco Year quit tobacco: 1985 Former quit date comment: 2 ppd X 25 years, Started at age 14 Alcohol intake: never Substance/Drug Use: never Lives independently: Yes Housing: House Marital status: / Current occupational status: disabled Physical Exam Const: COMMON NORMALS: no acute distress, patient oriented x3 and alert OTHER: She is morbidly obese Neck/C-Spine: COMMON NORMALS: no JVD Chest: Chest images (female): 1. Area with some pain upon palpation no palpable deformities. Resp: COMMON NORMALS: normal respiratory effort, No retractions, No use of accessory muscles, clear to auscultation bilaterally and percussion normal AUSCULTATION: clear to auscultation bilaterally PERCUSSION: percussion normal Cardio: COMMON NORMALS: no JVD, regular rate, regular rhythm, S1 normal heart sound present, S2 normal heart sound present, No gallops present (Cardio), No clicks present (Cardio), No murmurs present (Cardio), No rub (Cardio) and Peripheral pulses 2+ throughout RATE: regular rate RHYTHM: regular rhythm HEART SOUNDS: S1 normal heart sound present and S2 normal heart sound present PERIPHERAL PULSES: Peripheral pulses 2+ throughout GI: COMMON NORMALS: Normal to inspection, nondistended, normoactive bowel sounds present, Soft to palpation, non-tender, No hepatosplenomegaly present, no masses and no bruits PALPATION: Yes Soft to palpation and Yes No hepatosplenomegaly present : COMMON NORMALS: Yes no CVA tenderness BLADDER/KIDNEY EXAM: Yes no CVA tenderness Back/Pelvis: COMMON NORMALS: no CVA tenderness, thoracic and lumbar spine normal to inspection, no thoracic nor lumbar tenderness, thoraco-lumbar ROM normal and straight leg raise negative bilaterally Neuro: COMMON NORMALS: patient oriented x3 SENSORIUM/ORIENTATION: Yes alert Skin: COMMON NORMALS: no rashes or lesions noted, no wounds, turgor normal, no jaundice, no petechiae and no mottling GENERAL SKIN EXAM: no rashes or lesions noted and turgor normal Course ED course: Patient remained stable without acute distress discussed lab and x-ray finding. With patient and family. Vital Signs: Vital signs: Vital Signs Temperature 97.9 F 01/27/23 16:41 Pulse Rate 65 01/27/23 20:19 Respiratory Rate 22 H 01/27/23 20:19 Blood Pressure 160/70 01/27/23 20:19 Pulse Oximetry 98 01/27/23 20:19 Oxygen Delivery Me thod Nasal Cannula 01/27/23 16:41 Oxygen Flow Rate 4 01/27/23 16:41 MDM - Chest Pain Medical Decision Making Patient made comfortable in emergency room. Labs and x-ray ordered. I di scussed lab x-ray with the patient and family. EKG did not show any signs of acute process. It is reproducible on palpation EKG done twice with troponin no acute findings. Differential Diagnosis Likely acute massive pulmonary embolism, acute respiratory failure (Acute HI, pneumonia, pneumothorax,), acute myocardial infarction, cardiac arrest and sudden cardiac Medical Records Patient made comfortable emergency room Lab Data 01/27/23 16:00 01/27/23 16:00 Radiology Impressions Ribs X-Ray 01/27/23 16:47 IMPRESSION: No acute findings. Laboratory Results WBC Cancelled 01/27/23 17:39 Corrected WBC Cancelled 01/27/23 17:39 RBC Cancelled 01/27/23 17:39 Hgb Cancelled 01/27/23 17:39 Hct Cancelled 01/27/23 17:39 MCV Cancelled 01/27/23 17:39 MCH Cancelled 01/27/23 17:39 MCHC Cancelled 01/27/23 17:39 RDW Cancelled 01/27/23 17:39 Plt Count Cancelled 01/27/23 17:39 MPV Cancelled 01/27/23 17:39 Gran % Cancelled 01/27/23 17:39 Neut % (Auto) Cancelled 01/27/23 17:39 Lymph % (Auto) Cancelled 01/27/23 17:39 [place] % (Auto) Cancelled 01/27/23 17:39 Eos % (Auto) Cancelled 01/27/23 17:39 Baso % (Auto) Cancelled 01/27/23 17:39 Neut # (Auto) Cancelled 01/27/23 17:39 Lymph # (Auto) Cancelled 01/27/23 17:39 [place] # (Auto) Cancelled 01/27/23 17:39 Eos # (Auto) Cancelled 01/27/23 17:39 Baso # (Auto) Cancelled 01/27/23 17:39 Absolute Gran (auto) Cancelled 01/27/23 17:39 Nucleated RBC % (auto) Cancelled 01/27/23 17:39 Nucleated RBCs # Cancelled 01/27/23 17:39 PT 13.90 SECONDS (12.1-14.9) 01/27/23 16:40 INR 1.04 (0.8-1.2) 01/27/23 16:40 APTT 28.4 SECONDS (23.9-36.7) 01/27/23 16:40 Sodium Cancelled 01/27/23 17:39 Potassium Cancelled 01/27/23 17:39 Chloride Cancelled 01/27/23 17:39 Carbon Dioxide Cancelled 01/27/23 17:39 Anion Gap Cancelled 01/27/23 17:39 BUN Cancelled 01/27/23 17:39 Creatinine Cancelled 01/27/23 17:39 GFR Calculation Cancelled 01/27/23 17:39 Glucose Cancelled 01/27/23 17:39 Calculated Osmolality Cancelled 01/27/23 17:39 Calcium Cancelled 01/27/23 17:39 Total Bilirubin Cancelled 01/27/23 17:39 AST Cancelled 01/27/23 17:39 ALT Cancelled 01/27/23 17:39 Alkaline Phosphatase Cancelled 01/27/23 17:39 Troponin T Baseline Cancelled 01/27/23 17:39 Troponin T 120 Minute 27.19 ng/L (0-10) H 01/27/23 18:09 Delta Troponin T -2.81 ABS# (0-10) L 01/27/23 18:09 Total Protein Cancelled 01/27/23 17:39 Albumin Cancelled 01/27/23 17:39 Globulin Cancelled 01/27/23 17:39 EKG Data EKG 1: Interpretation: Sinus rhythm rate of 66 interval was 156. No ST elevation ST changes. EKG 2: Interpretation: EKG rate of 66 normal sinus rhythm no ST elevation ST changes [place] interval 149 Discharge Plan Discharge Patient Disposition: Home Clinical Impression: Left-sided chest wall pain, Atypical chest pain Condition: Stable Prescriptions: No Action montelukast [Singulair] 10 mg tablet 10 mg PO DAILY metoprolol tartrate 25 mg tablet 12.5 mg PO BID allopurinol 100 mg tablet 100 mg PO DAILY duloxetine [Cymbalta] 60 mg capsule,delayed release(DR/EC) 60 mg PO DAILY Hold Instructions: sodium is low. see pcp before resuming Rx Instructions: take with 30mg to =90mg metformin 500 mg tablet 500 mg PO DAILY simvastatin 10 mg tablet 10 mg PO BEDTIME albuterol sulfate [ProAir HFA] 90 mcg/actuation HFA aerosol inhaler 2 puff INHALATION QID PRN (Reason: Shortness Of Breath) gabapentin 300 mg capsule See Rx Instructions .ROUTE .COMPLEX Rx Instructions: 600mg po in AM , 600mg po at Noon, and 900mg po HS pantoprazole [Protonix] 40 mg tablet,delayed release (DR/EC) 40 mg PO BID duloxetine [Cymbalta] 30 mg capsule,delayed release(DR/EC) 30 mg PO DAILY Hold Instructions: sodium is low. Please see PCP before resuming Rx Instructions: take with 60mg to =90mg vitamin B complex [B Complex-Vitamin B12] Tablet 1 tab PO DAILY Lasix 20 mg tablet 20 mg PO DAILY Patient Comments: Has been taking 2 daily hydrocodone-acetaminophen 10-325 mg tablet PO TID PRN oxybutynin chloride 10 mg tablet extended release 24hr 10 mg PO BEDTIME bupropion HCl 100 mg tablet sustained-release 12 hr 100 mg PO BID multivitamin with minerals [Hair,Skin and Nails] Tablet 1 tab PO DAILY docusate sodium 100 mg tablet 100 mg PO BID phenazopyridine [Pyridium] 100 mg tablet 100 mg PO TID PRN Linzess 72 mcg capsule 72 mcg PO DAILY methenamine hippurate 1 gram tablet 1 g PO BID Qty: 60 12RF Rx Instructions: 1 pill twice a day with 1 g vitamin C each dose lorazepam 0.5 mg tablet 0.5 mg PO DAILY PRN buspirone 10 mg tablet 10 mg PO BID miscellaneous medical supply Misc See Rx Instructions miscellaneous .COMPLEX Qty: 1 0RF Rx Instructions: increase oxygen to 3LPM spironolactone 25 mg tablet 25 mg PO DAILY Qty: 90 3RF Breztri Aerosphere 160-9-4.8 mcg/actuation HFA aerosol inhaler 2 inh inhalation BID Qty: 10.7 3RF doxycycline hyclate 100 mg capsule 100 mg PO BID Qty: 60 4RF Rx Instructions: In lieu of Macrobid. cilostazol 50 mg tablet See Rx Instructions .ROUTE .COMPLEX Qty: 180 3RF Dose Instruction: TAKE 1 TABLET BY MOUTH TWO TIMES DAILY Rx Instructions: TAKE 1 TABLET BY MOUTH TWO TIMES DAILY ondansetron 4 mg tablet,disintegrating 4 mg PO Q8H PRN (Reason: nausea and vomiting) Qty: 15 0RF levothyroxine 88 mcg tablet 88 mcg PO QAM meclizine 25 mg tablet 25 mg PO TID albuterol sulfate 2.5 mg /3 mL (0.083 %) solution for nebulization 2.5 mg inhalation Q8H PRN (Reason: Shortness Of Breath) estradiol 0.01 % (0.1 mg/gram) cream See Rx Instructions .ROUTE .COMPLEX Rx Instructions: as directed vaginally q7d or prn Antifungal (clotrimazole) 1 % cream 1 applic TOPICAL BID Multivitamin Gummies 200 mcg Tablet,Chewable 2 tab PO DAILY Nervive 1 tab PO DAILY Discharge Orders: Discharge ED (Routine); Ordered 01/27/23 Ordered By: Ian Cruz Referrals: Chantal Hernandez, STEEL ROD BUSTER [Primary Care Provider] - Discharge Diet: Advance as tolerated Discharge Activity: Resume usual activity Patient Instructions: Opioid Safety, Pain Management Coding Level of Care Code ED Business Rules Developer for Gio Gonzalez
--- NOTE | 2023-01-27 19:02 | ECG_ITS ---
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 Measurements Intervals [place] Rate: 66 P: 60 [place]: 149 QRS: -9 QRSD: 87 T: 24 QT: 359 QTc: 378 Interpretive Statements SINUS RHYTHM Compared to ECG 01/27/2023 17:04:21 No significant changes Electronically Signed On 01-28-2023 14:52:38 CDT by Victor Manuel Andujar M.D. [email or web address] [email or web address] cleveland va medical centerGoodClic/store/[id number]
[2023-01-27 19:06] LABS: Troponin 5 2HR 27.19 ng/L (0-10)
[2023-01-27 19:07] LABS: Troponin 5 2HR Delta -2.81 ABS# (0-10)
[2023-01-27 20:19] VITALS: BP 160/70; PULSE 65; RESP 22; O2SAT 98
== END 2023-01-27 20:22 | disposition home or self-care (01) ==
PROVIDERS: Family Medicine; Emergency Provider Family Medicine; PCP Nurse Practitioner Family
DX: R07.89 Other chest pain (principal); I11.0 Hypertensive heart disease with heart failure; I50.40 Unspecified combined systolic (congestive) and diastolic (congestive) heart failure; E11.51 Type 2 diabetes mellitus with diabetic peripheral angiopathy without gangrene; J44.9 Chronic obstructive pulmonary disease, unspecified; Z79.84 Long term (current) use of oral hypoglycemic drugs; Z79.899 Other long term (current) drug therapy; Z87.891 Personal history of nicotine dependence
CPT/HCPCS: 36415; 71101; 80053; 84484; 85025; 85610; 85730; 93005; 99285

== ENCOUNTER 2023-03-07 14:13 | Observation (INO) | payer MEDICARE, MEDICAID, SELFPAY ==
[2023-03-07 14:22] VITALS: BP 115/98; PULSE 77; RESP 16; O2SAT 98
[2023-03-07 14:24] VITALS: TEMP 36.5
--- NOTE | 2023-03-07 14:25 | ECG_ITS ---
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 Measurements Intervals [place] Rate: 69 P: 56 [place]: 155 QRS: -7 QRSD: 94 T: 37 QT: 320 QTc: 345 Interpretive Statements SINUS RHYTHM NONSPECIFIC T-WAVE ABNORMALITY Compared to ECG 01/27/2023 19:02:26 T-wave abnormality now present Electronically Signed On 03-07-2023 17:17:42 CDT by Amanda Kaiser M.D. [id number]
--- NOTE | 2023-03-07 14:25 | XRR_ITS ---
PROCEDURE INFORMATION: Exam: XR Chest Exam date and time: 03/07/2023 2:34 PM Age: 73 years old Clinical indication: Dyspnea; Additional info: Edema TECHNIQUE: Imaging protocol: Radiologic exam of the chest. Views: 1 view. COMPARISON: 1. CR (CHEST, ) 01/27/2023 4:[address] chest abdpel w/*[id number] 05/03/2022 4:17 PM FINDINGS: Lungs: There is platelike opacity in the mid lungs bilaterally. Pleural spaces: There is no pleural effusion or pneumothorax. Heart/Mediastinum: Heart size is normal. The right hilum enlarged. Bones/joints: Bones are unremarkable. Intraperitoneal space: There are multiple surgical clips in the upper abdomen. XR/XR chest 1V portable [id number] IMPRESSION: 1. Platelike opacities in both lungs are consistent with subsegmental atelectasis or scarring. There is no consolidation or pulmonary edema. 2. Enlarged right hilum, similar to 01/27/2023, consistent with pulmonary artery enlargement visible on prior chest CT.
--- NOTE | 2023-03-07 14:26 | ED_ITS ---
HPI - General Adult General: Chief complaint: General Medical Stated complaint: FLUID RETENTION Time Seen by Provider: 03/07/23 14:15 Source: patient and EMS History of Present Illness: This patient was transported by EMS from her home at the family's request. Apparently she has been having some symptoms of loose stools for the last 2 days. She has been recently seen and diagnosed as having urinary tract infection and begun on antibiotics yesterday. She is only taken 1 or 2 doses of her medication. She is unaware of any objective fevers. She has chronic joint pain and she apparently has a prescription for hydrocodone and took 1 of those prior to arrival to the emergency department. She denies any ongoing chest pains abdominal pains etc. at this time. Family thinks that she has had more edema recently and is also concerned about that symptom. Associated symptoms: Deny chest pain, dyspnea, headache(s), rash, palpitations or syncope Review of Systems Const: Denies: fever(s) or chills Eyes: Denies: change in vision ENMT: Denies: throat pain, odynophagia or nasal congestion Card: Denies: chest pain, palpitations, syncope or pre-syncope Resp: Denies: dyspnea, productive cough or non-productive cough GI: Reports: diarrhea; Denies: hematemesis, hematochezia or melena : Reports: urinary urgency and oliguria Musc: Reports: extremity pain and extremity swelling; Denies: back pain or joint redness Skin/Breast: Denies: rash Neuro: Denies: headache(s), numbness in extremities or weakness in extremities [facility] ED PFSH: Medical History (Updated 03/07/23 @ 22:56 by Judith Carrillo MD) Anxiety and depression Benign essential HTN Chronic cystitis COPD (chronic obstructive pulmonary disease) Coronary artery disease Diabetes Diastolic heart failure Dyslipidemia GERD (gastroesophageal reflux disease) History of cardiac arrest Had 3 episodes of cardiac arrest due to complications from her gastric bypass surgery back in the with obviously successful resuscitation Hypertension Hypothyroidism Osteoarthritis Peripheral Vascular Disease Vertigo Surgical History (Updated 03/07/23 @ 21:02 by Judith Carrillo MD) History of gastric bypass (1988) S/P appendectomy S/P CABG (coronary artery bypass graft) S/P cholecystectomy S/P hysterectomy Family History (Updated 03/07/23 @ 21:03 by Judith Carrillo MD) Mother , AT 78 Cancer BREAST AND SPINE Grandmother Cancer Father , AT 62 Heart attack Daughter CAD (coronary artery disease) Other Hypertension Social History Smoking and tobacco status: former smoker Quit status (tobacco): has quit using tobacco Year quit tobacco: 1985 Former quit date comment: 2 ppd X 25 years, Started at age 14 Alcohol intake: never Substance/Drug Use: never Lives independently: Yes Housing: House Marital status: / Current occupational status: disabled Physical Exam Narrative: EXAM NARRATIVE: She is a elderly female who intermittently seemingly loses concentration and falls asleep during our conversation but is easily arousable and will answer questions appropriately. Const: GENERAL APPEARANCE: lethargic NUTRITIONAL APPEARANCE: obese ORIENTATION/CONSCIOUSNESS: Yes oriented to person and Yes lethargic HENMT: COMMON NORMALS: normocephalic, Normal nasal mucous membranes and turbinates present and oropharynx normal HEAD & SCALP: normocephalic FACE & SINUS: normal facial exam and face symmetric NOSE: Normal nasal mucous membranes and turbinates present Eye: COMMON NORMALS: Equal, round and reactive pupils present, EOMs intact bi laterally and conjunctivae normal CONJUNCTIVA: Yes conjunctivae normal PUPIL: Yes Equal, round and reactive pupils present Neck/C-Spine: COMMON NORMALS: full ROM, no JVD and No carotid bruits Chest: COMMONS NORMALS: normal inspection of the chest Resp: COMMON NORMALS: normal respiratory effort, No retractions and No use of accessory muscles AUSCULTATION: diminished lung sounds (At the bases) Cardio: COMMON NORMALS: no JVD, regular rate, regular rhythm and No murmurs present (Cardio) RATE: regular rate RHYTHM: regular rhythm PERIPHERAL PULSES: brachial pulses present, radial pulses present, ulnar radial pulses present, posterior tibial pulses present (Diminished) and dorsalis pedis present (Diminished) GI: COMMON NORMALS: Normal to inspection, nondistended, normoactive bowel sounds present, Soft to palpation and non-tender INSPECTION: Yes central obesity PALPATION: Yes Soft to palpation Back/Pelvis: COMMON NORMALS: thoracic and lumbar spine normal to inspection, no thoracic nor lumbar tenderness and straight leg raise negative bilaterally Extremity: COMMON NORMALS: full ROM and capillary refill normal NARRATIVE EXTREMITY EXAM: She has some cyanosis to her toes. There is no skin breakdown. There is no erythema. No calf tenderness noted. She has nonpitting edema of both extremities Neuro: COMMON NORMALS: moves all extremities and no focal motor deficits SENSORIUM/ORIENTATION: Yes oriented to person and Yes lethargic Skin: COMMON NORMALS: no rashes or lesions noted, no wounds and turgor normal GENERAL SKIN EXAM: no rashes or lesions noted and turgor normal Course Reevaluation(s): Reevaluation #1: RN expressed concern about diminished pulses in the lower extremities. GALILEO was ordered. Value for left leg was 1.36.; Initial value of the right leg was u nobtainable therefore arterial Doppler was ordered. ABIs were obtained by ultrasound which revealed right lower extremity GALILEO was 0.92; left lower extremity GALILEO was 1.06. This is reassuring and consistent with adequate arterial flow to the lower extremities. Time: 15:12 Reevaluation #2: Bladder scanner was obtained to ensure that there was no post renal obstruction and residual volume was 107 mL system with a normal PVR. We will go ahead and get a noncontrasted CT to ensure no other obvious renal or intra-abdominal pathology. Time: 16:38 Reevaluation #3: Discussed current findings with the patient as well as family member who is now present. Patient is very alert now unable to maintain concentration and alertness and carry on a complete and cogent conversation. Still have CAT scan urinalysis etc. pending at this time. Discussed the need to patient will need to be placed in observation for further evaluation and treatment pending CT scan and other findings. The patient will be turned over to Dr. Wild overnight ER physician. Time: 17:51 Vital Signs: Vital signs: Vital Signs Temperature 97.8 F 03/08/23 04:00 Pulse Rate 80 03/08/23 04:00 Respiratory Rate 14 03/08/23 04:00 Blood Pressure 126/72 03/08/23 04:00 Pulse Oximetry 96 03/08/23 04:00 Oxygen Delivery Me thod Room Air 03/08/23 04:00 Oxygen Flow Rate 3 03/07/23 20:34 MDM - General Adult Medical Decision Making Patient was transported from her home by EMS behest of the family because of concern about leg swelling, diarrhea. She apparently been recently initiated treatment for urinary tract infection but is only taken 1 dose of the medication yesterday. Patient arrives somewhat sleepy but easily arousable. She admitted to taking one of her pain medicines which is hydrocodone 10 by review of the chart. Initial evaluation did not reveal any significant focal findings other than her sleepiness and therefore work-up was tailored to EMS obtained history which included IV fluids and basic labs. Subsequently it was noted that she had what appeared to be cyanosis to her toes of her feet. GALILEO was eventually obtained which were reassuring. 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 Also laboratories revealed that she had a change in kidney function with an elevated BUN/creatinine ratio compared with prior similar values. Bladder scan did not reveal any evidence of elevated postvoid residual which would have suggested a possible post renal etiology to her CHERYL. Additional imaging was ordered to evaluate for any other general abdominal pathology or renal pathology. She also has an incidental right peroneal vein DVT. At this point the patient will likely need to be placed in observation to continue hydration, obtain echocardiogram for cardiac function and further evaluation as indicated. Medical Records I reviewed the patient's medical records. Patient's history of COPD, CAD and chronic recurrent cystitis Lab Data I reviewed the patient's lab results. 03/08/23 05:10 03/08/23 05:10 Radiology Impressions Chest X-Ray 03/07/23 14:25 IMPRESSION: 1. Platelike opacities in both lungs are consistent with subsegmental atelectasis or scarring. There is no consolidation or pulmonary edema. 2. Enlarged right hilum, similar to 01/27/2023, consistent with pulmonary artery enlargement visible on prior chest CT. Duplex Scan Lower Extremity Artery 03/07/23 15:08 IMPRESSION: 1. No stenosis or occlusion. 2. Ankle-brachial index is 0.92 on the right, suggesting mild runoff disease and predominantly small-vessel [id number]. Abdomen/Pelvis CT 03/07/23 16:37 IMPRESSION: 1. Postsurgical changes with previous cholecystectomy, hysterectomy, and likely prior gastric bypass. 2. Left hepatic cyst and small subcentimeter renal cysts unchanged with prior exam. Stable hypodense focus of the left adrenal gland with prior exam. 3. Fat containing ventral hernias of the abdominal wall without bowel content and unchanged with prior exam. Venous Duplex 03/07/23 16:59 IMPRESSION: Abnormal venous Doppler of the right lower extremity with sonographic findings of deep vein thrombosis within the right popliteal and peroneal veins. ADDENDUM: 03/07/23 1758 THIS REPORT CONTAINS FINDINGS THAT MAY BE CRITICAL TO PATIENT CARE. The findings were verbally communicated via telephone conference with WERNER ROTHMAN at 5:56 PM CDT on 03/07/2023. The findings were acknowledged and understood. Laboratory Results WBC 14.1 10^3/uL (4.0-10.0) H 03/07/23 14:54 RBC 4.55 10^6/uL (4.1-5.3) 03/07/23 14:54 Hgb 12.8 g/dL (11.5-15.3) 03/07/23 14:54 Hct 40.7 % (37.0-47.0) 03/07/23 14:54 MCV 89.5 fl (81-99) 03/07/23 14:54 MCH 28.1 pg (28.0-34.0) 03/07/23 14:54 MCHC 31.4 g/dL (30.0-36.0) 03/07/23 14:54 RDW 14.7 % (12.1-15.1) 03/07/23 14:54 Plt Count 226 10^3/cmm (130-400) 03/07/23 14:54 MPV 9.7 fL (7.4-10.4) 03/07/23 14:54 Neut % (Auto) 87.6 % 03/07/23 14:54 Lymph % (Auto) 6.5 % 03/07/23 14:54 [place] % (Auto) 4.8 % 03/07/23 14:54 Eos % (Auto) 0.2 % 03/07/23 14:54 Baso % (Auto) 0.4 % 03/07/23 14:54 Neut # (Auto) 12.34 10^3/uL (1.8-7.7) H 03/07/23 14:54 Lymph # (Auto) 0.9 10^3/uL (0.8-4.8) 03/07/23 14:54 [place] # (Auto) 0.7 10^3/uL (0.2-0.9) 03/07/23 14:54 Eos # (Auto) 0.0 10^3/uL (0.0-0.8) 03/07/23 14:54 Baso # (Auto) 0.1 10^3/uL (0.0-0.1) 03/07/23 14:54 Nucleated RBC % (auto) 0 % 03/07/23 14:54 Nucleated RBCs # 0.0 /100WBC 03/07/23 14:54 Sodium 133 mmol/L (136-145) L 03/07/23 14:54 Potassium 4.1 mmol/L (3.5-5.1) 03/07/23 14:54 Chloride 94 mmol/L (98-107) L 03/07/23 14:54 Carbon Dioxide 29 mmol/L (22-29) 03/07/23 14:54 Anion Gap 14.1 (5-19) 03/07/23 14:54 BUN 44 mg/dL (8-23) H 03/07/23 14:54 Creatinine 2.3 mg/dL (0.5-0.9) H 03/07/23 14:54 GFR Calculation Not Reportable 03/07/23 14:54 Glucose 107 mg/dL (65-115) 03/07/23 14:54 Calculated Osmolality 288 mOsm/kg (285-295) 03/07/23 14:54 Lactic Acid 1.4 mmol/L (0.5-2.2) 03/07/23 18:57 Calcium 8.9 mg/dL (8.5-10.5) 03/07/23 14:54 Total Bilirubin 0.4 mg/dL (0.15-1.2) 03/07/23 14:54 AST 102 U/L (0-32) H 03/07/23 14:54 ALT 51 U/L (0-33) H 03/07/23 14:54 Alkaline Phosphatase 253 U/L (35-105) H 03/07/23 14:54 NT-Pro-B Natriuret Pep 1756 pg/mL (0-125) H 03/07/23 14:54 Total Protein 6.1 g/dL (6.6-8.7) L 03/07/23 14:54 Albumin 3.2 g/dL (3.5-5.2) L 03/07/23 14:54 Globulin 2.9 g/dL (1.3-4.6) 03/07/23 14:54 Urine Color Yellow (Yellow) 03/07/23 18:13 Urine Appearance Clear (CLEAR) 03/07/23 18:13 Urine pH 5 (5-7) 03/07/23 18:13 Ur Specific [place] 1.015 (1.005-1.030) 03/07/23 18:13 Urine Protein Neg (Negative) 03/07/23 18:13 Urine Glucose (UA) Norm (Normal) 03/07/23 18:13 Urine Ketones 1+ (Negative) H 03/07/23 18:13 Urine Blood 2+ (Negative) H 03/07/23 18:13 Urine Nitrate Negative (Negative) 03/07/23 18:13 Urine Bilirubin Neg (Negative) 03/07/23 18:13 Urine Urobilinogen Norm mg/dL (Negative) 03/07/23 18:13 Ur Leukocyte Esterase 2+ (Negative) H 03/07/23 18:13 Urine RBC 0-4 /hpf (0-2) H 03/07/23 18:13 Urine WBC 10-15 /hpf (0-5) H 03/07/23 18:13 Ur Squamous Epith Cells 0-4 /hpf (0-5) H 03/07/23 18:13 Ur Renal Epithelial Cell 0-4 /hpf 03/07/23 18:13 Amorphous Sediment 1+ /hpf 03/07/23 18:13 Urine Bacteria Trace /hpf (NONE) 03/07/23 18:13 EKG Data EKG 1: I personally reviewed and interpreted this EKG as follows: Interpretation: Contemporaneous review of the resting electrocardiogram reveals some baseline irritability. Generally she has sinus rhythm with a ventricular rate of 69 bpm. She has normal TN interval, QRS duration, corrected QT interval. [place] are normal. She does not have any acute ST-T wave changes noted at this time the nonspecific changes are likely attributable to her baseline irritability. Computer generated interpretation: Chest X-Ray 03/07/23 14:25 IMPRESSION: 1. Platelike opacities in both lungs are consistent with subsegmental atelectasis or scarring. There is no consolidation or pulmonary edema. 2. Enlarged right hilum, similar to 01/27/2023, consistent with pulmonary artery enlargement visible on prior chest CT. Duplex Scan Lower Extremity Artery 03/07/23 15:08 IMPRESSION: 1. No stenosis or occlusion. 2. Ankle-brachial index is 0.92 on the right, suggesting mild runoff disease and predominantly small-vessel [id number]. Abdomen/Pelvis CT 03/07/23 16:37 IMPRESSION: 1. Postsurgical changes with previous cholecystectomy, hysterectomy, and likely prior gastric bypass. 2. Left hepatic cyst and small subcentimeter renal cysts unchanged with prior exam. Stable hypodense focus of the left adrenal gland with prior exam. 3. Fat containing ventral hernias of the abdominal wall without bowel content and unchanged with prior exam. Venous Duplex 03/07/23 16:59 IMPRESSION: Abnormal venous Doppler of the right lower extremity with sonographic findings of deep vein thrombosis within the right popliteal and peroneal veins. ADDENDUM: 03/07/23 1758 THIS REPORT CONTAINS FINDINGS THAT MAY BE CRITICAL TO PATIENT CARE. The findings were verbally communicated via telephone conference with WERNER ROTHMAN at 5:56 PM CDT on 03/07/2023. The findings were acknowledged and understood. Discharge Plan Discharge Patient Disposition: Placed in Observation Admit Provider: Judith Carrillo Clinical Impression: CHERYL (acute kidney injury), Deep vein thrombosis of right lower extremity Coding Level of Care Code ED Cream Gatherer for Gio Gonzalez
--- NOTE | 2023-03-07 15:08 | USR_ITS ---
PROCEDURE INFORMATION: Exam: US Duplex Right Lower Extremity Arteries Or Arterial Bypass Grafts Exam date and time: 03/07/2023 4:35 PM Age: 73 years old Clinical indication: Other: Decreased pedal pulse; Additional info: Jaz unobtainable TECHNIQUE: Imaging protocol: Right Real-time duplex scan of the arteries or arterial bypass grafts of the right lower extremity with 2-D donnelly scale, color Doppler flow and spectral waveform analysis. Images documented and saved. COMPARISON: CT chest abdpel w/*[id number] 05/03/2022 4:17 PM FINDINGS: Right iliac/common femoral artery: No occlusion or significant stenosis. Triphasic waveform. No pseudoaneurysm in the inguinal region. Right superficial femoral artery: No occlusion or significant stenosis. Triphasic waveform. Right popliteal artery: No occlusion or significant stenosis. Biphasic waveform. Right calf/foot arteries: No occlusion or significant stenosis in the visualized arteries. Monophasic waveform in the posterior tibial artery. Dorsalis pedis artery is patent with biphasic waveform. Soft tissues: No hematoma or collection. Ankle-brachial index is 0.92 on right and 1.06 on left. US/[place] [id number] IMPRESSION: 1. No stenosis or occlusion. 2. Ankle-brachial index is 0.92 on the right, suggesting mild runoff disease and predominantly small-vessel [id number].
[2023-03-07 15:10] LABS: Basophils # 0.1 10^3/uL (0.0-0.1); Basophils % 0.4 %; Eosinophils % 0.2 %; Hematocrit 40.7 % (37.0-47.0); Hemoglobin 12.8 g/dL (11.5-15.3); Lymphocytes # 0.9 10^3/uL (0.8-4.8); Lymphocytes % 6.5 %; Mean Corpuscular HGB Conc 31.4 g/dL (30.0-36.0); Mean Corpuscular Hemoglobin 28.1 pg (28.0-34.0); Mean Corpuscular Volume 89.5 fl (81-99); Mean Platelet Volume 9.7 fL (7.4-10.4); Monocytes # 0.7 10^3/uL (0.2-0.9); Monocytes % 4.8 %; Neutrophils # 12.34 10^3/uL (1.8-7.7); Neutrophils % 87.6 %; Nucleated Red Blood Cells % 0 %; Platelet Count 226 10^3/cmm (130-400); Red Blood Count 4.55 10^6/uL (4.1-5.3); Red Cell Distribution Width 14.7 % (12.1-15.1); White Blood Count 14.1 10^3/uL (4.0-10.0)
[2023-03-07] MEDS: sodium chloride 0.9% 1,000 ML 999 ML IV ×2 (15:17→20:24)
[2023-03-07 15:49] VITALS: BP 114/69; PULSE 62; RESP 14; O2SAT 97
[2023-03-07 15:50] LABS: Alanine Aminotransferase 51 U/L (0-33); Albumin Level 3.2 g/dL (3.5-5.2); Alkaline Phosphatase 253 U/L (35-105); Anion Gap 14.1 (5-19); Aspartate Amino Transferase 102 U/L (0-32); Blood Urea Nitrogen 44 mg/dL (8-23); Calcium 8.9 mg/dL (8.5-10.5); Carbon Dioxide 29 mmol/L (22-29); Chloride 94 mmol/L (98-107); Globulin 2.9 g/dL (1.3-4.6); Glucose 107 mg/dL (65-115); NT Pro B Type Natriuretic Pept 1756 pg/mL (0-125); Osmolality Calculated 288 mOsm/kg (285-295); Potassium 4.1 mmol/L (3.5-5.1); Sodium 133 mmol/L (136-145); Total Bilirubin 0.4 mg/dL (0.15-1.2); Total Protein 6.1 g/dL (6.6-8.7)
--- NOTE | 2023-03-07 16:24 | PC.PHAR ---
pt states her daughter rainer takes care of her meds-pts daughter rainer states she fired the hamper maker machine a month ago and took over doing her mothers meds-rainer states she is unsure if all the names of the medications the pt takes-pts daughter states what the pharmacy filled is what the pt is taking-pts pharmacy not open on sundays to verify meds last filled-pts daughter states the pt takes the otc items entered-notes are made in the pharmacy comments
--- NOTE | 2023-03-07 16:37 | CTR_ITS ---
PROCEDURE INFORMATION: Exam: CT Abdomen And Pelvis Without Contrast Exam date and time: 03/07/2023 5:37 PM Age: 73 years old Clinical indication: Abdominal tenderness; Additional info: Evalutate for renal pathology TECHNIQUE: Imaging protocol: Computed tomography of the abdomen and pelvis without contrast. Radiation optimization: All CT scans at this facility use at least one of these dose optimization techniques: automated exposure control; mA and/or kV adjustment per patient size (includes targeted exams where dose is matched to clinical indication); or iterative reconstruction. REPORTING DATA: Count of CT and Cardiac NM exams in prior 12 months: This patient has received 6 known CTs and 0 known cardiac nuclear medicine studies in the 12 months prior to the current study. COMPARISON: CT chest abdpel w/*[id number] 05/03/2022 4:17 PM RADIATION DOSE METRICS: Total DLP (mGy-cm): 903.2 FINDINGS: Liver: Findings consistent with simple cysts of the anterior aspect of the liver, unchanged with prior exam. Liver appears unremarkable otherwise for unenhanced exam. Gallbladder and bile ducts: Previous cholecystectomy. No significant biliary ductal dilatation. Pancreas: Normal. No ductal dilation. Spleen: Normal. No splenomegaly. Adrenal glands: Stable hypodense focus of the left adrenal gland with prior exam. Kidneys and ureters: Stable appearance of the kidneys with prior exam, with findings suggestive subcentimeter renal cysts. No findings of urinary tract stone or obstructive uropathy or perinephric stranding. Mild renal atrophy again suggested. Stomach and bowel: See Soft tissues finding. Appendix: Previous appendectomy. Intraperitoneal space: Postsurgical changes in the upper abdomen in the region of the stomach as noted with prior exam. No bowel obstruction. No CT findings to indicate diverticulitis or other focal inflammatory change. No abnormal focal mesenteric stranding. Vasculature: Unremarkable. No abdominal aortic aneurysm. Lymph nodes: Unremarkable. No enlarged lymph nodes. Urinary bladder: Unremarkable as visualized. Reproductive: Previous hysterectomy. Bones/joints: Degenerative bony changes, more prominent lumbar spine with degenerative disc disease and appearing chronic with prior exam. Soft tissues: Postsurgical changes about the anterior abdominal with 2 fat containing paraumbilical ventral hernias and very small ventral hernia fat near the midline upper abdomen. No hernia of bowel. Findings are chronic with prior exam. CT/CT abdomen pelvis wo con [id number] IMPRESSION: 1. Postsurgical changes with previous cholecystectomy, hysterectomy, and likely prior gastric bypass. 2. Left hepatic cyst and small subcentimeter renal cysts unchanged with prior exam. Stable hypodense focus of the left adrenal gland with prior exam. 3. Fat containing ventral hernias of the abdominal wall without bowel content and unchanged with prior exam.
--- NOTE | 2023-03-07 16:59 | USR_ITS ---
PROCEDURE INFORMATION: Exam: US Duplex Right Lower Extremity Veins, Limited Exam date and time: 03/07/2023 5:03 PM Age: 73 years old Clinical indication: Screening exam; Dvt TECHNIQUE: Imaging protocol: Real-time duplex ultrasound of the right extremity with 2-D donnelly scale, color Doppler flow and spectral waveform analysis including responses to compression and other maneuvers (when performed) with image documentation. Limited exam was focused on the right lower extremity veins. COMPARISON: [place] [id number] 03/07/2023 4:35 PM FINDINGS: Right deep veins: Unremarkable. The common femoral, femoral, proximal profunda and femoral veins are patent without thrombus. Normal Doppler waveforms. Normal compressibility and/or augmentation response. Partially occlusive DVT is seen in the popliteal vein with lack of compressibility. Partially occlusive DVT is seen peroneal vein as well with lack of compressibility. Superficial veins: Unremarkable. Saphenofemoral junction is patent without thrombus. Soft tissues: Unremarkable. US/[place] [id number] IMPRESSION: Abnormal venous Doppler of the right lower extremity with sonographic findings of deep vein thrombosis within the right popliteal and peroneal veins.
[2023-03-07 18:26] LABS: Add Urine Microscopic? YES; Bilirubin Urine Neg (Negative); Blood Urine 2+ (Negative); Glucose Urine UA Norm (Normal); Ketones Urine 1+ (Negative); Leukocyte Esterase Urine 2+ (Negative); Nitrate Urine Negative (Negative); Protein Urine Neg (Negative); RBC Urine 0-4 /hpf (0-2); Specific Gravity, Urine 1.015 (1.005-1.030); Urine Appearance Clear (CLEAR); Urine Color Yellow (Yellow); Urobilinogen Urine Norm (Negative); pH Urine 5 (5-7)
[2023-03-07 18:27] LABS: Add Urine Culture? No; Amorphous Sediment Urine 1+ /hpf; Bacteria Urine TRACE /hpf; Renal Epithelial Cells Urine 0-4 /hpf; Squamous Epithelial Cell Urine 0-4 /hpf (0-5)
[2023-03-07] MEDS: cefTRIAXone 1,000 MG in sodium chloride 0.9% (plus) 50 ML 100 MG IV (18:42)
[2023-03-07 19:39] LABS: Lactic Sepsis W/Reflex 1.4 mmol/L (0.5-2.2)
--- NOTE | 2023-03-07 19:57 | P.HP_ITS ---
Providers/Chief Complaint Admitting Physician: Judith Carrillo MD Primary Care Provider: ANNE MARIE Chin/Dr. Hernández Chief Complaint: FLUID RETENTION History of Present Illness Mayda Del Cid is a 73 year old female brought to the emergency room today due to intractable diarrhea and abdominal pain. She has not been feeling good for a week or so. She was seen at [facility] previously and diagnosed with UTI. She had been on doxycycline and Bactrim was added. She has only had a couple of pills of Bactrim that the daughter in the emergency room with her is aware of. Mrs. Saba lives with another daughter and has a caregiver. Getting accurate information from either of these sources has proved challenging. From what Raffi Garces, the daughter in the room with her presently, knows Mrs. Saba has had loose stools for approximately 2 weeks. At times she has had bright red blood mixed in with the diarrhea. Today she had been on the toilet with diarrhea for approximately 2 hours and was complaining of generalized abdominal pain leading to the emergency room visit. She has had some dysuria though timing of this is unclear. She is also had some episodes of vomiting, again not quantifiable. No blood has been noted in the vomitus. Vomiting generally occurs after eating. She has had some shortness of breath and a few episodes of complaining of chest pain. She has known COPD related to prior tobacco use and is on home oxygen at 3.5 L by nasal cannula. She also has a history of diastolic CHF with last echocardiogram in October of last year showing an ejection fraction of 50 to 60%. She has a history of coronary artery disease with prior bypass surgery. The chest pain and shortness of breath are not primary complaints for her today and she denies any presently. She does have a history of frequent falls over the last 2 years. Over the last month or 2 she has fallen at least 4-6 times per week. Most of the time she has tripped over something prior to the fall. She does use a walker with all ambulation. She has a history of vertigo for which she takes pills but denies vertigo preceding the recent falls. She has fallen straight back landing on her rear end, hitting her lower back. No known injuries associated with the falls. At other times it has seem like both of her legs have given out. She has complained of increased pain in her right lower extremity. Both of her feet have been exceptionally cold and she has had very blue toes at least for a month or so. She typically spends her time in a recliner rather than with her feet hanging down. She had been referred to podiatry because of the discoloration in her toes according to her daughter. That appointment is scheduled for tomorrow at 8:30 AM but she will obviously not make it. There have been no reports of any fever. She has not had much of an appetite. She has lost some weight but unclear how much or over what period of time. Mrs. Garces simply states that it is easier to move her than it used to be. She has quite a long list of medications that has increased recently. She takes hydrocodone for pain in her right knee/leg, pain in her feet and pain in her lower back. Has not really increased utilization of anyone specific medication that her daughter is aware of though Mrs. Garces does not live with her. She is in the process of trying to relocate her mother where she can be more directly involved in her day-to-day care. In the emergency room, patient had work-up which revealed multiple abnormalities including newly identified DVT in the right lower extremity, acute kidney injury, urinary tract infection, physical exam findings blue/black toes on both feet that are significantly cool to touch. Ankle-brachial index was found to be 0.92 on the right and 1.06 on the left. Lactic acid was normal. White blood count was 14,000. Mrs. Saba has been on doxycycline chronically due to a diagnosis of chronic cystitis, last fill date February 16, 2023, and was prescribed Bactrim on 03/02/2023. Blood cultures are pending. She is being admitted for further evaluation and treatment. Currently primary complaints are of general malaise. Patient reports that she has had a mammogram this year, and that she gets every year without concerning findings. She indicates that she has had a colonoscopy previously within the last 10 years that did not show significant abnormalities although daughter does not recall this happening. Patient daughter Raffi Garces should be contacted about Mrs. Del Cid for updates and information. No information should be given to her production material handler, Salas Ida (female) per Mrs Garces. Review of Systems General: Reports: Other (ROS as per HPI or as otherwise noted here) Medications/Allergies Home Medications Medication Instructions Recorded Confirmed Last Taken Type albuterol sulfate 90 mcg/actuation 2 puff inhalation QID PRN 02/05/20 03/07/23 Unknown History aerosol inhaler (ProAir HFA) Shortness Of Breath allopurinol 100 mg tablet 100 mg PO DAILY 02/05/20 03/07/23 Unknown History duloxetine 60 mg capsule,delayed 60 mg PO DAILY 02/05/20 03/07/23 Unknown History release (Cymbalta) metformin 500 mg tablet 500 mg PO DAILY 02/05/20 03/07/23 Unknown History metoprolol tartrate 25 mg tablet 12.5 mg PO BID 02/05/20 03/07/23 Unknown History montelukast 10 mg tablet 10 mg PO DAILY 02/05/20 03/07/23 Unknown History (Singulair) simvastatin 10 mg tablet 10 mg PO BEDTIME 02/05/20 03/07/23 Unknown History duloxetine 30 mg capsule,delayed 30 mg PO DAILY 07/21/21 03/07/23 Unknown History release (Cymbalta) pantoprazole 40 mg tablet,delayed 40 mg PO BID 07/21/21 03/07/23 Unknown History release (Protonix) vitamin B complex (B 1 tab PO DAILY 07/21/21 03/07/23 Unknown History Complex-Vitamin B12 tablet) bupropion HCl 100 mg tablet,12 hr 100 mg PO BID 09/30/21 03/07/23 Unknown History sustained-release docusate sodium 100 mg tablet 100 mg PO BID 09/30/21 03/07/23 Unknown History multivitamin with minerals 1 tab PO DAILY 09/30/21 03/07/23 Unknown History (Hair,Skin and Nails tablet) oxybutynin chloride 10 mg 10 mg PO BEDTIME 09/30/21 03/07/23 Unknown History tablet,extended release 24 hr Nervive 1 tab PO DAILY 11/12/21 03/07/23 Unknown History albuterol sulfate 2.5 mg/3 mL 2.5 mg inhalation Q8H PRN 11/12/21 03/07/23 Unknown History (0.083 %) solution for nebulization Shortness Of Breath clotrimazole 1 % topical cream 1 applic topical BID PRN unknown 11/12/2103/07 Unknown History (Antifungal (clotrimazole)) estradiol 0.01% (0.1 mg/gram) See Rx Instructions .Route .COMPLEX 11/12/21 03/07/23 Unknown History vaginal cream levothyroxine 88 mcg tablet 88 mcg PO QAM 11/12/21 03/07/23 Unknown History meclizine 25 mg tablet 25 mg PO TID 11/12/21 03/07/23 Unknown History multivitamin with minerals-folic 2 tab PO DAILY 11/12/21 03/07/23 Unknown History acid 200 mcg chewable tablet (Multivitamin Gummies) lorazepam 0.5 mg tablet 0.5 mg PO TID PRN Anxiety 02/17/22 03/07/23 Unknown History miscellaneous medical supply See Rx Instructions miscellaneous 03/02/22 03/07/23 Unknown Rx .COMPLEX #1 ea buspirone 10 mg tablet 10 mg PO BID 03/30/22 03/07/23 Unknown History furosemide 20 mg tablet (Lasix) 20 mg PO DAILY 04/20/22 03/07/23 Unknown History hydrocodone 10 mg-acetaminophen 1 tab PO Q4H PRN Pain 04/20/22 03/07/23 Unknown History 325 mg tablet spironolactone 25 mg tablet 25 mg PO DAILY #90 tabs 04/21/22 03/07/23 Unknown Rx doxycycline hyclate 100 mg capsule 100 mg PO BID #60 caps 11/18/22 03/07/23 Unknown Rx amitriptyline 25 mg tablet 25 mg PO BEDTIME 03/07/23 03/07/23 Unknown History budesonide 160 mcg-glycopyr 9 2 inh inhalation BID 03/07/23 03/07/23 Unknown History mcg-formot 4.8 mcg/actuation HFA inhaler (Breztri Aerosphere) cilostazol 50 mg tablet 50 mg PO BID 03/07/23 03/07/23 Unknown History famotidine 20 mg tablet 20 mg PO BID 03/07/23 03/07/23 Unknown History gabapentin 600 mg tablet See Rx Instructions .Route .COMPLEX 03/07/23 03/07/23 Unknown History ipratropium 0.5 mg-albuterol 3 mg 3 ml inhalation QID PRN Shortness 03/07/23 03/07/23 Unknown History (2.5 mg base)/3 mL nebulization Of Breath soln linaclotide 290 mcg capsule 290 mcg PO DAILY 03/07/23 03/07/23 Unknown History (Linzess) lisinopril 20 mg tablet 10 mg PO DAILY 03/07/23 03/07/23 Unknown History metoclopramide HCl 10 mg tablet 10 mg PO TID PRN ulcers 03/07/23 03/07/23 Unknown History ondansetron 4 mg disintegrating 4 mg PO BID PRN Nausea 03/07/23 03/07/23 Unknown History tablet risperidone 0.25 mg tablet 0.25 mg PO BEDTIME 03/07/23 03/07/23 Unknown History sulfamethoxazole 800 1 tab PO Q12H 03/07/23 03/07/23 Unknown History mg-trimethoprim 160 mg tablet Allergies Allergy/AdvReac Type Severity Reaction Status Date / Time adhesive Allergy ADR-Itching Verified 01/27/23 16:46 alcohol Allergy ALGY-Redness Verified 01/27/23 16:46 of Skin ciprofloxacin [From Cipro] Allergy hives Verified 01/27/23 16:46 codeine Allergy ALGY-Rash Verified 01/27/23 16:46 Penicillins Allergy Unconscious Verified 01/27/23 16:46 Sulfa (Sulfonamide Allergy ALGY-Rash Verified 01/27/23 16:46 Antibiotics) PFSH Acute PFSH: Medical History (Updated 03/07/23 @ 22:56 by Judith Carrillo MD) Anxiety and depression Benign essential HTN Chronic cystitis COPD (chronic obstructive pulmonary disease) Coronary artery disease Diabetes Diastolic heart failure Dyslipidemia GERD (gastroesophageal reflux disease) History of cardiac arrest Had 3 episodes of cardiac arrest due to complications from her gastric bypass surgery back in the with obviously successful resuscitation Hypertension Hypothyroidism Osteoarthritis Peripheral Vascular Disease Vertigo Surgical History (Updated 03/07/23 @ 21:02 by Judith Carrillo MD) History of gastric bypass (1988) S/P appendectomy S/P CABG (coronary artery bypass graft) S/P cholecystectomy S/P hysterectomy Family History (Updated 03/07/23 @ 21:03 by Judith Carrillo MD) Mother , AT 78 Cancer BREAST AND SPINE Grandmother Cancer Father , AT 62 Heart attack Daughter CAD (coronary artery disease) Other Hypertension Social History Smoking and tobacco status: former smoker Quit status (tobacco): has quit using tobacco Year quit tobacco: 1985 Former quit date comment: 2 ppd X 25 years, Started at age 14 Alcohol intake: never Substance/Drug Use: never Lives independently: Yes Housing: House Marital status: / Current occupational status: disabled Vitals/I&O/Wt Last Vital Signs Temp 97.7 F 03/07/23 14:24 Pulse 62 03/07/23 15:49 Resp 14 03/07/23 15:49 BP 114/69 03/07/23 15:49 Pulse Ox 97 03/07/23 15:49 O2 Del Method Nasal Cannula 03/07/23 15:49 O2 Flow Rate 3.5 03/07/23 15:49 Physical Exam Narrative: Patient is awake and able to provide history. She is acutely ill-appearing. Normocephalic. Extraocular movements are intact. Sclera are slightly injected. Oropharynx with dry mucous membranes. Neck is large but supple. Lungs are clear to auscultation anteriorly, decreased at both bases. Cardiovascular exam reveals distant heart sounds but regular rhythm. Abdomen is soft, some mild epigastric tenderness. No rebound or guarding. Positive bowel sounds. Normal external genitalia. No groin rash. 1+ pitting edema left lower extremity, 2+ pitting edema right lower extremity. Right lower extremity is visibly larger in diameter in the upper calf than the left lower extremity. Both feet are cool to touch particularly at the forefoot. All toes are cyanotic. This is more pronounced on the right foot than on the left. Capillary refill however is brisk. Pedal pulses are not consistently palpable. They are dopplerable. Patient also noted to have a lesser extent of acrocyanosis at her fingertips, again with good capillary refill. Speech is clear. Face symmetric. Moves all extremities but generally weak. Data 03/08/23 05:10 03/08/23 05:10 Other Labs: Radiology Impressions Chest X-Ray 03/07/23 14:25 IMPRESSION: 1. Platelike opacities in both lungs are consistent with subsegmental atelectasis or scarring. There is no consolidation or pulmonary edema. 2. Enlarged right hilum, similar to 01/27/2023, consistent with pulmonary artery enlargement visible on prior chest CT. Duplex Scan Lower Extremity Artery 03/07/23 15:08 IMPRESSION: 1. No stenosis or occlusion. 2. Ankle-brachial index is 0.92 on the right, suggesting mild runoff disease and predominantly small-vessel [id number]. Abdomen/Pelvis CT 03/07/23 16:37 IMPRESSION: 1. Postsurgical changes with previous cholecystectomy, hysterectomy, and likely prior gastric bypass. 2. Left hepatic cyst and small subcentimeter renal cysts unchanged with prior exam. Stable hypodense focus of the left adrenal gland with prior exam. 3. Fat containing ventral hernias of the abdominal wall without bowel content and unchanged with prior exam. Venous Duplex 03/07/23 16:59 IMPRESSION: Abnormal venous Doppler of the right lower extremity with sonographic findings of deep vein thrombosis within the right popliteal and peroneal veins. ADDENDUM: 03/07/23 2323 THIS REPORT CONTAINS FINDINGS THAT MAY BE CRITICAL TO PATIENT CARE. The findings were verbally communicated via telephone conference with WERNER ROTHMAN at 5:56 PM CDT on 03/07/2023. The findings were acknowledged and understood. Laboratory Results WBC 14.1 10^3/uL (4.0-10.0) H 03/07/23 14:54 RBC 4.55 10^6/uL (4.1-5.3) 03/07/23 14:54 Hgb 12.8 g/dL (11.5-15.3) 03/07/23 14:54 Hct 40.7 % (37.0-47.0) 03/07/23 14:54 MCV 89.5 fl (81-99) 03/07/23 14:54 MCH 28.1 pg (28.0-34.0) 03/07/23 14:54 MCHC 31.4 g/dL (30.0-36.0) 03/07/23 14:54 RDW 14.7 % (12.1-15.1) 03/07/23 14:54 Plt Count 226 10^3/cmm (130-400) 03/07/23 14:54 MPV 9.7 fL (7.4-10.4) 03/07/23 14:54 Neut % (Auto) 87.6 % 03/07/23 14:54 Lymph % (Auto) 6.5 % 03/07/23 14:54 [place] % (Auto) 4.8 % 03/07/23 14:54 Eos % (Auto) 0.2 % 03/07/23 14:54 Baso % (Auto) 0.4 % 03/07/23 14:54 Neut # (Auto) 12.34 10^3/uL (1.8-7.7) H 03/07/23 14:54 Lymph # (Auto) 0.9 10^3/uL (0.8-4.8) 03/07/23 14:54 [place] # (Auto) 0.7 10^3/uL (0.2-0.9) 03/07/23 14:54 Eos # (Auto) 0.0 10^3/uL (0.0-0.8) 03/07/23 14:54 Baso # (Auto) 0.1 10^3/uL (0.0-0.1) 03/07/23 14:54 Nucleated RBC % (auto) 0 % 03/07/23 14:54 Nucleated RBCs # 0.0 /100WBC 03/07/23 14:54 Sodium 133 mmol/L (136-145) L 03/07/23 14:54 Potassium 4.1 mmol/L (3.5-5.1) 03/07/23 14:54 Chloride 94 mmol/L (98-107) L 03/07/23 14:54 Carbon Dioxide 29 mmol/L (22-29) 03/07/23 14:54 Anion Gap 14.1 (5-19) 03/07/23 14:54 BUN 44 mg/dL (8-23) H 03/07/23 14:54 Creatinine 2.3 mg/dL (0.5-0.9) H 03/07/23 14:54 GFR Calculation Not Reportable 03/07/23 14:54 Glucose 107 mg/dL (65-115) 03/07/23 14:54 Calculated Osmolality 288 mOsm/kg (285-295) 03/07/23 14:54 Lactic Acid 1.4 mmol/L (0.5-2.2) 03/07/23 18:57 Calcium 8.9 mg/dL (8.5-10.5) 03/07/23 14:54 Total Bilirubin 0.4 mg/dL (0.15-1.2) 03/07/23 14:54 AST 102 U/L (0-32) H 03/07/23 14:54 ALT 51 U/L (0-33) H 03/07/23 14:54 Alkaline Phosphatase 253 U/L (35-105) H 03/07/23 14:54 NT-Pro-B Natriuret Pep 1756 pg/mL (0-125) H 03/07/23 14:54 Total Protein 6.1 g/dL (6.6-8.7) L 03/07/23 14:54 Albumin 3.2 g/dL (3.5-5.2) L 03/07/23 14:54 Globulin 2.9 g/dL (1.3-4.6) 03/07/23 14:54 Urine Color Yellow (Yellow) 03/07/23 18:13 Urine Appearance Clear (CLEAR) 03/07/23 18:13 Urine pH 5 (5-7) 03/07/23 18:13 Ur Specific [place] 1.015 (1.005-1.030) 03/07/23 18:13 Urine Protein Neg (Negative) 03/07/23 18:13 Urine Glucose (UA) Norm (Normal) 03/07/23 18:13 Urine Ketones 1+ (Negative) H 03/07/23 18:13 Urine Blood 2+ (Negative) H 03/07/23 18:13 Urine Nitrate Negative (Negative) 03/07/23 18:13 Urine Bilirubin Neg (Negative) 03/07/23 18:13 Urine Urobilinogen Norm mg/dL (Negative) 03/07/23 18:13 Ur Leukocyte Esterase 2+ (Negative) H 03/07/23 18:13 Urine RBC 0-4 /hpf (0-2) H 03/07/23 18:13 Urine WBC 10-15 /hpf (0-5) H 03/07/23 18:13 Ur Squamous Epith Cells 0-4 /hpf (0-5) H 03/07/23 18:13 Ur Renal Epithelial Cell 0-4 /hpf 03/07/23 18:13 Amorphous Sediment 1+ /hpf 03/07/23 18:13 Urine Bacteria Trace /hpf (NONE) 03/07/23 18:13 Micro: Microbiology 03/07/23 19:05 Blood Culture - Preliminary Blood SPECIMEN COLLECTED 03/07/23 18:57 Blood Culture - Preliminary Blood SPECIMEN COLLECTED A&P Assessment and plan (1) Deep vein thrombosis of right lower extremity: Involving the popliteal and peroneal veins, present on admission, new diagnosis. She has had multiple falls lately so trauma is a potential etiology. She does get up and attempts to walk around. No known history of cancer. She is on estrogen vaginally due to chronic cystitis/recurrent UTI but no other obviously prothrombotic medications on my initial review. (2) CHERYL (acute kidney injury): Based on history with diarrhea and vomiting, suspect prerenal. Recent comparative values from mid January showed BUN and creatinine of 26/1.3, back in October of this year 19/1.0. Patient is on Aldactone, furosemide and lisinopril chronically. Does not sound like she has had recent medication changes beyond the recent addition of Bactrim which could certainly impact renal function. (3) UTI (urinary tract infection): Acute cystitis in patient with known chronic cystitis, present on admission. This is evidenced by elevated white count, GI symptoms, urinary symptoms and abnormal urinalysis. Patient is chronically on antibiotic therapy in the form of doxycycline and was recently put on Bactrim which can make identifying organism more challenging. Additionally on vaginal estradiol. (4) Bright red blood per rectum: Described at times as like pouring out of rectum . Has been more intermittent than consistent. Currently with normal hemoglobin prior to fluids. Could be hemorrhoidal in nature, diverticular, other vascular process. Concerning given identification of DVT and need to initiate anticoagulation. (5) Diarrhea: Present prior to admission in a patient on chronic antibiotics with recent addition of acute antibiotic. Differential includes C. difficile or other GI infection, functional diarrhea, medication effect, vascular effect and the like. She is chronically on Linzess and docusate; overflow diarrhea is a consideration. (6) Bilateral cold feet: Patient does have some degree of peripheral vascular disease chronically. ABIs performed in the emergency room confirm this. The discoloration to her toes and coolness to her feet looks almost like Raynaud's phenomenon but according to daughter and patient it never goes away. She has some involvement to a lesser degree of acrocyanosis on her fingertips of her hands. Not known to have Raynaud's. Right foot is currently worse which is the leg just identified as having a DVT. (7) Diastolic heart failure: Chronic, not currently acute but at risk for developing such with holding of diuretic therapy which she is chronically on, including Lasix and Aldactone, along with administration of fluid. Last echocardiogram showed ejection fraction of 55 to 60% in October 2021 (8) Frequent falls: Prior to admission. She has chronic gait instability and uses a walker or other assistive device. By description it sounds like most of the time she tripped over something but she also has a history of vertigo. Difficult to ascertain how often she has symptoms of dizziness preceding a fall. No other clearly definable preceding symptoms or events. Has fortunately not sustained significant injury. (9) Vertigo: Chronically on meclizine 3 times a day (10) Coronary artery disease: Chronically on beta-blockade and other cardiac medications listed elsewhere (11) COPD (chronic obstructive pulmonary disease): Chronic, not acute at this time, chronically on albuterol as needed and Breztri Aerosphere twice per day along with oxygen therapy at 3 and half liters by nasal cannula. Takes Singulair regularly. 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, [id number], normally on metformin (13) Benign essential HTN: Chronically on furosemide, lisinopril, metoprolol, Aldactone (14) Dyslipidemia: Chronically on simvastatin (15) Hypothyroidism: Chronically on levothyroxine (16) Peripheral Vascular Disease: Chronically on cilostazol (17) GERD (gastroesophageal reflux disease): Chronically on PPI plus H2 anjali and as needed nausea medicine along with as needed metoclopramide (18) Anxiety and depression: Chronically on multiple medications including amitriptyline 25 mg at bedtime, bupropion 100 mg twice a day, BuSpar 10 mg twice a day, duloxetine 30 +60 mg daily, Ativan 0.5 mg 3 times a day as needed, risperidone 0.25 mg p.o. at bedtime (19) Osteoarthritis: Chronically on hydrocodone 10/325 along with gabapentin for pain control (20) BMI 40.0-44.9, adult: (21) Polypharmacy: Plan Mild transaminitis Chronically on oxybutynin, allopurinol and several vitamins Inpatient admission Treatment dose Lovenox at renal dosing Hold home estradiol vaginal IV fluids Montaño catheter for close monitoring of urine output secondary to acute kidney injury and history of CHF Strict I's and O's and daily weights Repeat metabolic panel/electrolytes in am Derick empirically, has already been on doxycycline which is a chronic medication due to chronic cystitis and recently had Bactrim added Urine culture and blood cultures have been submitted Check stool for C. difficile Hold home Linzess and docusate Monitor response to full anticoagulation given reported bright red blood per rectum Repeat CBC in the morning Monitor both feet for acute changes in color, skin findings and and temperature with initiation of treatment Echocardiogram to evaluate more recent ejection fraction Montior respiratory status closely with hydration ordered, especially with diuretics presently held Fall precautions PT and OT evaluations We will continue home meclizine for now We will hold or decrease other medications that might impact fall risk occluding amitriptyline, risperidone, Ativan, hydrocodone Check cardiac enzymes Albuterol and budesonide along with home oxygen Hold home metformin, sliding scale insulin and diabetic diet currently for diabetes, check A1c Continue home metoprolol at usual dosing Currently holding Lasix, Aldactone and lisinopril secondary to renal function Continue home statin therapy, check lipid panel Continue home levothyroxine and check TSH Currently holding cilostazol with initiation of Lovenox and report of bleeding per Continue home allopurinol Continue home Pepcid at half usual dosing in the morning and half usual Protonix in the evening Continue duloxetine at 30 mg daily presently along with home BuSpar dosing and home bupropion dosing along with half usual Ativan dosing as needed for breakthrough anxiety Change hydrocodone to 5 mg rather than 10 mg dosing currently, gabapentin to 603 times a day which is lower than usual home dose Hold home oxybutynin currently Continue as needed Zofran for nausea Other home medications are presently held given acute issues Supportive care otherwise Findings, concerns and plans were discussed with patient as well as her daughter and both were given and opportunity to ask questions Daughter requested that Salas Prieto not be given any information about Mrs. Saba. This has been communicated to nursing and registration staff to benny patient's chart accordingly VTE prophylaxis: On treatment dose Lovenox GI Prophylaxis: Chronically on PPI and H2 anjali which have been continued at half usual home doses Telemetry: Telemetry monitoring currently secondary to new DVT and cardiac history Montaño: Currently ordered for close monitoring of urine output in the setting of acute kidney injury in a patient with known CHF Line(s): Peripheral IVs Disposition plan: Discussed with patient's daughter and she will not be returning to the home which she came from. Raffi Garces anticipates taking Mrs. Saba home with her. Will likely need home health for medication management, monitoring of CHF symptoms, possibly labs, possibly PT and OT. Will also need very close follow-up with primary care provider and very careful review of all home medications, eliminating those which are not necessary and might contribute to various issues and complaints both chronically and acutely Code Status: Allow natural as per patient's wishes. This was discussed with patient with daughter at the bedside. We will treat otherwise but not perf orm resuscitation Attestations Medical Necessity Statement*: Currently anticipate a stay greater than two midnights in this patient with multiple acute medical issues as outlined above. She is being initiated on full anticoagulation. She requires close monitoring despite currently normal hemoglobin secondary to report of recent frequent bright red blood per rectum. She is receiving IV fluids. She is receiving IV antibiotics in the setting of having been on 2 different oral antibiotics at home prior to this admission which may be creating a partially treated bacterial infection situation. She has polypharmacy contributing to her current presentation as well and will have multiple home medications held or decreased in dosing. There is concern about the adequacy of her current home situation and impact of care received on current presentation. Response to various treatments described will be monitored and arrangements made for new care setting upon discharge. This is a complex case that has had attempts at outpatient management with recent visits to primary care provider. Despite adequate attempts at outpatient management patient's overall condition has further declined necessitating inpatient level care. Coding Level of Care Code 07622 High Time for a total of 110 minutes, includes reviewing past or interval history, examining/interviewing patient, placing orders, counseling patient/family/other support, discussing plan of care with staff and documenting encounter Diagnoses Deep vein thrombosis of right lower extremity I82.401 CHERYL (acute kidney injury) N17.9 UTI (urinary tract infection) N39.0 Bright red blood per rectum K62.5 Diarrhea R19.7 Bilateral cold feet R20.9 Diastolic heart failure I50.30 Frequent falls R29.6 Vertigo R42 Coronary artery disease I25.10 COPD (chronic obstructive pulmonary disease) J44.9 Diabetes E11.9 Benign essential HTN I10 Dyslipidemia E78.5 Hypothyroidism E03.9 Peripheral Vascular Disease I73.9 GERD (gastroesophageal reflux disease) K21.9 Anxiety and depression F41.9; F32.A Osteoarthritis M19.90 BMI 40.0-44.9, adult Z68.41 Polypharmacy Z79.899
[2023-03-07 20:34] VITALS: BP 113/85; PULSE 62; O2SAT 98
[2023-03-07] MEDS: enoxaparin 100 mg/mL Syringe SUBCUT (22:31)
[2023-03-07 22:51] VITALS: BP 126/78; PULSE 69; RESP 15; TEMP 36.4; O2SAT 95
[2023-03-07] MEDS: pantoprazole DR 40 mg Tablet PO (23:45)
[2023-03-07] MEDS: sodium chlor 0.9% + KCl 20 mEq 20 MEQ/1,000 ML BAG 100 MEQ IV (23:45)
[2023-03-07] MEDS: metoprolol tartrate 25 mg Tablet 12.5 MG PO (23:45)
[2023-03-07 23:53] LABS: Troponin(5th) Baseline 38 ng/L (0-10)
[2023-03-08] VITALS (12 sets, daily range): BP systolic 113–128; BP diastolic 64–88; PULSE 58–96; RESP 14–20; TEMP 36.3–36.6; O2SAT 96–99
--- NOTE | 2023-03-08 01:26 | ECG_ITS ---
[facility] Test Date: 2023-03-08 Pat Name: Mayda Del Cid Department: Room: 251 Gender: Female Machine Plug Shaper: : 1950 Requested By: Judith Carrillo Order Number: [id number] Luan MD: Amanda Kaiser M.D. Measurements Intervals [place] Rate: 73 P: 14 MT: 113 QRS: 14 QRSD: 78 T: 23 QT: 348 QTc: 384 Interpretive Statements SINUS RHYTHM WITH SHORT MT INTERVAL WITH OCCASIONAL SUPRAVENTRICULAR PREMATURE COMPLEXES LOW QRS VOLTAGE IN PRECORDIAL LEADS [QRS DEFLECTION < 1.0 mV IN CHEST LEADS] NONSPECIFIC ST & T-WAVE ABNORMALITY Compared to ECG 03/07/2023 14:59:52 Short MT interval now present Low QRS voltage now present T-wave abnormality still present Electronically Signed On 03-08-2023 17:19:22 CDT by Amanda Kaiser M.D. [id number]
--- NOTE | 2023-03-08 05:13 | ECG_ITS ---
[facility] Test Date: 2023-03-08 Pat Name: Mayda Del Cid Department: Room: 251 Gender: Female Certified Nurse Aide: : 1950 Requested By: Judith Carrillo Order Number: [id number] Luan MD: Amanda Kaiser M.D. Measurements Intervals [place] Rate: 71 P: 86 VA: 156 QRS: 20 QRSD: 86 T: 63 QT: 373 QTc: 406 Interpretive Statements SINUS RHYTHM LOW QRS VOLTAGE IN PRECORDIAL LEADS [QRS DEFLECTION < 1.0 mV IN CHEST LEADS] NONSPECIFIC T-WAVE ABNORMALITY Compared to ECG 03/08/2023 01:26:22 Short VA interval no longer present T-wave abnormality still present Electronically Signed On 03-08-2023 11:09:25 CDT by Amanda Kaiser M.D. [id number]
[2023-03-08 05:37] LABS: Basophils % 0.5 %; Eosinophils # 0.1 10^3/uL (0.0-0.8); Eosinophils % 0.8 %; Hematocrit 34.3 % (37.0-47.0); Lymphocytes # 1.9 10^3/uL (0.8-4.8); Lymphocytes % 21.9 %; Mean Corpuscular HGB Conc 32.1 g/dL (30.0-36.0); Mean Corpuscular Hemoglobin 28.5 pg (28.0-34.0); Mean Corpuscular Volume 88.9 fl (81-99); Monocytes # 0.7 10^3/uL (0.2-0.9); Neutrophils # 6.08 10^3/uL (1.8-7.7); Neutrophils % 68.5 %; Nucleated Red Blood Cells % 0 %; Platelet Count 219 10^3/cmm (130-400); Red Blood Count 3.86 10^6/uL (4.1-5.3); White Blood Count 8.9 10^3/uL (4.0-10.0)
[2023-03-08] MEDS: levothyroxine 88 mcg Tablet PO (05:47)
[2023-03-08] MEDS: HYDROcodone-acetaminophen 5-325 mg Tablet 1 TAB PO ×4 (05:47→20:43)
[2023-03-08 05:52] LABS: INR 1.19 (0.8-1.2)
[2023-03-08 05:53] LABS: Partial Thromboplastin Time 33.6 SECONDS (23.9-36.7)
[2023-03-08 05:54] LABS: Estmated Average Glucose 91; Hemoglobin A1C 4.8 % (4.0-6.0)
[2023-03-08 06:00] LABS: Troponin 5 6HR 38.82 ng/L (0-10)
[2023-03-08 06:01] LABS: Troponin 5 6HR Delta 0.82 ng/L (0-12)
[2023-03-08 06:10] LABS: Alanine Aminotransferase 38 U/L (0-33); Albumin Level 2.6 g/dL (3.5-5.2); Alkaline Phosphatase 177 U/L (35-105); Anion Gap 15.4 (5-19); Aspartate Amino Transferase 60 U/L (0-32); Blood Urea Nitrogen 44 mg/dL (8-23); Carbon Dioxide 25 mmol/L (22-29); Chloride 99 mmol/L (98-107); Chol HDL Ratio 1.38 mg/dL (0.0-4.40); Cholesterol 123 mg/dL (0-200); Glucose 80 mg/dL (65-115); HDL Cholesterol 89 mg/dL (60-100); LDL Cholesterol Calculated 16 mg/dL (50-129); LDL HDL Ratio 0.18 RATIO (0.00-3.22); Magnesium 1.7 mg/dL (1.7-2.3); Osmolality Calculated 290 mOsm/kg (285-295); Phosphorus 3.6 mg/dL (2.5-4.5); Potassium 4.4 mmol/L (3.5-5.1); Sodium 135 mmol/L (136-145); Thyroid Stimulating Hormone 1.05 uIU/mL (0.27-4.20); Total Bilirubin 0.3 mg/dL (0.15-1.2); Total Protein 4.6 g/dL (6.6-8.7); Triglycerides 90 mg/dL (0-150)
[2023-03-08 06:29] LABS: Glucose Point of Care 82 mg/dL (70-110)
[2023-03-08] MEDS: budesonide 0.5 mg/2 mL Neb INHALATION ×2 (08:06→19:49)
[2023-03-08] MEDS: albuterol 2.5 mg/3 mL Neb INHALATION ×2 (08:06→19:49)
[2023-03-08] MEDS: allopurinol 100 mg Tablet PO (08:13)
[2023-03-08] MEDS: duloxetine 30 mg Capsule PO (08:14)
[2023-03-08] MEDS: buPROPion SR (12 HR) 100 mg Tablet PO ×2 (08:14→17:55)
[2023-03-08] MEDS: BuSPIRONE 10 mg Tablet PO ×2 (08:14→17:55)
[2023-03-08] MEDS: famotidine 20 mg Tablet PO (08:14)
[2023-03-08] MEDS: gabapentin 300 mg Capsule 600 MG PO ×3 (08:15→20:40)
[2023-03-08] MEDS: meclizine 25 mg tablet PO ×3 (08:15→20:40)
[2023-03-08] MEDS: metoprolol tartrate 25 mg Tablet 12.5 MG PO ×2 (08:15→20:40)
[2023-03-08] MEDS: sodium chlor 0.9% + KCl 20 mEq 20 MEQ/1,000 ML BAG 100 MEQ IV (10:07)
[2023-03-08 11:29] LABS: Glucose Point of Care 91 mg/dL (70-110)
--- NOTE | 2023-03-08 14:27 | P.PN_ITS ---
Subjective Subjective: Offers no new complaints today. Currently on baseline home oxygen requirement. States that her leg hurts slightly. Pending C. difficile testing. Medications: Reviewed: Yes Vitals/I&O/Wt Last Vital Signs Temp 97.8 F 03/08/23 12:00 Pulse 73 03/08/23 12:00 Resp 16 03/08/23 12:00 BP 113/78 03/08/23 12:00 Pulse Ox 97 03/08/23 12:00 O2 Del Method Nasal Cannula 03/08/23 07:35 O2 Flow Rate 3 03/08/23 07:35 03/07/23 03/08/23 03/08/23 22:59 06:59 14:59 Intake Total 1050 / 1050 1000 / 2050 1611.667 / 1611.667 Output Total 225 / 225 Balance 1050 / 1050 775 / 1825 1611.667 / 1611.667 Weight last 48 hrs Weight 101.605 kg Weight 99.79 kg Physical Exam Narrative: General: No acute distress, AO x3 HEENT: PERRLA, pupils bilaterally equal and reactive, pallors not present Chest: Normal vesicular breath sounds, no added sounds, equal good air entry bilaterally CVS: S1-S2 regular, no murmurs, no tachycardia, no gallops, no rubs Abdomen: Soft, nontender, no organomegaly, bowel sounds present Neuro: No focal deficits, no facial deformity, AO x3 Urinary Catheter Management: Montaño: Cath Placed During This Visit: yes Reason for Continuing Indwelling Catheter: Other Urinary Catheter Date of Insertion: 03/08/23 Urinary Catheter Time of Insertion: 23:50 Data 03/08/23 05:10 03/08/23 05:10 Micro: Microbiology 03/08/23 08:47 C.difficile Toxin B Gene (PCR) - Final Stool Routine Collection 03/07/23 19:05 Blood Culture - Preliminary Blood SPECIMEN COLLECTED 03/07/23 18:57 Blood Culture - Preliminary Blood SPECIMEN COLLECTED A&P Assessment and plan (1) Deep vein thrombosis of right lower extremity: Currently on anticoagulation with Lovenox 1 mg/kg every 24 hours. On a lower dose currently due to reported bleeding per rectum. Hemoglobin is currently stable, will monitor closely with ongoing anticoag ulation. (2) CHERYL (acute kidney injury): Based on history with diarrhea and vomiting, suspect prerenal. Currently creatinine at 2.2. DC IV fluids as developing mild lower extremity edema Continue to hold lisinopril, Lasix Clinically euvolemic Bactrim has been discontinued CT of the abdomen and pelvis with subcentimeter renal cysts. No findings of urinary tract obstruction or stones. (3) UTI (urinary tract infection): Acute cystitis in patient with known chronic cystitis, present on admission. Continue ceftriaxone 1 g IV every 24 hours empirically, await urine cultures (4) Bright red blood per rectum: No further episodes in the hospital Continue to monitor hemoglobin (5) Diarrhea: C. difficile negative currently (6) Bilateral cold feet: Chronic, bilateral, stable (7) Diastolic heart failure: Chronic, currently holding Lasix and Aldactone due to acute kidney injury. Clinically euvolemic. Discontinue IV fluids to avoid fluid overload Recheck creatinine with a.m. labs. (8) Frequent falls: Prior to admission. She has chronic gait instability and uses a walker or other assistive device. By description it sounds like most of the time she tripped over something but she also has a history of vertigo. Difficult to ascertain how often she has symptoms of dizziness preceding a fall. No other clearly definable preceding symptoms or events. Has fortunately not sustained significant injury. 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, currently on insulin sliding scale (13) Benign essential HTN: Holding multiple medications as above, blood pressure currently well controlled at 113/78 (14) Dyslipidemia: Chronically on simvastatin (15) Hypothyroidism: Chronically on levothyroxine (16) Peripheral Vascular Disease: Chronically on cilostazol (17) GERD (gastroesophageal reflux disease): Chronically on PPI plus H2 anjali and as needed nausea medicine along with as needed metoclopramide (18) Anxiety and depression: Chronically on multiple medications including amitriptyline 25 mg at bedtime, bupropion 100 mg twice a day, BuSpar 10 mg twice a day, duloxetine 30 +60 mg daily, Ativan 0.5 mg 3 times a day as needed, risperidone 0.25 mg p.o. at bedtime (19) Osteoarthritis: Chronically on hydrocodone 10/325 along with gabapentin for pain control (20) BMI 40.0-44.9, adult: (21) Polypharmacy: Plan VTE prophylaxis: On treatment dose Lovenox GI Prophylaxis: Chronically on PPI Montaño: Currently ordered for close monitoring of urine output in the setting of acute kidney injury in a patient with known CHF Disposition plan: Discussed with patient's daughter and she will not be returning to the home which she came from. Raffi Garces anticipates taking Mrs. Saba home with her. Will likely need home health for medication management, monitoring of CHF symptoms, possibly labs, possibly PT and OT. Code Status: Allow natural as per patient's wishes. Attestations 2 Medical Necessity Statement*: IV antibiotics, kidney function monitoring, multiple medications needing optimization, starting anticoagulation and monitoring for worsening rectal bleeding Coding Level of Care Code Acute Code for Chg Fwd Moderate MDM includes number and complexity of problems actively addressed during encounter, amount and/or complexity of data reviewed/ordered and describe d risk of complication, morbidity or mortality of management as documented Diagnoses Deep vein thrombosis of right lower extremity I82.401 CHERYL (acute kidney injury) N17.9 UTI (urinary tract infection) N39.0 Bright red blood per rectum K62.5 Diarrhea R19.7 Bilateral cold feet R20.9 Diastolic heart failure I50.30 Frequent falls R29.6 Vertigo R42 Coronary artery disease I25.10 COPD (chronic obstructive pulmonary disease) J44.9 Diabetes E11.9 Benign essential HTN I10 Dyslipidemia E78.5 Hypothyroidism E03.9 Peripheral Vascular Disease I73.9 GERD (gastroesophageal reflux disease) K21.9 Anxiety and depression F41.9; F32.A Osteoarthritis M19.90 BMI 40.0-44.9, adult Z68.41 Polypharmacy Z79.899
[2023-03-08 17:50] LABS: Glucose Point of Care 105 mg/dL (70-110)
[2023-03-08] MEDS: cefTRIAXone 1,000 MG in sodium chloride 0.9% (plus) 50 ML 100 MG IV (18:10)
[2023-03-08] MEDS: atorvastatin 40 mg Tablet PO (20:40)
[2023-03-08] MEDS: pantoprazole DR 40 mg Tablet PO (20:40)
[2023-03-08] MEDS: enoxaparin 100 mg/mL Syringe SUBCUT (23:01)
--- NOTE | 2023-03-08 23:12 | USCV_ITS ---
Nehemias, Mayda Age: 73 Gender: F : 1950 Exam Date: 03/08/2023 06:12 Ordering Phys: Judith Carrillo MD Technologist: Jovanni Corona Exam Location: [facility] [place] Indication: chf BP: 135 / 82 HR: 119 Rhythm: Sinus Technical Quality: Adequate MEASUREMENTS (Male / Female) Normal Values 2D ECHO LV Diastolic Diameter PLAX 2.5 cm 4.2 - 5.9 / 3.9 - 5.3 cm LV Systolic Diameter PLAX 1.7 cm IVS Diastolic Thickness 1.1 cm 0.6 - 1.0 / 0.6 - 0.9 cm IVS Systolic Thickness 1.3 cm LVPW Diastolic Thickness 0.9 cm 0.6 - 1.0 / 0.6 - 0.9 cm LVPW Systolic Thickness 1.6 cm LVOT Diameter 2.0 cm LV Ejection Fraction 2D Teich 65.2 % LV Ejection Fraction MOD 2C 68.4 % LV Ejection Fraction 2C AL 69.9 % LA Diameter 3.6 cm Aorta at Sinotubular Diameter 2.5 cm IVC Diameter 1.3 cm M-MODE Aortic Annulus Diameter 3.2 cm LA Ao Ratio MM 1.3 MV E Point Septal Separation 1.3 cm DOPPLER AV Peak Velocity 130.0 cm/s LVOT Peak Velocity 94.0 cm/s AV Area Cont Eq vti 2.9 cm squared AV Area Cont Eq pk 2.3 cm squared MV Area PHT 3.3 cm squared Mitral E to A Ratio 0.7 MV E' Velocity 36.5 cm/s Mitral E to MV E' Ratio 7.1 Mitral E to LV E' Lateral Ratio 6.4 Mitral E to LV E' Septal Ratio 8.1 TR Peak Velocity 272.7 cm/s TR Peak Gradient 29.7 mmHg TV Peak E Velocity 127.0 cm/s Right Atrial Pressure 3.0 mmHg Pulmonary Artery Systolic Pressu 32.7 mmHg RV Acceleration Time 0.1 s FINDINGS Left Ventricle Normal left ventricular size and systolic function, EF 73 %. No regional wall motion abnormalities. Grade I/IV diastolic dysfunction (abnormal relaxation filling pattern), normal to mildly elevated filling pressures. Right Ventricle The right ventricle is normal in size and function. Right Atrium The right atrium is normal in size. Left Atrium The left atrium is normal in size. Mitral Valve Mild mitral annular calcification. Thickened mitral valve. Aortic Valve Thickened aortic valve Tricuspid Valve Mild tricuspid valve regurgitation. Estimated pulmonary artery peak systolic pressure 45 mmHg Pulmonic Valve Thickened pulmonic valve. Pericardium No pericardial effusion. Aorta Normal ascending aorta dimension. IVC The inferior vena cava appears normal. CONCLUSIONS Normal left ventricular size and systolic function, EF 73 %. No regional wall motion abnormalities. Grade I/IV diastolic dysfunction (abnormal relaxation filling pattern), normal to mildly elevated filling pressures. The right ventricle is normal in size and function. Mild mitral annular calcification. Thickened mitral valve.Mild tricuspid valve regurgitation. Estimated pulmonary artery peak systolic pressure 45 mmHg Thickened aortic valve There is no pericardial effusion. There are no intracardiac masses. Dr Tiara Turcios MD FACC (Electronically Signed) Final Date: 08 March 2023 18:23 S
[2023-03-09] VITALS (13 sets, daily range): BP systolic 91–123; BP diastolic 57–83; PULSE 55–86; RESP 15–19; TEMP 36.3–36.8; O2SAT 94–100
[2023-03-09] MEDS: levothyroxine 88 mcg Tablet PO (06:34)
[2023-03-09 08:01] LABS: Glucose Point of Care 112 mg/dL (70-110)
[2023-03-09] MEDS: duloxetine 30 mg Capsule PO (08:16)
[2023-03-09] MEDS: allopurinol 100 mg Tablet PO (08:16)
[2023-03-09] MEDS: meclizine 25 mg tablet PO ×3 (08:17→20:31)
[2023-03-09] MEDS: gabapentin 300 mg Capsule 600 MG PO ×3 (08:17→20:30)
[2023-03-09] MEDS: buPROPion SR (12 HR) 100 mg Tablet PO ×2 (08:17→17:52)
[2023-03-09] MEDS: famotidine 20 mg Tablet PO (08:17)
[2023-03-09] MEDS: BuSPIRONE 10 mg Tablet PO ×2 (08:17→17:53)
[2023-03-09] MEDS: metoprolol tartrate 25 mg Tablet 12.5 MG PO ×2 (08:20→20:31)
--- OUTSIDE RECORDS SUMMARY | 2023-03-09 08:47 | XMS_ITS | Patient Health Record ---
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 Name Role Phone Severino Hernández MD Primary Care Provider Frandy Garnica MD, Oswald Unavailable [phone] Claribel Massey Unavailable [phone] ALLERGIES Allergen (clinical drug ingredient) Drug/Non Drug Allergy documented on EMR Reaction Allergy Type Onset Date Status alcohol (uncoded) Unknown Allergy Ac tive sulfa (uncoded) Unknown Allergy Acti ve codeine codeine rash Drug Allergy Active penicillin Unknown Drug Allergy Active RESULTS Component Value Reference Range Notes Saliva Swab Toxicology Scree n Reviewed date:01/25/2023 07:57:29 AM Interpretation:Consistent Performing Lab: Notes/Report: Consistent Saliva Swab Toxicology Scree n Reviewed date:07/27/2022 02:27:21 PM Interpretation: Performing Lab: Notes/Report: 7digital Results Reviewed date:01/25/2023 07:55:56 AM Interpretation: Performing Lab:[id number] [place], [address] [facility] [id number] Ceci Brandon MD Notes/Report: [place], [address], [facility], [place] [address], , L ab Director: Ceci Brandon MD, CLIA ID# [id number] Codeine negative 1 ng/mL Morphine negative 1 ng/mL Hydrocodone positive-41.858 1 ng/mL Norhydrocodone Quantification positive-3.963 2 ng/mL Hydromorphone negative 1 ng/mL Oxycodone negative 1 ng/mL Noroxycodone Quantification negative 2 ng/mL Oxymorphone negative 1 ng/mL Buprenorphine Quantification negative 1 ng/mL Norbuprenorphine Quantification negative 2 ng/mL Fentanyl Quantification negative 0.2 ng/mL Norfentanyl Quantification negative 1 ng/mL Meperidine Quantification negative 1 ng/mL Normeperidine Quantification negative 2 ng/mL Methadone negative 2 ng/mL EDDP (Methadone metabolite) negative 2 ng/mL Tapentadol Quantification negative 5 ng/mL Tramadol Quantification negative 5 ng/mL Z-Yhecnbibq-Pdobhelj Quantification negative 5 ng/ mL Alprazolam negative 1 ng/mL Clonazepam negative 1 ng/mL Clonazepam Metabolite Quantification negative 1 ng /mL Diazepam negative 1 ng/mL Nordiazepam negative 1 ng/mL Lorazepam negative 1 ng/mL Oxazepam negative 2 ng/mL Temazepam negative 1 ng/mL Amphetamine negative 5 ng/mL Methylphenidate Quantification negative 1 Ritalinic Acid Quantification negative 1 Carisoprodol Quantification negative 5 ng/mL Meprobamate Quantification negative 5 ng/mL Dextromethorphan Quantification negative 1 ng/mL Levorphanol / Dextrorphan Quantification negative 1 ng/mL Gabapentin Quantification positive-1182.033 10 ng/mL Naltrexone Quantification negative 1 ng/mL Naltrexol (Naltrexone metabo lite) Quantification negative 1 ng/mL Pregabalin Quantification negative 5 ng/mL Sertraline Quantification negative 1 ng/mL Zolpidem Quantification negative 1 Methamphetamine negative 5 ng/mL Cocaine Quantification negative 2 ng/mL Cocaine Metabolite negative 2 ng/mL THC (Marijuana Component) negative 2 ng/mL MDMA negative 5 ng/mL 6-STAN (Heroin metabolite) Quantification negative 1 ng/mL Phencyclidine negative 1 ng/mL Embedded PDF Reviewed date:01/25/2023 07:56:05 AM Interpretation: Performing Lab: Notes/Report: [place], [address], [place] [address], , L ab Director: Ceci Brandon MD, CLIA ID# [id number] REASON FOR REFERRAL No Information MEDICATIONS Medication SIG (Take, Route, Frequency, Duration) Notes Start Date End Date Status lisinopril 20 mg 1 tab orally once a day Active Linzess 145 mcg 1 cap(s) orally once a day for 30 day(s) Active levothyroxine 88 mcg (0.088 mg) 1 tab orally once a day Active gabapentin 300 mg 2-3 caps po orally 7 daily Active furosemide 20 mg 1 tab orally once a day 11/19/2021 Active escitalopram 10 mg 1 tab(s) orally once a day for 30 day(s) Active DULoxetine 60 mg 1 cap orally once a day Active docusate sodium 100 mg 1 cap(s) orally 2 times a day Active cilostazol 50 mg 1 tab orally 2 times a day Active Vitamin B12 1000 mcg 1 tab orally once a day Active acetaminophen-hydrocodon e 325 mg-10 mg 1 tab po orally Q4H prn pain (max 4/day; hold wthin 4H of planned sleep) for 30 day(s) Do not fill prior to 03/31/23. ICD-10: G89.29 01/20/2023 Active cefuroxime 500 mg 1 tab(s) orally every 12 hours for 10 day(s) 02/05/2022 Active Ventolin HFA 90 mcg/inh 2 puffs inhaled every 6 hours Active theophylline 300 mg/24 hours 1 cap orally once a day Active spironolactone 25 mg 1 tab(s) orally onc e a day for 30 day(s) Active acetaminophen-hydrocodon e 325 mg-10 mg 1 tab po orally Q4H prn pain (max 4/day; hold wthin 4H of planned sleep) for 30 day(s) Do not fill prior to 03/01/23. ICD-10: G89.29 01/20/2023 Active acetaminophen-hydrocodon e 325 mg-10 mg 1 tab po orally Q4H prn pain (max 4/day; hold wthin 4H of planned sleep) for 30 day(s) Do not fill prior to 01/30/23. ICD-10: G89.29 01/20/2023 Active busPIRone 10 mg 1 tab(s) orally 3 times a day Active buPROPion 100 mg/12 hours 1 tab orally 2 times a day Active Breztri Aerosphere 160 mcg-4.8 mcg-9 mcg/inh 2 puff(s) inhaled 2 times a day Active simvastatin 10 mg 1 tab orally once a day (at bedtime) Active baclofen 10 mg 1 tab(s) orally 3 times a day for 30 day(s) Active risperiDONE 0.25 mg 1 tab(s) orally at bedtime Active amitriptyline 25 mg 1 tab(s) orally once a day (at bedtime) for 30 day(s) Active pantoprazole 40 mg 1 tab orally 2 times a day Active allopurinol 100 mg 1 tab orally once a day Active oxybutynin 10 mg/24 hr 1 tab orally once a day Active Metoprolol Tartrate 25 mg 1/2 tab orally 2 times a day Active metoclopramide 10 mg 1 tab orally 3 time s a day Active metFORMIN 500 mg 1 tab orally once a day Active meclizine 25 mg 1 tab orally 3 times a day Active LORazepam 0.5 mg 1 tab orally every 8 hours Active loratadine 10 mg 1 tab orally once a day Active SOCIAL HISTORY Tobacco Use: Social History Observation Description Date Details (start date - stop date) Former Smoker NA - 11/04/1985 Sex Assigned At : Social History Observation Description Sex Assigned At Unknown alcohol Question Answer Notes Did you have a drink containing alcohol in the p ast year? No Points 0 Interpretation Negative Tobacco use: Question Answer Notes : former smoker When did you stop smoking? 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) Active confirmed Long-term curre nt use of drug therapy (120162245) VITAL SIGNS Temperature 97.6 degrees Fahrenheit 01/20/2023 Suzie ent reported weight Oximetry 96 % 01/20/2023 Patient reporte d weight Height 60 in 01/20/2023 Patient reporte d weight Weight 220 lbs 01/20/2023 Patient reporte d weight BMI 42.96 kg/m2 01/20/2023 Patient reporte d weight Encounters Encounter Location Date Provider Diagnosis [facility] [address] [place] [address] [id number] 03/24/2022 Oswald Garnica Pain in right knee M25.561 ; Other sleep disorders G47.8 and terminal carman (current) use of opiate analgesic Z79.891 [facility], [facility] [address] [place] [address] [id number] 04/28/2022 Oswald Garnica Pain in right knee M25.561 ; Other sleep disorders G47.8 and group home (current) use of opiate analgesic Z79.891 [facility] [address] [place] [address] [id number] 07/21/2022 Oswald Garnica Pain in right knee M25.561 ; Other sleep disorders G47.8 and group home (current) use of opiate analgesic Z79.891 [facility] [address] [place] [address] [id number] 10/20/2022 Oswald Garnica Pain in right knee M25.561 ; Other sleep disorders G47.8 and group home (current) use of opiate analgesic Z79.891 [facility] [address] [place] [address] [id number] 01/20/2023 Claribel Garcias Pain in right knee M25.561 ; Other chronic pain G89.29 and group home (current) use of opiate analgesic Z79.891 ASSESSMENTS Encounter Date Diagnosis Assessment Notes Treatment Notes Treatment Clinical Notes 03/24/2022 Pain in right knee (ICD-10 - M25.561) Severe osteoarthritis in the medial and patellofemoral compartments as per 11/05/20 radiology report. Degenerative changes more prominent of the medial compartment with joint effusion and extensive soft tissue edema with degeneration with tear of the posterior horn of the medial meniscus as per 01/28/11 MRI report. Oral opioid medication use with history of benefit. Plan to continue medication management 03/24/2022 Other sleep disorders (ICD-10 - G47.8) Patient has reported of poor sleep with snoring amongst patient's sleep - related symptoms. Have recommended a sleep study. Prior offer of an order for such a study was declined / deferred by patient: patient has verbalized understanding to notify this facility if the study is desired. Plan to restrict opioid usage in relation to sleep: patient has verbalized understanding to hold short-acting opioids within four hours of planned sleep. Patient has been counseled on the risks of sleep apnea (if present), with or without opioid and / or other sedative usage, and the patient verbalized understanding and acceptance of the increased risk (sleep apnea, respiratory depression, ) with opioid and / or sedative substance usage. Patient has been counseled that synergistic risk occurs with concomitant opioid and sedative usage. Patient has been counseled to hold opioid and / or sedative substances prior to planned sleep or dangerous activities and patient verbalized understanding that noncompliance would be at patient's increased risk 04/28/2022 Pain in right knee (ICD-10 - M25.561) Severe osteoarthritis in the medial and patellofemoral compartments as per 11/05/20 radiology report. Degenerative changes more prominent of the medial compartment with joint effusion and extensive soft tissue edema with degeneration with tear of the posterior horn of the medial meniscus as per 01/28/11 MRI report. Oral opioid medication use with history of benefit. Plan to continue medication management 04/28/2022 Other sleep disorders (ICD-10 - G47.8) Patient has reported of poor sleep with snoring amongst patient's sleep - related symptoms. Have recommended a sleep study. Prior offer of an order for such a study was declined / deferred by patient: patient has verbalized understanding to notify this facility if the study is desired. Plan to restrict opioid usage in relation to sleep: patient has verbalized understanding to hold short-acting opioids within four hours of planned sleep. Patient has been counseled on the risks of sleep apnea (if present), with or without opioid and / or other sedative usage, and the patient verbalized understanding and acceptance of the increased risk (sleep apnea, respiratory depression, ) with opioid and / or sedative substance usage. Patient has been counseled that synergistic risk occurs with concomitant opioid and sedative usage. Patient has been counseled to hold opioid and / or sedative substances prior to planned sleep or dangerous activities and patient verbalized understanding that noncompliance would be at patient's increased risk 07/21/2022 Pain in right knee (ICD-10 - M25.561) Chronic knee joint pain. Prior conservative treatment by patient as noted, below. Severe osteoarthritis in the medial and patellofemoral compartments as per 11/05/20 radiology report. Degenerative changes more prominent of the medial compartment with joint effusion and extensive soft tissue edema with degeneration with tear of the posterior horn of the medial meniscus as per 01/28/11 MRI report. Multiple prior orthopedic evaluations noted. Patient has noted a weight loss requirement that must be met prior to consideration for knee surgery as per prior patient report of the prior encounters with the orthopedic physicians. Oral opioid medication use with history of benefit. Plan to continue medication management 07/21/2022 Other sleep disorders (ICD-10 - G47.8) Patient has reported of poor sleep with snoring amongst patient's sleep - related symptoms. Have recommended a sleep study. Prior offer of an order for such a study was declined / deferred by patient: patient has verbalized understanding to notify this facility if the study is desired. Plan to restrict opioid usage in relation to sleep: patient has verbalized understanding to hold short-acting opioids within four hours of planned sleep. Patient has been counseled on the risks of sleep apnea (if present), with or without opioid and / or other sedative usage, and the patient verbalized understanding and acceptance of the increased risk (sleep apnea, respiratory depression, ) with opioid and / or sedative substance usage. Patient has been counseled that synergistic risk occurs with concomitant opioid and sedative usage. Patient has been counseled to hold opioid and / or sedative substances prior to planned sleep or dangerous activities and patient verbalized understanding that noncompliance would be at patient's increased risk 10/20/2022 Pain in right knee (ICD-10 - M25.561) Chronic knee joint pain. Prior conservative treatment by patient as noted, below. Severe osteoarthritis in the medial and patellofemoral compartments as per 11/05/20 radiology report. Degenerative changes more prominent of the medial compartment with joint effusion and extensive soft tissue edema with degeneration with tear of the posterior horn of the medial meniscus as per 01/28/11 MRI report. Multiple prior orthopedic evaluations noted. Patient has noted a weight loss requirement that must be met prior to consideration for knee surgery as per prior patient report of the prior encounters with the orthopedic physicians. Oral opioid medication use with history of benefit. Plan to continue medication management 10/20/2022 Other sleep disorders (ICD-10 - G47.8) Patient has reported of poor sleep with snoring amongst patient's sleep - related symptoms. Have recommended a sleep study. Prior offer of an order for such a study was declined / deferred by patient: patient has verbalized understanding to notify this facility if the study is desired. Plan to restrict opioid usage in relation to sleep: patient has verbalized understanding to hold short-acting opioids within four hours of planned sleep. Patient has been counseled on the risks of sleep apnea (if present), with or without opioid and / or other sedative usage, and the patient verbalized understanding and acceptance of the increased risk (sleep apnea, respiratory depression, ) with opioid and / or sedative substance usage. Patient has been counseled that synergistic risk occurs with concomitant opioid and sedative usage. Patient has been counseled to hold opioid and / or sedative substances prior to planned sleep or dangerous activities and patient verbalized understanding that noncompliance would be at patient's increased risk 01/20/2023 Pain in right knee (ICD-10 - M25.561) Chronic knee joint pain 01/20/2023 Other chronic pain (ICD-10 - G89.29) Patient report that taking her pain medication allows her to transfer in and out of her wheelchair easier. 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 This places the patient in the [facility] moderate risk category for total daily opioid usage (not to be confused with the separate potential significant risk in regards to possible sleep apnea, above). Have recommended patient taper daily doses to the lowest number of daily doses that provide effective analgesia. Patient has received the Opioid Analgesic REMS Patient Counseling Guide. Patient has had opportunity to read the Guide and ask questions pertaining to the Guide. Patient has received information regarding CDC recommendations related to concomitant opioid and sedative usage. Recommended patient taper off of lorazepam. Patient has been advised on 11/12/20 that due to the Federal Government concerns and actions, any suspected patient misuse, abuse, or diversion of controlled substances (i.e. opioids/narcotics/pain killers) WILL result in dissolution of treatment from this clinic. Patients adhering to the concepts contained within the patient's Treatment Agreement will be protected from such termination of care. Patient was given a copy of the Treatment Agreement, signed by patient on 10/29/20. Patient signed an opioid consent form on 11/12/20. 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 This places the patient in the [facility] moderate risk category for total daily opioid usage (not to be confused with the separate potential significant risk in regards to possible sleep apnea, above). Have recommended patient taper daily doses to the lowest number of daily doses that provide effective analgesia. Patient has received the Opioid Analgesic REMS Patient Counseling Guide. Patient has had opportunity to read the Guide and ask questions pertaining to the Guide. Patient has received information regarding CDC recommendations related to concomitant opioid and sedative usage. Recommended patient taper off of lorazepam. Patient has been advised on 11/12/20 that due to the [facility] Government concerns and actions, any suspected patient misuse, abuse, or diversion of controlled substances (i.e. opioids/narcotics/pain killers) WILL result in dissolution of treatment from this clinic. Patients adhering to the concepts contained within the patient's Treatment Agreement will be protected from such termination of care. Patient was given a copy of the Treatment Agreement, signed by patient on 10/29/20. Patient signed an opioid consent form on 11/12/20. Patient has refused offer of a Narcan nasal spray prescription. Saliva SwabTox screen today; random screens per protocol 04/28/2022 terminal carman (current) use of opiate analgesic (ICD-10 - Z79.891) Patient has a total daily MED of 30. This places the patient in the [facility]' low risk category for total daily opioid usage (not to be confused with the separate potential significant risk in regards to possible sleep apnea, above). Patient has received the Opioid Analgesic REMS Patient Counseling Guide. Patient has had opportunity to read the Guide and ask questions pertaining to the Guide. Patient has been advised on 11/12/20 that due to the [facility] Government concerns and actions, any suspected patient misuse, abuse, or diversion of controlled substances (i.e. opioids/narcotics/pain killers) WILL result in dissolution of treatment from this clinic. Patients adhering to the concepts contained within the patient's Treatment Agreement will be protected from such termination of care. Patient was given a copy of the Treatment Agreement, signed by patient on 10/29/20. Patient signed an opioid consent form on 11/12/20. Patient has refused offer of a Narcan nasal spray prescription 03/24/2022 group home (current) use of opiate analgesic (ICD-10 - Z79.891) Patient has a total daily MED of 22.5. This places the patient in the [facility] low risk category for total daily opioid usage (not to be confused with the separate potential significant risk in regards to possible sleep apnea, above). Patient has received the Opioid Analgesic REMS Patient Counseling Guide. Patient has had opportunity to read the Guide and ask questions pertaining to the Guide. Patient has been advised on 11/12/20 that due to the Federal Government concerns and actions, any suspected patient misuse, abuse, or diversion of controlled substances (i.e. opioids/narcotics/pain killers) WILL result in dissolution of treatment from this clinic. Patients adhering to the concepts contained within the patient's Treatment Agreement will be protected from such termination of care. Patient was given a copy of the Treatment Agreement, signed by patient on 10/29/20. Patient signed an opioid consent form on 11/12/20. Patient has refused offer of a Narcan nasal spray prescription 03/24/2022 Other 07/21/2022 Other 04/28/2022 Other 10/20/2022 Other 01/20/2023 Other PLAN OF TREATMENT Next Appt Details Provider Name:Oswald bustamante, 04/21/2023 02:40:00 PM, [address], [place], [phone], Insurance Providers Payer Name Payer Address Payer Phone Subscriber Number Group Number Insured Name Patient Relationship to Insured Coverage Start Date Coverage End Date [facility] [employer] [address] [place] [address] [id number] 0 Mayda Del Cid Self - patient is the insured [place] [employer] [address] [place] [id number] Del Cid Mayda Self - patient is the insured MEDICAL (GENERAL) HISTORY Medical History History ICD Code Chronic pain Knee pain Osteoarthrosis Lymphadenopathy Gout Hypertension Asthma Hypothyroidism Diabetes mellitus Depression Acid reflux Arthritis Irritable bowel syndrome Hypercholesterolemia Poor circulation in lower extremities Pneumonia CHF Obesity, morbid Antianxiety mediction use Surgical History Surgery Date(Month/Year) Gastric bypass, performed in [facility] [place], 1980 Hysterectomy, performed in [place], [place], 1983 Breast biopsy, right, performed at [facility], 08/13/21 Upper and lower GI, performed at [facility], 0 08/18/21 Hospitalization History Reason Date(Month/Year) Pneumoina and early stages o f congestive heart failure, treated at [facility], 10/2021
[2023-03-09] MEDS: albuterol 2.5 mg/3 mL Neb INHALATION (08:57)
[2023-03-09] MEDS: HYDROcodone-acetaminophen 5-325 mg Tablet 1 TAB PO ×3 (09:25→22:37)
[2023-03-09] MEDS: ondansetron 2 mg/ML SDV 2 mL 4 MG IVP (10:49)
[2023-03-09 11:19] LABS: Glucose Point of Care 104 mg/dL (70-110)
[2023-03-09 14:23] LABS: Alanine Aminotransferase 33 U/L (0-33); Albumin Level 2.9 g/dL (3.5-5.2); Alkaline Phosphatase 158 U/L (35-105); Blood Urea Nitrogen 41 mg/dL (8-23); Calcium 8.6 mg/dL (8.5-10.5); Carbon Dioxide 23 mmol/L (22-29); Chloride 98 mmol/L (98-107); Glucose 104 mg/dL (65-115); Osmolality Calculated 280 mOsm/kg (285-295); Sodium 130 mmol/L (136-145); Total Bilirubin 0.3 mg/dL (0.15-1.2); Total Protein 4.9 g/dL (6.6-8.7)
[2023-03-09 14:27] LABS: Anion Gap 13.7 (5-19); Aspartate Amino Transferase 45 U/L (0-32); Potassium 4.7 mmol/L (3.5-5.1)
--- NOTE | 2023-03-09 17:02 | PC.OT ---
OT EVALUATION ATTEMPTED. PATIENT SLEEPING SOUNDLY. WILL ATTEMPT AGAIN TOMORROW.
[2023-03-09 17:32] LABS: Glucose Point of Care 101 mg/dL (70-110)
[2023-03-09] MEDS: cefTRIAXone 1,000 MG in sodium chloride 0.9% (plus) 50 ML 100 MG IV (17:53)
--- NOTE | 2023-03-09 18:33 | PM.PN ---
Subjective Subjective: Creatinine improving to 1.9 today. Urine output at 1.7 L. Sodium at 130. No new complaints from patient Medications: Reviewed: Yes Vitals/I&O/Wt Last Vital Signs Temp 97.8 F 03/09/23 16:00 Pulse 86 03/09/23 16:00 Resp 16 03/09/23 16:00 BP 91/69 03/09/23 16:00 Pulse Ox 96 03/09/23 16:00 O2 Del Method Nasal Cannula 03/09/23 09:01 O2 Flow Rate 3 03/09/23 09:01 03/09/23 03/09/23 03/09/23 06:59 14:59 22:59 Intake Total 50 / 1831.667 480 / 480 360 / 840 Output Total 700 / 1200 500 / 500 Balance -650 / 631.667 480 / 480 -140 / 340 Weight last 48 hrs Weight 101.775 kg Weight 101.605 kg Weight 99.79 kg Physical Exam Narrative: General: No acute distress, AO x3 HEENT: PERRLA, pupils bilaterally equal and reactive, pallors not present Chest: Normal vesicular breath sounds, no added sounds, equal good air entry bilaterally CVS: S1-S2 regular, no murmurs, no tachycardia, no gallops, no rubs Abdomen: Soft, nontender, no organomegaly, bowel sounds present Neuro: No focal deficits, no facial deformity, AO x3, power 5/5 in all limbs Urinary Catheter Management: Montaño: Cath Placed During This Visit: yes Reason for Continuing Indwelling Catheter: Other Urinary Catheter Date of Insertion: 03/08/23 Urinary Catheter Time of Insertion: 23:50 Data 03/08/23 05:10 03/09/23 13:55 Micro: Microbiology 03/07/23 18:13 Urine Culture - Preliminary Urine,Clean Catch Gram Negative Rods 03/07/23 19:05 Blood Culture - Preliminary Blood NEGATIVE TO DATE 03/07/23 18:57 Blood Culture - Preliminary Blood NEGATIVE TO DATE A&P Assessment and plan (1) Deep vein thrombosis of right lower extremity: Currently on anticoagulation with Lovenox 1 mg/kg every 24 hours. Plan transition to Eliquis at discharge No episodes of bleeding per rectum noted in the hospital (2) CHERYL (acute kidney injury): Based on history with diarrhea and vomiting, suspect prerenal. Currently creatinine at 2.2, improving to 1.9 Continue to hold lisinopril, Lasix Clinically euvolemic Bactrim has been discontinued CT of the abdomen and pelvis with subcentimeter renal cysts. No findings of urinary tract obstruction or stones. (3) UTI (urinary tract infection): Acute cystitis in patient with known chronic cystitis, present on admission. Continue ceftriaxone 1 g IV every 24 hours empirically, await urine cultures, currently with prelim gram-negative rods (4) Bright red blood per rectum: No further episodes in the hospital Continue to monitor hemoglobin (5) Diarrhea: C. difficile negative currently (6) Bilateral cold feet: Chronic, bilateral, stable (7) Diastolic heart failure: Chronic, currently holding Lasix and Aldactone due to acute kidney injury. Clinically euvolemic. Discontinue IV fluids to avoid fluid overload Recheck creatinine with a.m. labs. (8) Frequent falls: Prior to admission. She has chronic gait instability and uses a walker or other assistive device. By description it sounds like most of the time she tripped over something but she also has a history of vertigo. Difficult to ascertain how often she has symptoms of dizziness preceding a fall. No other clearly definable preceding symptoms or events. Has fortunately not sustained significant injury. 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, currently on insulin sliding scale (13) Benign essential HTN: Holding multiple medications as above, blood pressure currently well controlled at 113/78 (14) Dyslipidemia: Chronically on simvastatin (15) Hypothyroidism: Chronically on levothyroxine (16) Peripheral Vascular Disease: Chronically on cilostazol (17) GERD (gastroesophageal reflux disease): Chronically on PPI plus H2 anjali and as needed nausea medicine along with as needed metoclopramide (18) Anxiety and depression: Chronically on multiple medications including amitriptyline 25 mg at bedtime, bupropion 100 mg twice a day, BuSpar 10 mg twice a day, duloxetine 30 +60 mg daily, Ativan 0.5 mg 3 times a day as needed, risperidone 0.25 mg p.o. at bedtime (19) Osteoarthritis: Chronically on hydrocodone 10/325 along with gabapentin for pain control (20) BMI 40.0-44.9, adult: (21) Polypharmacy: Plan VTE prophylaxis: On treatment dose Lovenox GI Prophylaxis: Chronically on PPI Montaño: Currently ordered for close monitoring of urine output in the setting of acute kidney injury in a patient with known CHF Disposition plan: Discussed with patient's daughter and she will not be returning to the home which she came from. Raffi Garces anticipates taking Mrs. Saba home with her. Will likely need home health for medication management, monitoring of CHF symptoms, possibly labs, possibly PT and OT. Code Status: Allow natural as per patient's wishes. Attempted to call patient's daughters to give updates regarding her care and to discuss discharge plan as anticipated in the next 24 hours, however I received voicemail, however unable to leave a message due to full voicemail. Attestations Medical Necessity Statement*: Anticipate discharge in the upcoming 24 hours pending urine cultures, pending discussion with family regarding appropriate disposition planning Coding Level of Care Code Acute Code for Chg Fwd Diagnoses Deep vein thrombosis of right lower extremity I82.401 CHERYL (acute kidney injury) N17.9 UTI (urinary tract infection) N39.0 Bright red blood per rectum K62.5 Diarrhea R19.7 Bilateral cold feet R20.9 Diastolic heart failure I50.30 Frequent falls R29.6 Vertigo R42 Coronary artery disease I25.10 COPD (chronic obstructive pulmonary disease) J44.9 Diabetes E11.9 Benign essential HTN I10 Dyslipidemia E78.5 Hypothyroidism E03.9 Peripheral Vascular Disease I73.9 GERD (gastroesophageal reflux disease) K21.9 Anxiety and depression F41.9; F32.A Osteoarthritis M19.90 BMI 40.0-44.9, adult Z68.41 Polypharmacy Z79.899
[2023-03-09] MEDS: budesonide 0.5 mg/2 mL Neb INHALATION (20:16)
[2023-03-09] MEDS: pantoprazole DR 40 mg Tablet PO (20:31)
[2023-03-09] MEDS: atorvastatin 40 mg Tablet PO (20:31)
[2023-03-09 21:10] LABS: Glucose Point of Care 112 mg/dL (70-110)
[2023-03-09] MEDS: enoxaparin 100 mg/mL Syringe SUBCUT (22:38)
[2023-03-10] VITALS (9 sets, daily range): BP systolic 93–131; BP diastolic 58–83; PULSE 54–89; RESP 16–18; TEMP 36.4–37.2; O2SAT 95–100
[2023-03-10] MEDS: HYDROcodone-acetaminophen 5-325 mg Tablet 1 TAB PO ×3 (02:57→16:56)
[2023-03-10] MEDS: levothyroxine 88 mcg Tablet PO (05:11)
[2023-03-10 05:13] LABS: Basophils # 0.1 10^3/uL (0.0-0.1); Eosinophils # 0.2 10^3/uL (0.0-0.8); Eosinophils % 3.1 %; Hematocrit 31.5 % (36-47); Lymphocytes # 2.3 10^3/uL (0.8-4.8); Mean Corpuscular HGB Conc 31.1 g/dL (30-55); Mean Corpuscular Hemoglobin 28.1 pg (27-33); Mean Corpuscular Volume 90.3 fl (85-98); Mean Platelet Volume 9.9 fL (7.4-10.4); Monocytes # 0.6 10^3/uL (0.2-0.9); Monocytes % 7.9 %; Neutrophils # 4.17 10^3/uL (1.8-7.7); Neutrophils % 56.6 %; Nucleated Red Blood Cells % 0 %; Platelet Count 207 10^3/cmm (157-399); Red Blood Count 3.49 10^6/uL (3.85-5.65); Red Cell Distribution Width 15.4 % (12.1-15.1); White Blood Count 7.36 10^3/uL (3.29-11.43)
[2023-03-10 05:41] LABS: Alanine Aminotransferase 28 U/L (0-33); Albumin Level 2.4 g/dL (3.5-5.2); Alkaline Phosphatase 155 U/L (35-105); Anion Gap 11.5 (5-19); Aspartate Amino Transferase 38 U/L (0-32); Blood Urea Nitrogen 35 mg/dL (8-23); Calcium 8.4 mg/dL (8.5-10.5); Carbon Dioxide 26 mmol/L (22-29); Chloride 99 mmol/L (98-107); Globulin 2.3 g/dL (1.3-4.6); Glucose 99 mg/dL (65-115); Osmolality Calculated 282 mOsm/kg (285-295); Potassium 4.5 mmol/L (3.5-5.1); Sodium 132 mmol/L (136-145); Total Bilirubin 0.2 mg/dL (0.15-1.2); Total Protein 4.7 g/dL (6.6-8.7)
[2023-03-10 06:43] LABS: Glucose Point of Care 100 mg/dL (70-110)
[2023-03-10] MEDS: meclizine 25 mg tablet PO ×2 (08:30→14:30)
[2023-03-10] MEDS: BuSPIRONE 10 mg Tablet PO ×2 (08:30→16:56)
[2023-03-10] MEDS: buPROPion SR (12 HR) 100 mg Tablet PO ×2 (08:30→16:56)
[2023-03-10] MEDS: metoprolol tartrate 25 mg Tablet 12.5 MG PO (08:30)
[2023-03-10] MEDS: famotidine 20 mg Tablet PO (08:30)
[2023-03-10] MEDS: allopurinol 100 mg Tablet PO (08:30)
[2023-03-10] MEDS: duloxetine 30 mg Capsule PO (08:31)
[2023-03-10] MEDS: gabapentin 300 mg Capsule 600 MG PO ×2 (08:31→14:30)
[2023-03-10] MEDS: ondansetron 2 mg/ML SDV 2 mL 4 MG IVP (08:42)
[2023-03-10 11:14] LABS: Glucose Point of Care 98 mg/dL (70-110)
--- NOTE | 2023-03-10 14:56 | PM.DCS ---
Discharge Providers Date of Admission: 03/08/23 08:40 Date of Discharge: March 10, 2023 Attending Provider at Admission: Judith Carrillo MD Attending Provider at Discharge: Alee Vasques MD Primary Care Provider: ANNE MARIE Chin Diagnoses at Discharge Discharge Diagnosis (1) Deep vein thrombosis of right lower extremity: Status: Acute (2) CHERYL (acute kidney injury): Status: Acute (3) UTI (urinary tract infection): Status: Acute (4) Bright red blood per rectum: Status: Acute (5) Diarrhea: Status: Acute (6) Bilateral cold feet: Status: Acute (7) Diastolic heart failure: Status: Chronic (8) Frequent falls: Status: Acute (9) Vertigo: Status: Chronic (10) Coronary artery disease: Status: Chronic (11) COPD (chronic obstructive pulmonary disease): Status: Chronic (12) Diabetes: Status: Chronic (13) Benign essential HTN: Status: Chronic (14) Dyslipidemia: Status: Chronic (15) Hypothyroidism: Status: Chronic (16) Peripheral Vascular Disease: Status: Chronic (17) GERD (gastroesophageal reflux disease): Status: Chronic (18) Anxiety and depression: Status: Chronic (19) Osteoarthritis: Status: Chronic (20) BMI 40.0-44.9, adult: Status: Chronic (21) Polypharmacy: Status: Chronic Reason for Visit Reason for Visit: FLUID RETENTION Hospital Course Hospital Course Mayda Del Cid is a 73 year old female brought to the emergency room today due to intractable diarrhea and abdominal pain.? She has not been feeling good for a week or so.? She was seen at [facility] previously and diagnosed with UTI.? She had been on doxycycline and Bactrim was added.??Today she had been on the toilet with diarrhea for approximately 2 hours and was complaining of generalized abdominal pain leading to the emergency room visit.She has known COPD related to prior tobacco use and is on home oxygen at 3.5 L by nasal cannula.? She also has a history of diastolic CHF with last echocardiogram in October of last year showing an ejection fraction of 50 to 60%. In the emergency room, patient had work-up which revealed multiple abnormalities including newly identified DVT in the right lower extremity, acute kidney injury, urinary tract infection, physical exam findings blue/black toes on both feet that are significantly cool to touch.? Ankle-brachial index was found to be 0.92 on the right and 1.06 on the left.? Lactic acid was normal.Currently primary complaints are of general malaise. Hospital course as below: (1) Deep vein thrombosis of right lower extremity: Received anticoagulation with Lovenox 1 mg/kg every 24 hours. transition to Eliquis at discharge 10 mg BId for 7 days followed by 5mg BID therefater for at least 3 months No episodes of bleeding per rectum noted in the hospital (2) CHERYL (acute kidney injury): Based on history with diarrhea and vomiting, suspect prerenal.? creatinine at 2.2, improving to 1.6 at discharge Urine output > 1200 cc/ day Held lisinopril, Lasix, of which lasix is being resumed at discharge Bactrim has been discontinued due to CHERYL and hyponatremia CT of the abdomen and pelvis with subcentimeter renal cysts.? No findings of urinary tract obstruction or stones. (3) UTI (urinary tract infection): Acute cystitis felt unlikely Patient reports dysuria associated with known chronic cystitis She received treatment with ceftriaxone 1 g IV every 24 hours empirically, leukocytosis resolved and patient remained afebrile, however eventually urine culture showed providentia species which was resistant to ceftriaxone, therefore unlikely that the antibiotic contributed to improvement in her symptoms. More likely that her chronically abnormal UA is related to asymptomatic bacteriuria. No further treatment is recommended at this point in time since clinically patient is doing well. (4) Bright red blood per rectum: No further episodes in the hospital Hemoglobin remained stable during admission course at 11. (5) Diarrhea: C. difficile negative Now resolved (6) Bilateral cold feet: Chronic, bilateral, stable (7) Diastolic heart failure: Chronic, clinically euvolemic. Lasix being resumed at discharge (8) Frequent falls: Prior to admission.? She has chronic gait instability and uses a walker or other assistive device.? By description it sounds like most of the time she tripped over something but she also has a history of vertigo.? Difficult to ascertain how often she has symptoms of dizziness preceding a fall.? No other clearly definable preceding symptoms or events.? Has fortunately not sustained significant injury. He was evaluated by PT and OT during her admission course, home with home health was recommended, however patient declined setting up home health. 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 (13) Benign essential HTN: Holding multiple medications as above, blood pressure currently well controlled (14) Dyslipidemia: Chronically on simvastatin (15) Hypothyroidism: Chronically on levothyroxine (16) Peripheral Vascular Disease: Chronically on cilostazol (17) GERD (gastroesophageal reflux disease): Chronically on PPI plus H2 anjali and as needed nausea medicine along with as needed metoclopramide (18) Anxiety and depression, polypharmacy: Medication adjusted as follows with no adverse events: We will continue home meclizine for now We will stop medications that might impact fall risk occluding amitriptyline, risperidone Half the dose of hydrocodone and ativan Currently holding cilostazol with initiation of Eliquis D/c Pepcid; continue Protonix Continue duloxetine at 30 mg daily presently along with home BuSpar dosing and home bupropion dosing along with half usual Ativan dosing as needed for breakthrough anxiety continue home oxybutynin currently Physical Exam Narrative: General: No acute distress, AO x3 HEENT: PERRLA, pupils bilaterally equal and reactive, pallors not present Chest: Normal vesicular breath sounds, no added sounds, equal good air entry bilaterally CVS: S1-S2 regular, no murmurs, no tachycardia, no gallops, no rubs Abdomen: Soft, nontender, no organomegaly, bowel sounds present Neuro: No focal deficits, no facial deformity, AO x3, power 5/5 in all limbs Urinary Catheter Management: Montaño: Cath Placed During This Visit: yes Reason for Continuing Indwelling Catheter: Acute Urinary Retention or Obstruction Urinary Catheter Date of Insertion: 03/08/23 Urinary Catheter Time of Insertion: 23:50 Discharge Data Studies Completed and Pending Completed Studies During Hospitalization Category Date Time Status CT abdomen pelvis wo con [id number] Stat Cat Scan 03/07/23 16:37 Completed XR chest 1V portable [id number] Stat Exams 03/07/23 14:25 [place] [id number] Stat Ultrasound 03/07/23 15:08 Completed CV. echo complete* [id number] Routine Ultrasound 03/08/23 23:12 Completed US venous duplex lower extremity RT [CV venous duplex Ultrasound 03/07/23 16:59 [place] [id number]] Stat Pending at discharge Category Date Time Status Blood Culture Stat Lab 03/07/23 19:05 Results Radiology Impressions Chest X-Ray 03/07/23 14:25 IMPRESSION: 1. Platelike opacities in both lungs are consistent with subsegmental atelectasis or scarring. There is no consolidation or pulmonary edema. 2. Enlarged right hilum, similar to 01/27/2023, consistent with pulmonary artery enlargement visible on prior chest CT. Duplex Scan Lower Extremity Artery 03/07/23 15:08 IMPRESSION: 1. No stenosis or occlusion. 2. Ankle-brachial index is 0.92 on the right, suggesting mild runoff disease and predominantly small-vessel [id number]. Abdomen/Pelvis CT 03/07/23 16:37 IMPRESSION: 1. Postsurgical changes with previous cholecystectomy, hysterectomy, and likely prior gastric bypass. 2. Left hepatic cyst and small subcentimeter renal cysts unchanged with prior exam. Stable hypodense focus of the left adrenal gland with prior exam. 3. Fat containing ventral hernias of the abdominal wall without bowel content and unchanged with prior exam. Venous Duplex 03/07/23 16:59 IMPRESSION: Abnormal venous Doppler of the right lower extremity with sonographic findings of deep vein thrombosis within the right popliteal and peroneal veins. ADDENDUM: 03/07/23 1758 THIS REPORT CONTAINS FINDINGS THAT MAY BE CRITICAL TO PATIENT CARE. The findings were verbally communicated via telephone conference with WERNER ROTHMAN at 5:56 PM CDT on 03/07/2023. The findings were acknowledged and understood. Laboratory Results WBC 7.36 10^3/uL (3.29-11.43) 03/10/23 04:12 RBC 3.49 10^6/uL (3.85-5.65) L 03/10/23 04:12 Hgb 9.80 g/dL (11.27-16.99) L 03/10/23 04:12 Hct 31.5 % (36-47) L 03/10/23 04:12 MCV 90.3 fl (85-98) 03/10/23 04:12 MCH 28.1 pg (27-33) 03/10/23 04:12 MCHC 31.1 g/dL (30-55) 03/10/23 04:12 RDW 15.4 % (12.1-15.1) H 03/10/23 04:12 Plt Count 207 10^3/cmm (157-399) 03/10/23 04:12 MPV 9.9 fL (7.4-10.4) 03/10/23 04:12 Neut % (Auto) 56.6 % 03/10/23 04:12 Lymph % (Auto) 31.0 % 03/10/23 04:12 Chambers % (Auto) 7.9 % 03/10/23 04:12 Eos % (Auto) 3.1 % 03/10/23 04:12 Baso % (Auto) 1.0 % 03/10/23 04:12 Neut # (Auto) 4.17 10^3/uL (1.8-7.7) 03/10/23 04:12 Lymph # (Auto) 2.3 10^3/uL (0.8-4.8) 03/10/23 04:12 Chambers # (Auto) 0.6 10^3/uL (0.2-0.9) 03/10/23 04:12 Eos # (Auto) 0.2 10^3/uL (0.0-0.8) 03/10/23 04:12 Baso # (Auto) 0.1 10^3/uL (0.0-0.1) 03/10/23 04:12 Nucleated RBC % (auto) 0 % 03/10/23 04:12 Nucleated RBCs # 0.0 /100WBC 03/10/23 04:12 PT 15.50 SECONDS (12.1-14.9) H 03/08/23 05:10 INR 1.19 (0.8-1.2) 03/08/23 05:10 APTT 33.6 SECONDS (23.9-36.7) 03/08/23 05:10 Sodium 132 mmol/L (136-145) L 03/10/23 04:12 Potassium 4.5 mmol/L (3.5-5.1) 03/10/23 04:12 Chloride 99 mmol/L (98-107) 03/10/23 04:12 Carbon Dioxide 26 mmol/L (22-29) 03/10/23 04:12 Anion Gap 11.5 (5-19) 03/10/23 04:12 BUN 35 mg/dL (8-23) H 03/10/23 04:12 Creatinine 1.6 mg/dL (0.5-0.9) H 03/10/23 04:12 GFR Calculation Not Reportable 03/10/23 04:12 Glucose 99 mg/dL (65-115) 03/10/23 04:12 POC Glucose 98 mg/dL (70-110) 03/10/23 11:07 Estimat Average Glucose 91 03/08/23 05:10 Hemoglobin A1c 4.8 % (4.0-6.0) 03/08/23 05:10 Calculated Osmolality 282 mOsm/kg (285-295) L 03/10/23 04:12 Lactic Acid 1.4 mmol/L (0.5-2.2) 03/07/23 18:57 Calcium 8.4 mg/dL (8.5-10.5) L 03/10/23 04:12 Phosphorus 3.6 mg/dL (2.5-4.5) 03/08/23 05:10 Magnesium 1.7 mg/dL (1.7-2.3) 03/08/23 05:10 Total Bilirubin 0.2 mg/dL (0.15-1.2) 03/10/23 04:12 AST 38 U/L (0-32) H 03/10/23 04:12 ALT 28 U/L (0-33) 03/10/23 04:12 Alkaline Phosphatase 155 U/L (35-105) H 03/10/23 04:12 Troponin T Baseline 38 ng/L (0-10) H 03/07/23 23:21 Troponin T 120 Minute 34.10 ng/L (0-10) H 03/08/23 01:28 Delta Troponin T -3.90 ABS# (0-10) L 03/08/23 01:28 Troponin T Hi Sens 6Hr 38.82 ng/L (0-10) H 03/08/23 05:10 Troponin T Hi Sens 6Hr Delta 0.82 ng/L (0-12) 03/08/23 05:10 NT-Pro-B Natriuret Pep 1756 pg/mL (0-125) H 03/07/23 14:54 Total Protein 4.7 g/dL (6.6-8.7) L 03/10/23 04:12 Albumin 2.4 g/dL (3.5-5.2) L 03/10/23 04:12 Globulin 2.3 g/dL (1.3-4.6) 03/10/23 04:12 Triglycerides 90 mg/dL (0-150) 03/08/23 05:10 Triglycerides Cancelled 03/08/23 05:10 Cholesterol 123 mg/dL (0-200) 03/08/23 05:10 Cholesterol Cancelled 03/08/23 05:10 LDL Cholesterol, Calc 16 mg/dL (50-129) L 03/08/23 05:10 LDL Cholesterol, Calc Cancelled 03/08/23 05:10 HDL Cholesterol 89 mg/dL (60-100) 03/08/23 05:10 HDL Cholesterol Cancelled 03/08/23 05:10 LDL/HDL Ratio 0.18 RATIO (0.00-3.22) 03/08/23 05:10 LDL/HDL Ratio Cancelled 03/08/23 05:10 Cholesterol/HDL Ratio 1.38 mg/dL (0.0-4.40) 03/08/23 05:10 Cholesterol/HDL Ratio Cancelled 03/08/23 05:10 TSH 1.05 uIU/mL (0.27-4.20) 03/08/23 05:10 Urine Color Yellow (Yellow) 03/07/23 18:13 Urine Appearance Clear (CLEAR) 03/07/23 18:13 Urine pH 5 (5-7) 03/07/23 18:13 Ur Specific Dougherty 1.015 (1.005-1.030) 03/07/23 18:13 Urine Protein Neg (Negative) 03/07/23 18:13 Urine Glucose (UA) Norm (Normal) 03/07/23 18:13 Urine Ketones 1+ (Negative) H 03/07/23 18:13 Urine Blood 2+ (Negative) H 03/07/23 18:13 Urine Nitrate Negative (Negative) 03/07/23 18:13 Urine Bilirubin Neg (Negative) 03/07/23 18:13 Urine Urobilinogen Norm mg/dL (Negative) 03/07/23 18:13 Ur Leukocyte Esterase 2+ (Negative) H 03/07/23 18:13 Urine RBC 0-4 /hpf (0-2) H 03/07/23 18:13 Urine WBC 10-15 /hpf (0-5) H 03/07/23 18:13 Ur Squamous Epith Cells 0-4 /hpf (0-5) H 03/07/23 18:13 Ur Renal Epithelial Cell 0-4 /hpf 03/07/23 18:13 Amorphous Sediment 1+ /hpf 03/07/23 18:13 Urine Bacteria Trace /hpf (NONE) 03/07/23 18:13 Vitals Last Vital Signs Temp 99 F 03/10/23 12:00 Pulse 73 03/10/23 12:00 Resp 17 03/10/23 12:00 BP 104/58 03/10/23 12:00 Pulse Ox 100 03/10/23 12:00 O2 Del Method Nasal Cannula 03/10/23 07:26 O2 Flow Rate 3 03/10/23 07:20 Discharge Plan Discharge Patient Disposition: Home Condition: Stable Prescriptions: New Eliquis 5 mg tablet 5 mg PO BID 30 Days Qty: 60 0RF Continued montelukast [Singulair] 10 mg tablet 10 mg PO DAILY metoprolol tartrate 25 mg tablet 12.5 mg PO BID allopurinol 100 mg tablet 100 mg PO DAILY duloxetine [Cymbalta] 60 mg capsule,delayed release(DR/EC) 60 mg PO DAILY Hold Instructions: sodium is low. see pcp before resuming Rx Instructions: take with 30mg to =90mg metformin 500 mg tablet 500 mg PO DAILY simvastatin 10 mg tablet 10 mg PO BEDTIME albuterol sulfate [ProAir HFA] 90 mcg/actuation HFA aerosol inhaler 2 puff INHALATION QID PRN (Reason: Shortness Of Breath) pantoprazole [Protonix] 40 mg tablet,delayed release (DR/EC) 40 mg PO BID duloxetine [Cymbalta] 30 mg capsule,delayed release(DR/EC) 30 mg PO DAILY Hold Instructions: sodium is low. Please see PCP before resuming Rx Instructions: take with 60mg to =90mg Lasix 20 mg tablet 20 mg PO DAILY Patient Comments: Has been taking 2 daily hydrocodone-acetaminophen 10-325 mg tablet 1 tab PO Q4H MDD 4 tabs PRN (Reason: Pain) oxybutynin chloride 10 mg tablet extended release 24hr 10 mg PO BEDTIME bupropion HCl 100 mg tablet sustained-release 12 hr 100 mg PO BID multivitamin with minerals [Hair,Skin and Nails] Tablet 1 tab PO DAILY docusate sodium 100 mg tablet 100 mg PO BID lorazepam 0.5 mg tablet 0.5 mg PO TID PRN (Reason: Anxiety) buspirone 10 mg tablet 10 mg PO BID miscellaneous medical supply Misc See Rx Instructions miscellaneous .COMPLEX Qty: 1 0RF Rx Instructions: increase oxygen to 3LPM ipratropium-albuterol 0.5 mg-3 mg(2.5 mg base)/3 mL solution for nebulization 3 ml INHALATION QID PRN (Reason: Shortness Of Breath) ondansetron 4 mg tablet,disintegrating 4 mg PO BID PRN (Reason: Nausea) Breztri Aerosphere 160-9-4.8 mcg/actuation HFA aerosol inhaler 2 inh INHALATION BID gabapentin 600 mg tablet See Rx Instructions .ROUTE .COMPLEX Rx Instructions: TAKE ONE TABLET (600mg) BY MOUTH IN THE MORNING TAKE ONE TABLET (600mg) at NOON and TAKE TWO TABLETS (1200mg) AT BEDTIME metoclopramide HCl 10 mg tablet 10 mg PO TID PRN (Reason: ulcers) levothyroxine 88 mcg tablet 88 mcg PO QAM meclizine 25 mg tablet 25 mg PO TID albuterol sulfate 2.5 mg /3 mL (0.083 %) solution for nebulization 2.5 mg inhalation Q8H PRN (Reason: Shortness Of Breath) estradiol 0.01 % (0.1 mg/gram) cream See Rx Instructions .ROUTE .COMPLEX Rx Instructions: as directed vaginally q7d or prn clotrimazole [Antifungal (clotrimazole)] 1 % cream 1 applic TOPICAL BID PRN (Reason: unknown) Multivitamin Gummies 200 mcg Tablet,Chewable 2 tab PO DAILY Nervive 1 tab PO DAILY Held Linzess 290 mcg capsule 290 mcg PO DAILY Hold Instructions: Resume on 03/17/23. Discontinued vitamin B complex [B Complex-Vitamin B12] Tablet 1 tab PO DAILY spironolactone 25 mg tablet 25 mg PO DAILY Qty: 90 3RF doxycycline hyclate 100 mg capsule 100 mg PO BID Qty: 60 4RF Rx Instructions: In lieu of Macrobid. risperidone 0.25 mg tablet 0.25 mg PO BEDTIME sulfamethoxazole-trimethoprim 800-160 mg tablet 1 tab PO Q12H Rx Instructions: for 7 days (rx filled 03/02/23) lisinopril 20 mg tablet 10 mg PO DAILY famotidine 20 mg tablet 20 mg PO BID amitriptyline 25 mg tablet 25 mg PO BEDTIME cilostazol 50 mg tablet 50 mg PO BID Discharge Orders: Discharge Order (Routine); Ordered 03/10/23 Ordered By: Alee Vasques Referrals: Chantal Hernandez FNP [Primary Care Provider] - 03/25/23 11:30 am Discharge Diet: Usual diet Discharge Activity: Resume usual activity Patient Instructions: Opioid Safety Discharge Attestations Time Spent in Discharge Care*: greater than 30 min Quality Metrics Clinical Quality Measures [ Venous Thromboembolism { Contraindication to Overlap Therapy: None; Overlap threrpy ordered; VTE Discharge Education: Education about anticoagulant therapy/Care Notes given;}] Coding Level of Care Code Acute Code for Chg Fwd Diagnoses Deep vein thrombosis of right lower extremity I82.401 CHERYL (acute kidney injury) N17.9 UTI (urinary tract infection) N39.0 Bright red blood per rectum K62.5 Diarrhea R19.7 Bilateral cold feet R20.9 Diastolic heart failure I50.30 Frequent falls R29.6 Vertigo R42 Coronary artery disease I25.10 COPD (chronic obstructive pulmonary disease) J44.9 Diabetes E11.9 Benign essential HTN I10 Dyslipidemia E78.5 Hypothyroidism E03.9 Peripheral Vascular Disease I73.9 GERD (gastroesophageal reflux disease) K21.9 Anxiety and depression F41.9; F32.A Osteoarthritis M19.90 BMI 40.0-44.9, adult Z68.41 Polypharmacy Z79.899
[2023-03-10 16:40] LABS: Glucose Point of Care 67 mg/dL (70-110)
[2023-03-10 17:22] LABS: Glucose Point of Care 55 mg/dL (70-110)
[2023-03-10 17:22] LABS: Glucose Point of Care 62 mg/dL (70-110)
[2023-03-10 18:44] LABS: Glucose Point of Care 58 mg/dL (70-110)
[2023-03-10 18:44] LABS: Glucose Point of Care 102 mg/dL (70-110)
--- OUTSIDE RECORDS SUMMARY | 2023-03-17 11:02 | XMS_ITS | Patient Health Record ---
Author Name Unknown Organization [facility] Address [address] [place], [place] [id number] Care Team Providers Care Snow Blower Name Role Phone Edgar EDWARDS, Severino Primary Care Provider Frandy Garnica MD, Oswald Unavailable [phone] Claribel Massey Unavailable [phone] ALLERGIES Allergen (clinical drug ingredient) Drug/Non Drug Allergy documented on EMR Reaction Allergy Type Onset Date Status alcohol (uncoded) Unknown Allergy Ac tive sulfa (uncoded) Unknown Allergy Acti ve codeine codeine rash Drug Allergy Active penicillin Unknown Drug Allergy Active RESULTS Component Value Reference Range Notes [employer] Technology Results Reviewed date:01/25/2023 07:55:56 AM Interpretation: Performing Lab:[id number] [facility], [address] [id number] Ceci Brandon MD Notes/Report: [facility], [address] [facility], [facility] [place] [address], , L ab Director: Ceci Brandon MD, CLIA ID# [id number] Codeine negative 1 ng/mL Morphine negative 1 [...] 5 ng/mL Tramadol Quantification negative 5 ng/mL J-Amhaypits-Xgdhpjaw Quantification negative 5 ng/ mL Alprazolam negative [...] date:01/25/2023 07:56:05 AM Interpretation: Performing Lab: Notes/Report: [facility], [address] [facility] [address] [address], , L ab Director: Ceci Brandon MD, CLIA ID# [id number] [facility] Toxic[facility] Scree n Reviewed date:07/27/2022 02:27:21 PM Interpretation: Performing Lab: Notes/Report: [facility] n Reviewed date:01/25/2023 07:57:29 AM Interpretation:Consistent Performing Lab: Notes/Report: Consistent REASON FOR REFERRAL No Information MEDICATIONS Medication [...] 1 tab orally once a day Active oxyBUTYnin 10 mg/24 hr 1 tab orally once [...] W/U Status Risk SNOMED Code Notes Problem director long term care (current) use of opiate analgesic (Z79.891) Active confirmed High risk drug monitoring status (888095763) Problem Pain in right knee (M25.561) Active confirmed Pain in right knee (691186041158091) Problem Other sleep disorders (G47.8) Active confirmed Sleep disorder (05506221) Problem Other chronic pain (G89.29) Active confirmed Chronic pain (11373510) Problem Unspecified osteoarthritis, unspecified site (M19.90) Active confirmed Osteoarthritis (018571689) Problem 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 (Z79.899) Active confirmed Long-term curre nt use of drug therapy (048801465) VITAL SIGNS Temperature 97.6 degrees Fahrenheit 01/20/2023 Uszie ent reported weight Oximetry 96 % 01/20/2023 Patient reporte d weight Height 60 in 01/20/2023 Patient reporte d weight Weight 220 lbs 01/20/2023 Patient reporte d weight BMI 42.96 kg/m2 01/20/2023 Patient reporte d weight Encounters Encounter Location Date Provider Diagnosis [facility], [facility] [address] [place] [address] [id number] 03/24/2022 Oswald Garnica Pain in right knee M25.561 ; Other sleep disorders G47.8 and director long term care (current) use of opiate analgesic Z79.891 [facility] [employer], [facility] [address] [place] [address] [id number] 04/28/2022 Oswald Garnica Pain in right knee M25.561 ; Other sleep disorders G47.8 and penitentiary (current) use of opiate analgesic Z79.891 [facility] [address] [place] [address] [id number] 07/21/2022 Oswald Garnica Pain in right knee M25.561 ; Other sleep disorders G47.8 and penitentiary (current) use of opiate analgesic Z79.891 [facility] [address] [place] [address] [id number] 10/20/2022 Oswald Garnica Pain in right knee M25.561 ; Other sleep disorders G47.8 and penitentiary (current) use of opiate analgesic Z79.891 [facility] [employer] [facility] [address] [place] [address] [id number] 01/20/2023 Claribel Garcias Pain in right knee M25.561 ; Other chronic pain G89.29 and penitentiary (current) use of opiate analgesic Z79.891 ASSESSMENTS [...] to continue oral opioid medication management 01/20/2023 director long term care (current) use of opiate analgesic (ICD-10 - Z79.891) Oral fluid toxicology screen today to monitor compliance regarding use of prescribed hydrocodone and for the presence of any unprescribed or illicit drugs 10/20/2022 director long term care (current) use of opiate analgesic (ICD-10 - [...] of a Narcan nasal spray prescription 07/21/2022 director long term care (current) use of opiate analgesic (ICD-10 - [...] to the [facility] Government concerns and actions, any suspected patient [...] screen today; random screens per protocol 04/28/2022 director long term care (current) use of opiate analgesic (ICD-10 - [...] to the [facility] Government concerns and actions, any suspected patient [...] of a Narcan nasal spray prescription 03/24/2022 penitentiary (current) use of opiate analgesic (ICD-10 - [...] Provider Name:Oswald bustamante, 04/21/2023 02:40:00 PM, [address] [place], [place], [id number], Insurance Providers Payer Name Payer Address Payer Phone Subscriber Number Group Number Insured Name Patient Relationship to Insured Coverage Start Date Coverage End Date [employer] [address] [place] [address] [id number] Mayda Del Cid Self - patient is the insured [place] [employer] [address] [place] [address] [id number] Del Cid Mayda Self - patient is the insured MEDICAL (GENERAL) HISTORY Medical History History ICD Code Chronic pain Knee pain Osteoarthrosis Lymphadenopathy Gout Hypertension Asthma Hypothyroidism Diabetes mellitus Depression Acid reflux Arthritis Irritable bowel syndrome Hypercholesterolemia Poor circulation in lower extremities Pneumonia CHF Obesity, morbid Antianxiety mediction use Surgical History Surgery Date(Month/Year) Gastric bypass, performed in [facility] [place], 1980 Hysterectomy, performed in [place], [place], 1983 Breast biopsy, right, performed at [facility], 08/13/21 Upper and lower GI, performed at [facility], 0 08/18/21 Hospitalization History Reason Date(Month/Year) Pneumoina and early stages o f congestive heart failure, treated at [facility], 10/2021
== END 2023-03-10 15:22 | disposition home or self-care (01) | DRG 300 ==
LOC: ER 18:19 → MEDSURG 20:47
PROVIDERS: Emergency Medicine; Admitting Provider Student in an Organized Health Care Education/Training Program; Emergency Provider Emergency Medicine; PCP Nurse Practitioner Family; Visit Provider Hospitalist
DX: I82.431 Acute embolism and thrombosis of right popliteal vein (principal); I13.0 Hypertensive heart and chronic kidney disease with heart failure and stage 1 through stage 4 chronic kidney disease, or unspecified chronic kidney disease; N17.9 Acute kidney failure, unspecified; N30.00 Acute cystitis without hematuria; K92.1 Melena; I50.32 Chronic diastolic (congestive) heart failure; I82.451 Acute embolism and thrombosis of right peroneal vein; N30.20 Other chronic cystitis without hematuria; R19.7 Diarrhea, unspecified; J44.9 Chronic obstructive pulmonary disease, unspecified; Z87.891 Personal history of nicotine dependence; R29.6 Repeated falls; R26.89 Other abnormalities of gait and mobility; R42 Dizziness and giddiness; E11.22 Type 2 diabetes mellitus with diabetic chronic kidney disease; E11.40 Type 2 diabetes mellitus with diabetic neuropathy, unspecified; E11.51 Type 2 diabetes mellitus with diabetic peripheral angiopathy without gangrene; N18.9 Chronic kidney disease, unspecified; E78.5 Hyperlipidemia, unspecified; E03.9 Hypothyroidism, unspecified; F41.9 Anxiety disorder, unspecified; F32.A Depression, unspecified; Z66 Do not resuscitate; Z86.74 Personal history of sudden cardiac arrest; I25.10 Atherosclerotic heart disease of native coronary artery without angina pectoris; Z95.1 Presence of aortocoronary bypass graft; Z99.81 Dependence on supplemental oxygen; Z79.890 Hormone replacement therapy; Z79.891 Long term (current) use of opiate analgesic; Z79.51 Long term (current) use of inhaled steroids; Z79.84 Long term (current) use of oral hypoglycemic drugs; Z98.84 Bariatric surgery status
CPT/HCPCS: 36415; 36416; 51702; 71045; 74176; 80053; 80061; 81001; 82962; 83036; 83605; 83735; 83880; 84100; 84443; 84484; 85025; 85610; 85730; 87040; 87077; 87086; 87186; 87493; 93005; 93306; 93926; 93971; 94640; 96361; 96365; 96372; 97110; 97116; 97161; 97166; 97530; 99285; G0378; J0696; J1650; J2405; J3480; J7030; J7613; J7626; J8597

== ENCOUNTER 2023-08-13 04:15 | Emergency (ER) | payer MEDICARE, MEDICAID, SELFPAY ==
[2023-08-13 04:18] VITALS: BP 121/71; PULSE 75; RESP 18; TEMP 36.8; O2SAT 98
--- NOTE | 2023-08-13 04:27 | ECG_ITS ---
[facility] Test Date: 2023-08-13 Pat Name: Mayda Del Cid Department: Room: Gender: Female Counter Maker: : 1950 Requested By: Eduar Clayton Order Number: [id number] Luan MD: Victor Manuel Andujar M.D. Measurements Intervals [place] Rate: 74 P: -50 SC: 104 QRS: 5 QRSD: 86 T: 66 QT: 359 QTc: 399 Interpretive Statements SINUS RHYTHM WITH SHORT SC INTERVAL Compared to ECG 03/08/2023 04:42:23 Short SC interval now present T-wave abnormality no longer present Electronically Signed On 08-13-2023 6:53:06 CARPET INSTALLATION SPECIALIST by Victor Manuel Andujar M.D. [id number]
--- NOTE | 2023-08-13 04:28 | CTR_ITS ---
PROCEDURE INFORMATION: Exam: CT Head Without Contrast Exam date and time: 08/13/2023 4:48 AM Age: 73 years old Clinical indication: Injury or trauma; Blunt trauma (contusions or hematomas); Patient HX: Fall on thinners; Additional info: Fall head trauma TECHNIQUE: Imaging protocol: Computed tomography of the head without contrast. Radiation optimization: All CT scans at this facility use at least one of these dose optimization techniques: automated exposure control; mA and/or kV adjustment per patient size (includes targeted exams where dose is matched to clinical indication); or iterative reconstruction. COMPARISON: CT head wo con* [id number] 05/03/2022 4:12 PM RADIATION DOSE METRICS: Total DLP (mGy-cm): 1015.01 FINDINGS: Brain: Mild periventricular small-vessel ischemic change. Cerebral ventricles: No ventriculomegaly. Paranasal sinuses: Visualized sinuses are unremarkable. No fluid levels. Mastoid air cells: Visualized mastoid air cells are well aerated. Bones/joints: Unremarkable. No acute fracture. Soft tissues: Unremarkable. CT/CT head wo con* [id number] IMPRESSION: No acute intracranial abnormality is appreciated.
--- NOTE | 2023-08-13 04:31 | ED_ITS ---
HPI - Fall 2 General: Chief Complaint: Fall Stated Complaint: fell hit head Time Seen by Provider: 08/13/23 04:19 History of Present Illness: Patient presents to the ER with complaints of fall. Patient said her leg gave out from her causing her to fall and hit the back of her head. Patient does have a small swollen area at the back of her head. Patient also has a bandage on the skin tear in her right forearm from a previous fall. Patient states she is on blood thinners per chart she has a history of a DVT. Patient cannot recall what blood thinner she is on. Per the chart it might be Eliquis patient did not blackout or lose consciousness etc. Patient denies any nausea vomiting vision or hearing changes. Review of Systems 2 General: Reports: 10 or more systems reviewed and unremarkable except in HPI and below PFSH ED 2 PFSH: Medical History Hypothyroidism GERD (gastroesophageal reflux disease) Osteoarthritis Anxiety and depression History of cardiac arrest Had 3 episodes of cardiac arrest due to complications from her gastric bypass surgery back in the with obviously successful resuscitation Coronary artery disease Diastolic heart failure Dyslipidemia Benign essential HTN COPD (chronic obstructive pulmonary disease) Chronic cystitis Vertigo Peripheral Vascular Disease Hypertension Diabetes Surgical History History of gastric bypass (1988) S/P cholecystectomy S/P appendectomy S/P hysterectomy S/P CABG (coronary artery bypass graft) Family History Mother , AT 78 Cancer BREAST AND SPINE Grandmother Cancer Father , AT 62 Heart attack Daughter CAD (coronary artery disease) Other Hypertension Social History Smoking and tobacco/nicotine status: former use of tobacco/nicotine Quit status (tobacco/nicotine): has quit using Year quit tobacco: 1985 Former quit date comment: 2 ppd X 25 years, Started at age 14 Alcohol intake: never Substance/Drug Use: never Lives independently: Yes Housing: House Marital status: / Current occupational status: disabled Physical Exam 2 Const: COMMON NORMALS: no acute distress, average body habitus, no limitations, healthy appearing, alert and well nourished HENMT: COMMON NORMALS: normocephalic, hearing grossly normal bilaterally, EAC's normal, moist oral mucous membranes and oropharynx normal; head/scalp not atraumatic (Hematoma to the left superior occipital region of the head, bleeding contro) HEAD & SCALP: normocephalic; not atraumatic (Hematoma to the left superior occipital region of the head, bleeding contro) EXTERNAL AUDITORY CANAL: EAC's normal Eye: COMMON NORMALS: Equal, round and reactive pupils present, EOMs intact bilaterally, conjunctivae normal and no scleral icterus CONJUNCTIVA: Yes conjunctivae normal PUPIL: Yes Equal, round and reactive pupils present Neck/C-Spine: COMMON NORMALS: full ROM, no lymphadenopathy, supple, no meningeal signs, no JVD and Thyroid normal THYROID: Thyroid normal Chest: COMMONS NORMALS: normal inspection of the chest and normal palpation of entire chest wall Resp: COMMON NORMALS: normal respiratory effort, No retractions, No use of accessory muscles and clear to auscultation bilaterally AUSCULTATION: clear to auscultation bilaterally Cardio: COMMON NORMALS: no JVD, regular rate, regular rhythm, S1 normal heart sound present, S2 normal heart sound present, No gallops present (Cardio), No clicks present (Cardio), No murmurs present (Cardio) and No rub (Cardio) R ATE: regular rate RHYTHM: regular rhythm HEART SOUNDS: S1 normal heart sound present and S2 normal heart sound present GI: COMMON NORMALS: Normal to inspection, nondistended, normoactive bowel sounds present, Soft to palpation, non-tender, No hepatosplenomegaly present and no masses PALPATION: Yes Soft to palpation and Yes No hepatosplenomegaly present Extremity: NARRATIVE EXTREMITY EXAM: 1-2+ pitting edema bilateral lower extre mities, manage skin tear noted on right forearm Neuro: SENSORIUM/ORIENTATION: Yes alert MENINGEAL SIGNS: Yes no meningeal signs Course 2 Vital Signs: Vital signs: Vital Signs Temperature 98.3 F 08/13/23 04:18 Pulse Rate 75 08/13/23 04:18 Respiratory Rate 18 08/13/23 04:18 Blood Pressure 121/71 08/13/23 04:18 Pulse Oximetry 98 08/13/23 04:18 Oxygen Delivery Me thod Room Air 08/13/23 04:18 MDM - Fall Medical Decision Making Patient had lab work, urinalysis, head CT performed most of which which were stable or benign. Patient's BUN/creatinine was slightly elevated 25 and 1.3, magnesium 1.4, head CT was read off as no acute intracranial abnormality. Posterior occipital area was examined which just appeared to be a skin abrasion, right skin tear was minimally debrided by nursing staff. Otherwise will be redressed. Patient will be placed on magnesium supplementation and discharged home to follow-up with her PCP within the next 7 days. Differential Diagnosis Unlikely syncope, dislocation of shoulder region, fracture of wrist, compression fracture, concussion with loss of consciousness or concussion without loss of consciousness Medical Records I reviewed the patient's medical records. Lab Data I reviewed the patient's lab results. 08/13/23 04:43 08/13/23 04:[address] 08/13/23 04:28 IMPRESSION: No acute intracranial abnormality is appreciated. Laboratory Results WBC 6.82 10^3/uL (3.29-11.43) 08/13/23 04:43 RBC 4.04 10^6/uL (3.85-5.65) 08/13/23 04:43 Hgb 11.20 g/dL (11.27-16.99) L 08/13/23 04:43 Hct 36.3 % (36-47) 08/13/23 04:43 MCV 89.9 fl (85-98) 08/13/23 04:43 MCH 27.7 pg (27-33) 08/13/23 04:43 MCHC 30.9 g/dL (30-55) 08/13/23 04:43 RDW 16.9 % (12.1-15.1) H 08/13/23 04:43 Plt Count 297 10^3/cmm (157-399) 08/13/23 04:43 MPV 8.7 fL (7.4-10.4) 08/13/23 04:43 Neut % (Auto) 69.1 % 08/13/23 04:43 Lymph % (Auto) 16.7 % 08/13/23 04:43 [place] % (Auto) 7.3 % 08/13/23 04:43 Eos % (Auto) 5.4 % 08/13/23 04:43 Baso % (Auto) 1.2 % 08/13/23 04:43 Neut # (Auto) 4.71 10^3/uL (1.8-7.7) 08/13/23 04:43 Lymph # (Auto) 1.1 10^3/uL (0.8-4.8) 08/13/23 04:43 [place] # (Auto) 0.5 10^3/uL (0.2-0.9) 08/13/23 04:43 Eos # (Auto) 0.4 10^3/uL (0.0-0.8) 08/13/23 04:43 Baso # (Auto) 0.1 10^3/uL (0.0-0.1) 08/13/23 04:43 Nucleated RBC % (auto) 0 % 08/13/23 04:43 Nucleated RBCs # 0.0 /100WBC 08/13/23 04:43 PT 16.40 SECONDS (12.1-14.9) H 08/13/23 04:43 INR 1.28 (0.8-1.2) H 08/13/23 04:43 Sodium 141 mmol/L (136-145) 08/13/23 04:43 Potassium 3.6 mmol/L (3.5-5.1) 08/13/23 04:43 Chloride 103 mmol/L (98-107) 08/13/23 04:43 Carbon Dioxide 26 mmol/L (22-29) 08/13/23 04:43 Anion Gap 15.6 (5-19) 08/13/23 04:43 BUN 25 mg/dL (8-23) H 08/13/23 04:43 Creatinine 1.3 mg/dL (0.5-0.9) H 08/13/23 04:43 GFR Calculation Not Reportable 08/13/23 04:43 Glucose 102 mg/dL (65-115) 08/13/23 04:43 Calculated Osmolality 297 mOsm/kg (285-295) H 08/13/23 04:43 Calcium 9.4 mg/dL (8.5-10.5) 08/13/23 04:43 Magnesium 1.4 mg/dL (1.7-2.3) L 08/13/23 04:43 Total Bilirubin 0.3 mg/dL (0.15-1.2) 08/13/23 04:43 AST 20 U/L (0-32) 08/13/23 04:43 ALT 16 U/L (0-33) 08/13/23 04:43 Alkaline Phosphatase 166 U/L (35-105) H 08/13/23 04:43 NT-Pro-B Natriuret Pep 1113 pg/mL (0-125) H 08/13/23 04:43 Total Protein 6.7 g/dL (6.6-8.7) 08/13/23 04:43 Albumin 3.3 g/dL (3.5-5.2) L 08/13/23 04:43 Globulin 3.4 g/dL (1.3-4.6) 08/13/23 04:43 Urine Color Yellow (Yellow) 08/13/23 05:06 Urine Appearance Clear (CLEAR) 08/13/23 05:06 Urine pH 5 (5-7) 08/13/23 05:06 Ur Specific [place] 1.015 (1.005-1.030) 08/13/23 05:06 Urine Protein Neg (Negative) 08/13/23 05:06 Urine Glucose (UA) Norm (Normal) 08/13/23 05:06 Urine Ketones Negative (Negative) 08/13/23 05:06 Urine Blood Neg (Negative) 08/13/23 05:06 Urine Nitrate Negative (Negative) 08/13/23 05:06 Urine Bilirubin Neg (Negative) 08/13/23 05:06 Urine Urobilinogen Neg mg/dL (Negative) 08/13/23 05:06 Ur Leukocyte Esterase Negative (Negative) 08/13/23 05:06 All radiology interpretation(s) finalized by discharge EKG Data EKG 1: I personally reviewed and interpreted this EKG as follows: EKG interpretation date: 08/13/23 EKG interpretation time: 04:29 Prior EKG tracings: not available for review Interpretation: EKG showed ventricular rate 74 beats minute, IL interval 104, QRS duration 86, QTc of 386, sinus rhythm with short IL interval Discharge Plan Discharge Patient Disposition: Home Clinical Impression: Fall, Contusion of head, Skin tear, Hypomagnesemia Condition: Stable Prescriptions: No Action montelukast [Singulair] 10 mg tablet 10 mg PO DAILY metoprolol tartrate 25 mg tablet 12.5 mg PO BID allopurinol 100 mg tablet 100 mg PO DAILY duloxetine [Cymbalta] 60 mg capsule,delayed release(DR/EC) 60 mg PO DAILY Hold Instructions: sodium is low. see pcp before resuming Rx Instructions: take with 30mg to =90mg metformin 500 mg tablet 500 mg PO DAILY simvastatin 10 mg tablet 10 mg PO BEDTIME albuterol sulfate [ProAir HFA] 90 mcg/actuation HFA aerosol inhaler 2 puff INHALATION QID PRN (Reason: Shortness Of Breath) pantoprazole [Protonix] 40 mg tablet,delayed release (DR/EC) 40 mg PO BID duloxetine [Cymbalta] 30 mg capsule,delayed release(DR/EC) 30 mg PO DAILY Hold Instructions: sodium is low. Please see PCP before resuming Rx Instructions: take with 60mg to =90mg Lasix 20 mg tablet 20 mg PO DAILY Patient Comments: Has been taking 2 daily hydrocodone-acetaminophen 10-325 mg tablet 1 tab PO Q4H MDD 4 tabs PRN (Reason: Pain) oxybutynin chloride 10 mg tablet extended release 24hr 10 mg PO BEDTIME bupropion HCl 100 mg tablet sustained-release 12 hr 100 mg PO BID multivitamin with minerals [Hair,Skin and Nails] Tablet 1 tab PO DAILY docusate sodium 100 mg tablet 100 mg PO BID lorazepam 0.5 mg tablet 0.5 mg PO TID PRN (Reason: Anxiety) buspirone 10 mg tablet 10 mg PO BID miscellaneous medical supply Misc See Rx Instructions miscellaneous .COMPLEX Qty: 1 0RF Rx Instructions: increase oxygen to 3LPM Breztri Aerosphere 160-9-4.8 mcg/actuation HFA aerosol inhaler 2 inh INHALATION BID Qty: 10.7 3RF ipratropium-albuterol 0.5 mg-3 mg(2.5 mg base)/3 mL solution for nebulization 3 ml INHALATION QID PRN (Reason: Shortness Of Breath) ondansetron 4 mg tablet,disintegrating 4 mg PO BID PRN (Reason: Nausea) gabapentin 600 mg tablet See Rx Instructions .ROUTE .COMPLEX Rx Instructions: TAKE ONE TABLET (600mg) BY MOUTH IN THE MORNING TAKE ONE TABLET (600mg) at NOON and TAKE TWO TABLETS (1200mg) AT BEDTIME metoclopramide HCl 10 mg tablet 10 mg PO TID PRN (Reason: ulcers) Linzess 290 mcg capsule 290 mcg PO DAILY Hold Instructions: Resume on 03/17/23. levothyroxine 88 mcg tablet 88 mcg PO QAM meclizine 25 mg tablet 25 mg PO TID albuterol sulfate 2.5 mg /3 mL (0.083 %) solution for nebulization 2.5 mg inhalation Q8H PRN (Reason: Shortness Of Breath) estradiol 0.01 % (0.1 mg/gram) cream See Rx Instructions .ROUTE .COMPLEX Rx Instructions: as directed vaginally q7d or prn clotrimazole [Antifungal (clotrimazole)] 1 % cream 1 applic TOPICAL BID PRN (Reason: unknown) Multivitamin Gummies 200 mcg Tablet,Chewable 2 tab PO DAILY Nervive 1 tab PO DAILY Discharge Orders: Discharge ED (Routine); Ordered 08/13/23 Ordered By: Eduar Clayton Referrals: Chantal Hernandez FNP [Primary Care Provider] - 1 week Patient Instructions: Hypomagnesemia (ED), Scalp Contusion in Adults (ED), Skin Tear (ED) Activity Restrictions/Additional Instructions: Please keep your wounds clean and dry and change dressings as needed. Please take your magnesium supplementation as your magnesium is low. Please follow-up with your family practice physician within next 7 to 10 days for further evaluation and treatment as needed. Coding Level of Care Code ED Screener And Blender Operator for Gio Gonzalez
[2023-08-13 04:52] LABS: Basophils # 0.1 10^3/uL (0.0-0.1); Basophils % 1.2 %; Eosinophils # 0.4 10^3/uL (0.0-0.8); Eosinophils % 5.4 %; Hematocrit 36.3 % (36-47); Lymphocytes # 1.1 10^3/uL (0.8-4.8); Lymphocytes % 16.7 %; Mean Corpuscular HGB Conc 30.9 g/dL (30-55); Mean Corpuscular Hemoglobin 27.7 pg (27-33); Mean Corpuscular Volume 89.9 fl (85-98); Mean Platelet Volume 8.7 fL (7.4-10.4); Monocytes # 0.5 10^3/uL (0.2-0.9); Monocytes % 7.3 %; Neutrophils # 4.71 10^3/uL (1.8-7.7); Neutrophils % 69.1 %; Nucleated Red Blood Cells % 0 %; Platelet Count 297 10^3/cmm (157-399); Red Blood Count 4.04 10^6/uL (3.85-5.65); Red Cell Distribution Width 16.9 % (12.1-15.1); White Blood Count 6.82 10^3/uL (3.29-11.43)
[2023-08-13 05:04] LABS: INR 1.28 (0.8-1.2)
--- NOTE | 2023-08-13 05:07 | PC.NURSE ---
coban and gauze removed from skin tear on rt forearm. Site soaked with sterile water d/t gauze adhered to skin.
[2023-08-13 05:11] LABS: Add Urine Microscopic? NO; Charge for UA Resulting for Rev
[2023-08-13 05:13] LABS: Bilirubin Urine Neg (Negative); Blood Urine Neg (Negative); Glucose Urine UA Norm (Normal); Ketones Urine Negative (Negative); Leukocyte Esterase Urine Negative (Negative); Nitrate Urine Negative (Negative); Protein Urine Neg (Negative); Specific Gravity, Urine 1.015 (1.005-1.030); Urine Appearance Clear (CLEAR); Urine Color Yellow (Yellow); Urobilinogen Urine Neg (Negative); pH Urine 5 (5-7)
[2023-08-13 05:19] LABS: Alanine Aminotransferase 16 U/L (0-33); Albumin Level 3.3 g/dL (3.5-5.2); Alkaline Phosphatase 166 U/L (35-105); Anion Gap 15.6 (5-19); Aspartate Amino Transferase 20 U/L (0-32); Blood Urea Nitrogen 25 mg/dL (8-23); Calcium 9.4 mg/dL (8.5-10.5); Carbon Dioxide 26 mmol/L (22-29); Chloride 103 mmol/L (98-107); Globulin 3.4 g/dL (1.3-4.6); Glucose 102 mg/dL (65-115); Magnesium 1.4 mg/dL (1.7-2.3); NT Pro B Type Natriuretic Pept 1113 pg/mL (0-125); Osmolality Calculated 297 mOsm/kg (285-295); Potassium 3.6 mmol/L (3.5-5.1); Sodium 141 mmol/L (136-145); Total Bilirubin 0.3 mg/dL (0.15-1.2); Total Protein 6.7 g/dL (6.6-8.7)
[2023-08-13 05:45] VITALS: BP 127/72; PULSE 70; O2SAT 100
== END 2023-08-13 05:49 | disposition home or self-care (01) ==
PROVIDERS: Emergency Provider Emergency Medicine; PCP Nurse Practitioner Family
DX: S00.03XA Contusion of scalp, initial encounter (principal); S51.811A Laceration without foreign body of right forearm, initial encounter; E83.42 Hypomagnesemia; Z79.84 Long term (current) use of oral hypoglycemic drugs; Z87.891 Personal history of nicotine dependence; I25.10 Atherosclerotic heart disease of native coronary artery without angina pectoris; I11.0 Hypertensive heart disease with heart failure; I50.30 Unspecified diastolic (congestive) heart failure; E78.5 Hyperlipidemia, unspecified; J44.9 Chronic obstructive pulmonary disease, unspecified; E11.9 Type 2 diabetes mellitus without complications; Z95.1 Presence of aortocoronary bypass graft; W18.39XA Other fall on same level, initial encounter
CPT/HCPCS: 70450; 80053; 81003; 83735; 83880; 85025; 85610; 93005; 99284

== ENCOUNTER 2023-09-11 19:06 | Emergency (ER) | payer MEDICARE, MEDICAID, SELFPAY ==
[2023-09-11 19:08] VITALS: BP 146/82; PULSE 69; RESP 20; TEMP 36.8; O2SAT 99; BMI 41.0
--- NOTE | 2023-09-11 19:16 | XRR_ITS ---
PROCEDURE INFORMATION: Exam: XR Chest Exam date and time: 09/11/2023 7:29 PM Age: 73 years old Clinical indication: Prior surgery; Surgery date: 6+ months; Surgery type: Cabg. Gastric bypass. Gb. Patient HX: EMS arrival for AMS. TECHNIQUE: Imaging protocol: Radiologic exam of the chest. Views: 1 view. COMPARISON: CR XR chest 2V* [id number] 06/25/2023 12:18 PM FINDINGS: Lungs: Low lung volumes. Minor strand-like scar in the bilateral middle lung zones Pleural spaces: The right apex is partially obscured by the patient's chin. Otherwise, No pneumothorax identified. No pleural effusion. Heart/Mediastinum: Cardiac silhouette is likely mildly enlarged, magnified by portable technique. Mild vascular congestion. Probable ectasia and uncoiled thoracic aorta due to ensure related changes. Multiple surgical clips in the upper abdomen similar to prior. Bones/joints: No acute abnormality. XR/XR chest 1V portable [id number] IMPRESSION: Low lung volumes. Mild cardiac silhouette enlargement and mild vascular congestion , without overt interstitial edema.
--- NOTE | 2023-09-11 19:28 | ECG_ITS ---
[facility] Test Date: 2023-09-11 Pat Name: Mayda Del Cid Department: Room: Gender: Female Mill Turner: : 1950 Requested By: Eduar Clayton Order Number: [id number] Luan MD: Tiara Turcios M.D. Measurements Intervals [place] Rate: 63 P: 83 CA: 160 QRS: 9 QRSD: 90 T: 60 QT: 406 QTc: 416 Interpretive Statements SINUS RHYTHM Compared to ECG 08/13/2023 04:29:11 Short CA interval no longer present Electronically Signed On 09-12-2023 20:53:47 RAIL FILLER by Tiara Turcios M.D. [id number]
--- NOTE | 2023-09-11 19:42 | ED.C_ITS ---
Documented by User: Eduar Clayton DO 09/13/23 19:02 HPI - Psych 2 General: Chief Complaint: Psychiatric Symptoms Stated Complaint: 96 hold, MHE Time Seen by Provider: 09/11/23 19:09 History of Present Illness: Patient was brought in by police as a courtesy to family for mental health evaluation possible 96-hour hold. Per family Mayda is talking out of her head, having auditory and visual hallucinations, yelling at everybody hitting family members and paranoid and accusing them of stealing. They states she do not know where she has most the time currently she think she is in [place]. She has called multiple family members and told them that the daughter she lives with now will take her to the doctor feed her. Per the officer the patient normally does not drive but she got the family's keys and took the car in the passenger out for a nataly ride and they found her down the road at the gas station. Family admits that her dementia has increased and she is more than they can take care of. Upon talking to the patient patient thinks she is in [place], thinks it is a Wednesday and Wednesday, knows it is August, thinks is 2022, thinks it is fall, and does not know who the president is. Patient denies suicidal or homicidal ideation. And is pleasantly confused. Review of Systems 2 General: Reports: 10 or more systems reviewed and unremarkable except in HPI and below PFSH ED 2 PFSH: Medical History Hypothyroidism GERD (gastroesophageal reflux disease) Osteoarthritis Anxiety and depression History of cardiac arrest Had 3 episodes of cardiac arrest due to complications from her gastric bypass surgery back in the with obviously successful resuscitation Coronary artery disease Diastolic heart failure Dyslipidemia Benign essential HTN COPD (chronic obstructive pulmonary disease) Chronic cystitis Vertigo Peripheral Vascular Disease Hypertension Diabetes Surgical History History of gastric bypass (1988) S/P cholecystectomy S/P appendectomy S/P hysterectomy S/P CABG (coronary artery bypass graft) Family History Mother , AT 78 Cancer BREAST AND SPINE Grandmother Cancer Father , AT 62 Heart attack Daughter CAD (coronary artery disease) Other Hypertension Social History Smoking and tobacco/nicotine status: former use of tobacco/nicotine Quit status (tobacco/nicotine): has quit using Year quit tobacco: 1985 Former quit date comment: 2 ppd X 25 years, Started at age 14 Alcohol intake: never Substance/Drug Use: never Lives independently: Yes Housing: House Marital status: / Current occupational status: disabled Physical Exam 2 Const: COMMON NORMALS: no acute distress, average body habitus, no limitations, healthy appearing, alert and well nourished; negative for patient oriented x3 (Oriented to person) HENMT: COMMON NORMALS: normocephalic, atraumatic, hearing grossly normal bilaterally, external ears normal, Normal external nose present, moist oral mucous membranes and oropharynx normal HEAD & SCALP: normocephalic and atraumatic NOSE: Normal external nose present EXTERNAL EAR: Yes external ears normal Eye: COMMON NORMALS: Equal, round and reactive pupils present, EOMs intact bilaterally, conjunctivae normal and no scleral icterus CONJUNCTIVA: Yes conjunctivae normal PUPIL: Yes Equal, round and reactive pupils present Neck/C-Spine: COMMON NORMALS: no JVD Chest: COMMONS NORMALS: normal inspection of the chest and normal palpation of entire chest wall Resp: COMMON NORMALS: normal respiratory effort, No retractions, No use of accessory muscles and clear to auscultation bilaterally AUSCULTATION: clear to auscultation bilaterally Cardio: COMMON NORMALS: no JVD, regular rate, regular rhythm, S1 normal heart sound present, S2 normal heart sound present, No gallops present (Cardio), No clicks present (Cardio), No murmurs present (Cardio) and No rub (Cardio) R ATE: regular rate RHYTHM: regular rhythm HEART SOUNDS: S1 normal heart sound present and S2 normal heart sound present GI: COMMON NORMALS: Normal to inspection, nondistended, normoactive bowel sounds present, Soft to palpation, non-tender, No hepatosplenomegaly present and no masses PALPATION: Yes Soft to palpation and Yes No hepatosplenomegaly present Extremity: NARRATIVE EXTREMITY EXAM: 1-2+ pitting edema bilateral lower extre mities Neuro: COMMON NORMALS: negative for patient oriented x3 (Oriented to person) SENSORIUM/ORIENTATION: Yes alert Course 2 Vital Signs: Vital signs: Vital Signs Temperature 98.3 F 09/12/23 14:40 Pulse Rate 86 09/13/23 08:16 Respiratory Rate 15 09/12/23 14:40 Blood Pressure 148/107 09/13/23 08:16 Pulse Oximetry 98 09/13/23 08:16 Oxygen Delivery Me thod Room Air 09/13/23 08:16 Oxygen Flow Rate 3 09/13/23 00:49 MDM - Psych Differential Diagnosis Unlikely acute psychosis, chronic schizophrenia, suicidal ideation, bipolar disorder, depression, drug-induced psychotic disorder or acute anxiety Medical Records I reviewed the patient's medical records. Lab Data I reviewed the patient's lab results. 09/11/23 19:43 09/11/23 19:43 Radiology Impressions Chest X-Ray 09/11/23 19:16 IMPRESSION: Low lung volumes. Mild cardiac silhouette enlargement and mild vascular congestion , without overt interstitial edema. Head CT 09/12/23 03:19 IMPRESSION: No acute intracranial abnormality. Laboratory Results WBC 6.03 10^3/uL (3.29-11.43) 09/11/23 19:43 RBC 3.75 10^6/uL (3.85-5.65) L 09/11/23 19:43 Hgb 10.70 g/dL (11.27-16.99) L 09/11/23 19:43 Hct 35.1 % (36-47) L 09/11/23 19:43 MCV 93.6 fl (85-98) 09/11/23 19:43 MCH 28.5 pg (27-33) 09/11/23 19:43 MCHC 30.5 g/dL (30-55) 09/11/23 19:43 RDW 15.9 % (12.1-15.1) H 09/11/23 19:43 Plt Count 270 10^3/cmm (157-399) 09/11/23 19:43 MPV 9.2 fL (7.4-10.4) 09/11/23 19:43 Neut % (Auto) 61.8 % 09/11/23 19:43 Lymph % (Auto) 21.1 % 09/11/23 19:43 [place] % (Auto) 8.0 % 09/11/23 19:43 Eos % (Auto) 7.6 % 09/11/23 19:43 Baso % (Auto) 1.3 % 09/11/23 19:43 Neut # (Auto) 3.73 10^3/uL (1.8-7.7) 09/11/23 19:43 Lymph # (Auto) 1.3 10^3/uL (0.8-4.8) 09/11/23 19:43 [place] # (Auto) 0.5 10^3/uL (0.2-0.9) 09/11/23 19:43 Eos # (Auto) 0.5 10^3/uL (0.0-0.8) 09/11/23 19:43 Baso # (Auto) 0.1 10^3/uL (0.0-0.1) 09/11/23 19:43 Nucleated RBC % (auto) 0 % 09/11/23 19:43 Nucleated RBCs # 0.0 /100WBC 09/11/23 19:43 Sodium 142 mmol/L (136-145) 09/11/23 19:43 Potassium 3.9 mmol/L (3.5-5.1) 09/11/23 19:43 Chloride 106 mmol/L (98-107) 09/11/23 19:43 Carbon Dioxide 27 mmol/L (22-29) 09/11/23 19:43 Anion Gap 12.9 (5-19) 09/11/23 19:43 BUN 25 mg/dL (8-23) H 09/11/23 19:43 Creatinine 1.5 mg/dL (0.5-0.9) H 09/11/23 19:43 GFR Calculation Not Reportable 09/11/23 19:43 Glucose 109 mg/dL (65-115) 09/11/23 19:43 Calculated Osmolality 299 mOsm/kg (285-295) H 09/11/23 19:43 Calcium 8.9 mg/dL (8.5-10.5) 09/11/23 19:43 Magnesium 1.8 mg/dL (1.7-2.3) 09/11/23 19:43 Total Bilirubin 0.2 mg/dL (0.15-1.2) 09/11/23 19:43 AST 22 U/L (0-32) 09/11/23 19:43 ALT 12 U/L (0-33) 09/11/23 19:43 Alkaline Phosphatase 148 U/L (35-105) H 09/11/23 19:43 NT-Pro-B Natriuret Pep 691 pg/mL (0-125) H 09/11/23 19:43 Total Protein 6.3 g/dL (6.6-8.7) L 09/11/23 19:43 Albumin 3.3 g/dL (3.5-5.2) L 09/11/23 19:43 Globulin 3.0 g/dL (1.3-4.6) 09/11/23 19:43 TSH 3.39 uIU/mL (0.27-4.20) 09/12/23 Unknown Urine Color Dark yellow (Yellow) 09/11/23 19:38 Urine Appearance Clear (CLEAR) 09/11/23 19:38 Urine pH 5 (5-7) 09/11/23 19:38 Ur Specific [place] 1.020 (1.005-1.030) 09/11/23 19:38 Urine Protein Neg (Negative) 09/11/23 19:38 Urine Glucose (UA) Norm (Normal) 09/11/23 19:38 Urine Ketones Negative (Negative) 09/11/23 19:38 Urine Blood Neg (Negative) 09/11/23 19:38 Urine Nitrate Negative (Negative) 09/11/23 19:38 Urine Bilirubin Neg (Negative) 09/11/23 19:38 Urine Urobilinogen Norm mg/dL (Negative) 09/11/23 19:38 Ur Leukocyte Esterase Negative (Negative) 09/11/23 19:38 Salicylates 2.8 mg/dL (3-10) L 09/11/23 19:43 Urine Opiates Screen Positive ng/mL (Negative) H 09/11/23 19:38 Acetaminophen < 5.0 ug/mL (10-30) L 09/11/23 19:43 Ur Barbiturates Screen Negative ng/mL (Negative) 09/11/23 19:38 Ur Phencyclidine Scrn Negative ng/mL (Negative) 09/11/23 19:38 Ur Amphetamines Screen Negative ng/mL (Negative) 09/11/23 19:38 U Benzodiazepines Scrn Positive ng/mL (Negative) H 02/24/24 19:38 Urine Cocaine Screen Negative ng/mL (Negative) 09/11/23 19:38 U Marijuana (THC) Screen Negative ng/mL (Negative) 09/11/23 19:38 Ethyl Alcohol < 10 mg/dL (0-10) 09/11/23 19:43 Influenza Type A Ag negative (Negative) 09/11/23 19:29 Influenza Type B Ag negative (Negative) 09/11/23 19:29 RSV Antigen Negative (Negative) 09/12/23 00:49 SARS-CoV-2 Ag (Rapid) negative (Negative) 09/11/23 19:29 All radiology interpretation(s) finalized by discharge EKG Data EKG 1: I personally reviewed and interpreted this EKG as follows: EKG interpretation date: 09/11/23 EKG interpretation time: 19:28 Prior EKG tracings: not available for review Interpretation: Ventricular rate 63 bpm, NE interval 160, QRS duration 90, QTc 413, normal sinus rhythm Discharge Plan Discharge Patient Disposition: Home Clinical Impression: Bereavement, At risk for polypharmacy Condition: Stable Prescriptions: No Action montelukast [Singulair] 10 mg tablet 10 mg PO DAILY metoprolol tartrate 25 mg tablet 12.5 mg PO BID duloxetine [Cymbalta] 60 mg capsule,delayed release(DR/EC) 60 mg PO DAILY Hold Instructions: sodium is low. see pcp before resuming Rx Instructions: take with 30mg to =90mg metformin 500 mg tablet 500 mg PO DAILY simvastatin 10 mg tablet 10 mg PO BEDTIME albuterol sulfate [ProAir HFA] 90 mcg/actuation HFA aerosol inhaler 2 puff INHALATION QID PRN (Reason: Shortness Of Breath) pantoprazole [Protonix] 40 mg tablet,delayed release (DR/EC) 40 mg PO BID Lasix 20 mg tablet 20 mg PO DAILY hydrocodone-acetaminophen 10-325 mg tablet 1 tab PO Q4H MDD 4 tabs PRN (Reason: Pain) oxybutynin chloride 10 mg tablet extended release 24hr 10 mg PO BEDTIME bupropion HCl 100 mg tablet sustained-release 12 hr 100 mg PO BID multivitamin with minerals [Hair,Skin and Nails] Tablet 1 tab PO DAILY docusate sodium 100 mg tablet 100 mg PO BID PRN (Reason: Constipation) lorazepam 0.5 mg tablet 0.5 mg PO TID PRN (Reason: Anxiety) buspirone 10 mg tablet 10 mg PO BID ondansetron 4 mg tablet,disintegrating 4 mg PO BID PRN (Reason: Nausea) gabapentin 600 mg tablet See Rx Instructions .ROUTE .COMPLEX Rx Instructions: TAKE ONE TABLET (600mg) BY MOUTH IN THE MORNING TAKE ONE TABLET (600mg) at NOON and TAKE TWO TABLETS (1200mg) AT BEDTIME magnesium oxide 400 mg magnesium capsule 400 mg PO BID Qty: 20 0RF levothyroxine 88 mcg tablet 88 mcg PO QAM meclizine 25 mg tablet 25 mg PO TID albuterol sulfate 2.5 mg /3 mL (0.083 %) solution for nebulization 2.5 mg inhalation Q8H PRN (Reason: Shortness Of Breath) clotrimazole [Antifungal (clotrimazole)] 1 % cream 1 applic TOPICAL BID PRN (Reason: unknown) multivit with min-folic acid [Multivitamin Gummies] 200 mcg Tablet,Chewable 2 tab PO DAILY cilostazol 50 mg tablet 50 mg PO BID lisinopril 20 mg tablet 10 mg PO DAILY risperidone 0.25 mg tablet 0.25 mg PO BEDTIME famotidine 20 mg tablet 20 mg PO BID amitriptyline 25 mg tablet 25 mg PO BEDTIME FeroSul 325 mg (65 mg iron) tablet 325 mg PO DAILY Eliquis 5 mg tablet 5 mg PO BID Trelegy Ellipta 100-62.5-25 mcg blister with device 1 inh INHALATION DAILY Discharge Orders: Discharge ED (Routine); Ordered 09/13/23 Ordered By: Rhett Wild Referrals: Chantal Hernandez FNP [Primary Care Provider] - 1-3 days Patient Instructions: Depression in Older Adults (ED) Activity Restrictions/Additional Instructions: We have contacted every geriatric psychiatry facility in the [facility]. None of them have accepted you as a patient for various reasons including concomitant health problems and perceived lack of need of inpatient care. Our psychiatrist has evaluated you, and determined that you may indeed make medical decisions. As you wish to go home, you will be allowed discharge. It is suggested that you discontinue medications including all psychiatric and sedative medications, pain medication, etc. You should stay on any antihypertensives such as metoprolol and lisinopril. You should stay on your thyroid medication. You may essentially discontinue all other medications. Follow-up with your doctor this week to discuss any further medicine changes. As always feel free to return for any concerning symptoms. Coding Level of Care Code ED Digital Account Executive for Chg Fwd Documented by User: Rhett Wild DO 09/13/23 20:12 HPI - Psych 2 General: Chief Complaint: Psychiatric Symptoms Stated Complaint: 96 hold, MHE Time Seen by Provider: 09/11/23 19:09 PFSH ED 2 PFSH: Medical History Hypothyroidism GERD (gastroesophageal reflux disease) Osteoarthritis Anxiety and depression History of cardiac arrest Had 3 episodes of cardiac arrest due to complications from her gastric bypass surgery back in the with obviously successful resuscitation Coronary artery disease Diastolic heart failure Dyslipidemia Benign essential HTN COPD (chronic obstructive pulmonary disease) Chronic cystitis Vertigo Peripheral Vascular Disease Hypertension Diabetes Surgical History History of gastric bypass (1988) S/P cholecystectomy S/P appendectomy S/P hysterectomy S/P CABG (coronary artery bypass graft) Family History Mother , AT 78 Cancer BREAST AND SPINE Grandmother Cancer Father , AT 62 Heart attack Daughter CAD (coronary artery disease) Other Hypertension Social History Smoking and tobacco/nicotine status: former use of tobacco/nicotine Quit status (tobacco/nicotine): has quit using Year quit tobacco: 1985 Former quit date comment: 2 ppd X 25 years, Started at age 14 Alcohol intake: never Substance/Drug Use: never Lives independently: Yes Housing: House Marital status: / Current occupational status: disabled Course 2 Vital Signs: Vital signs: Vital Signs Temperature 98.3 F 09/12/23 14:40 Pulse Rate 86 09/13/23 08:16 Respiratory Rate 15 09/12/23 14:40 Blood Pressure 148/107 09/13/23 08:16 Pulse Oximetry 98 09/13/23 08:16 Oxygen Delivery Me thod Room Air 09/13/23 08:16 Oxygen Flow Rate 3 09/13/23 00:49 [facility] - Psych Medical Decision Making 73-year-old female who has been here for a little over 24 hours now. Medically, she has been stable. Multiple facilities have been called regarding the above complaints. Essentially all facilities have declined to take the patient, either due to concurrent medical problems, filled facilities, or apparent lack of acuity. Medically she remains quite stable here. She has not been violent or abrasive here. She shows no sign of decompensation healthwise. Our psychiatry physician on-call was consulted earlier in the day, and is coming by to see the patient. 09/13/2023 0602: Our on-call psychiatrist evaluated the patient last night. The patient was awake, alert, and conversant with the psychiatrist. She appeared fully awake, alert, and oriented to her situation. She described in great detail events leading to her arriving in our emergency department. It is our psychiatrist's opinion that this lady is of sound enough mind to make medical decisions for herself. She would like to leave and go home. She notes that her actual home was in [place], though a lot of her belongings were removed to her daughter's property. Since we have not been successful in placing this patient in any geriatric psychiatry facility in the state due to the above, our psychiatrist has documented her ability to make medical decisions, we are forced to discharge this patient. Of note, polypharmacy is likely an issue in this patient. It is recommended that most of her medication, save antihypertensives and Eliquis as other medications including bupropion, buspirone, oxybutynin, risperidone, Zofran, meclizine, lorazepam, and hydrocodone could be playing a role. Dr. Baires did recommend that in cases of more aggressive behavior at night, 2.5 mg of nightly Zyprexa could be used. Lab Data 09/11/23 19:43 09/11/23 19:43 Radiology Impressions Chest X-Ray 09/11/23 19:16 IMPRESSION: Low lung volumes. Mild cardiac silhouette enlargement and mild vascular congestion , without overt interstitial edema. Head CT 09/12/23 03:19 IMPRESSION: No acute intracranial abnormality. Laboratory Results WBC 6.03 10^3/uL (3.29-11.43) 09/11/23 19:43 RBC 3.75 10^6/uL (3.85-5.65) L 09/11/23 19:43 Hgb 10.70 g/dL (11.27-16.99) L 09/11/23 19:43 Hct 35.1 % (36-47) L 09/11/23 19:43 MCV 93.6 fl (85-98) 09/11/23 19:43 MCH 28.5 pg (27-33) 09/11/23 19:43 MCHC 30.5 g/dL (30-55) 09/11/23 19:43 RDW 15.9 % (12.1-15.1) H 09/11/23 19:43 Plt Count 270 10^3/cmm (157-399) 09/11/23 19:43 MPV 9.2 fL (7.4-10.4) 09/11/23 19:43 Neut % (Auto) 61.8 % 09/11/23 19:43 Lymph % (Auto) 21.1 % 09/11/23 19:43 [place] % (Auto) 8.0 % 09/11/23 19:43 Eos % (Auto) 7.6 % 09/11/23 19:43 Baso % (Auto) 1.3 % 09/11/23 19:43 Neut # (Auto) 3.73 10^3/uL (1.8-7.7) 09/11/23 19:43 Lymph # (Auto) 1.3 10^3/uL (0.8-4.8) 09/11/23 19:43 [place] # (Auto) 0.5 10^3/uL (0.2-0.9) 09/11/23 19:43 Eos # (Auto) 0.5 10^3/uL (0.0-0.8) 09/11/23 19:43 Baso # (Auto) 0.1 10^3/uL (0.0-0.1) 09/11/23 19:43 Nucleated RBC % (auto) 0 % 09/11/23 19:43 Nucleated RBCs # 0.0 /100WBC 09/11/23 19:43 Sodium 142 mmol/L (136-145) 09/11/23 19:43 Potassium 3.9 mmol/L (3.5-5.1) 09/11/23 19:43 Chloride 106 mmol/L (98-107) 09/11/23 19:43 Carbon Dioxide 27 mmol/L (22-29) 09/11/23 19:43 Anion Gap 12.9 (5-19) 09/11/23 19:43 BUN 25 mg/dL (8-23) H 09/11/23 19:43 Creatinine 1.5 mg/dL (0.5-0.9) H 09/11/23 19:43 GFR Calculation Not Reportable 09/11/23 19:43 Glucose 109 mg/dL (65-115) 09/11/23 19:43 Calculated Osmolality 299 mOsm/kg (285-295) H 09/11/23 19:43 Calcium 8.9 mg/dL (8.5-10.5) 09/11/23 19:43 Magnesium 1.8 mg/dL (1.7-2.3) 09/11/23 19:43 Total Bilirubin 0.2 mg/dL (0.15-1.2) 09/11/23 19:43 AST 22 U/L (0-32) 09/11/23 19:43 ALT 12 U/L (0-33) 09/11/23 19:43 Alkaline Phosphatase 148 U/L (35-105) H 09/11/23 19:43 NT-Pro-B Natriuret Pep 691 pg/mL (0-125) H 09/11/23 19:43 Total Protein 6.3 g/dL (6.6-8.7) L 09/11/23 19:43 Albumin 3.3 g/dL (3.5-5.2) L 09/11/23 19:43 Globulin 3.0 g/dL (1.3-4.6) 09/11/23 19:43 TSH 3.39 uIU/mL (0.27-4.20) 09/12/23 Unknown Urine Color Dark yellow (Yellow) 09/11/23 19:38 Urine Appearance Clear (CLEAR) 09/11/23 19:38 Urine pH 5 (5-7) 09/11/23 19:38 Ur Specific [place] 1.020 (1.005-1.030) 09/11/23 19:38 Urine Protein Neg (Negative) 09/11/23 19:38 Urine Glucose (UA) Norm (Normal) 09/11/23 19:38 Urine Ketones Negative (Negative) 09/11/23 19:38 Urine Blood Neg (Negative) 09/11/23 19:38 Urine Nitrate Negative (Negative) 09/11/23 19:38 Urine Bilirubin Neg (Negative) 09/11/23 19:38 Urine Urobilinogen Norm mg/dL (Negative) 09/11/23 19:38 Ur Leukocyte Esterase Negative (Negative) 09/11/23 19:38 Salicylates 2.8 mg/dL (3-10) L 09/11/23 19:43 Urine Opiates Screen Positive ng/mL (Negative) H 09/11/23 19:38 Acetaminophen < 5.0 ug/mL (10-30) L 09/11/23 19:43 Ur Barbiturates Screen Negative ng/mL (Negative) 09/11/23 19:38 Ur Phencyclidine Scrn Negative ng/mL (Negative) 09/11/23 19:38 Ur Amphetamines Screen Negative ng/mL (Negative) 09/11/23 19:38 U Benzodiazepines Scrn Positive ng/mL (Negative) H 09/11/23 19:38 Urine Cocaine Screen Negative ng/mL (Negative) 09/11/23 19:38 U Marijuana (THC) Screen Negative ng/mL (Negative) 09/11/23 19:38 Ethyl Alcohol < 10 mg/dL (0-10) 09/11/23 19:43 Influenza Type A Ag negative (Negative) 09/11/23 19:29 Influenza Type B Ag negative (Negative) 09/11/23 19:29 RSV Antigen Negative (Negative) 09/12/23 00:49 SARS-CoV-2 Ag (Rapid) negative (Negative) 09/11/23 19:29 Discharge Plan Discharge Patient Disposition: Home Clinical Impression: Bereavement, At risk for polypharmacy Condition: Stable Prescriptions: No Action montelukast [Singulair] 10 mg tablet 10 mg PO DAILY metoprolol tartrate 25 mg tablet 12.5 mg PO BID duloxetine [Cymbalta] 60 mg capsule,delayed release(DR/EC) 60 mg PO DAILY Hold Instructions: sodium is low. see pcp before resuming Rx Instructions: take with 30mg to =90mg metformin 500 mg tablet 500 mg PO DAILY simvastatin 10 mg tablet 10 mg PO BEDTIME albuterol sulfate [ProAir HFA] 90 mcg/actuation HFA aerosol inhaler 2 puff INHALATION QID PRN (Reason: Shortness Of Breath) pantoprazole [Protonix] 40 mg tablet,delayed release (DR/EC) 40 mg PO BID Lasix 20 mg tablet 20 mg PO DAILY hydrocodone-acetaminophen 10-325 mg tablet 1 tab PO Q4H MDD 4 tabs PRN (Reason: Pain) oxybutynin chloride 10 mg tablet extended release 24hr 10 mg PO BEDTIME bupropion HCl 100 mg tablet sustained-release 12 hr 100 mg PO BID multivitamin with minerals [Hair,Skin and Nails] Tablet 1 tab PO DAILY docusate sodium 100 mg tablet 100 mg PO BID PRN (Reason: Constipation) lorazepam 0.5 mg tablet 0.5 mg PO TID PRN (Reason: Anxiety) buspirone 10 mg tablet 10 mg PO BID ondansetron 4 mg tablet,disintegrating 4 mg PO BID PRN (Reason: Nausea) gabapentin 600 mg tablet See Rx Instructions .ROUTE .COMPLEX Rx Instructions: TAKE ONE TABLET (600mg) BY MOUTH IN THE MORNING TAKE ONE TABLET (600mg) at NOON and TAKE TWO TABLETS (1200mg) AT BEDTIME magnesium oxide 400 mg magnesium capsule 400 mg PO BID Qty: 20 0RF levothyroxine 88 mcg tablet 88 mcg PO QAM meclizine 25 mg tablet 25 mg PO TID albuterol sulfate 2.5 mg /3 mL (0.083 %) solution for nebulization 2.5 mg inhalation Q8H PRN (Reason: Shortness Of Breath) clotrimazole [Antifungal (clotrimazole)] 1 % cream 1 applic TOPICAL BID PRN (Reason: unknown) multivit with min-folic acid [Multivitamin Gummies] 200 mcg Tablet,Chewable 2 tab PO DAILY cilostazol 50 mg tablet 50 mg PO BID lisinopril 20 mg tablet 10 mg PO DAILY risperidone 0.25 mg tablet 0.25 mg PO BEDTIME famotidine 20 mg tablet 20 mg PO BID amitriptyline 25 mg tablet 25 mg PO BEDTIME FeroSul 325 mg (65 mg iron) tablet 325 mg PO DAILY Eliquis 5 mg tablet 5 mg PO BID Anjel [place] 100-62.5-25 mcg blister with device 1 inh INHALATION DAILY Discharge Orders: Discharge ED (Routine); Ordered 09/13/23 Ordered By: Rhett Wild Referrals: Chantal Hernandez FNP [Primary Care Provider] - 1-3 days Patient Instructions: Depression in Older Adults (ED) Activity Restrictions/Additional Instructions: We have contacted every geriatric psychiatry facility in the state. None of them have accepted you as a patient for various reasons including concomitant health problems and perceived lack of need of inpatient care. Our psychiatrist has evaluated you, and determined that you may indeed make medical decisions. As you wish to go home, you will be allowed discharge. It is suggested that you discontinue medications including all psychiatric and sedative medications, pain medication, etc. You should stay on any antihypertensives such as metoprolol and lisinopril. You should stay on your thyroid medication. You may essentially discontinue all other medications. Follow-up with your doctor this week to discuss any further medicine changes. As always feel free to return for any concerning symptoms. Coding Level of Care Code ED Digital Account Executive for Gio Gonzalez
[2023-09-11 19:47] LABS: Add Urine Microscopic? NO; Charge for UA Resulting for Rev
[2023-09-11 19:53] LABS: Basophils # 0.1 10^3/uL (0.0-0.1); Basophils % 1.3 %; Eosinophils # 0.5 10^3/uL (0.0-0.8); Eosinophils % 7.6 %; Hematocrit 35.1 % (36-47); Lymphocytes # 1.3 10^3/uL (0.8-4.8); Lymphocytes % 21.1 %; Mean Corpuscular HGB Conc 30.5 g/dL (30-55); Mean Corpuscular Hemoglobin 28.5 pg (27-33); Mean Corpuscular Volume 93.6 fl (85-98); Mean Platelet Volume 9.2 fL (7.4-10.4); Monocytes # 0.5 10^3/uL (0.2-0.9); Neutrophils # 3.73 10^3/uL (1.8-7.7); Neutrophils % 61.8 %; Nucleated Red Blood Cells % 0 %; Platelet Count 270 10^3/cmm (157-399); Red Blood Count 3.75 10^6/uL (3.85-5.65); Red Cell Distribution Width 15.9 % (12.1-15.1); White Blood Count 6.03 10^3/uL (3.29-11.43)
[2023-09-11 19:54] LABS: Bilirubin Urine Neg (Negative); Blood Urine Neg (Negative); Glucose Urine UA Norm (Normal); Ketones Urine Negative (Negative); Leukocyte Esterase Urine Negative (Negative); Nitrate Urine Negative (Negative); Protein Urine Neg (Negative); Urine Appearance Clear (CLEAR); Urine Color Dark Yellow (Yellow); Urobilinogen Urine Norm (Negative); pH Urine 5 (5-7)
[2023-09-11 20:00] LABS: Amphetamines Screen Urine Negative (Negative); Barbiturates Screen Urine Negative (Negative); Benzodiazepines Screen Urine Positive (Negative); Cocaine Screen Urine Negative (Negative); Opiate Screen Urine Positive (Negative); PCP Screen Urine Negative (Negative); THC Screen Urine Negative (Negative)
[2023-09-11 20:07] LABS: Influenza A by IFA negative (Negative); Influenza B by IFA negative (Negative); SARS Covid-2 Antigen negative (Negative)
[2023-09-11 20:27] LABS: Acetaminophen < 5.0 ug/mL (10-30); Alanine Aminotransferase 12 U/L (0-33); Albumin Level 3.3 g/dL (3.5-5.2); Alcohol Level < 10 mg/dL (0-10); Alkaline Phosphatase 148 U/L (35-105); Anion Gap 12.9 (5-19); Aspartate Amino Transferase 22 U/L (0-32); Blood Urea Nitrogen 25 mg/dL (8-23); Calcium 8.9 mg/dL (8.5-10.5); Carbon Dioxide 27 mmol/L (22-29); Chloride 106 mmol/L (98-107); Creatinine Clr Calc Pharmacy 33.9725; Glucose 109 mg/dL (65-115); Magnesium 1.8 mg/dL (1.7-2.3); NT Pro B Type Natriuretic Pept 691 pg/mL (0-125); Osmolality Calculated 299 mOsm/kg (285-295); Potassium 3.9 mmol/L (3.5-5.1); Salicylate 2.8 mg/dL (3-10); Sodium 142 mmol/L (136-145); Thyroid Stimulating Hormone 3.19 uIU/mL (0.27-4.20); Total Bilirubin 0.2 mg/dL (0.15-1.2); Total Protein 6.3 g/dL (6.6-8.7)
[2023-09-11 23:05] VITALS: BP 128/80; PULSE 75; RESP 17; O2SAT 100
[2023-09-12] VITALS: BP 147/99; PULSE 56; RESP 16; O2SAT 100
[2023-09-12 01:00] VITALS: BP 122/63; PULSE 67; RESP 17; O2SAT 99
[2023-09-12 01:07] LABS: Thyroid Stimulating Hormone 3.39 uIU/mL (0.27-4.20)
[2023-09-12 01:42] LABS: RSV Transfer Patient (ED) Negative (Negative)
--- NOTE | 2023-09-12 03:19 | CTR_ITS ---
PROCEDURE INFORMATION: Exam: CT Head Without Contrast Exam date and time: 09/12/2023 3:36 AM Age: 73 years old Clinical indication: Injury or trauma; Blunt trauma (contusions or hematomas); Altered mental status/memory loss; Confusion or disorientation; Patient HX: EMS arrival for 96 hour hold. Reported recent fall. Patient has contusion to mandibular symphysis. History of dementia. ; Additional info: AMS fall TECHNIQUE: Imaging protocol: Computed tomography of the head without contrast. Radiation optimization: All CT scans at this facility use at least one of these dose optimization techniques: automated exposure control; mA and/or kV adjustment per patient size (includes targeted exams where dose is matched to clinical indication); or iterative reconstruction. COMPARISON: CT head wo con* [id number] 08/13/2023 4:48 AM RADIATION DOSE METRICS: Total DLP (mGy-cm): 961.68 FINDINGS: Brain: There is no evidence of acute parenchymal hemorrhage, extra-axial collection, or acute infarction. There is no mass effect, midline shift, or downward herniation. Cerebral ventricles: No ventriculomegaly. Paranasal sinuses: Visualized sinuses are unremarkable. No fluid levels. Mastoid air cells: Visualized mastoid air cells are well aerated. Bones/joints: Unremarkable. No acute fracture. Soft tissues: Unremarkable. CT/CT head wo con* [id number] IMPRESSION: No acute intracranial abnormality.
[2023-09-12] MEDS: HYDROcodone-acetaminophen 5-325 mg Tablet 1 TAB PO (05:47)
[2023-09-12 05:48] VITALS: PULSE 88; RESP 20; O2SAT 94
--- NOTE | 2023-09-12 05:49 | PC.NURSE ---
Pt. woke this morning complaining of low back pain and asked for hydrocodone. Pt. given hydrocodone and was very grateful and polite
[2023-09-12 14:40] VITALS: BP 128/93; PULSE 70; RESP 15; TEMP 36.8; O2SAT 100
--- NOTE | 2023-09-12 14:55 | PC.NURSE ---
This writer editor assumed care of this pt. Pt is resting with eyes closed, even breathing, but wakes easily and is cooperative. Currently we are waiting for family to bring in the DPOA for [facility]icoel-psych placement. Will continue with plan of care.
--- NOTE | 2023-09-12 19:27 | PC.NURSE ---
dr vargas this nurse spoke with dr. choi about a previous consult and dr vargas affirmed he had been contacted and would see the pt.
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
[2023-09-12] MEDS: LORazepam 1 mg Tablet PO (23:44)
[2023-09-13 00:49] VITALS: BP 123/73; PULSE 85; O2SAT 100
[2023-09-13] MEDS: HYDROcodone-acetaminophen 10-325 mg Tablet 1 TAB PO (00:52)
[2023-09-13 08:16] VITALS: BP 148/107; PULSE 86; O2SAT 98
--- NOTE | 2023-09-13 09:28 | PC.NURSE ---
pt family was called to come last picker for discharge. Pt daughter did not answer and voicemail was left. Second contact number was attempted but states it is disconnected.
--- NOTE | 2023-09-13 09:55 | PC.NURSE ---
pt phone was used to find Juan [facility] of [facility]. Juan states he will contact [facility] to have her call here. Juan was madde aware that pt has been discharged and needs to be picked up.
--- NOTE | 2023-09-13 10:30 | PC.NURSE ---
spoke with pt daughter Tucker. Tucker reports she is trying to get pt placed in a correction and needs a referral from the hospital. Family educated on referrals for nursing homes and that this is considered an ER visit. Pt daughter states she will be here in 30 minutes for pickup.
== END 2023-09-13 11:35 | disposition home or self-care (01) ==
PROVIDERS: Emergency Medicine; Emergency Provider Emergency Medicine; PCP Nurse Practitioner Family
DX: Z63.4 Disappearance and death of family member (principal); Z79.01 Long term (current) use of anticoagulants; Z79.84 Long term (current) use of oral hypoglycemic drugs; Z11.52 Encounter for screening for COVID-19; Z87.891 Personal history of nicotine dependence; I25.10 Atherosclerotic heart disease of native coronary artery without angina pectoris; I11.0 Hypertensive heart disease with heart failure; I50.30 Unspecified diastolic (congestive) heart failure; E78.5 Hyperlipidemia, unspecified; J44.9 Chronic obstructive pulmonary disease, unspecified; E11.9 Type 2 diabetes mellitus without complications; Z95.1 Presence of aortocoronary bypass graft
CPT/HCPCS: 36415; 70450; 71045; 80053; 80306; 80307; 81003; 83735; 83880; 84443; 85025; 87426; 87804; 87899; 93005; 99285